=== PATIENT | female | born 1950 | race Caucasian/White ===

== ENCOUNTER → 2020-10-09 13:40 | Outpatient (BNVA) | payer MEDICARE, SELFPAY | PROVIDERS: PCP Internal Medicine; Visit Provider Urology | DX: N39.41 Urge incontinence (principal); R35.0 Frequency of micturition | CPT/HCPCS: 51798; 81002; 99212 ==

== ENCOUNTER 2020-11-11 11:53 | Outpatient (REF) | payer MEDICARE, SELFPAY ==
[2020-11-11 13:57] LABS: MANUAL DIFF FLAG NO
[2020-11-11 14:16] LABS: Basophils Percent Auto 0.6 % (0-2); Eosinophils Absolute Auto 0.4 X10*3/uL (0.0-0.4); Eosinophils Percent Auto 7.6 % (0-4); Hematocrit 43.7 % (37-47); Hemoglobin 14.8 g/dl (12.0-16.0); Imm Gran Abs Auto 0.01 X10*3/uL (0.00-0.03); Imm Gran Pct Auto 0.2 % (0.0-0.4); Lymphocytes Absolute Auto 1.5 X10*3/uL (1.2-4.9); Lymphocytes Percent Auto 31.2 % (20-40); Mean Corpuscular HGB Conc 33.9 g/dl (31.0-35.0); Mean Corpuscular Hemoglobin 33.6 pg (27.0-33.0); Mean Corpuscular Volume 99.1 fL (80-98); Mean Platelet Volume 10.7 fL (9.4-12.3); Monocytes Absolute Auto 0.3 X10*3/uL (0.1-1.2); Monocytes Percent Auto 5.7 % (2-11); Neutrophils Absolute Auto 2.6 X10*3/uL (2.0-8.3); Neutrophils Percent Auto 54.7 % (45-73); Platelet Count 228 X10*3/uL (160-400); Red Blood Count 4.41 X10*6/uL (4.20-5.50); Red Cell Distribution Width 12.2 % (11.0-16.0); White Blood Count 4.8 X10*3/uL (4.8-10.8)
[2020-11-11 14:51] LABS: Alanine Aminotransferase 26 U/L (0-31); Alkaline Phosphatase 89 U/L (39-117); Aspartate Amino Transferase 24 U/L (5-31); Bilirubin Total 0.6 mg/dL (0.0-1.0); Blood Urea Nitrogen 17 mg/dL (9-16); Calcium 8.9 mg/dL (8.4-10.2); Cholesterol 158 mg/dL; Estimated Glomerular Filt Rate > 60; Glucose Fasting 86 mg/dL (60-99); HDL Cholesterol 63 mg/dL; LDL Cholesterol Calculated 84 mg/dl; Total Protein 6.6 g/dL (6.5-8.0); Triglycerides 55 mg/dL
[2020-11-11 15:11] LABS: Anion Gap 10 (12-20); Carbon Dioxide 29 mmol/L (22-29); Chloride 106 mmol/L (96-108); Potassium 4.2 mmol/L (3.3-5.1); Sodium 141 mmol/L (135-145)
== END 2020-11-11 11:54 | disposition home or self-care (01) ==
LOC: HO.10HDL 11:53
PROVIDERS: Visit Provider Internal Medicine
DX: I10 Essential (primary) hypertension (principal); E78.00 Pure hypercholesterolemia, unspecified; K21.9 Gastro-esophageal reflux disease without esophagitis; Z86.73 Personal history of transient ischemic attack (TIA), and cerebral infarction without residual deficits
CPT/HCPCS: 36415; 80053; 80061; 85025

== ENCOUNTER 2021-02-01 17:52 | Outpatient (REF) | payer MEDICARE, SELFPAY ==
--- NOTE | ~2021-02-01 | XR_ITS ---
EXAMINATION: XR HAND, LEFT CLINICAL INFORMATION: Pain left hand. COMPARISON: None. TECHNIQUE: PA, lateral, and oblique views of the left hand. FINDINGS: There is loss of PIP and DIP joint spaces with maintained MCP joint space. There is dorsal subluxation of PIP joint 3rd digit with a small avulsion fracture fragment at the base of mid phalanx PIP joint. Mild prominent soft tissue swelling seen at PIP joints. There is mild flexion deformities of MCP joints 2nd through 5th digits. XR/XR hand LT min 3V IMPRESSION: Dorsal subluxation PIP joint 3rd digit with likely small avulsion fracture fragment base middle phalanx at the PIP joint 3rd digit. Mild degenerative changes seen throughout PIP and DIP joints. There is mild flexion deformities of MCP joints 2nd through 5th digits.
== END 2021-02-01 17:53 | disposition home or self-care (01) ==
LOC: HO.HOSX 17:52
PROVIDERS: Visit Provider Orthopaedic Surgery
DX: M79.642 Pain in left hand (principal); S62.623A Displaced fracture of middle phalanx of left middle finger, initial encounter for closed fracture; S63.283A Dislocation of proximal interphalangeal joint of left middle finger, initial encounter; X58.XXXA Exposure to other specified factors, initial encounter; Y93.9 Activity, unspecified; Y92.9 Unspecified place or not applicable; Y99.9 Unspecified external cause status
CPT/HCPCS: 73130

== ENCOUNTER 2021-02-02 08:33 | Outpatient (REF) | payer MEDICARE, BC, SELFPAY ==
--- NOTE | ~2021-02-02 | XR_ITS ---
EXAMINATION: XR SHOULDER, RIGHT CLINICAL INFORMATION: Right shoulder pain. COMPARISON: None. TECHNIQUE: AP external rotation, Grashey, scapular Y, and axillary views of the right shoulder. FINDINGS: There is normal alignment of glenohumeral joint with minimal loss of joint space. No visible fracture, loose bodies or bony erosive changes seen. Mild hypertrophic changes along the right AC joint is noted. There is no soft tissue calcification. XR/XR shoulder RT min 2V IMPRESSION: Mild degenerative changes right glenohumeral and AC joint. No visible acute fracture, dislocation or lytic process seen.
== END 2021-02-02 08:34 | disposition home or self-care (01) ==
LOC: HO.XRAY 08:33
PROVIDERS: Absent Provider Internal Medicine; PCP Internal Medicine; Visit Provider Orthopaedic Surgery
DX: S63.283A Dislocation of proximal interphalangeal joint of left middle finger, initial encounter (principal); S62.623A Displaced fracture of middle phalanx of left middle finger, initial encounter for closed fracture; M25.511 Pain in right shoulder; Z91.81 History of falling
CPT/HCPCS: 26770; 73030; 99202

== ENCOUNTER 2021-02-23 08:03 | Outpatient (REF) | payer MEDICARE, BC, SELFPAY ==
--- NOTE | ~2021-02-23 | XR_ITS ---
EXAMINATION: XR HAND, LEFT CLINICAL INFORMATION: Pain COMPARISON: Previous x-ray 02/02/2021 TECHNIQUE: PA, lateral, and oblique views of the left hand. FINDINGS: There is a fracture of the middle phalanx of the third finger intra-articular with the PIP joint. There is dorsal dislocation of the middle phalanx with respect to the proximal phalanx at the PIP joint. This is similar to previous exam. There are contractures of the third fourth and fifth fingers. There is a flexion at the IP joint of the thumb. There is soft tissue swelling adjacent to the PIP joint of the third finger. XR/XR hand LT min 3V IMPRESSION: Fracture dislocation of the PIP joint of the third finger. This is similar to previous x-ray 02/02/2021.
== END 2021-02-23 08:04 | disposition home or self-care (01) ==
LOC: HO.HOSX 08:03
PROVIDERS: Visit Provider Orthopaedic Surgery
DX: S62.623A Displaced fracture of middle phalanx of left middle finger, initial encounter for closed fracture (principal); S63.283A Dislocation of proximal interphalangeal joint of left middle finger, initial encounter; I69.998 Other sequelae following unspecified cerebrovascular disease; X58.XXXA Exposure to other specified factors, initial encounter; Y93.9 Activity, unspecified; Y92.9 Unspecified place or not applicable; Y99.9 Unspecified external cause status
CPT/HCPCS: 73130; 99212

== ENCOUNTER 2021-02-26 11:57 | Outpatient (REF) | payer MEDICARE, BC, SELFPAY ==
[2021-02-26 12:41] LABS: MANUAL DIFF FLAG NO
[2021-02-26 12:59] LABS: Basophils Percent Auto 0.5 % (0-2); Eosinophils Absolute Auto 0.3 X10*3/uL (0.0-0.4); Eosinophils Percent Auto 5.8 % (0-4); Hematocrit 43.4 % (37-47); Hemoglobin 14.9 g/dl (12.0-16.0); Imm Gran Abs Auto 0.01 X10*3/uL (0.00-0.03); Imm Gran Pct Auto 0.2 % (0.0-0.4); Lymphocytes Absolute Auto 1.6 X10*3/uL (1.2-4.9); Lymphocytes Percent Auto 28.7 % (20-40); Mean Corpuscular HGB Conc 34.3 g/dl (31.0-35.0); Mean Corpuscular Hemoglobin 34.5 pg (27.0-33.0); Mean Corpuscular Volume 100.5 fL (80-98); Mean Platelet Volume 9.9 fL (9.4-12.3); Monocytes Absolute Auto 0.4 X10*3/uL (0.1-1.2); Monocytes Percent Auto 7.1 % (2-11); Neutrophils Absolute Auto 3.3 X10*3/uL (2.0-8.3); Neutrophils Percent Auto 57.7 % (45-73); Platelet Count 214 X10*3/uL (160-400); Red Blood Count 4.32 X10*6/uL (4.20-5.50); Red Cell Distribution Width 12.2 % (11.0-16.0); White Blood Count 5.7 X10*3/uL (4.8-10.8)
[2021-02-26 13:22] LABS: Alanine Aminotransferase 25 U/L (0-31); Albumin Level 4.3 g/dL (3.5-5.0); Alkaline Phosphatase 91 U/L (39-117); Anion Gap 9 (12-20); Aspartate Amino Transferase 24 U/L (5-31); Bilirubin Total 0.6 mg/dL (0.0-1.0); Blood Urea Nitrogen 18 mg/dL (9-16); Calcium 9.2 mg/dL (8.4-10.2); Carbon Dioxide 31 mmol/L (22-29); Chloride 106 mmol/L (96-108); Estimated Glomerular Filt Rate > 60; Glucose Random 90 mg/dL (60-115); Potassium 3.9 mmol/L (3.3-5.1); Sodium 142 mmol/L (135-145); Total Protein 6.9 g/dL (6.5-8.0)
== END 2021-02-26 11:58 | disposition home or self-care (01) ==
LOC: HO.LAB 11:57
PROVIDERS: PCP Internal Medicine; Visit Provider Internal Medicine
DX: Z01.818 Encounter for other preprocedural examination (principal); I10 Essential (primary) hypertension; E78.00 Pure hypercholesterolemia, unspecified; Z86.73 Personal history of transient ischemic attack (TIA), and cerebral infarction without residual deficits
CPT/HCPCS: 36415; 80053; 85025

== ENCOUNTER 2021-03-02 10:50 | Day surgery (SDC) | payer MEDICARE, BC, SELFPAY ==
--- NOTE | 2021-03-01 10:43 | HO.ANESPROP2 ---
Documented by User: Melony Barrera 03/01/21 10:48 HPI - Anesthesia Eval Consult details Narrative: 70yo F for Left Middle Finger ORIF vs Closed PIP Joint PMHx updated based on rx list. PMFSH Active Problems Active Problems: All Active Problems (Updated 02/02/21 @ 09:38 by Mera Ross MD) Fracture of middle phalanx of left middle finger (Acute) Dislocation of proximal interphalangeal joint of left middle finger, initial encounter (Acute) Urge incontinence (Acute) Frequency of urination (Acute) Past Medical History Medical History Frequency of urination GERD (gastroesophageal reflux disease) HLD (hyperlipidemia) HTN (hypertension) Urge incontinence Social History Social History Alcohol intake: never Patient Tobacco Use Status: Never used Tobacco Use of substances other than those prescribed or required for medical reasons: No Have you been hit, kicked, punched, or otherwise hurt by someone within the past year? If so, by whom?: No Are you DNR?: No Advance Directives: No Advance Directives Information Provided: Yes Recently lost weight without trying: No Current occupation: right handed. Meds Allergies Allergy/AdvReac Type Severity Reaction Status Date / Time hydrochlorothiazide [HCTZ] Allergy Unknown ITCHING, Verified 02/23/21 08:55 itch Home Medications Medication Instructions Recorded Confirmed Last Taken Type cyclosporine 0.05 % eye drops in a drp OPHTHALMIC (EYE) 10/09/20 Unknown History dropperette amlodipine 5 mg tablet 5 mg PO DAILY 02/02/21 03/02/21 History baclofen 20 mg tablet 20 mg PO TID 02/02/21 03/02/21 History citalopram 10 mg tablet 10 mg PO DAILY 02/02/21 Unknown History estradiol VAGINAL 02/02/21 Unknown History omeprazole 20 mg capsule,delayed 20 mg PO DAILY 02/02/21 03/02/21 History release simvastatin 20 mg tablet 20 mg PO BEDTIME 02/02/21 Unknown History Exam Exam Date and Time: March 01, 2021 1043 Pertinent Lab Results Pertinent Lab Results: Laboratory Tests 02/26/21 02/26/21 12:16 12:16 WBC 5.7 Hgb 14.9 Hct 43.4 Plt Count 214 Sodium 142 Potassium 3.9 Chloride 106 Carbon Dioxide 31 H BUN 18 H Creatinine 0.73 Assessment and Plan Assessment Anesthesia Assessment: Chart Reviewed Documented by User: Elmer Keith 03/02/21 14:49 [facility] Past Medical History Medical History Frequency of urination GERD (gastroesophageal reflux disease) HLD (hyperlipidemia) HTN (hypertension) Urge incontinence Social History Social History Alcohol intake: never Patient Tobacco Use Status: Never used Tobacco Use of substances other than those prescribed or required for medical reasons: No Have you been hit, kicked, punched, or otherwise hurt by someone within the past year? If so, by whom?: No Are you DNR?: No Advance Directives: No Advance Directives Information Provided: Yes Recently lost weight without trying: No Current occupation: right handed. Meds Allergies Allergy/AdvReac Type Severity Reaction Status Date / Time hydrochlorothiazide [HCTZ] Allergy Unknown ITCHING, Verified 02/23/21 08:55 itch Home Medications Medication Instructions Recorded Confirmed Last Taken Type cyclosporine 0.05 % eye drops in a drp OPHTHALMIC (EYE) 10/09/20 Unknown History dropperette amlodipine 5 mg tablet 5 mg PO DAILY 02/02/21 03/02/21 History baclofen 20 mg tablet 20 mg PO TID 02/02/21 03/02/21 History citalopram 10 mg tablet 10 mg PO DAILY 02/02/21 Unknown History estradiol VAGINAL 02/02/21 Unknown History omeprazole 20 mg capsule,delayed 20 mg PO DAILY 02/02/21 03/02/21 History release simvastatin 20 mg tablet 20 mg PO BEDTIME 02/02/21 Unknown History Exam Airway Mallampati Class: III TM Dist: >3cm Neck ROM: Full Loose/Missing/Broken Teeth: No Heart: [id number] Lungs: cta b/l Assessment and Plan Assessment Anesthesia Assessment: Anesthesia Plan Discussed, PAT Visit and Chart Reviewed Final Anesthetic Review NPO: Yes ASA Class: II Final Preanesthetic Review: No Changes in Pt Med Stat, Meds/Allgs Chart Reviewed, Consent Obtained/Reviewed and Anes Risks/Benef Reviewed Patient Risk: Low Procedure Risk: Low Assessment/Block/Sedation in SS: Assess/Block/Sedation-SS Anesthetic Plan Anesthetic Plan: GA and Agree w/ Assess. and Plan Disposition: Standard PACU
--- NOTE | ~2021-03-02 | FL_ITS ---
EXAMINATION: XR FLUOROSCOPY WITH IMAGES CLINICAL INFORMATION: Fracture and dislocation left third finger middle phalanx. COMPARISON: Radiographs left hand 02/23/2021, 02/02/2021 TECHNIQUE: Fluoroscopy performed by Dr. Mera Ross. Fluoroscopy time: 53 seconds. DAP: 24.48 mGycm2 Images: 2 FINDINGS: The third finger middle phalanx fracture and dislocation are reduced with 2 metallic pins. There is normal alignment with no subluxation or dislocation. Fracture fragments are in near-anatomic alignment. There are some old corticated ossifications at the palmar base again noted. FL/FL guidance in OR IMPRESSION: Status post reduction third finger middle phalanx. Fragments are in near-anatomic alignment. No dislocation or subluxation.
[2021-03-02 11:57] VITALS: BP 106/55; PULSE 67; RESP 20; TEMP 36.8; O2SAT 95; BMI 33.9
[2021-03-02] MEDS: Lactated Ringers 1,000 ML 100 ML IVCONT (12:15)
--- NOTE | 2021-03-02 12:58 | MHC.SHP ---
Pre-Procedural Eval Section B Chief Complaint: finger fx Allergies: Allergies Allergy/AdvReac Type Severity Reaction Status Date / Time hydrochlorothiazide [HCTZ] Allergy Unknown ITCHING, Verified 02/23/21 08:55 itch Plan I have reviewed the history and physical and performed a pertinent physical examination on my patient. No changes have occurred unless specified.
--- NOTE | 2021-03-02 12:58 | W.PM.OPN ---
Operative Note Operative Note Date of Service: 03/02/21 Narrative: Operative Note Narrative: Preop diagnosis: 1. 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 Left middle finger PIP joint closed reduction percutaneous pinning Surgeon: Mera Ross MD Anesthesia: Mac plus regional block Implants: 0.045 K-wires x2 Tourniquet time: 0 minutes EBL: 5.0 ml Specimen: None Drains: None Complications: None Disposition: Brought to the recovery room in stable condition Plan: Follow-up in 10-14 days for wound check, postop radiographs and placement in a short-arm splint versus cast Anticipate K-wire removal in 6 weeks . Again patient has involuntary hyper extension of the PIP joints secondary to neurologic changes from her stroke Indications: The patient is a 70 year old woman with a left middle finger recurrent dorsal PIP dislocation in a patient with involuntary PIP joint hyperextension secondary to neurologic changes from her stroke. . The risks and benefits of operative treatment, including but not limited to risk of damage to blood vessels, nerves, tendons, infection, recurrence, persistent pain or numbness, incomplete resolution of preoperative symptoms, or need for further surgery were discussed with the patient and they wished to proceed with surgery. Procedure: Once consent was obtained patient was brought back to the operating suite and placed in the operating table in a supine position. Perioperative antibiotics and anesthesia was administered by the anesthesia team. A tourniquet was applied to the proximal aspect of the left upper extremity and the limb was prepped and draped in a standard surgical fashion. The tourniquet was not inflated. The FluoroScan was used throughout our case to assess our reduction and placement of all implants. I performed a gentle closed reduction of the patient's left middle finger PIP joint. While holding the reduction, I then placed a 0.045 K-wire through the head of the proximal phalanx, across the PIP joint and into the shaft of the middle phalanx. The PIP joint was held in about 45? of flexion. Second 0.045 K-wire was placed similarly through the head of the proximal phalanx, across the PIP joint and into the shaft of the middle phalanx. Once satisfied with our reduction and placement of these K-wires the pins were bent cut short and had pin caps applied. Final radiographs were obtained. A digital block was performed with some 0.25% plain Marcaine for postop pain control and a sterile dressing and volar splint extending from the forearm to the fingertips was applied. The patient appears to have tolerated the procedure well and with no complications. All digits were well vascularized conclusion of the case.
[2021-03-02 16:19] VITALS: BP 173/87; PULSE 65; RESP 12; TEMP 36.7; O2SAT 96
[2021-03-02 16:24] VITALS: BP 167/72; PULSE 60; RESP 16; O2SAT 100
[2021-03-02 16:29] VITALS: BP 162/73; PULSE 57; RESP 16; O2SAT 97
[2021-03-02 16:34] VITALS: BP 161/68; PULSE 59; RESP 16; O2SAT 97
[2021-03-02 16:49] VITALS: BP 168/70; PULSE 59; RESP 18; O2SAT 100
== END 2021-03-02 17:21 | disposition home or self-care (01) ==
PROVIDERS: PCP Internal Medicine; Visit Provider Orthopaedic Surgery
PROC: (CPT 26776; principal; 2021-03-02 14:00)
DX: M24.445 Recurrent dislocation, left finger (principal); I69.398 Other sequelae of cerebral infarction
CPT/HCPCS: 26776; J0690; J2250; J3010

== ENCOUNTER 2021-03-15 09:05 | Outpatient (REF) | payer MEDICARE, BC, SELFPAY ==
--- NOTE | ~2021-03-15 | XR_ITS ---
EXAMINATION: XR HAND, LEFT CLINICAL INFORMATION: Pain COMPARISON: Previous x-rays most recent 03/02/2021 TECHNIQUE: PA, lateral, and oblique views of the left hand. FINDINGS: There are 2 K wires or pins across the proximal PIP joint and middle phalanx of the third finger. The PIP joint of the third finger appears in flexion on all views. The fracture of the middle phalanx intra-articular with the PIP joint is not well appreciated. There is overlying soft tissue swelling. XR/XR hand LT min 3V IMPRESSION: ORIF of a middle phalanx fracture of the right third finger.
== END 2021-03-15 09:06 | disposition home or self-care (01) ==
LOC: HO.HOSX 09:05
PROVIDERS: Visit Provider Orthopaedic Surgery
DX: S62.623D Displaced fracture of middle phalanx of left middle finger, subsequent encounter for fracture with routine healing (principal); X58.XXXD Exposure to other specified factors, subsequent encounter
CPT/HCPCS: 73130; 99212

== ENCOUNTER → 2021-04-14 15:24 | Outpatient (BNVA) | payer MEDICARE, BC, SELFPAY | PROVIDERS: Visit Provider Physician Assistant | DX: Z47.1 Aftercare following joint replacement surgery (principal); I10 Essential (primary) hypertension; E78.5 Hyperlipidemia, unspecified; Z88.8 Allergy status to other drugs, medicaments and biological substances | CPT/HCPCS: 99212 ==

== ENCOUNTER 2021-04-19 11:54 | Outpatient (REF) | payer MEDICARE, BC, SELFPAY | END 2021-04-19 11:55 | disposition home or self-care (01) | LOC: HO.HOSX 11:54 | PROVIDERS: Visit Provider Orthopaedic Surgery | DX: Z13.89 Encounter for screening for other disorder (principal) ==

== ENCOUNTER 2021-04-19 13:01 | Emergency (ER) | payer MEDICARE, BC, SELFPAY ==
--- NOTE | ~2021-04-19 | XR_ITS ---
EXAMINATION: LEFT SHOULDER. HUMERUS X-RAY CLINICAL INFORMATION: Fall. Pain. COMPARISON: None TECHNIQUE: 3 views of the left shoulder and 2 views of the left humerus FINDINGS: There is a nondisplaced left surgical humeral neck fracture. Glenohumeral alignment is normal. There is mild arthritis at the acromioclavicular joint. The elbow joint is normal. Soft tissues are normal. XR/XR humerus LT IMPRESSION: Nondisplaced humeral neck fracture.
--- NOTE | ~2021-04-19 | XR_ITS ---
EXAMINATION: LEFT SHOULDER. HUMERUS X-RAY CLINICAL INFORMATION: Fall. Pain. COMPARISON: None TECHNIQUE: 3 views of the left shoulder and 2 views of the left humerus FINDINGS: There is a nondisplaced left surgical humeral neck fracture. Glenohumeral alignment is normal. There is mild arthritis at the acromioclavicular joint. The elbow joint is normal. Soft tissues are normal. XR/XR shoulder LT min 2V IMPRESSION: Nondisplaced humeral neck fracture.
[2021-04-19 13:09] VITALS: BP 152/75; PULSE 67; RESP 16; TEMP 36.8; O2SAT 96; BMI 34.9
--- NOTE | 2021-04-19 13:18 | ED_ITS ---
HPI - General Adult General Chief complaint: Fall Stated complaint: L ARM/SHOULDER PAIN [facility] Time Seen by Provider: 04/19/21 13:07 Source: patient Mode of arrival: EMS Limitations: no limitations History of Present Illness HPI narrative: 70-year-old female who presents emergency department for evaluation of injuries to her left arm secondary to a fall. Patient states she was at [employer] buying pet food. She states that there were several tiles missing on the floor and she tripped over this area of falling on her left side. She currently is complaining of left shoulder pain and left upper arm pain. The pain is a constant pain which is moderate in intensity, worse with movement. The patient states that she had a stroke 45 years ago and has limited mobility of her left arm. She states that she also has left him of the left arm. The patient had a recent fracture of her left middle finger requiring surgical repair on 03/02/[address] Ross. She states she was scheduled today for follow-up appointment with Dr. Ross. Related Data Home Medications Medication Instructions Recorded Confirmed cyclosporine 0.05 % eye drops in a drp OPHTHALMIC (EYE) 10/09/20 dropperette amlodipine 5 mg tablet 5 mg PO DAILY 02/02/21 baclofen 20 mg tablet 20 mg PO TID 02/02/21 citalopram 10 mg tablet 10 mg PO DAILY 02/02/21 estradiol VAGINAL 02/02/21 omeprazole 20 mg capsule,delayed 20 mg PO DAILY 02/02/21 release simvastatin 20 mg tablet 20 mg PO BEDTIME 02/02/21 Previous Rx's Medication Instructions Recorded mirabegron 50 mg tablet,extended 50 mg PO DAILY #30 tab 10/09/20 release 24 hr oxybutynin chloride 10 % (100 1 packet TRANSDERMAL DAILY 90 Days 10/16/20 mg/gram) transdermal gel packet #90 g mirabegron 50 mg tablet,extended 50 mg PO BID 90 Days #180 tab 02/24/21 release 24 hr hydrocodone 5 mg-acetaminophen 325 1 - 2 tab PO Q6H PRN #20 tab 03/02/21 mg tablet oxycodone 5 mg PO Q4H PRN #14 tab 04/19/21 Allergies Allergy/AdvReac Type Severity Reaction Status Date / Time hydrochlorothiazide [HCTZ] Allergy Unknown ITCHING, Verified 03/15/21 11:54 itch Review of Systems Review of Systems: Yes all other systems are reviewed and are negative [facility] Past Medical History [facility] Narrative: Surgical history: She denies tobacco, alcohol and drug use Medical History Frequency of urination GERD (gastroesophageal reflux disease) HLD (hyperlipidemia) HTN (hypertension) Urge incontinence Social History Social History Alcohol intake: never Patient Tobacco Use Status: Never used Tobacco Advance Directives: No Advance Directives Information Provided: No Current occupation: right handed. Physical Exam Vital Signs: Vital Signs: Last Vital Signs Temp 98.2 F 04/19/21 13:09 Pulse 67 04/19/21 13:09 Resp 16 04/19/21 13:09 BP 152/75 H 04/19/21 13:09 Pulse Ox 96 04/19/21 13:09 Body Mass Index 34.9 Const: Other: Very pleasant and cooperative female, does not appear to be in distress. Answers all questions appropriately. HENMT: Head: Yes normal to inspection, Yes normocephalic and Yes atraumatic Ears: external ears normal General nose exam: Normal external nose present Face and sinus: Yes normal facial exam Mouth: Normal oral and palatal mucosa present Throat: Yes posterior oropharynx normal Eyes: Periorbital: periorbital findings normal Eyelids: Yes eyelids normal Conjunctivae: conjunctivae normal Sclerae: sclerae normal Corneas: corneas normal Pupils: Equal, round and reactive pupils present Direct Ophthalmoscopy: normal light reflex Neck: Neck: Yes full ROM, Yes no lymphadenopathy, Yes no meningeal signs, Yes trachea midline and Yes supple Chest: Chest palpation & inspection: normal inspection of the chest and normal palpation of entire chest wall Resp: Effort & Inspection: normal respiratory effort and able to speak in complete sentences Auscultation: clear to auscultation bilaterally Cardio: Rate: regular rate Rhythm: regular rhythm Heart sounds: S1 normal heart sound present, S2 normal heart sound present and no murmurs GI: Inspection: Yes normal to inspection Palpation (GI): Soft to palpation, nontender, no guarding, not rigid and No hepatosplenomegaly present : General: Yes no CVA tenderness Back/Spine/Pelvis: Back: no CVA tenderness Cervical Spine: normal cervical lordosis Thoracic/Lumbar Spine: thoracic and lumbar spine normal to inspection Skin: Lesions: no lesions Rashes: no rashes Wounds: no wounds Neuro: General: no meningeal signs Cranial nerves: Yes CN's II-XII intact bilaterally and Yes Equal, round and reactive pupils present Cognition (Neuro): normal cognition Motor exam (neuro): 5/5 motor strength present throughout Extrem: Other: The patient has lymphedema of her left extremity, she is in a splint secondary to her recent left middle finger surgery. She has tenderness with palpation of her shoulder and proximal humerus. Psych: Appearance: well kempt Mental Status: mental status grossly normal Speech and movement: Normal speech and movement present Affect: normal affect Attitude: cooperative Thought process: Normal thought process present Thought content: Normal thought content present Course Course Course Narrative: 70-year-old female who presents emergency department for evaluation of injury to her left arm secondary to fall. Patient has chronic lymphedema in weakness of her left arm secondary to stroke, she also has a splint on her left hand secondary to her recent middle finger fracture requiring surgical repair. Her exam did reveal tenderness with palpation of her left shoulder and left proximal humerus. I ordered x-rays of the patient's left shoulder and left humerus. She was given Tylenol 975 mg orally for pain. 1458: The x-ray of the patient's left shoulder revealed a nondisplaced humeral neck fracture. The patient was placed in a sling. The patient was advised to take Tylenol for pain. For pain not relieved by Tylenol she was prescribed oxycodone 5 mg every 4-6 hours as needed for pain. She was advised to contact Dr. Frank's office in the morning for follow-up. Discharge Plan Discharge Clinical Impression: Fall, Closed fracture of surgical neck of humerus Patient Disposition: Home, Self-Care Instructions: Proximal Humerus Fracture (ED) Additional Instructions: Your have a closed, 2 part, nondisplaced humeral neck fracture of your left arm. The treatment is to wear the sling for 2-4 weeks until the fracture heals. Apply ice for 10-15 minutes 4 to 6 times a day to your shoulder and to other areas on your body that were heard from the fall. Take Tylenol (acetaminophen) 500 mg pills, 2 pills every 4 to 6 hours as needed for pain. For pain not relieved by Tylenol, take oxycodone 5 mg pills, 1 pill every 4-6 hours as needed for pain. Call your orthopedic doctor tomorrow to discuss follow-up for your finger and for your humerus fracture. Please return to the emergency department if your symptoms get worse or if you develop any symptoms that are concerning to you. Prescriptions: New oxycodone 5 mg tablet 5 mg PO Q4H PRN (Reason: pain) Qty: 14 RF: 0 No Action Gelnique 10 % (100 mg/gram) gel in packet 1 packet transdermal DAILY 90 Days Qty: 90 RF: 0 Myrbetriq 50 mg tablet extended release 24 hr 50 mg PO BID 90 Days Qty: 180 RF: 1 hydrocodone-acetaminophen 5-325 mg tablet 1 - 2 tab PO Q6H PRN (Reason: pain) Qty: 20 RF: 0 amlodipine 5 mg tablet 5 mg PO DAILY RF: 0 omeprazole 20 mg capsule,delayed release(DR/EC) 20 mg PO DAILY RF: 0 baclofen 20 mg tablet 20 mg PO TID RF: 0 citalopram 10 mg tablet 10 mg PO DAILY RF: 0 Estring 2 mg (7.5 mcg /24 hour) ring vaginal RF: 0 simvastatin 20 mg tablet 20 mg PO BEDTIME RF: 0 Myrbetriq 50 mg tablet extended release 24 hr 50 mg PO DAILY Qty: 30 RF: 6 Referrals: Mera Ross MD [Physician] - 2 days (Fall, closed, 2 part, nondisplaced, left proximal humerus fracture at the surgical neck)
[2021-04-19] MEDS: Acetaminophen 325 MG TABLET 975 MG PO (13:50)
== END 2021-04-19 15:15 | disposition home or self-care (01) ==
PROVIDERS: Emergency Provider Emergency Medicine Emergency Medical Services; PCP Internal Medicine
DX: S42.225A 2-part nondisplaced fracture of surgical neck of left humerus, initial encounter for closed fracture (principal); W01.0XXA Fall on same level from slipping, tripping and stumbling without subsequent striking against object, initial encounter; Y93.89 Activity, other specified; Y92.512 Supermarket, store or market as the place of occurrence of the external cause; Y99.8 Other external cause status
CPT/HCPCS: 73030; 73060; 99283

== ENCOUNTER 2021-04-20 10:59 | Outpatient (REF) | payer MEDICARE, BC, SELFPAY ==
--- NOTE | ~2021-04-20 | XR_ITS ---
EXAMINATION: XR HAND, LEFT CLINICAL INFORMATION: ORIF middle phalanx third finger. Follow-up. COMPARISON: Radiographs left hand 03/15/2021, 02/02/2021 TECHNIQUE: Left hand is imaged in 3 views. FINDINGS: There are 2 intact metallic pins fixing the third finger PIP joint. Normal alignment. Fracture fragment at base middle phalanx is in near-anatomic alignment. Fracture line still visible. No destructive process or periostitis. XR/XR hand LT min 3V IMPRESSION: 1. Alignment stable from prior exam. Hardware intact. 2. Fracture line palmar base middle phalanx still visible.
== END 2021-04-20 11:00 | disposition home or self-care (01) ==
LOC: HO.HOSX 10:59
PROVIDERS: Visit Provider Orthopaedic Surgery
DX: S62.623A Displaced fracture of middle phalanx of left middle finger, initial encounter for closed fracture (principal); S63.283A Dislocation of proximal interphalangeal joint of left middle finger, initial encounter
CPT/HCPCS: 73130; 99212

== ENCOUNTER → 2021-04-26 11:02 | Outpatient (BNVA) | payer MEDICARE, BC, SELFPAY | PROVIDERS: Visit Provider Orthopaedic Surgery | DX: S42.202A Unspecified fracture of upper end of left humerus, initial encounter for closed fracture (principal) | CPT/HCPCS: 99212 ==

== ENCOUNTER 2021-05-27 09:08 | Outpatient (REF) | payer MEDICARE, BC, SELFPAY ==
--- NOTE | ~2021-05-27 | XR_ITS ---
EXAMINATION: XR HAND, LEFT CLINICAL INFORMATION: Left hand pain COMPARISON: April 20, 2021 and March 15, 2021 TECHNIQUE: PA, lateral, and oblique views of the left hand. FINDINGS: There is diffuse osteopenia of the visualized bones. Healed fracture base of the third middle phalanx noted. Pins have been removed since previous examination. There is some degenerative narrowing and spurring about the third proximal interphalangeal joint as well as a fifth proximal interphalangeal joint no acute fracture is identified. XR/XR hand LT min 3V IMPRESSION: Diffuse osteopenia of the left hand. No acute fracture or dislocation evident.
== END 2021-05-27 09:09 | disposition home or self-care (01) ==
LOC: HO.HOSX 09:08
PROVIDERS: Visit Provider Orthopaedic Surgery
DX: S62.623A Displaced fracture of middle phalanx of left middle finger, initial encounter for closed fracture (principal); S63.283A Dislocation of proximal interphalangeal joint of left middle finger, initial encounter
CPT/HCPCS: 73130; 99212

== ENCOUNTER 2021-05-28 10:38 | Outpatient (REF) | payer MEDICARE, BC, SELFPAY ==
[2021-05-28 13:37] LABS: MANUAL DIFF FLAG NO
[2021-05-28 13:41] LABS: Basophils Percent Auto 0.6 % (0-2); Eosinophils Absolute Auto 0.3 X10*3/uL (0.0-0.4); Eosinophils Percent Auto 6.8 % (0-4); Hematocrit 42.6 % (37-47); Hemoglobin 14.7 g/dl (12.0-16.0); Imm Gran Abs Auto 0.02 X10*3/uL (0.00-0.03); Imm Gran Pct Auto 0.4 % (0.0-0.4); Lymphocytes Absolute Auto 1.5 X10*3/uL (1.2-4.9); Lymphocytes Percent Auto 30.4 % (20-40); Mean Corpuscular HGB Conc 34.5 g/dl (31.0-35.0); Mean Corpuscular Hemoglobin 34.7 pg (27.0-33.0); Mean Corpuscular Volume 100.5 fL (80-98); Mean Platelet Volume 10.7 fL (9.4-12.3); Monocytes Absolute Auto 0.4 X10*3/uL (0.1-1.2); Monocytes Percent Auto 7.9 % (2-11); Neutrophils Absolute Auto 2.6 X10*3/uL (2.0-8.3); Neutrophils Percent Auto 53.9 % (45-73); Platelet Count 219 X10*3/uL (160-400); Red Blood Count 4.24 X10*6/uL (4.20-5.50); Red Cell Distribution Width 12.5 % (11.0-16.0); White Blood Count 4.8 X10*3/uL (4.8-10.8)
[2021-05-28 14:00] LABS: Alanine Aminotransferase 24 U/L (0-31); Albumin Level 4.3 g/dL (3.5-5.0); Alkaline Phosphatase 105 U/L (39-117); Anion Gap 9 (12-20); Aspartate Amino Transferase 23 U/L (5-31); Bilirubin Total 0.6 mg/dL (0.0-1.0); Blood Urea Nitrogen 19 mg/dL (9-16); Calcium 9.9 mg/dL (8.4-10.2); Carbon Dioxide 34 mmol/L (22-29); Chloride 102 mmol/L (96-108); Estimated Glomerular Filt Rate > 60; Glucose Random 95 mg/dL (60-115); Potassium 3.7 mmol/L (3.3-5.1); Sodium 141 mmol/L (135-145); Total Protein 6.9 g/dL (6.5-8.0)
== END 2021-05-28 10:39 | disposition home or self-care (01) ==
LOC: HO.10HDL 10:38
PROVIDERS: Visit Provider Internal Medicine
DX: I10 Essential (primary) hypertension (principal); R60.9 Edema, unspecified; Z86.73 Personal history of transient ischemic attack (TIA), and cerebral infarction without residual deficits
CPT/HCPCS: 36415; 80053; 85025

== ENCOUNTER → 2021-07-13 11:17 | Outpatient (BNVA) | payer MEDICARE, BC, SELFPAY | PROVIDERS: PCP Internal Medicine | DX: N39.41 Urge incontinence (principal) | CPT/HCPCS: 51798; 99212 ==

== ENCOUNTER 2021-07-15 11:04 | Outpatient (REF) | payer MEDICARE, BC, SELFPAY ==
--- NOTE | ~2021-07-15 | XR_ITS ---
EXAMINATION: XR SHOULDER, LEFT CLINICAL INFORMATION: Pain; follow-up fracture proximal humerus. COMPARISON: Radiographs left shoulder and humerus 04/19/2021. TECHNIQUE: Left shoulder is imaged in 3 views. of the left shoulder. FINDINGS: There is known transverse fracture left humeral neck. There is some subtle callus formation around the fracture site. Fracture line is still visible. Fracture fragments are in near-anatomic alignment. No interval displacement or distraction. There is mild inferior subluxation of the humeral head within the glenoid fossa, likely related to hemarthrosis in the shoulder joint capsule. The acromioclavicular alignment is normal. Left lung apex is clear. There are old healed fractures posterior medial left sixth, seventh, eighth ribs. XR/XR shoulder LT min 2V IMPRESSION: 1. Healing fracture left humeral neck. No change in alignment. 2. Mild inferior subluxation humeral head within glenoid fossa, likely related to hemarthrosis in the joint capsule.
== END 2021-07-15 11:05 | disposition home or self-care (01) ==
LOC: HO.HOSX 11:04
PROVIDERS: PCP Internal Medicine; Visit Provider Orthopaedic Surgery
DX: S42.202A Unspecified fracture of upper end of left humerus, initial encounter for closed fracture (principal)
CPT/HCPCS: 73030; 99212

== ENCOUNTER → 2021-08-03 11:21 | Outpatient (BNVA) | payer MEDICARE, BC, SELFPAY | PROVIDERS: Visit Provider Orthopaedic Surgery | DX: S62.623D Displaced fracture of middle phalanx of left middle finger, subsequent encounter for fracture with routine healing (principal); S63.283D Dislocation of proximal interphalangeal joint of left middle finger, subsequent encounter; M62.40 Contracture of muscle, unspecified site | CPT/HCPCS: 99212 ==

== ENCOUNTER → 2021-08-06 13:52 | Outpatient (BNVA) | payer MEDICARE, BC, SELFPAY | PROVIDERS: Visit Provider Urology ==

== ENCOUNTER → 2021-09-03 11:45 | Outpatient (BNVA) | payer MEDICARE, BC, SELFPAY | DX: N39.41 Urge incontinence (principal); R35.0 Frequency of micturition | CPT/HCPCS: Q3014 ==

== ENCOUNTER 2021-09-13 12:09 | Outpatient (REF) | payer MEDICARE, BC, SELFPAY ==
--- NOTE | ~2021-09-13 | XR_ITS ---
EXAMINATION: XR SHOULDER, LEFT CLINICAL INFORMATION: Left shoulder pain. COMPARISON: 07/15/2021 TECHNIQUE: Three views of the left shoulder. FINDINGS: Varus impacted fracture of the left humeral neck is unchanged in alignment with increased osseous bridging. No new fractures. Mild osteoarthritis at the acromioclavicular and glenohumeral joints. Humeral head is appropriately situated at the glenoid. Soft tissues are unremarkable. XR/XR shoulder LT min 2V IMPRESSION: Progressive healing of the left humeral neck fracture.
== END 2021-09-13 12:10 | disposition home or self-care (01) ==
LOC: HO.HOSX 12:09
PROVIDERS: Visit Provider Orthopaedic Surgery
DX: M25.512 Pain in left shoulder (principal); S42.225D 2-part nondisplaced fracture of surgical neck of left humerus, subsequent encounter for fracture with routine healing; X58.XXXD Exposure to other specified factors, subsequent encounter; I10 Essential (primary) hypertension; E78.5 Hyperlipidemia, unspecified; Z88.8 Allergy status to other drugs, medicaments and biological substances
CPT/HCPCS: 73030; 99212

== ENCOUNTER 2021-10-12 09:13 | Outpatient (REF) | payer MEDICARE, BC, SELFPAY ==
--- NOTE | ~2021-10-12 | XR_ITS ---
EXAMINATION: XR HAND, LEFT CLINICAL INFORMATION: M79.642 - Pain in left hand COMPARISON: Radiographs left hand 05/27/2021, 04/20/2021, 03/15/2021, 02/23/2021 TECHNIQUE: PA, lateral, and oblique views of the left hand. FINDINGS: There is osseous union fracture base middle phalanx since 02/23/2021. There is mild residual post traumatic deformity palmar base similar to prior studies. There is no acute or healing fracture or dislocation or destructive process. Diffuse mild osteopenia areas chronic. XR/XR hand LT min 3V IMPRESSION: Healed fracture base third finger middle phalanx since 02/23/2021. No acute or healing fracture or destructive process.
== END 2021-10-12 09:14 | disposition home or self-care (01) ==
LOC: HO.HOSX 09:13
PROVIDERS: Visit Provider Orthopaedic Surgery
DX: M62.40 Contracture of muscle, unspecified site (principal); S62.623A Displaced fracture of middle phalanx of left middle finger, initial encounter for closed fracture; S63.283A Dislocation of proximal interphalangeal joint of left middle finger, initial encounter
CPT/HCPCS: 73130; 99212

== ENCOUNTER 2021-11-08 08:57 | Day surgery (SDC) | payer MEDICARE, BC, SELFPAY ==
--- NOTE | 2021-11-05 10:02 | HO.ANESPROP2 ---
Documented by User: Melony Barrera NP 11/05/21 10:03 HPI - Anesthesia Eval Consult details Narrative: 70yo F for Interstim Lead full replacement PMFSH Active Problems Active Problems: All Active Problems (Updated 08/03/21 @ 11:58 by Mera Ross MD) Intrinsic muscle tightness (Acute) Closed fracture of left proximal humerus (Acute) Fracture of middle phalanx of left middle finger (Acute) Dislocation of proximal interphalangeal joint of left middle finger, initial encounter (Acute) Urge incontinence (Acute) Frequency of urination (Acute) Past Medical History Medical History (Updated 11/08/21 @ 09:08 by Radha Galicia, RN) Frequency of urination GERD (gastroesophageal reflux disease) 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 Meds Allergies Allergy/AdvReac Type Severity Reaction Status Date / Time hydrochlorothiazide [HCTZ] Allergy Unknown ITCHING, Verified 11/08/21 09:20 itch Home Medications Medication Instructions Recorded Confirmed Last Taken Type cyclosporine 0.05 % eye drops in a drp OPHTHALMIC (EYE) 10/09/20 Unknown History dropperette amlodipine 5 mg tablet 5 mg PO DAILY 02/02/21 11/08/21 08:00 History baclofen 20 mg tablet 20 mg PO TID 02/02/21 11/08/21 08:00 History citalopram 10 mg tablet 10 mg PO DAILY 02/02/21 11/08/21 08:00 History estradiol VAGINAL 02/02/21 Unknown History omeprazole 20 mg capsule,delayed 20 mg PO DAILY 02/02/21 03/02/21 History release simvastatin 20 mg tablet 20 mg PO BEDTIME 02/02/21 Unknown History acetaminophen 500 mg tablet 500 mg PO BID 11/08/21 11/08/21 11/08/21 08:00 History calcium 11/08/21 Unknown History furosemide 40 mg tablet 2 tab PO DAILY 11/08/21 11/08/21 Unknown History multivitamin 1 tab PO DAILY 11/08/21 11/08/21 Unknown History Exam Exam Date and Time: November 05, 2021 1002 Pertinent Lab Results Pertinent Lab Results: Laboratory Tests 05/28/21 05/28/21 10:45 10:45 WBC 4.8 Hgb 14.7 Hct 42.6 Plt Count 219 Sodium 141 Potassium 3.7 Chloride 102 Carbon Dioxide 34 H BUN 19 H Creatinine 0.67 Assessment and Plan Assessment Anesthesia Assessment: Chart Reviewed Documented by User: Juan Francisco Griggs 11/08/21 11:32 HPI - Anesthesia Eval Consult details Narrative: 70yo F for Interstim Lead full replacement CVA many years ago , on aspirin , on hold for this procedure . 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 HLD (hyperlipidemia) HTN (hypertension) Urge incontinence Family History Family history of problems with anesthesia: No Surgical History Surgical History (Updated 11/08/21 @ 09:08 by Radha Galicia RN) Hx of hand surgery History of Problems with Anesthesia: No Social History Social History Alcohol intake: never Patient Tobacco Use Status: Never used Tobacco Use of substances other than those prescribed or required for medical reasons: Yes Substance Use Type Other:: cbd oil Substance Use Frequency: Occasionally Are you DNR?: No Advance Directives: No Advance Directives Information Provided: Yes Current occupational status: retired Current occupation: right handed. Meds Allergies Allergy/AdvReac Type Severity Reaction Status Date / Time hydrochlorothiazide [HCTZ] Allergy Unknown ITCHING, Verified 11/08/21 09:20 itch Home Medications Medication Instructions Recorded Confirmed Last Taken Type cyclosporine 0.05 % eye drops in a drp OPHTHALMIC (EYE) 10/09/20 Unknown History dropperette amlodipine 5 mg tablet 5 mg PO DAILY 02/02/21 11/08/21 08:00 History baclofen 20 mg tablet 20 mg PO TID 02/02/21 11/08/21 08:00 History citalopram 10 mg tablet 10 mg PO DAILY 02/02/21 11/08/21 08:00 History estradiol VAGINAL 02/02/21 Unknown History omeprazole 20 mg capsule,delayed 20 mg PO DAILY 02/02/21 03/02/21 History release simvastatin 20 mg tablet 20 mg PO BEDTIME 02/02/21 Unknown History acetaminophen 500 mg tablet 500 mg PO BID 11/08/21 11/08/21 11/08/21 08:00 History calcium 11/08/21 Unknown History furosemide 40 mg tablet 2 tab PO DAILY 11/08/21 11/08/21 Unknown History multivitamin 1 tab PO DAILY 11/08/21 11/08/21 Unknown History Exam Airway Mallampati Class: IV TM Dist: >3cm Neck ROM: Full Loose/Missing/Broken Teeth: Yes (Crowns ) Heart: rrr Lungs: bl breath sounds Assessment and Plan Final Anesthetic Review Family History of Problems with Anesthesia: No History of Problems with Anesthesia: No NPO: Yes ASA Class: III Final Preanesthetic Review: Meds/Allgs Chart Reviewed and Anes Risks/Benef Reviewed Patient Risk: High Procedure Risk: Intermediate Anesthetic Plan Anesthetic Plan: MAC: and Agree w/ Assess. and Plan Disposition: Standard PACU
[2021-11-08] VITALS (8 sets, daily range): BP systolic 119–152; BP diastolic 73–86; PULSE 54–71; RESP 14–20; TEMP 36.1–36.9; O2SAT 95–98; BMI 36.8
--- NOTE | ~2021-11-08 | FL_ITS ---
EXAMINATION: XR FLUOROSCOPY WITH IMAGES CLINICAL INFORMATION: InterStim lead replacement. COMPARISON: None. TECHNIQUE: Fluoroscopy performed by Dr. Adilson Hurt. Fluoroscopy time: 1 minute Dose: 1 mGy Images: 4 FINDINGS: Findings demonstrate a lead projecting over the right sacrum. FL/FL guidance in OR IMPRESSION: Fluoroscopy guidance for interstimulator lead replacement.
[2021-11-08] MEDS: Lactated Ringers 1,000 ML 100 ML IVCONT (09:50)
--- NOTE | 2021-11-08 10:42 | MHC.SHP ---
Pre-Procedural Eval Section A Date of Service: 11/08/21 The patient is an INPATIENT: No Changes since office visit: No Cold of Flu in the past 2 weeks, No New Medical Problems, No Changes in Medication and No Patient answered all questions The History & Physical has been completed within 30 days and I have reviewed it.: No Section B Chief Complaint: urge incontinence,frequent of micturition Details of Present Illness: plan for removal and exchange of InterStim lead and battery Relevant Family History (Specify if Yes): No Relevant Social History: None Present Medications: None Medical History: No relevant PMH History of Previous Operations: Relevant previous surgery/procedure and date(s) Allergies: Allergies Allergy/AdvReac Type Severity Reaction Status Date / Time hydrochlorothiazide [HCTZ] Allergy Unknown ITCHING, Verified 11/08/21 09:20 itch Review of Systems Sugical H&P ROS: Negative: Constitution, Cardiovascular, Respiratory, Neurological, Psychiatric, Hem-Onc, Allergic/Immunologic, Gastrointestinal, Genitourinary, Musculoskeletal, Integumentary, Endocrine and Eyes/Ears/Nose/Throat Exam Surgical H&P Exam: Normal: HEENT, Normal: Heart, Normal: Lungs, Normal: Extremities, Normal: Abdomen, Normal: Skin and Normal: Neurological Plan Diagnosis/Plan: Unchanged ( InterStim change in battery change exchange) I have reviewed the history and physical and performed a pertinent physical examination on my patient. No changes have occurred unless specified.
--- NOTE | 2021-11-08 12:23 | W.PM.OPN ---
Operative Note Operative Note Date of Service: 11/08/21 Narrative: PreOperative Diagnosis: overactive bladder with urinary urgency and frequency Post Operative Diagnosis: overactive bladder with urinary urgency and frequency Procedure: removal of InterStim lead, removal of InterStim battery,placement of InterStim lead, placement of InterStim battery Surgeon: Dr Adilson Hurt Anesthesia: sedation Indications for procedure: 70-year-old female. InterStim that had been successful and no longer has battery function or lead response. Will have current lead removed And replacement lead put in with new battery. Procedure: After informed consent was verified the patient was brought to the operating room. Sedation anesthesia was administered per protocol. the patient was placed in a prone position and prepped and draped in a sterile fashion. Safety pause time-out was performed. Local anesthetic was infiltrated around the initial battery pocket incision on her lateral superior buttock. Incision was made and taken down till the battery was encountered. The battery pocket was opened and a battery brought out to the skin. Using the C-arm and a snap the lead entering S3 on the left side was targeted. This was below the original sacral incision. Local anesthetic was infiltrated around the prior incision and incision made through the skin. Using blunt dissection the original lead was isolated and brought up through our skin incision. This was get disconnected from the battery to give us the full lead in the sacral position. The lead was dissected down until we could palpate the transition to the thickened plastic. Using a right angle clamp we were able to fully withdrawal the old lead from its position in the S3 foramen. Using the C-arm in an AP and lateral view the finding needle was introduced into the S3 foramen running from a caudad to chordal direction. Using the lead network engineer we could confirm good toe movement and Elke response. The internal introducer from the needle was removed and the control lead placed. The find needle was removed and the dilator sheath introduced. Under fluoroscopic guidance the dilator sheath was advanced till the marker was seen mid point through the sacral bone on the lateral image. The internal cannula from the dilator was removed. The guidewire was removed. The active lead was then introduced through the dilator sheath and advanced so that the 3rd and 4th marked electrodes crossed the internal boundary line of the sacrum. The testing electrode was then hooked up to each of the wire electrodes 0 through 3 and good Elke and toe response is was seen at low amplitude 2.0 amps. This confirmed the clinically relevant position of the live wire. Under live fluoroscopy the introducer sheath was removed deploying the tines of the wire ensuring that the live wire remained in the previously described position. The tunneling device was then used to bridge the distance between the sacral vertical incision and the desired location of the battery pocket. The live wire was placed through the tunneling device and brought out into the battery pocket. The sacral incision was washed with water. A new battery was connected to the live wire and placed into the subcutaneous pocket. The battery was tested and had positive picker machine operator and displayed normal impedance on all 4 channels. The battery pocket had been washed with sterile water prior to placement of the battery. Interrupted 3-0 Vicryl sutures were used to close the defect spaces and bring skin edges together. Running 4-0 Monocryl sutures were used to appose skin edges. Incisions were dressed using skin glue followed by Tegaderm dressing. Patient tolerated procedure well was extubated in operating room transferred in stable condition to the recovery area. CPT full device replacement 64176, [id number], [id number]
[2021-11-08] MEDS: oxyCODONE HCl Immed Release 5 MG TABLET PO (12:39)
[2021-11-08] MEDS: fentaNYL citrate/PF 100 MCG/2 ML VIAL 25 MCG IVPUSH ×2 (12:42→12:47)
== END 2021-11-08 15:23 | disposition home or self-care (01) ==
PROVIDERS: PCP Internal Medicine; Visit Provider Urology
PROC: (CPT 64585; principal; 2021-11-08 10:40)
DX: Z45.42 Encounter for adjustment and management of neurostimulator (principal); N39.41 Urge incontinence; R35.0 Frequency of micturition; N32.81 Overactive bladder; K21.9 Gastro-esophageal reflux disease without esophagitis; I10 Essential (primary) hypertension; E78.5 Hyperlipidemia, unspecified; Z79.899 Other long term (current) drug therapy; Z88.8 Allergy status to other drugs, medicaments and biological substances; Z86.73 Personal history of transient ischemic attack (TIA), and cerebral infarction without residual deficits
CPT/HCPCS: 64581; 64590; C1767; C1778; C1787; J0690; J3010; J3370

== ENCOUNTER 2021-11-16 13:44 | Outpatient (REF) | payer MEDICARE, BC, SELFPAY ==
[2021-11-16 14:06] LABS: MANUAL DIFF FLAG NO
[2021-11-16 14:20] LABS: Basophils Percent Auto 0.4 % (0-2); Eosinophils Absolute Auto 0.3 X10*3/uL (0.0-0.4); Eosinophils Percent Auto 4.7 % (0-4); Hematocrit 43.3 % (37.0-47.0); Hemoglobin 14.9 g/dl (12.0-16.0); Imm Gran Abs Auto 0.03 X10*3/uL (0.00-0.03); Imm Gran Pct Auto 0.4 % (0.0-0.4); Lymphocytes Absolute Auto 1.3 X10*3/uL (1.2-4.9); Lymphocytes Percent Auto 18.4 % (20-40); Mean Corpuscular HGB Conc 34.4 g/dl (31.0-35.0); Mean Corpuscular Hemoglobin 34.2 pg (27.0-33.0); Mean Corpuscular Volume 99.3 fL (80.0-98.0); Mean Platelet Volume 9.6 fL (9.4-12.3); Monocytes Absolute Auto 0.4 X10*3/uL (0.1-1.2); Monocytes Percent Auto 5.4 % (2-11); Neutrophils Percent Auto 70.7 % (45-73); Platelet Count 237 X10*3/uL (160-400); Red Blood Count 4.36 X10*6/uL (4.20-5.50); Red Cell Distribution Width 12.1 % (11.0-16.0); White Blood Count 7.1 X10*3/uL (4.8-10.8)
[2021-11-16 14:46] LABS: Anion Gap 9 (12-20); Blood Urea Nitrogen 28 mg/dL (9-16); C Reactive Protein 0.65 mg/dL (< or = 0.50); Calcium 9.7 mg/dL (8.4-10.2); Carbon Dioxide 31 mmol/L (22-29); Chloride 105 mmol/L (96-108); Estimated Glomerular Filt Rate > 60; Glucose Random 86 mg/dL (60-115); Potassium 4.1 mmol/L (3.3-5.1); Sodium 141 mmol/L (135-145)
== END 2021-11-16 13:45 | disposition home or self-care (01) ==
LOC: HO.LAB 13:44
PROVIDERS: PCP Internal Medicine; Visit Provider Internal Medicine
DX: L89.90 Pressure ulcer of unspecified site, unspecified stage (principal); I10 Essential (primary) hypertension; D36.9 Benign neoplasm, unspecified site
CPT/HCPCS: 36415; 80048; 85025; 86140

== ENCOUNTER → 2021-11-24 08:59 | Outpatient (BNVA) | payer MEDICARE, BC, SELFPAY | PROVIDERS: PCP Internal Medicine; Visit Provider Urology | DX: N39.41 Urge incontinence (principal); N32.81 Overactive bladder | CPT/HCPCS: 99212 ==

== ENCOUNTER → 2021-11-25 14:23 | Outpatient (BNVA) | payer MEDICARE, BC, SELFPAY | PROVIDERS: PCP Internal Medicine; Visit Provider Urology | DX: Z13.89 Encounter for screening for other disorder (principal) ==

== ENCOUNTER 2021-12-08 13:09 | Emergency (ER) | payer MEDICARE, BC, SELFPAY ==
--- NOTE | ~2021-12-08 | CT_ITS ---
EXAMINATION: CT HEAD, CT FACIAL BONES AND CT CERVICAL SPINE. CLINICAL INFORMATION: Fall with facial trauma COMPARISON: None TECHNIQUE: 5 mm thin axial and reformatted 2 mm thin sagittal coronal images of brain were obtained without contrast. Axial 3 mm thin and reformatted 2 Limited thin images of cervical spine obtained. Lastly axial 1.5 mm thin and reformatted 1.5 minutes thin sagittal and coronal images of facial bones were obtained. DLP 1424. 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 This results in mild extra-axial prominence of the lateral ventricle. It appears similar to previous study 12/18/2014. No acute infarct in evolution or edema seen. There is no midline shift. Besides mild prominence of right lateral ventricle the third, fourth and the right lateral ventricle is unremarkable. Bone windows reveal no calvarial abnormality. There is midline frontal scalp hematoma without calvarial fracture. Bilateral paranasal sinuses and mastoid air cells are the aerated except for mild mucoperiosteal thickening left maxillary sinus and a small polyp or retention cyst right maxillary sinus. Cervical spine: There is mild straightening of cervical lordosis. The vertebral and disc heights are maintained normal. There is grade 1 anterolisthesis C4 over C5 and C5 over C6. Rest of the alignment is normal. There is no visible acute fracture, dislocation or lytic process seen. The craniovertebral junction and the C1-C2 alignment is normal. There is mild bilateral facet joint arthropathy C3-C4, right C5-C6 and C7-T1. The prevertebral and paravertebral soft tissues are normal. The lung apices are clear. Central trachea and the bronchi widely patent. Bilateral thyroid, submandibular and parotid glands are symmetrical and normal. Facial bones: There is a left frontal scalp hematoma without calvarial fracture. There is mild polyp or retention cyst right maxillary sinus and diffuse mural periosteal thickening left maxillary sinus. Left ostiomeatal complex is obstructed from nipple periosteal thickening. The bony sinus summers are intact. Frontal, ethmoid and sphenoid sinuses are well-aerated. Bony orbits are intact. Visualized optic globe, optic nose and the intraorbital soft tissues are normal. Visualized zygoma, nasal bones are intact. Mild erosive changes seen along the TM joints likely arthritis. Mild loss of right TM joint space with periapical spurring is noted as well. CT/CT cervical spine wo con IMPRESSION: Midline frontal scalp hematoma without calvarial fracture. There is no intracranial hematoma or edema. 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 No maxillofacial, nasal or mandibular fracture.. 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 Grade 1 anterolisthesis C4 over C5 and C5 over C6. No visible acute fracture or dislocation seen.
[2021-12-08 13:32] VITALS: BP 132/61; PULSE 77; RESP 16; TEMP 20.2; O2SAT 95; BMI 36.8
--- NOTE | 2021-12-08 14:41 | ED.FALL ---
HPI - Fall General Chief Complaint: Fall Stated Complaint: fall - head lac Time Seen by Provider: 12/08/21 14:21 Source: patient Mode of arrival: ambulatory Limitations: no limitations History of Present Illness HPI Narrative: 71 y/o female with history of CVA with residual left sided weakness presents to the ER for evaluation of a mechanical fall with head a facial injuries that occurred just prior to arrival. She reports tripping on a U shaped brace and falling forward. She hit her forehead on a coffee table and had immediate swelling. She did not lose consciousness or sustain any other injuries. She is on ASA 325 but no full anticoagulation. MD complaint: fall Onset (ago): minute(s) Fall from: standing Fall witnessed: no Place fall occurred: home Loss of consciousness: none Prolonged down time: no Symptoms prior to fall: none Context: tripped/slipped Location of injury: head and face Severity: mild Severity scale (1-10): 3 Quality: aching Associated symptoms (after fall): neck pain Related Data Home Medications Medication Instructions Recorded Confirmed cyclosporine 0.05 % eye drops in a drp OPHTHALMIC (EYE) 10/09/20 dropperette amlodipine 5 mg tablet 5 mg PO DAILY 02/02/21 baclofen 20 mg tablet 20 mg PO TID 02/02/21 citalopram 10 mg tablet 10 mg PO DAILY 02/02/21 estradiol VAGINAL 02/02/21 omeprazole 20 mg capsule,delayed 20 mg PO DAILY 02/02/21 release simvastatin 20 mg tablet 20 mg PO BEDTIME 02/02/21 acetaminophen 500 mg tablet 500 mg PO BID 11/08/21 11/08/21 calcium 11/08/21 furosemide 40 mg tablet 2 tab PO DAILY 11/08/21 11/08/21 multivitamin 1 tab PO DAILY 11/08/21 11/08/21 Previous Rx's Medication Instructions Recorded sulfamethoxazole 400 1 tab PO DAILY 5 Days #5 tab 11/08/21 mg-trimethoprim 80 mg tablet (Bactrim) tramadol 50 mg tablet 50 mg PO Q6H PRN #8 tab 11/08/21 mirabegron 25 mg tablet,extended 25 mg PO BID 90 Days #180 tab 11/24/21 release 24 hr Allergies Allergy/AdvReac Type Severity Reaction Status Date / Time hydrochlorothiazide [HCTZ] Allergy Unknown ITCHING, Verified 11/08/21 09:20 itch Review of Systems Review of Systems: Constitutional: No Fever, No Chills ENT/Mouth: No sore throat, No Rhinorrhea, No Swallowing Difficulty Eyes: No Eye Pain, No Swelling, No Redness, No vision changes Cardiovascular: No Chest Pain, No SOB Respiratory: No Cough, No Sputum Gastrointestinal: No Nausea, No Vomiting, No Diarrhea, No abdominal Pain Musculoskeletal: No joint pain, + Myalgias Skin: No Skin Lesions, No rash Neuro: No Weakness, No Numbness, No Dizziness, + Headache Psych: No Anxiety/Panic, No Depression Heme/Lymph: + Bruising, No Lymphadenopathy [facility] Past Medical History Medical History (Updated 12/08/21 @ 15:42 by MISSAEL Segura) Frequency of urination GERD (gastroesophageal reflux disease) 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 Physical Exam Vital Signs: Vital Signs: Last Vital Signs Temp 68.4 F L 12/08/21 13:32 Pulse 77 12/08/21 13:32 Resp 16 12/08/21 13:32 BP 132/61 12/08/21 13:32 Pulse Ox 95 12/08/21 13:32 BMI result Body Mass Index 36.8 Appearance: Alert. Oriented X3. No acute distress. Head: large hematoma of the middle forehead with slight ecchymosis. no palpable skull fracture. Eyes: Pupils equal, round and reactive to light. Medially there is ecchymosis on the nasal side of each eye ENT: Pharynx normal. Normal TM's bilaterally. Neck: Normal inspection. Neck supple. No midline tenderness. Left sided soft tissue tenderness. CVS: Normal heart rate and rhythm. Pulses normal. Respiratory: No respiratory distress. Breath sounds normal. Abdomen: Soft and nontender. +BS x4 Skin: Skin warm and dry. Normal skin color. Normal skin turgor. No rashes. Extremities: Atraumatic x4, left hand in a brace. No lower extremity edema. Neuro: Oriented X 3. Left sided weakness (chronic), ambulates with a cane and a limp Course Course Course Narrative: 71-year-old female with history of stroke with left-sided weakness presents to the ER with mechanical fall with head strike just prior to arrival. She is on full-dose aspirin but no anticoagulation. She has a large hematoma in the middle of her forehead with some neck pain. She also has bilateral medial eye swelling and ecchymosis. Will get CT scan of the head, neck, facial bones to evaluate for injury and bleeding. Reevaluation(s) Reevaluation #1: CT scans showing only scalp hematoma, no other traumatic injuries. Old CVA findings noted. Results d/w patient. Stable for d/c. Critical Care Time Critical Care Time Critical Care Time: No Discharge Plan Discharge Clinical Impression: Hematoma of frontal scalp Patient Disposition: Home, Self-Care Instructions: Scalp Contusion in Adults (ED) Additional Instructions: Your CT scans today did not show any acute injuries other than a hematoma on your forehead. Use ice several times per day to the area. Take motrin and/or tylenol as needed for pain. Follow up with your doctor as needed. If you develop new or worsening symptoms call 911 or come back to the ER for further evaluation. Prescriptions: No Action multivitamin Tablet 1 tab PO DAILY 0RF furosemide 40 mg tablet 2 tab PO DAILY 0RF acetaminophen [Tylenol Ex Str Rapid Release] 500 mg Tablet 500 mg PO BID 0RF calcium 0RF sulfamethoxazole-trimethoprim [Bactrim] 400-80 mg tablet 1 tab PO DAILY 5 Days Qty: 5 0RF tramadol 50 mg tablet 50 mg PO Q6H PRN (Reason: pain) Qty: 8 0RF amlodipine 5 mg tablet 5 mg PO DAILY 0RF omeprazole 20 mg capsule,delayed release(DR/EC) 20 mg PO DAILY 0RF baclofen 20 mg tablet 20 mg PO TID 0RF citalopram 10 mg tablet 10 mg PO DAILY 0RF Estring 2 mg (7.5 mcg /24 hour) ring vaginal 0RF simvastatin 20 mg tablet 20 mg PO BEDTIME 0RF Restasis 0.05 % dropperette ophthalmic (eye) 0RF mirabegron 25 mg tablet extended release 24 hr 25 mg PO BID 90 Days Qty: 180 1RF Interventions: ED Discharge Assessment Last Done: 12/08/21 16:00 Discharge Date/Time: 12/08/21 16:01
== END 2021-12-08 16:01 | disposition home or self-care (01) ==
PROVIDERS: Emergency Provider Emergency Medicine; PCP Internal Medicine
DX: S00.03XA Contusion of scalp, initial encounter (principal); M54.2 Cervicalgia; W01.0XXA Fall on same level from slipping, tripping and stumbling without subsequent striking against object, initial encounter; Y93.9 Activity, unspecified; Y92.9 Unspecified place or not applicable; Y99.9 Unspecified external cause status; Z79.899 Other long term (current) drug therapy
CPT/HCPCS: 70450; 70486; 72125; 99283; 99284

== ENCOUNTER 2021-12-21 11:18 | Outpatient (REF) | payer MEDICARE, BC, SELFPAY ==
--- NOTE | ~2021-12-21 | XR_ITS ---
EXAMINATION: BILATERAL SHOULDER X-RAY CLINICAL INFORMATION: Pain COMPARISON: Previous x-rays August 2021 and January 2021 TECHNIQUE: 4 views of each shoulder FINDINGS: Right: Bone alignment is normal. No fracture or dislocation is seen. The glenohumeral joint is normal. There is arthritis at the acromioclavicular joint. Soft tissues are normal. Left: Bone alignment is normal. No acute fracture or dislocation is seen. There may be an old healed fracture of the proximal humerus. The glenohumeral joint is normal. There is mild arthritis at the acromioclavicular joint. Soft tissues are normal. XR/XR shoulder LT min 2V IMPRESSION: Right: Arthritis at the acromioclavicular joint. Left: Old healed left proximal humerus fracture. Mild arthritis at the acromioclavicular joint.
--- NOTE | ~2021-12-21 | XR_ITS ---
EXAMINATION: BILATERAL SHOULDER X-RAY CLINICAL INFORMATION: Pain COMPARISON: Previous x-rays August 2021 and January 2021 TECHNIQUE: 4 views of each shoulder FINDINGS: Right: Bone alignment is normal. No fracture or dislocation is seen. The glenohumeral joint is normal. There is arthritis at the acromioclavicular joint. Soft tissues are normal. Left: Bone alignment is normal. No acute fracture or dislocation is seen. There may be an old healed fracture of the proximal humerus. The glenohumeral joint is normal. There is mild arthritis at the acromioclavicular joint. Soft tissues are normal. XR/XR shoulder RT min 2V IMPRESSION: Right: Arthritis at the acromioclavicular joint. Left: Old healed left proximal humerus fracture. Mild arthritis at the acromioclavicular joint.
== END 2021-12-21 11:19 | disposition home or self-care (01) ==
LOC: HO.XRAY 11:18
PROVIDERS: PCP Internal Medicine; Visit Provider Internal Medicine
DX: M25.511 Pain in right shoulder (principal); M25.512 Pain in left shoulder
CPT/HCPCS: 73030

== ENCOUNTER → 2022-01-03 14:04 | Outpatient (BNVA) | payer MEDICARE, BC, SELFPAY | PROVIDERS: PCP Internal Medicine; Visit Provider Orthopaedic Surgery | DX: M75.51 Bursitis of right shoulder (principal); M79.641 Pain in right hand | CPT/HCPCS: 99212 ==

== ENCOUNTER 2022-01-25 08:50 | Outpatient (REF) | payer MEDICARE, BC, SELFPAY ==
--- NOTE | ~2022-01-25 | XR_ITS ---
EXAMINATION: XR HAND, RIGHT CLINICAL INFORMATION: Pain. COMPARISON: None. TECHNIQUE: PA, lateral, and oblique views of the right hand. FINDINGS: There is loss of PIP and DIP joint space without periarticular spurring. No bony erosive changes seen. The MCP carpometacarpal and intercarpal joint spaces are maintained normal. The soft tissues are normal. No acute fractures seen. XR/XR hand RT min 3V IMPRESSION: Mild degenerative changes involving PIP and DIP joints all digits. No bony erosive changes seen. No focal abnormality seen at the 1st MCP joint.
== END 2022-01-25 08:51 | disposition home or self-care (01) ==
LOC: HO.HOSX 08:50
PROVIDERS: Visit Provider Orthopaedic Surgery
DX: M18.11 Unilateral primary osteoarthritis of first carpometacarpal joint, right hand (principal)
CPT/HCPCS: 73130; 99212

== ENCOUNTER 2022-02-28 15:30 | Outpatient (REF) | payer MEDICARE, BC, SELFPAY ==
[2022-02-28 15:42] LABS: MANUAL DIFF FLAG NO
[2022-02-28 16:27] LABS: Basophils Percent Auto 0.4 % (0-2); Eosinophils Absolute Auto 0.4 X10*3/uL (0.0-0.4); Eosinophils Percent Auto 5.3 % (0-4); Hematocrit 44.2 % (37.0-47.0); Imm Gran Abs Auto 0.02 X10*3/uL (0.00-0.03); Imm Gran Pct Auto 0.3 % (0.0-0.4); Lymphocytes Percent Auto 25.3 % (20-40); Mean Corpuscular HGB Conc 33.9 g/dl (31.0-35.0); Mean Corpuscular Hemoglobin 33.6 pg (27.0-33.0); Mean Corpuscular Volume 99.1 fL (80.0-98.0); Monocytes Absolute Auto 0.5 X10*3/uL (0.1-1.2); Monocytes Percent Auto 6.7 % (2-11); Neutrophils Absolute Auto 4.9 x10*3/uL (2.0-8.3); Platelet Count 225 X10*3/uL (160-400); Red Blood Count 4.46 X10*6/uL (4.20-5.50); Red Cell Distribution Width 12.1 % (11.0-16.0); White Blood Count 7.9 X10*3/uL (4.8-10.8)
[2022-02-28 16:51] LABS: Alanine Aminotransferase 29 U/L (0-31); Albumin Level 4.2 g/dL (3.5-5.0); Alkaline Phosphatase 84 U/L (39-117); Amylase 90 U/L (28-100); Aspartate Amino Transferase 23 U/L (5-31); Bilirubin Direct 0.2 mg/dL (0.0-0.5); Bilirubin Total 0.5 mg/dL (0.0-1.0); Lipase 28 U/L (8-78)
== END 2022-02-28 15:31 | disposition home or self-care (01) ==
LOC: HO.LAB 15:30
PROVIDERS: PCP Internal Medicine; Visit Provider Internal Medicine
DX: R10.13 Epigastric pain (principal)
CPT/HCPCS: 36415; 80076; 82150; 83690; 85025

== ENCOUNTER 2022-03-11 13:05 | Day surgery (SDC) | payer MEDICARE, BC, SELFPAY ==
[2022-03-04 14:50] VITALS: BMI 36.8
[2022-03-04 15:13] VITALS: BMI 36.8
--- NOTE | 2022-03-10 09:48 | HO.ANESPROP2 ---
Documented by User: Melony Barrera NP 03/10/22 09:50 HPI - Anesthesia Eval Consult details Narrative: 71yo F for Upper Endoscopy PMFSH Active Problems Active Problems: All Active Problems (Updated 03/04/22 @ 15:15 by Jacqueline Bullock RN) Dislocation of proximal interphalangeal joint of left middle finger, initial encounter (Acute) Fracture of middle phalanx of left middle finger (Acute) Closed fracture of left proximal humerus (Acute) Intrinsic muscle tightness (Acute) Overactive bladder (Acute) Osteoarthritis of shoulders, bilateral (Acute) Bilateral shoulder pain (Acute) Bursitis of right shoulder (Acute) Right hand pain (Acute) Arthritis of carpometacarpal (CMC) joint of right thumb (Acute) Urge incontinence (Acute) Frequency of urination (Acute) Past Medical History Medical History (Updated 03/04/22 @ 15:15 by Jacqueline Bullock RN) Anxiety GERD (gastroesophageal reflux disease) 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 HLD (hyperlipidemia) HTN (hypertension) Hx of skin cancer, basal cell Family History Family history of problems with anesthesia: No Surgical History Surgical History (Updated 03/04/22 @ 15:12 by Jacqueline Bullock RN) History of bladder surgery History of Hx of hand surgery History of Problems with Anesthesia: No Social History Social History Are you a primary small animal caretaker to a significant other at home: No Do you presently have visiting nurse or other home services: No Alcohol intake: never Patient Tobacco Use Status: Never used Tobacco Are you DNR?: No Advance Directives: No Advance Directives Information Provided: Yes Advance Directives on File: No Current occupational status: retired Current occupation: right handed. Meds Allergies Allergy/AdvReac Type Severity Reaction Status Date / Time hydrochlorothiazide [HCTZ] Allergy Intermediate Itching Verified 03/04/22 15:06 Home Medications Medication Instructions Recorded Confirmed Last Taken Type cyclosporine 0.05 % eye drops in a drp ophthalmic (eye) 10/09/20 Unknown History dropperette amlodipine 5 mg tablet 2.5 mg PO DAILY 02/02/21 03/04/22 11/08/21 08:00 History baclofen 20 mg tablet 20 mg PO TID PRN Abdominal Pain 02/02/21 03/04/22 11/08/21 08:00 History citalopram 10 mg tablet 10 mg PO DAILY 02/02/21 03/04/22 11/08/21 08:00 History estradiol vaginal 02/02/21 Unknown History omeprazole 20 mg capsule,delayed 20 mg PO BID 02/02/21 03/04/22 03/02/21 History release simvastatin 20 mg tablet 20 mg PO DAILY 02/02/21 03/04/22 Unknown History acetaminophen 500 mg tablet 500 mg PO BID 11/08/21 11/08/21 11/08/21 08:00 History calcium 11/08/21 Unknown History furosemide 40 mg tablet 1 tab PO BEDTIME 11/08/21 03/04/22 Unknown History multivitamin 1 tab PO DAILY 11/08/21 11/08/21 Unknown History Exam Exam Date and Time: March 10, 2022 0948 Height,Weight and Vital Signs: Height 5 ft 4.25 in Weight 97.976 kg Pertinent Lab Results Pertinent Lab Results: Laboratory Tests 11/16/21 02/28/22 14:05 15:41 WBC 7.9 Hgb 15.0 Hct 44.2 Plt Count 225 Sodium 141 Potassium 4.1 Chloride 105 Carbon Dioxide 31 H BUN 28 H Creatinine 0.75 Assessment and Plan Assessment Anesthesia Assessment: Chart Reviewed Final Anesthetic Review Family History of Problems with Anesthesia: No History of Problems with Anesthesia: No Documented by User: Kina Cristobal MD 03/11/22 13:56 [facility] Past Medical History Medical History (Updated 03/04/22 @ 15:15 by Jacqueline Bullock, KRISS) Anxiety GERD (gastroesophageal reflux disease) 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 HLD (hyperlipidemia) HTN (hypertension) Hx of skin cancer, basal cell Surgical History Surgical History (Updated 03/04/22 @ 15:12 by Jacqueline Bullock RN) History of bladder surgery History of Hx of hand surgery Social History Social History Are you a primary small animal caretaker to a significant other at home: No Do you presently have visiting nurse or other home services: No Alcohol intake: never Patient Tobacco Use Status: Never used Tobacco Are you DNR?: No Advance Directives: No Advance Directives Information Provided: Yes Advance Directives on File: No Current occupational status: retired Current occupation: right handed. Meds Allergies Allergy/AdvReac Type Severity Reaction Status Date / Time hydrochlorothiazide [HCTZ] Allergy Intermediate Itching Verified 03/04/22 15:06 Home Medications Medication Instructions Recorded Confirmed Last Taken Type cyclosporine 0.05 % eye drops in a drp ophthalmic (eye) 10/09/20 Unknown History dropperette amlodipine 5 mg tablet 2.5 mg PO DAILY 02/02/21 03/04/22 11/08/21 08:00 History baclofen 20 mg tablet 20 mg PO TID PRN Abdominal Pain 02/02/21 03/04/22 11/08/21 08:00 History citalopram 10 mg tablet 10 mg PO DAILY 02/02/21 03/04/22 11/08/21 08:00 History estradiol vaginal 02/02/21 Unknown History omeprazole 20 mg capsule,delayed 20 mg PO BID 02/02/21 03/04/22 03/02/21 History release simvastatin 20 mg tablet 20 mg PO DAILY 02/02/21 03/04/22 Unknown History acetaminophen 500 mg tablet 500 mg PO BID 11/08/21 11/08/21 11/08/21 08:00 History calcium 11/08/21 Unknown History furosemide 40 mg tablet 1 tab PO BEDTIME 11/08/21 03/04/22 Unknown History multivitamin 1 tab PO DAILY 11/08/21 11/08/21 Unknown History Exam Height,Weight and Vital Signs: Height 5 ft 4.25 in Weight 97.976 kg Vital Signs Temp Pulse Resp BP Pulse Ox O2 Del Method 03/11/22 13:13 97.9 F 77 17 137/70 96 Room Air Airway Mallampati Class: II TM Dist: >3cm Neck ROM: Full Loose/Missing/Broken Teeth: No (Per patient ) Heart: RRR Lungs: CTAB Assessment and Plan Assessment Anesthesia Assessment: Anesthesia Plan Discussed Final Anesthetic Review NPO: Yes ASA Class: III Final Preanesthetic Review: No Changes in Pt Med Stat, Meds/Allgs Chart Reviewed, Consent Obtained/Reviewed and Anes Risks/Benef Reviewed Patient Risk: Intermediate Procedure Risk: Low Assessment/Block/Sedation in SS: Assess/Block/Sedation-SS Anesthetic Plan Anesthetic Plan: MAC: Disposition: Standard PACU
[2022-03-11 13:13] VITALS: BP 137/70; PULSE 77; RESP 17; TEMP 36.6; O2SAT 96
[2022-03-11 14:56] VITALS: BP 118/71; PULSE 76; RESP 16; TEMP 37.3; O2SAT 94
--- NOTE | 2022-03-11 15:00 | PM.OP ---
Brief Operative Note Date of Service: 03/11/22 Pre-op diagnosis: Abdominal pain, GERD Post-op diagnosis: other (Hiatal hernia, Gastritis) Procedure: EGD with biopsies Surgeon: Jeromy Hunt Anesthesia: MAC Was an Stitch Bonding Machine Operator used for this Procedure?: No Estimated blood loss (mL): 2.0 Pathology: other (A. Gastric antrum) Condition: stable Disposition: PACU
[2022-03-11 15:11] VITALS: BP 138/74; PULSE 67; RESP 16; TEMP 36.9; O2SAT 96
--- NOTE | 2022-03-11 21:19 | OP_ITS ---
SURGEON: Jeromy Hunt MD INDICATIONS: The patient presents for evaluation of abdominal discomfort and reflux. Full consent was obtained from her for this, including risks of bleeding and perforation. PREOPERATIVE DIAGNOSIS: POSTOPERATIVE DIAGNOSIS: PROCEDURE PERFORMED: Esophagogastroduodenoscopy with biopsies. ESTIMATED BLOOD LOSS: COMPLICATIONS: ANESTHESIA: Monitored anesthesia care. ASSISTANTS: SPECIMENS: PREOPERATIVE DIAGNOSES: Abdominal discomfort and reflux. POSTOPERATIVE DIAGNOSES: Abdominal discomfort and reflux, minimal gastritis, scarring in the duodenal bulb, small hiatal hernia. DESCRIPTION OF PROCEDURE: The patient was placed in the left lateral decubitus position. The Olympus video gastroscope was passed in the posterior oropharynx and upper esophagus under direct vision. The scope was passed slowly to the distal esophagus. The gastroesophageal junction appeared normal at 36 cm. There was no sign of any esophagitis nor Dinero esophagus. The scope entered the stomach. There was a small hiatal hernia. The scope was advanced to the pylorus. The duodenum was cannulated the descending portion. The duodenum including the bulb appeared normal other than some scarring in the duodenal bulb, possibly consistent with a previous ulcer. However, there was no sign of any inflammation whatsoever. The scope was withdrawn back into the stomach. The gastric antrum had some areas of erythema and edema, but no erosions or ulceration. There was good peristalsis. Scope was retroflexed visualizing the proximal stomach carefully, which appeared normal, without any sign of mass or ulceration. The scope was straightened. Biopsies were obtained from the gastric antrum. Scope was withdrawn back into the esophagus. Of note, there were several hyperplastic appearing gastric polyps in the proximal stomach. These were not biopsied. The esophageal mucosa appeared normal. The scope was withdrawn from the patient. She tolerated the procedure well and was returned to the recovery area in stable condition. IMPRESSION: 1. Minimal gastritis. 2. Question of duodenal bulb scarring in relation to possible previous ulcer disease. 3. Benign gastric polyps. 4. Small hiatal hernia. PLAN: The results of the biopsies will be checked. At this point, she does report that she is feeling better on her omeprazole and minimizing use of NSAIDs. I would hold off on treatment of H pylori if that is present on the biopsies at this time. If things are stable, she will see me on a p.r.n. basis. She should have another screening colonoscopy in 2025. She will see me on a p.r.n. basis. MD BE Morrow/STACI / [id number] MTDD
== END 2022-03-11 15:45 | disposition home or self-care (01) ==
PROVIDERS: PCP Internal Medicine; Visit Provider Internal Medicine
PROC: 0DJ08ZZ Inspection of Upper Intestinal Tract, Via Natural or Artificial Opening Endoscopic (ICD-10-PCS; CPT 43235; principal; 2022-03-11 14:00)
DX: K29.50 Unspecified chronic gastritis without bleeding (principal); K21.9 Gastro-esophageal reflux disease without esophagitis; K44.9 Diaphragmatic hernia without obstruction or gangrene; K31.7 Polyp of stomach and duodenum; I69.954 Hemiplegia and hemiparesis following unspecified cerebrovascular disease affecting left non-dominant side; I10 Essential (primary) hypertension; E78.5 Hyperlipidemia, unspecified; Z85.828 Personal history of other malignant neoplasm of skin; Z79.899 Other long term (current) drug therapy; Z88.8 Allergy status to other drugs, medicaments and biological substances
CPT/HCPCS: 43239; 88305; 88342; J3010

== ENCOUNTER 2022-04-07 09:51 | Outpatient (REF) | payer MEDICARE, BC, SELFPAY ==
--- NOTE | ~2022-04-07 | US_ITS ---
EXAMINATION: US ABDOMEN COMPLETE CLINICAL INFORMATION: Upper abdominal pain. COMPARISON: Ultrasound abdomen complete 01/21/2020. TECHNIQUE: Real-time imaging of the abdominal viscera. Technically limited study secondary to body habitus. FINDINGS: PANCREAS: The head appears unremarkable without abnormal mass or peripancreatic inflammatory change. The body and tail are obscured by overlying bowel gas. ABDOMINAL AORTA: The proximal and mid aspects appear normal. The distal portion is not identified due to overlying bowel gas. INFERIOR VENA CAVA: Visualized portions are normal. LIVER: The liver is normal in size. The liver contour is normal. Parenchymal echogenicity is normal. No focal hepatic lesion. There is no intrahepatic biliary duct dilatation seen. GALLBLADDER: Normal. The gallbladder is physiologically distended without evidence of stones, sludge, polyps, wall thickening or pericholecystic fluid. COMMON BILE DUCT: Normal in caliber measuring 0.5 cm in diameter. RIGHT KIDNEY: Normal. No hydronephrosis. No renal calculi or focal parenchymal lesions. The kidney measures 10.5 cm in maximum dimension. LEFT KIDNEY: Normal. No hydronephrosis. No renal calculi or focal parenchymal lesions. The kidney measures 11.6 cm in maximum dimension. SPLEEN: Normal. The spleen measures 11.3 cm in maximum dimension. FREE FLUID: None. US/US abdomen complete IMPRESSION: Essentially normal abdominal ultrasound study.
== END 2022-04-07 09:52 | disposition home or self-care (01) ==
LOC: HO.US 09:51
PROVIDERS: Visit Provider Internal Medicine
DX: R10.10 Upper abdominal pain, unspecified (principal)
CPT/HCPCS: 76700

== ENCOUNTER → 2022-06-02 11:29 | Outpatient (BNVA) | payer MEDICARE, BC, SELFPAY | PROVIDERS: Visit Provider Urology | DX: N32.81 Overactive bladder (principal); Z79.899 Other long term (current) drug therapy | CPT/HCPCS: 99212 ==

== ENCOUNTER 2022-08-31 11:45 | Outpatient (REF) | payer MEDICARE, BC, SELFPAY ==
[2022-08-31 13:41] LABS: MANUAL DIFF FLAG NO
[2022-08-31 13:57] LABS: Basophils Percent Auto 0.8 % (0-2); Eosinophils Absolute Auto 0.4 X10*3/uL (0.0-0.4); Eosinophils Percent Auto 6.7 % (0-4); Hematocrit 45.1 % (37.0-47.0); Hemoglobin 15.3 g/dl (12.0-16.0); Imm Gran Abs Auto 0.02 X10*3/uL (0.00-0.03); Imm Gran Pct Auto 0.4 % (0.0-0.4); Lymphocytes Absolute Auto 1.4 X10*3/uL (1.2-4.9); Lymphocytes Percent Auto 27.4 % (20-40); Mean Corpuscular HGB Conc 33.9 g/dl (31.0-35.0); Mean Corpuscular Hemoglobin 33.7 pg (27.0-33.0); Mean Corpuscular Volume 99.3 fL (80.0-98.0); Mean Platelet Volume 10.8 fL (9.4-12.3); Monocytes Absolute Auto 0.3 X10*3/uL (0.1-1.2); Monocytes Percent Auto 6.4 % (2-11); Neutrophils Percent Auto 58.3 % (45-73); Platelet Count 238 X10*3/uL (160-400); Red Blood Count 4.54 X10*6/uL (4.20-5.50); Red Cell Distribution Width 12.1 % (11.0-16.0); White Blood Count 5.2 X10*3/uL (4.8-10.8)
[2022-08-31 14:38] LABS: Alanine Aminotransferase 22 U/L (0-31); Albumin Level 4.3 g/dL (3.5-5.0); Alkaline Phosphatase 99 U/L (39-117); Aspartate Amino Transferase 22 U/L (5-31); Bilirubin Total 0.5 mg/dL (0.0-1.0); Blood Urea Nitrogen 14 mg/dL (9-16); Calcium 9.6 mg/dL (8.4-10.2); Cholesterol 148 mg/dL; Estimated Glomerular Filt Rate > 60; Glucose Fasting 95 mg/dL (60-99); HDL Cholesterol 61 mg/dL; LDL Cholesterol Calculated 77 mg/dl; Triglycerides 54 mg/dL
[2022-08-31 14:46] LABS: Anion Gap 11 (12-20); Carbon Dioxide 29 mmol/L (22-29); Chloride 106 mmol/L (96-108); Potassium 4.2 mmol/L (3.3-5.1); Sodium 142 mmol/L (135-145)
== END 2022-08-31 11:46 | disposition home or self-care (01) ==
LOC: HO.10HDL 11:45
PROVIDERS: Visit Provider Internal Medicine
DX: I10 Essential (primary) hypertension (principal); E78.00 Pure hypercholesterolemia, unspecified; K21.9 Gastro-esophageal reflux disease without esophagitis
CPT/HCPCS: 36415; 80053; 80061; 85025

== ENCOUNTER → 2022-12-01 11:46 | Outpatient (BNVA) | payer MEDICARE, BC, SELFPAY | PROVIDERS: PCP Internal Medicine; Visit Provider Urology | DX: N32.81 Overactive bladder (principal) | CPT/HCPCS: 51798; 99212 ==

== ENCOUNTER 2023-06-02 11:31 | Outpatient (AMB) | payer MEDICARE, BC, SELFPAY ==
--- NOTE | 2023-06-02 11:37 | MHC.OFFVIS ---
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 Accompanied by: Self / Same As Patient Allergies hydrochlorothiazide [HCTZ] Allergy (Intermediate, Verified 06/02/23 11:56) Itching Medication List - Last Reconciled 06/02/23 by RHYS [place] acetaminophen 500 mg PO BID amlodipine 2.5 mg PO DAILY baclofen 20 mg PO TID PRN [calcium ] citalopram 10 mg PO DAILY citalopram 20 mg PO DAILY cyclosporine 0.05% drps ophthalmic (eye) estradiol vaginal furosemide 1 tab PO BEDTIME mirabegron ER 25 mg PO BID 90 days multivitamin 1 tab PO DAILY omeprazole 20 mg PO BID simvastatin 20 mg PO DAILY solifenacin 5 mg PO DAILY 90 days HPI HPI Comments History of Present Illness Details Cora is a pleasant [address] patient Dr. Valdes. 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 She presents to the office today for follow-up of her overactive bladder and urinary urgency and frequency. In discussion with the patient today she reports to be doing and feeling well. She reports significant improvement in urinary symptoms with dual combination of Myrbetriq and VESIcare. She also had a revision of her InterStim in October of [address] Hurt. She reports having positive results from combination of InterStim with dual therapy of Myrbetriq and VESIcare. She discusses having failed multiple overactive bladder medications in the past. She reports to be happy with her current voiding parameters. In office urinalysis results reviewed with the patient today. PVR 76mls. She otherwise denies hematuria, dysuria, foul smelling urine, changes to urinary stream, flank pain, fever, and or chills. She otherwise offers no issues or concerns at this time. [facility] Medical History Anxiety Hx of skin cancer, basal cell 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 GERD (gastroesophageal reflux disease) HLD (hyperlipidemia) HTN (hypertension) Frequency of urination Urge incontinence Surgical History History of bladder surgery History of Hx of hand surgery Social History Are you a primary child care leader to a significant other at home: No Do you presently have visiting nurse or other home services: No Alcohol intake: never Patient Tobacco Use Status: Never used Tobacco Current occupational status: retired Current occupation: right handed. Review of Systems Eyes Reports no additional complaints ENT Reports no additional complaints Card Reports as per HPI Resp Reports no additional complaints GI Reports no additional complaints Reports as per HPI Musc Reports as per HPI Neuro Reports as per HPI Psych Reports as per HPI Endo Reports no additional complaints Valente/Lymph Reports no additional complaints Aller/Immun Reports no additional complaints Physical Exam Const General: cooperative, healthy appearing, comfortable, no acute distress, well developed, alert and awake Orientation/consciousness: patient oriented x3 Limitations: ambulation with cane HEENT Head: Yes normal to inspection, Yes normocephalic and Yes atraumatic Ears: hearing grossly normal bilaterally Eyes General: appearance normal, both eyes and all related structures Neck Neck: Yes normal visual inspection and Yes trachea midline Chest Chest palpation & inspection: normal inspection of the chest Resp Effort & Inspection: normal respiratory effort and able to speak in complete sentences Cardio Rate: regular rate GI Inspection: Yes normal to inspection General: Yes no CVA tenderness Back/Spine/Pelvis Back: no CVA tenderness Skin General skin exam: no rashes or lesions noted Neuro General: patient oriented x3 Extrem Other: left sided weakness General: Yes normal to inspection Psych Appearance: grossly normal and well kempt Mental Status: mental status grossly normal Speech and movement: Normal speech and movement present and Clear speech present Affect: normal affect Attitude: cooperative Thought process: Normal thought process present Thought content: Normal thought content present Office Procedures Post Void Residual Post Residual Void Post Void Residual (PVR): 76 [id number] Void Residual by ultrasound Results AMB Urinalysis, Automated UA Leukoctes 0 Bennie/uL Last Edit by Yo Diaz on 06/02/23 11:56 UA Nitrite Last Edit by Yo Diaz on 06/02/23 11:56 UA Urobilinogen 0.2 mg/dL Last Edit by Yo Diaz on 06/02/23 11:56 UA Protein 15 mg/dL Last Edit by Yo Turnerwilliam on 06/02/23 11:56 UA pH 6.0 Last Edit by Yo Turnerwilliam on 06/02/23 11:56 UA Blood 0 Mateus/uL Last Edit by Yo Yuewilliam on 06/02/23 11:56 UA Specific [place] 1.020 Last Edit by Carlosrita Yuewilliam on 06/02/23 11:56 UA Ketone Last Edit by Carloskristaliseth Turnerwilliam on 06/02/23 11:56 UA Bilirubin 1 mg/dL Last Edit by Alane Yuewilliam on 06/02/23 11:56 UA Glucose 0 mg/dL Last Edit by Yo Yuewilliam on 06/02/23 11:56 Results Reviewed Results Reviewed: Laboratory Last Values Urine pH (Auto) 6.0 06/02/23 11:45 Specific [place] (Auto) 1.020 06/02/23 11:45 Urine Protein (Auto) 15 mg/dL 06/02/23 11:45 Glucose (UA)(Auto) 0 mg/dL 06/02/23 11:45 Urine Blood (Auto) 0 Mateus/uL 06/02/23 11:45 Urine Bilirubin (Auto) 1 mg/dL 06/02/23 11:45 Urine Urobilinogen (Auto) 0.2 mg/dL 06/02/23 11:45 Leukocyte Esterase (Auto) 0 Bennie/uL 06/02/23 11:45 Assessment & Plan Assessment & Plan (1) Overactive bladder: Comment: InterStim revision 2021 Code(s): N32.81 - Overactive bladder (2) Urge incontinence: Code(s): N39.41 - Urge incontinence (3) Frequency of urination: Comment: interstim in place Code(s): R35.0 - Frequency of micturition Plan In office urinalysis results reviewed with the patient today; as noted above PVR- 76m's Patient reports be happy with current voiding parameters with InterStim, Myrbetriq, and VESIcare Continue Myrbetriq and VESIcare as prescribed Patient denies any bothersome urinary issues or concerns at this time. Follow-up in 6 months with PVR; or sooner with any issues, concerns, and or questions. Orders: Orders AMB Urinalysis Automated 06/02/23 Z13.9 - Encounter for screening, unspecified AMB Post Void Residual by ultrasound 06/02/23 N32.81 - Overactive bladder Patient Instructions: The patient had an opportunity to ask questions regarding the treatment plan. All questions were answered. Physical exam, labs, and imaging were discussed and reviewed in detail. As well as risks, benefits, and discussion of treatment choices. No major barriers to understanding were identified. The patient expressed understanding and agreement with the above treatment plan. The patient was made aware they should contact our office by phone for worsening of their current condition, the appearance of new symptoms, or with any questions or concerns. Compliance is encouraged with any medications and follow up testing that is ordered. It is a privilege to be allowed the opportunity to participate in? your urological care.? Again, if you have any questions or concerns If you have any questions or concerns please do not hesitate to contact me. The office is [phone]. This note is constructed using voice recognition software. While every effort has been made to ensure accuracy mobility specialist errors may have been included. Yours sincerely, PHANI [place]-VALERIE Coding Level of Care Code Est Pt Level 3 (75591) Diagnoses Overactive bladder N32.81 Urge incontinence N39.41 Frequency of urination R35.0 CPT Codes Post Residual Void - PVR CPT Code: 51961-Almk Void Residual by ultrasound ([id number])
== END 2023-06-02 12:03 | disposition home or self-care (01) ==
PROVIDERS: PCP Internal Medicine; Visit Provider Nurse Practitioner Family
DX: N32.81 Overactive bladder (principal); N39.41 Urge incontinence; R35.0 Frequency of micturition
CPT/HCPCS: 99213

== ENCOUNTER → 2023-06-02 11:31 | Outpatient (BNVA) | payer MEDICARE, BC, SELFPAY | PROVIDERS: Visit Provider Nurse Practitioner Family | DX: N32.81 Overactive bladder (principal); N39.41 Urge incontinence; R35.0 Frequency of micturition; Z79.899 Other long term (current) drug therapy | CPT/HCPCS: 51798; 81003; 99212 ==

== ENCOUNTER 2023-06-06 15:56 | Outpatient (REF) | payer MEDICARE, BC, SELFPAY ==
--- NOTE | ~2023-06-06 | XR_ITS ---
EXAMINATION: XR CHEST CLINICAL INFORMATION: Wheeze. Cough. COMPARISON: 07/04/2012 TECHNIQUE: 2 views of the chest were obtained. FINDINGS: The lungs are well expanded. Mild diffuse bronchial wall thickening. There is no focal consolidation, edema, or effusion. No pneumothorax. The cardiomediastinal silhouette is within normal limits. No acute osseous abnormality. XR/XR chest 2V IMPRESSION: No consolidation. Bronchial wall thickening can be seen with a small airways process such as asthma or atypical/viral infection.
== END 2023-06-06 15:57 | disposition home or self-care (01) ==
LOC: HO.XRAY 15:56
PROVIDERS: PCP Internal Medicine; Visit Provider Internal Medicine
DX: R05.9 Cough, unspecified (principal); R06.2 Wheezing
CPT/HCPCS: 71046

== ENCOUNTER 2023-10-05 12:28 | Outpatient (REF) | payer MEDICARE, BC, SELFPAY ==
[2023-10-05 13:08] LABS: MANUAL DIFF FLAG NO
[2023-10-05 13:13] LABS: Basophils Absolute Auto 0.1 X10*3/uL (0.0-0.2); Eosinophils Absolute Auto 0.3 X10*3/uL (0.0-0.4); Eosinophils Percent Auto 6.9 % (0-4); Hematocrit 43.2 % (37.0-47.0); Hemoglobin 14.8 g/dl (12.0-16.0); Imm Gran Abs Auto 0.01 X10*3/uL (0.00-0.03); Imm Gran Pct Auto 0.2 % (0.0-0.4); Lymphocytes Absolute Auto 1.2 X10*3/uL (1.2-4.9); Lymphocytes Percent Auto 25.2 % (20-40); Mean Corpuscular HGB Conc 34.3 g/dl (31.0-35.0); Mean Corpuscular Hemoglobin 34.5 pg (27.0-33.0); Mean Corpuscular Volume 100.7 fL (80.0-98.0); Mean Platelet Volume 9.9 fL (9.4-12.3); Monocytes Absolute Auto 0.3 X10*3/uL (0.1-1.2); Monocytes Percent Auto 7.1 % (2-11); Neutrophils Absolute Auto 2.9 x10*3/uL (2.0-8.3); Neutrophils Percent Auto 59.6 % (45-73); Platelet Count 210 X10*3/uL (160-400); Red Blood Count 4.29 X10*6/uL (4.20-5.50); Red Cell Distribution Width 12.2 % (11.0-16.0); White Blood Count 4.8 X10*3/uL (4.8-10.8)
[2023-10-05 13:31] LABS: Alanine Aminotransferase 20 U/L (0-31); Albumin Level 4.1 g/dL (3.5-5.0); Alkaline Phosphatase 89 U/L (39-117); Anion Gap 11 (12-20); Aspartate Amino Transferase 22 U/L (5-31); Bilirubin Total 0.5 mg/dL (0.0-1.0); Blood Urea Nitrogen 19 mg/dL (9-16); Calcium 9.1 mg/dL (8.4-10.2); Carbon Dioxide 32 mmol/L (22-29); Chloride 106 mmol/L (96-108); Cholesterol 141 mg/dL (<200); Estimated Glomerular Filt Rate > 60; Glucose Fasting 88 mg/dL (60-99); HDL Cholesterol 58 mg/dL (>40); LDL Cholesterol Calculated 71 mg/dL (<100); Potassium 3.8 mmol/L (3.3-5.1); Sodium 145 mmol/L (135-145); Triglycerides 64 mg/dL (<150)
== END 2023-10-05 12:29 | disposition home or self-care (01) ==
LOC: HO.10HDL 12:28
PROVIDERS: Visit Provider Internal Medicine
DX: Z13.89 Encounter for screening for other disorder (principal)
CPT/HCPCS: 36415; 80053; 80061; 85025

== ENCOUNTER 2023-10-05 16:29 | Outpatient (REF) | payer MEDICARE, BC, SELFPAY ==
--- NOTE | ~2023-10-05 | XR_ITS ---
EXAMINATION: XR CHEST CLINICAL INFORMATION: Cough, shortness of breath. COMPARISON: Chest radiograph 06/06/2023. TECHNIQUE: 2 views of the chest were obtained. FINDINGS: Stable prominence of the cardiomediastinal silhouette. Diffuse but predominantly central peribronchial wall thickening is slightly increased. No focal consolidation, pleural effusion or pneumothorax. No acute osseous findings. Visualized upper abdomen is within normal limits. XR/XR chest 2V IMPRESSION: Increased peribronchial wall thickening which is nonspecific and could be associated with asthma, bronchitis, reactive airways disease or atypical viral infections.
== END 2023-10-05 16:30 | disposition home or self-care (01) ==
LOC: HO.XRAY 16:29
PROVIDERS: PCP Internal Medicine; Visit Provider Internal Medicine
DX: R05.9 Cough, unspecified (principal); R06.02 Shortness of breath; I10 Essential (primary) hypertension; E78.00 Pure hypercholesterolemia, unspecified; Z86.73 Personal history of transient ischemic attack (TIA), and cerebral infarction without residual deficits
CPT/HCPCS: 36415; 71046; 80053; 80061; 85025

== ENCOUNTER 2024-01-22 12:00 | Outpatient (AMB) | payer MEDICARE, BC, SELFPAY ==
--- NOTE | 2024-01-22 12:01 | A.OFFVIS_ITS ---
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: No Accompanied by: Self / Same As Patient Allergies hydrochlorothiazide [HCTZ] Allergy (Intermediate, Verified 01/22/24 21:07) Itching Medication List - Last Reconciled 01/22/24 by PHANI [place]-VALERIE acetaminophen 500 mg PO BID amlodipine 2.5 mg PO DAILY baclofen 20 mg PO TID PRN [calcium ] citalopram 10 mg PO DAILY citalopram 20 mg PO DAILY cyclosporine 0.05% drj luis ophthalmic (eye) furosemide 1 tab PO BEDTIME mirabegron ER 25 mg PO BID 90 days multivitamin 1 tab PO DAILY omeprazole 20 mg PO BID simvastatin 20 mg PO DAILY HPI Comments Details: Cora is a pleasant [address] female patient Dr. Valdes. 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 She presents to the office today for follow-up of her overactive bladder and urinary urgency and frequency. In discussion with the patient today she reports to be doing and feeling well. S he reports significant improvement in urinary symptoms with dual combination of Myrbetriq and VESIcare. She reports taking VESIcare 5mg daily in the morning and 25mg of Myrbetriq at bedtime. She reports she had been taking Myrbetriq 25 mg b.i.d. with VESIcare 5 mg in the morning however felt this was worsening her dry mouth and has since decreased her dose of Myrbetriq but continues to be happy wi th current voiding parameters. She also had a revision of her InterStim in October of [address] Hurt. She reports having positive results from combination of InterStim with dual therapy of Myrbetriq and VESIcare. She discusses having failed multiple overactive bladder medications in the past. She reports to be happy with her current voiding parameters. In office urinalysis results reviewed with the patient today. PVR 0 mls. She otherwise denies hematuria, dysuria, foul smelling urine, changes to urinary stream, flank pain, fever, and or chills. She does report having episodes of urinary incontinence while sleeping. She does suffer from lymphedema. She otherwise offers no issues or concerns at this time. [facility] Medical History Anxiety Hx of skin cancer, basal cell 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 GERD (gastroesophageal reflux disease) HLD (hyperlipidemia) HTN (hypertension) Frequency of urination Urge incontinence Surgical History History of bladder surgery History of Hx of hand surgery Social History Are you a primary home care liaison to a significant other at home: No Do you presently have visiting nurse or other home services: No Alcohol intake: never Patient Tobacco Use Status: Never used Tobacco Current occupational status: retired Current occupation: right handed. Review of Systems Eyes Reports no additional complaints ENT Reports no additional complaints Card Reports as per HPI Resp Reports no additional complaints GI Reports no additional complaints Reports as per HPI Musc Reports as per HPI Neuro Reports as per HPI Psych Reports as per HPI Endo Reports no additional complaints Valente/Lymph Reports as per HPI Aller/Immun Reports no additional complaints Physical Exam Const General: cooperative, healthy appearing, comfortable, no acute distress, well developed, alert and awake Nutritional Appearance: overweight Orientation/consciousness: patient oriented x3 Limitations: ambulation with cane HEENT Head: Yes normal to inspection, Yes normocephalic and Yes atraumatic Ears: hearing grossly normal bilaterally Eyes General: appearance normal, both eyes and all related structures Neck Neck: Yes normal visual inspection and Yes trachea midline Chest Chest palpation & inspection: normal inspection of the chest Resp Effort & Inspection: normal respiratory effort and able to speak in complete sentences Cardio Rate: regular rate GI Inspection: Yes normal to inspection General: Yes no CVA tenderness Back/Spine/Pelvis Back: no CVA tenderness Skin General skin exam: no rashes or lesions noted Neuro General: patient oriented x3 Extrem Other: left sided weakness General: Yes normal to inspection Psych Appearance: grossly normal and well kempt Mental Status: mental status grossly normal Speech and movement: Normal speech and movement present and Clear speech present Affect: normal affect Attitude: cooperative Thought process: Normal thought process present Thought content: Normal thought content present Insight: Fair insight present (Psych) Judgement: Fair judgement present (Psych) Office Procedures Post Void Residual Post Residual Void Post Void Residual (PVR): 0 [id number]-[id number] Void Residual by ultrasound Assessment & Plan Assessment & Plan (1) Overactive bladder: Comment: InterStim revision 2021 Code(s): N32.81 - Overactive bladder Category: Medical (2) Frequency of urination: Comment: interstim in place Code(s): R35.0 - Frequency of micturition Category: Medical Plan In office urinalysis results reviewed with the patient today; as noted above. PVR 0 mL. Continue VESIcare 5mg daily in the a.m. and Myrbetriq 25 mg at bedtime; as patient reports to be happy with current voiding parameters on this current regimen. Discussed near future in office urodynamics if symptoms arise. Discussed importance of limiting fluids 2-3 hours prior to bed to decrease episodes of nocturia. Discussed importance of elevating bilateral lower extremities in the evening in relation to lower urinary tract symptoms. Follow-up in 6 months with PVR; or sooner with any issues, concerns, and or questions. Orders: Orders AMB Urinalysis Automated Today Z13.9 - Encounter for screening, unspecified AMB Post Void Residual by ultrasound Today N32.81 - Overactive bladder Medications: New solifenacin (Vesicare) 5 mg PO DAILY 90 days 90 tabs 3RF Patient Instructions: The patient had an opportunity to ask questions regarding the treatment plan. All questions were answered. Physical exam, labs, and imaging were discussed and reviewed in detail. As well as risks, benefits, and discussion of treatment choices. No major barriers to understanding were identified. The patient expressed understanding and agreement with the above treatment plan. The patient was made aware they should contact our office by phone for worsening of their current condition, the appearance of new symptoms, or with any questions or concerns. Compliance is encouraged with any medications and follow up testing that is ordered. It is a privilege to be allowed the opportunity to participate in? your urological care.? Again, if you have any questions or concerns If you have any questions or concerns please do not hesitate to contact me. The office is [phone]. This note is constructed using voice recognition software. While every effort has been made to ensure accuracy reliability specialist errors may have been included. Yours sincerely, RHYS [place] Coding Level of Care Code Est Pt Level 3 (46586) Diagnoses Overactive bladder N32.81 Frequency of urination R35.0 CPT Codes Post Residual Void - PVR CPT Code: 03572-Rnvn Void Residual by ultrasound ([id number])
== END 2024-01-22 12:34 | disposition home or self-care (01) ==
PROVIDERS: PCP Internal Medicine; Visit Provider Nurse Practitioner Family
DX: N32.81 Overactive bladder (principal); R35.0 Frequency of micturition
CPT/HCPCS: 99213

== ENCOUNTER → 2024-01-22 12:00 | Outpatient (BNVA) | payer MEDICARE, BC, SELFPAY | PROVIDERS: PCP Internal Medicine; Visit Provider Nurse Practitioner Family | DX: N32.81 Overactive bladder (principal); R35.0 Frequency of micturition; N39.41 Urge incontinence; Z86.73 Personal history of transient ischemic attack (TIA), and cerebral infarction without residual deficits | CPT/HCPCS: 51798; 99212 ==

== ENCOUNTER 2024-01-30 14:35 | Outpatient (REF) | payer MEDICARE, BC, SELFPAY ==
--- NOTE | ~2024-01-30 | XR_ITS ---
EXAMINATION: XR ABDOMEN COMPLETE CLINICAL INDICATION: Bloating Evaluate for obstruction COMPARISON: None available. TECHNIQUE: AP supine and upright views of the abdomen. FINDINGS: No free air under the diaphragm. The bowel gas pattern is normal with no evidence of ileus or obstruction. A moderate amount stool seen within the ascending, transverse and descending colon. No abnormal air-fluid levels. Stimulator device projects over the right sacrum. There is mild curve of the lumbar spine with multilevel degenerative disc disease. XR/XR abdomen min 2V IMPRESSION: 1. No evidence of obstruction. 2. Moderate stool burden.
== END 2024-01-30 14:36 | disposition home or self-care (01) ==
LOC: HO.XRAY 14:35
PROVIDERS: PCP Internal Medicine; Visit Provider Internal Medicine
DX: R14.0 Abdominal distension (gaseous) (principal)
CPT/HCPCS: 74019

== ENCOUNTER → 2024-07-17 14:55 | Outpatient (REF) | payer MEDICARE, BC, SELFPAY | LOC: HO.SL 14:55 | PROVIDERS: PCP Internal Medicine; Visit Provider Internal Medicine | DX: G47.33 Obstructive sleep apnea (adult) (pediatric) (principal); R06.83 Snoring | CPT/HCPCS: 95806 ==

== ENCOUNTER → 2024-07-18 19:00 | Outpatient (BNV) | payer MEDICARE, BC, SELFPAY | PROVIDERS: PCP Internal Medicine; Visit Provider Psychiatry & Neurology Neurology | DX: G47.33 Obstructive sleep apnea (adult) (pediatric) (principal) | CPT/HCPCS: 95806 ==

== ENCOUNTER 2024-10-14 11:25 | Outpatient (AMB) | payer MEDICARE, BC, SELFPAY ==
--- NOTE | 2024-10-14 11:27 | MHC.OFFVIS ---
Intake Visit Reasons: 6 month/ PVR Intake Note: Patient is present for 6M/ PVR Urology Medication:SOLIFENACIN,MIRABEGRON Antibiotic Allergy:NONE Blood Thinner:NONE Last PVR:0ML'S Todays PVR:0ML'S Probation And Patrol Agent Required: No Allergies hydrochlorothiazide [HCTZ] Allergy (Intermediate, Verified 10/14/24 12:09) Itching Medication List - Last Reconciled 10/14/24 by PHANI England- acetaminophen 500 mg PO BID amlodipine 2.5 mg PO DAILY baclofen 20 mg PO TID PRN [calcium ] citalopram 20 mg PO DAILY cyclosporine 0.05% maria ophthalmic (eye) furosemide 1 tab PO BEDTIME mirabegron ER 25 mg PO BID 90 days multivitamin 1 tab PO DAILY omeprazole 20 mg PO BID simvastatin 20 mg PO DAILY solifenacin (Vesicare) 5 mg PO DAILY 90 days HPI Comments Details: Cora is a pleasant [address] Valdes. 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 She presents to the office today for follow-up of her overactive bladder and urinary urgency and frequency. In discussion with the patient today she reports to be doing and feeling well. She discusses despite compliance with Myrbetriq and VESIcare as prescribed she continues to experience stress/urge incontinence. Patient with a longstanding history of InterStim since 2006 however had a revision of her InterStim October of [address] Hurt. She reports she had been having positive results from combination of InterStim with dual therapy of Myrbetriq and VESIcare however feels more recently this has not been helpful. She discusses having failed multiple overactive bladder medications in the past. In office urinalysis results reviewed with the patient today. PVR 0 mls. She otherwise denies hematuria, dysuria, foul smelling urine, changes to urinary stream, flank pain, fever, and or chills. She does report having episodes of urinary incontinence while sleeping. She does suffer from lymphedema. We discuss trial of Gemtesa or Fesoterodine. She discusses continuing to utilize 4-6 Lottie pads per day and finds this bothersome as she attempts to go to the gym. She discusses having been in contact with [facility] and continues with stress/urge incontinence. She otherwise offers no issues or concerns at this time. [facility] Medical History Anxiety Hx of skin cancer, basal cell 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 GERD (gastroesophageal reflux disease) HLD (hyperlipidemia) HTN (hypertension) Frequency of urination Urge incontinence Surgical History History of bladder surgery History of Hx of hand surgery Social History Are you a primary technical healthcare consultant to a significant other at home: No Do you presently have visiting nurse or other home services: No Alcohol intake: never Patient Tobacco Use Status: Never used Tobacco Current occupational status: retired Current occupation: right handed. Review of Systems Eyes Reports no additional complaints ENT Reports no additional complaints Card Reports as per HPI Resp Reports no additional complaints GI Reports no additional complaints Reports as per HPI Musc Reports as per HPI Neuro Reports as per HPI Psych Reports as per HPI Endo Reports no additional complaints Valente/Lymph Reports as per HPI Aller/Immun Reports no additional complaints Physical Exam Const General: cooperative, healthy appearing, comfortable, no acute distress, well developed, alert and awake Nutritional Appearance: overweight Orientation/consciousness: patient oriented x3 Limitations: ambulation with cane HEENT Head: Yes normal to inspection, Yes normocephalic and Yes atraumatic Ears: hearing grossly normal bilaterally Eyes General: appearance normal, both eyes and all related structures Neck Neck: Yes normal visual inspection and Yes trachea midline Chest Chest palpation & inspection: normal inspection of the chest Resp Effort & Inspection: normal respiratory effort and able to speak in complete sentences Cardio Rate: regular rate GI Inspection: Yes normal to inspection General: Yes no CVA tenderness Back/Spine/Pelvis Back: no CVA tenderness Skin General skin exam: no rashes or lesions noted Neuro General: patient oriented x3 Extrem Other: left sided weakness General: Yes normal to inspection Psych Appearance: grossly normal and well kempt Mental Status: mental status grossly normal Speech and movement: Normal speech and movement present and Clear speech present Affect: normal affect Attitude: cooperative Thought process: Normal thought process present Thought content: Normal thought content present Insight: Fair insight present (Psych) Judgement: Fair judgement present (Psych) Office Procedures Post Void Residual Post Residual Void Post Void Residual (PVR): 0 17914-Ntdy Void Residual by ultrasound Results AMB Urinalysis, Automated UA Leukoctes 0 Bennie/uL Last Edit by TANESHA Magana on 10/14/24 11:44 UA Nitrite Negative Last Edit by Skye Mantilla CCM on 10/14/24 11:44 UA Urobilinogen 0.2 mg/dL Last Edit [facility] on 10/14/24 11:44 UA Protein 0 mg/dL Last Edit by Skye Mantilla [facility] on 10/14/24 11:44 UA pH 6.5 Last Edit by Skye Mantilla [facility] on 10/14/24 11:44 UA Blood 0 Mateus/uL Last Edit by Skye Mantilla [facility] on 10/14/24 11:44 UA Specific [place] 1.015 Last Edit by Skye Mantilla [facility] on 10/14/24 11:44 UA Ketone Negative Last Edit by Skye Manitlla [facility] on 10/14/24 11:44 UA Bilirubin 0 mg/dL Last Edit by Skye Mantilla [facility] on 10/14/24 11:44 UA Glucose 0 mg/dL Last Edit by Skye Mantilla [facility] on 10/14/24 11:44 Results Reviewed Results Reviewed: Laboratory Last Values Urine pH (Auto) 6.5 10/14/24 11:43 Specific [place] (Auto) 1.015 10/14/24 11:43 Urine Protein (Auto) 0 mg/dL 10/14/24 11:43 Glucose (UA)(Auto) 0 mg/dL 10/14/24 11:43 Urine Ketones (Auto) Negative 10/14/24 11:43 Urine Blood (Auto) 0 Mateus/uL 10/14/24 11:43 Urine Nitrite (Auto) Negative 10/14/24 11:43 Urine Bilirubin (Auto) 0 mg/dL 10/14/24 11:43 Urine Urobilinogen (Auto) 0.2 mg/dL 10/14/24 11:43 Leukocyte Esterase (Auto) 0 Bennie/uL 10/14/24 11:43 Assessment & Plan Assessment & Plan (1) Overactive bladder: Comment: InterStim revision 2021 Code(s): N32.81 - Overactive bladder Category: Medical (2) Urge incontinence: Code(s): N39.41 - Urge incontinence Category: Medical (3) Frequency of urination: Comment: interstim in place Code(s): R35.0 - Frequency of micturition Category: Medical Plan In office urinalysis results reviewed with the patient today; as noted above. PVR 0 mL. We discussed further treatment options of stress/urge incontinence and risks and benefits of these interventions. We discussed importance of timed/scheduled voiding. We discussed importance of limiting fluids 2-3 hours prior to bed as well as lifting bilateral lower extremities in the evening as patient does have lymphedema. Continue Myrbertriq and Vesicate as prescribed; however discussed will need to hold medication prior to urodynamics. We also discussed bringing Medtronic device for urodynamics visit. Will schedule for in office urodynamics for further assessment evaluation; information provided Follow-up per doctor's orders; or sooner with any issues, concerns, and or questions. Orders: Orders AMB Urinalysis Automated Today Z13.9 - Encounter for screening, unspecified Patient Instructions: The patient had an opportunity to ask questions regarding the treatment plan. All questions were answered. Physical exam, labs, and imaging were discussed and reviewed in detail. As well as risks, benefits, and discussion of treatment choices. No major barriers to understanding were identified. The patient expressed understanding and agreement with the above treatment plan. The patient was made aware they should contact our office by phone for worsening of their current condition, the appearance of new symptoms, or with any questions or concerns. Compliance is encouraged with any medications and follow up testing that is ordered. It is a privilege to be allowed the opportunity to participate in? your urological care.? Again, if you have any questions or concerns If you have any questions or concerns please do not hesitate to contact me. The office is [phone]. This note is constructed using voice recognition software. While every effort has been made to ensure accuracy asset protection greeter errors may have been included. Yours sincerely, RHYS [place] Coding Level of Care Code Est Pt Level 4 (59274) Complex EM visit Add On G2211 Diagnoses Overactive bladder N32.81 Urge incontinence N39.41 Frequency of urination R35.0 CPT Codes Post Residual Void - PVR CPT Code: 86078-Moxy Void Residual by ultrasound ([id number]) Time Spent (min) 35
== END 2024-10-14 12:19 | disposition home or self-care (01) ==
PROVIDERS: PCP Internal Medicine; Visit Provider Nurse Practitioner Family
DX: N32.81 Overactive bladder (principal); N39.41 Urge incontinence; R35.0 Frequency of micturition; Z13.9 Encounter for screening, unspecified
CPT/HCPCS: 99214; G2211

== ENCOUNTER → 2024-10-14 11:25 | Outpatient (BNVA) | payer MEDICARE, BC, SELFPAY | PROVIDERS: PCP Internal Medicine; Visit Provider Nurse Practitioner Family | DX: N32.81 Overactive bladder (principal); N39.41 Urge incontinence | CPT/HCPCS: 51798; 81003; 99212 ==

== ENCOUNTER 2024-12-04 10:27 | Outpatient (AMB) | payer MEDICARE, BC, SELFPAY ==
[2024-12-04 10:39] VITALS: BP 126/80; PULSE 62; RESP 16; TEMP 36.6; O2SAT 94; BMI 38.6
--- NOTE | 2024-12-04 10:39 | MHC.PC.OV ---
Vital Signs 12/04/24 10:39 Height 5 ft 4 in Weight 225 lb BMI 38.6 BP 126/80 Respiration 16 Pulse 62 Pulse Source Pulse Oximeter Temp 97.8 F Temp Source Temporal Artery Scan Pulse Oximetry (%) 94 Oxygen Delivery Method Room Air Intake Visit Reasons: Walk In Sick Bronch Exhibition Carver Required: No Accompanied by: Self / Same As Patient Allergies hydrochlorothiazide [HCTZ] Allergy (Intermediate, Verified 12/04/24 10:45) Itching Tobacco use date assessed: 12/04/24 Fall risk assessment: 1 Fall in past year Last assessed Fall Risk: 12/04/24 Dental Screening Dental Screen Date: 12/04/24 Did you have a dental visit in the last 12 months?: Yes Did you have a dental problem in the last 6 months where you did not have access to dental care?: No HPI Walk In Sick Bronch HPI Details Patient presents for a sick visit. Reporting symptoms of sinus congestion, sore throat and difficulty swallowing. Low-grade fever. No family member is sick. No recent travel. Patient reports symptoms of malaise and fatigue. [facility] Medical History Anxiety Hx of skin cancer, basal cell 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 GERD (gastroesophageal reflux disease) HLD (hyperlipidemia) HTN (hypertension) Frequency of urination Urge incontinence Surgical History History of bladder surgery History of Hx of hand surgery Family History (Updated 12/04/24 @ 10:48 by ITZEL Yo) Father Parkinson disease Mother Diabetes Social History Housing: Condominium Are you a primary healthcare network pricing consultant to a significant other at home: No Do you presently have visiting nurse or other home services: No Alcohol intake: never Patient Tobacco Use Status: Never used Tobacco service: No Current occupational status: retired Current occupation: right handed. Cognitive needs: Yes (cane) Hearing needs: No Vision needs: Yes Questionnaire PHQ-9 Over the last 2 weeks, how often have you been bothered by any of the following problems? 1. Little interest or pleasure in doing things: not at all 2. Feeling down, depressed, or hopeless: not at all 3. Trouble falling or staying asleep, or sleeping too much: not at all 4. Feeling tired or having little energy: not at all 5. Poor appetite or overeating: not at all 6. Feeling bad about yourself - or that you are a failure or have let yourself or your family down: not at all 7. Trouble concentrating on things, such as reading the newspaper or watching television: not at all 8. Moving or speaking so slowly that other people could have noticed. Or the opposite - being so fidgety or restless that you have been moving around a lot more than usual: not at all 9. Thoughts that you would be better off or of hurting yourself in some way: not at all Total score: 0 Source: Developed by Drs. Jeromy Ballesteros, Lyubov Small, Soham Yousif and colleagues, with an educational kayla from [employer] Thrive Questionnaire Date Thrive assessed: 12/04/24 I am a: Patient What is your living situation today?: I have a steady place to live Within the past 12 months, did the food you bought not last and you didn't have the money to get more?: Never true Within the past 12 months, did you worry whether your food would run out before you got money to buy more?: Never true Do you have trouble paying for medicines?: No Do you have trouble getting transportation to medical appointments?: No Do you have trouble paying your heating and electricity bill?: No Do you have trouble taking care of your child, family member or friend?: No Do you have trouble with day-to-day activities such as bathing, preparing meals, shopping, managing finances, etc.?: No Are you currently unemployed and looking for a job?: No Are you interested in more education?: No THRIVE Score: 0 AUDIT C Alcohol Use Questionnaire (AUDIT-C) 1. How often do you have a drink containing alcohol?: Never 3. How often do you have six or more drinks on one occasion?: Never Total Score: 0 UMANG-7 AMB Questionnaire UMANG-7 Date UMANG - 7 assessed: 12/04/24 Feeling nervous, anxious, or on edge: 1 = Several days Not being able to stop or control worryin = Several days Worrying too much about different things: 1 = Several days Trouble relaxin = Several days Being so restless that it is hard to sit still: 0 = Not at all Becoming easily annoyed or irritable: 0 = Not at all Feeling afraid as if something awful might happen: 0 = Not at all Total UMANG-7 score (0-4 normal; 5-9 mild; 10-14 moderate; 15-21 severe): 4 Source: Developed by Drs. Jeromy Ballesteros, Lyubov Small, Soham Yousif and colleagues, with an educational kayla from [employer]. Physical exam (Primary Care) Vital Signs: Last Vital Signs Temp 97.8 F 12/04/24 10:39 Pulse 62 12/04/24 10:39 Resp 16 12/04/24 10:39 BP 126/80 12/04/24 10:39 Pulse Ox 94 12/04/24 10:39 Oxygen Delivery Method Room Air 12/04/24 10:39 BMI result Body Mass Index 38.6 Tobacco/Smoking Status: Tobacco use Status Tobacco use date assessed 12/04/24 12/04/24 10:49 Patient Tobacco Use Status Never used Tobacco 12/04/24 10:39 PHQ-9: PHQ-9 Score PHQ-9: Total score 0 12/04/24 10:49 Thrive Assessment: Date of Thrive Assessment Date Thrive assessed 12/04/24 12/04/24 10:49 Const General: cooperative and healthy appearing Nutritional Appearance: well nourished Orientation/consciousness: patient oriented x3 Limitations: no limitations HENMT Head: Yes normal to inspection Eyes General: appearance normal, both eyes and all related structures Neck Neck: Yes normal visual inspection Chest Chest palpation & inspection: normal palpation of entire chest wall Resp Effort & Inspection: normal respiratory effort Neuro General: patient oriented x3 Coding Level of Care Code New Pt Level 3 (04486) Complex EM visit Add On G2211 Diagnoses Acute bronchitis J20.9 Assessment & Plan Assessment & Plan (1) Acute bronchitis: Code(s): J20.9 - Acute bronchitis, unspecified Plan: Antibiotics ordered. Increase fluid intake. Tylenol for aches and pains. If symptoms worsen, follow-up here for a recheck. Medications: New prednisone 60 mg (3 x 20 mg) PO DAILY 9 tabs 0RF azithromycin take 500 mg today (day 1), then 250 mg for 4 days (days 2-5) PO 6 tabs 0RF
--- OUTSIDE RECORDS SUMMARY | 2024-12-04 12:01 | XMS_ITS ---
Author Organization [facility] Address [address] [place] [address] Care Team Providers Care Compound Specialist Name Role Phone Jose Valdes MD Primary Care Provider Jeromy Lui Unavailable [phone] Allergies Allergen (clinical drug ingredient) Drug/Non Drug Allergy documented on EMR Reaction Allergy Type Onset Date Status hydrochlorothiazide Hydrochlorothiazide Unknown Drug Aller gy Active seasonal allergies (uncoded) Unknown Allergy Active REASON FOR VISIT Patient presents today for Abd pressure, more bowel movements, gas Medications Medication SIG (Take, Route, Frequency, Duration) Notes Start Date End Date Status Solifenacin Succinate 5 MG Oral for 90 Active Omeprazole 20 MG TAKE 1 CAPSULE BY MOUTH EVERY DAY 90 Active Ketoconazole 2 % PLEASE SEE ATTACHED FOR DETAILED DIRECTIONS External for 30 Active Estring 7.5 MCG/24HR Vaginal for 90 Active NexIUM 40 MG 1 capsule Orally Onc e a day for 90 06/27/2012 Not-Taking Omeprazole 20 MG 1 Orally Twice a day for 90 days Active tylenol 1 tab Oral twice a day Active amLODIPine Besylate 2.5 MG TAKE 1 TABLET BY MOUTH EVERY DAY Orally Once a day Active Calcium 500 MG 1 tablet with meals Orally Twice a day for 30 day(s) Active Myrbetriq 25 MG 1 tablet Orally twic e a day Active Baclofen 20 MG 1 tablet with food o r milk Orally twice a day Active Furosemide 40 MG 1 tablet Orally once a day/as directed Active Citalopram Hydrobromide 10 MG Orally Once a day Active Florinda 180 mg 1 tablet orally as directed Active Multivitamins multi 1 capsule Orally onc e a day Active Simvastatin 20 MG 1 tablet in the evening Orally Once a day Active Gas Relief 80 MG 1 tablet after meals and at bedtime as needed Orally Four times a day Active Vital Signs Temperature 96.4 degrees Fahrenheit 02/22/20 24 Blood pressure systolic 000 mm Hg 02/22/20 24 Blood pressure diastolic 00 mm Hg 024 Height 64.25 in 02/22/2024 Weight 215 lbs 02/22/2024 BMI 36.61 kg/m2 02/22/2024 Encounters Encounter Location Date Provider Diagnosis [facility] [address] [place] [address] 02/22/2024 Jeromy Hunt Gastro-esophageal reflux disease without esophagitis K21.9 ; Encounter for screening for malignant neoplasm of colon Z12.11 and Upper abdominal pain R10.10 Assessments Encounter Date Diagnosis (ICD Code) Assessment Notes Treatment Notes Treatment Clinical Notes Section Notes 02/22/2024 Gastro-esophage al reflux disease without esophagitis (ICD-10 - K21.9) Overall, Cora appears to be doing well from a GI standpoint. We did review her workup from 2021 in detail. At this point I advised her to continue her daily omeprazole since that seems to be working well for her reflux symptoms. We did review that her abdominal pressure and discomfort seem most consistent with that of a mild irritable bowel syndrome. I did advise her certainly continue to use Gas-X for symptomatic relief. Given the otherwise negative workup with the endoscopy and ultrasound, and her good clinical appearance, I don't think any further evaluation is required at this time. I would not recommend the use of any antispasmodics at this time in regard to her symptoms. I did advise her to try to eat a healthy diet and avoid things such as carbonated beverages that might worsen her abdominal discomfort. If things remains stable I will plan to see her in 2025 for her next screening colonoscopy. I did advise her certainly call prior to that if she has any problems or questions I can be of assistance with. Cora was very comfortable with this plan. Thank you again for allowing me to participate in Cora's care. I shall continue to keep you advised of her progress. 02/22/2024 Encounter for screening for malignant neoplasm of colon (ICD-10 - Z12.11) Repeat colonoscopy in 2025 Overall, Cora appears to be doing well from a GI standpoint. We did review her workup from 2021 in detail. At this point I advised her to continue her daily omeprazole since that seems to be working well for her reflux symptoms. We did review that her abdominal pressure and discomfort seem most consistent with that of a mild irritable bowel syndrome. I did advise her certainly continue to use Gas-X for symptomatic relief. Given the otherwise negative workup with the endoscopy and ultrasound, and her good clinical appearance, I don't think any further evaluation is required at this time. I would not recommend the use of any antispasmodics at this time in regard to her symptoms. I did advise her to try to eat a healthy diet and avoid things such as carbonated beverages that might worsen her abdominal discomfort. If things remains stable I will plan to see her in 2025 for her next screening colonoscopy. I did advise her certainly call prior to that if she has any problems or questions I can be of assistance with. Cora was very comfortable with this plan. Thank you again for allowing me to participate in Cora's care. I shall continue to keep you advised of her progress. 02/22/2024 Upper abdominal pain (ICD-10 - R10.10) Overall, Cora appears to be doing well from a GI standpoint. We did review her workup from 2021 in detail. At this point I advised her to continue her daily omeprazole since that seems to be working well for her reflux symptoms. We did review that her abdominal pressure and discomfort seem most consistent with that of a mild irritable bowel syndrome. I did advise her certainly continue to use Gas-X for symptomatic relief. Given the otherwise negative workup with the endoscopy and ultrasound, and her good clinical appearance, I don't think any further evaluation is required at this time. I would not recommend the use of any antispasmodics at this time in regard to her symptoms. I did advise her to try to eat a healthy diet and avoid things such as carbonated beverages that might worsen her abdominal discomfort. If things remains stable I will plan to see her in 2025 for her next screening colonoscopy. I did advise her certainly call prior to that if she has any problems or questions I can be of assistance with. Cora was very comfortable with this plan. Thank you again for allowing me to participate in Cora's care. I shall continue to keep you advised of her progress. 02/22/2024 Other Continue Gas-X Overall, Cora appears to be doing well from a GI standpoint. We did review her workup from 2021 in detail. At this point I advised her to continue her daily omeprazole since that seems to be working well for her reflux symptoms. We did review that her abdominal pressure and discomfort seem most consistent with that of a mild irritable bowel syndrome. I did advise her certainly continue to use Gas-X for symptomatic relief. Given the otherwise negative workup with the endoscopy and ultrasound, and her good clinical appearance, I don't think any further evaluation is required at this time. I would not recommend the use of any antispasmodics at this time in regard to her symptoms. I did advise her to try to eat a healthy diet and avoid things such as carbonated beverages that might worsen her abdominal discomfort. If things remains stable I will plan to see her in 2025 for her next screening colonoscopy. I did advise her certainly call prior to that if she has any problems or questions I can be of assistance with. Cora was very comfortable with this plan. Thank you again for allowing me to participate in Cora's care. I shall continue to keep you advised of her progress. Plan Of Treatment Medication Medication Name Sig Start Date Stop Date Notes Omeprazole 20 MG TAKE 1 CAPSULE BY MOUTH EVERY DAY 90 Treatment Notes Assessment Notes Encounter for screening for malignant ne oplasm of colon Repeat colonoscopy in 2025 Other Continue Gas-X Next Appt Details Follow Up: prn, Reason: Progress Notes * CORA SHELL WDOB:1950 (73 yo F)Acc No.[id number]:02/22/2024 Progress Notes Patient:?CORA SHELL W Provider:?Jeromy Hunt MD :1950???Age:73 Y???Sex:Female D ate:02/22/2024 Address:[address] [place] [address] , [id number] Pcp:Jose Valdes MD Subjective: * Chief Complaints: * ???Patient presents today fo r Abd pressure, more bowel movements, gas * HPI: ???incontinence:? I saw Cora in followup today in regard to her history of reflux and abdominal discomfort. ?I last saw Cora in Mimi of 2022, at which time she underwent an upper endoscopy for evaluation of some abdominal discomfort and pressure , as well as her reflux. The endoscopy did not show any remarkable findings. There was a very mild gastritis, a small hiatal hernia, and some scarring in the duodenal bulb possibly suggestive of previous ulcer disease. Gastric biopsies were negative for H. pylori. There was no evidence of any esophagitis or Dinero's esophagus. Prior to the procedure she had been using some NSAIDs which I advised her to stop and her omeprazole had been increased to twice a day from her usual one every day. She did have an abdominal ultrasound that was negative for gallstones or any other pathology. ?Since the procedure she does remain on omeprazole daily with good relief of heartburn and reflux-type symptoms. She has been using Gas-X at least twice a day which she reports has been helping with abdominal discomfort and bloating. She still experiences some abdominal pressure , but otherwise denies any abdominal pain, jaundice, fevers, nor unintentional weight loss. She enjoys a good appetite and denies any significant heartburn or dysphagia. She reports that her bowel movements have been fairly regular and without any significant constipation, diarrhea, nor bleeding. ?She does drink about 2 cans of soda every day but does not think that bothers her stomach. She does not use much in the way of any dairy products. ?Laboratories in September revealed a normal CBC, normal chemistries and kidney function, and normal LFTs. She did have an abdominal x-ray earlier this month which was negative for obstruction. * ROS:?General/Constitutional:?Change in appetite?denies.?Chills?denies.?Fatigue?denies.?Ophthalmologic:?Patient denies? Negative..?Respiratory:?Patient denies?No coughing/hemoptysis..?Cardiovascular:?Patient denies? No chest pain/orthopnea..?Gastrointestinal:?Comments?See HPI for details.?Genitourinary:?Patient denies? No dysuria/hematuria..?Musculoskeletal:?Patient denies? No specific arthralgias/myalgias..?Skin:?Patient denies?No rash/pruritus..?Neurologic:?Patient denies? No headaches/seizures..?Psychiatric:?Patient denies?Negative..? * Medical History:? * Surgical History:? 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 * Family History:?Father: dece ased, Parkinsons, diagnosed with Colon polyps.?Mother: , diagnosed with Diabetes.? No colorectal cancer. No family history of liver cancer. * Social History:?Tobacco Use:?Tobacco Use/Smoking?Are you a: nonsmoker.?Drugs/Alcohol:?Alcohol Screen?Points: 0, Interpretation: Negative.?Miscellaneous:?Marital status: . 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 ???Nonsmoker; no significant alcohol use. * Medications:?TakingGas Relie f 80 MG Tablet Chewable 1 tablet after meals and at bedtime as needed Orally Four times a daySimvastatin 20 MG Tablet 1 tablet in the evening Orally Once a dayFurosemide 40 MG Tablet 1 tablet Orally once a day/as directedCitalopram Hydrobromide 10 MG Tablet Orally Once a dayAllegra 180 mg tablet 1 tablet orally as directedMultivitamins multi Capsule 1 capsule Orally once a dayBaclofen 20 MG Tablet 1 tablet with food or milk Orally twice a dayamLODIPine Besylate 2.5 MG Tablet TAKE 1 TABLET BY MOUTH EVERY DAY Orally Once a dayCalcium 500 MG Tablet 1 tablet with meals Orally Twice a dayMyrbetriq 25 MG Tablet Extended Release 24 Hour 1 tablet Orally twice a daytylenol 1 tab Oral twice a dayOmeprazole 20 MG Capsule Delayed Release 1 Orally Twice a daySolifenacin Succinate 5 MG Tablet Oral Ketoconazole 2 % Shampoo PLEASE SEE ATTACHED FOR DETAILED DIRECTIONS External Estring 7.5 MCG/24HR Ring Vaginal Taking Gas Relief 80 MG Tablet Chewable 1 tablet after meals and at bedtime as needed Orally Four times a dayTaking Simvastatin 20 MG Tablet 1 tablet in the evening Orally Once a dayTaking Furosemide 40 MG Tablet 1 tablet Orally once a day/as directedTaking Citalopram Hydrobromide 10 MG Tablet Orally Once a dayTaking Florinda 180 mg tablet 1 tablet orally as directedTaking Multivitamins multi Capsule 1 capsule Orally once a dayTaking Baclofen 20 MG Tablet 1 tablet with food or milk Orally twice a dayTaking amLODIPine Besylate 2.5 MG Tablet TAKE 1 TABLET BY MOUTH EVERY DAY Orally Once a dayTaking Calcium 500 MG Tablet 1 tablet with meals Orally Twice a dayTaking Myrbetriq 25 MG Tablet Extended Release 24 Hour 1 tablet Orally twice a dayTaking tylenol 1 tab Oral twice a dayTaking Omeprazole 20 MG Capsule Delayed Release 1 Orally Twice a dayTaking Solifenacin Succinate 5 MG Tablet Oral Taking Ketoconazole 2 % Shampoo PLEASE SEE ATTACHED FOR DETAILED DIRECTIONS External Taking Estring 7.5 MCG/24HR Ring Vaginal Not-Taking/PRNNexIUM 40 MG Capsule Delayed Release 1 capsule Orally Once a dayMedication List reviewed and reconciled with the patientNot-Taking/PRN NexIUM 40 MG Capsule Delayed Release 1 capsule Orally Once a dayMedication List reviewed and reconciled with the patient * Allergies:?Hydrochlorothiazi deseasonal allergiesyes[Allergies Verified] Objective: * Vitals:?Wt: 215 lbs, Ht: 64. 25 in, BMI:36.61 Index, BP: 000/00 mm Hg, Temp: 96.4. * Examination: ???General Examination: ?GENERAL APPEARANCE:?pleasant, well nourished, well developed, in no acute distress.?EYES:?sclera non-icteric.?ORAL CAVITY:?mucosa moist.?NECK/THYROID:?no cervical lymphadenopathy, neck supple.?SKIN:?nonjaundiced, no spider angiomata..?HEART:?S1, S2 normal.?LUNGS:?clear to auscultation bilaterally.?ABDOMEN:?normal bowel sounds, no guarding or rigidity, no hepatosplenomegaly, no masses palpable, soft, nontender, nondistended..?NEUROLOGIC:?alert and oriented.? Assessment: * Assessment: 1.?Gastro-esophageal reflux disease without esophagitis - K21.9 (Primary)?2.?Encounter for screening for malignant neoplasm of colon - Z12.11?3.?Upper abdominal pain - R10.10? Overall, Cora appears to be doing well from a GI standpoint. We did review her workup from 2021 in detail. At this point I advised her to continue her daily omeprazole since that seems to be working well for her reflux symptoms. We did review that her abdominal pressure and discomfort seem most consistent with that of a mild irritable bowel syndrome. I did advise her certainly continue to use Gas-X for symptomatic relief. Given the otherwise negative workup with the endoscopy and ultrasound, and her good clinical appearance, I don't think any further evaluation is required at this time. I would not recommend the use of any antispasmodics at this time in regard to her symptoms. I did advise her to try to eat a healthy diet and avoid things such as carbonated beverages that might worsen her abdominal discomfort. If things remains stable I will plan to see her in 2025 for her next screening colonoscopy. I did advise her certainly call prior to that if she has any problems or questions I can be of assistance with. Cora was very comfortable with this plan. Thank you again for allowing me to participate in Cora's care. I shall continue to keep you advised of her progress. Plan: * Treatment: 2.?Others? Continue Omeprazole Capsule Delayed Release, 20 MG, TAKE 1 CAPSULE BY MOUTH EVERY DAY 90.?? Notes: Continue Gas-X?? * Procedure Codes:?3017F COLOR ECTAL CA SCREEN DOC [id number] TOBACCO [id number] BP SCR NOT PRFRM REC REASON NOS * Preventive Medicine:? ??Counseling:?Care goal follow-up plan:?Above Normal BMI Follow-up?Giving encouragement to exercise,?BMI management provided?Yes.? ??Urinary Incontinence:?Urinary Incontinence?Assessment:?Present,?Plan of care documented:?Yes,?Type of plan of care:?Addressing co-morbid factors.? * Follow Up:?prn * * Sign off status: Completed true * Provider:?Jeromy Hunt MD Date:? 024 Generated for Eloisa smith/Licha/eTlc on:?12/04/2024 12:01 PM EDT History and Physical Notes * HPI (History of Present Illness) Category Sub-Category Detail Notes Category Not es incontinence I saw Cora in followup today in regard to her history of reflux and abdominal discomfort. I last saw Cora in February of 2022, at which time she underwent an upper endoscopy for evaluation of some abdominal discomfort and pressure , as well as her reflux. The endoscopy did not show any remarkable findings. There was a very mild gastritis, a small hiatal hernia, and some scarring in the duodenal bulb possibly suggestive of previous ulcer disease. Gastric biopsies were negative for H. pylori. There was no evidence of any esophagitis or Dinero's esophagus. Prior to the procedure she had been using some NSAIDs which I advised her to stop and her omeprazole had been increased to twice a day from her usual one every day. She did have an abdominal ultrasound that was negative for gallstones or any other pathology. Since the procedure she does remain on omeprazole daily with good relief of heartburn and reflux-type symptoms. She has been using Gas-X at least twice a day which she reports has been helping with abdominal discomfort and bloating. She still experiences some abdominal pressure , but otherwise denies any abdominal pain, jaundice, fevers, nor unintentional weight loss. She enjoys a good appetite and denies any significant heartburn or dysphagia. She reports that her bowel movements have been fairly regular and without any significant constipation, diarrhea, nor bleeding. She does drink about 2 cans of soda every day but does not think that bothers her stomach. She does not use much in the way of any dairy products. Laboratories in September revealed a normal CBC, normal chemistries and kidney function, and normal LFTs. She did have an abdominal x-ray earlier this month which was negative for obstruction. Examination Category Sub-Category Detail Notes Category Not es General Examination GENERAL APPEARANCE: pleasant , well nourished, well developed, in no acute distress EYES: sclera non-icteric NECK/THYROID: no cervical lymphade nopathy, neck supple HEART: S1, S2 normal LUNGS: clear to auscultatio n bilaterally ABDOMEN: normal bowel sounds, no guarding or rigidity, no hepatosplenomegaly, no masses palpable, soft, nontender, nondistended. NEUROLOGIC: alert and oriented SKIN: nonjaundiced, no spi cathy angiomata. ORAL CAVITY: mucosa moist
--- OUTSIDE RECORDS SUMMARY | 2024-12-04 12:01 | XMS_ITS | Patient Health Record ---
Author Organization [facility] Address [address] [place] [address] Care Team Providers Care Principal Administrative Clerk Name Role Phone Jose Valdes MD Primary Care Provider Jeromy Lui Unavailable [phone] Allergies Allergen (clinical drug ingredient) Drug/Non Drug Allergy documented on EMR Reaction Allergy Type Onset Date Status hydrochlorothiazide Hydrochlorothiazide Unknown Drug Aller gy Active seasonal allergies (uncoded) Unknown Allergy Active Reason For Referral No Information Medications Medication SIG (Take, Route, Frequency, Duration) Notes Start Date End Date Status tylenol 1 tab Oral twice a day Active Gas Relief 80 MG 1 tablet after meals and at bedtime as needed Orally Four times a day Active Baclofen 20 MG 1 tablet with food o r milk Orally twice a day Active amLODIPine Besylate 2.5 MG TAKE 1 TABLET BY MOUTH EVERY DAY Orally Once a day Active Calcium 500 MG 1 tablet with meals Orally Twice a day for 30 day(s) Active Myrbetriq 25 MG 1 tablet Orally twic e a day Active Furosemide 40 MG 1 tablet Orally once a day/as directed Active Ketoconazole 2 % PLEASE SEE ATTACHED FOR DETAILED DIRECTIONS External for 30 Active Citalopram Hydrobromide 10 MG Orally Once a day Active Estring 7.5 MCG/24HR Vaginal for 90 Active Florinda 180 mg 1 tablet orally as directed Active NexIUM 40 MG 1 capsule Orally Onc e a day for 90 06/27/2012 Not-Taking Multivitamins multi 1 capsule Orally onc e a day Active Simvastatin 20 MG 1 tablet in the evening Orally Once a day Active Solifenacin Succinate 5 MG Oral for 90 Active Omeprazole 20 MG TAKE 1 CAPSULE BY MOUTH TWICE A DAY for 90 Active Immunizations Vaccine Route Administration Date Status Comme nts Influenza Unknown 07/26/2019 Administered Influenza Unknown 05/26/2021 Administered Influenza Unknown 06/13/2023 Administered Problems Problem Type SNOMED Code ICD Code Onset Dates Problem Status W/U Status Risk Notes Problem 726080436 Gastro-esophagea l reflux disease without esophagitis (K21.9) Active confirmed Problem 207520518 Encounter for screening for malignant neoplasm of colon (Z12.11) Active confirmed Problem Screening for malignant neoplasm of rectum (462770591) Encounter for screening for malignant neoplasm of rectum (Z12.12) Active confirmed Problem 558751759 Gastroesophageal reflux disease, esophagitis presence not specified (K21.9) Active confirmed Problem Benign neoplasm of stomach (21164338) Gastric polyps (K31.7) Active confirmed Problem Gastritis (6960870) Gastritis (K29.70) Active confirmed Problem Esophageal reflux finding (184694346) Gastroesophageal reflux (K21.9) Active confirmed Problem 32164021 Upper abdominal pain (R10.10) Active confirmed Problem Epigastric pain (35124189) Abdominal discomfort, epigastric (R10.13) Active confirmed Vital Signs Temperature 96.4 degrees Fahrenheit 02/22/2024 Blood pressure diastolic 00 mm Hg 02/22/2024 Height 64.25 in 02/22/2024 Blood pressure systolic 000 mm Hg 02/22/2024 Weight 215 lbs 02/22/2024 BMI 36.61 kg/m2 02/22/2024 Encounters Encounter Location Date Provider Diagnosis [facility] [address] [place] [address] 02/22/2024 Jeromy Hunt Gastro-esophageal reflux disease without [...] advised of her progress. Plan Of Treatment Pending Test Test Name Order Date LIVER PROFILE 02/16/2022 AMYLASE 02/16/2022 CBC w DIFF 02/16/2022 US ABD 03/01/2022 Lipase 02/16/2022 Future Test Test Name Order Date COLONOSCOPY 10/16/2015 UPPER GI ENDOSCOPY 03/01/2022 Insurance Providers Payer Name Payer Address Payer Phone Subscriber Number Group Number Insured Name Patient Relationship to Insured Coverage Start Date Coverage End Date MEDICARE OF [place] [address] [place] [address] [phone] [id number] CORA LÓPEZ Self - patient is the insured [facility] [address] [place], [place] [id number] [phone] [id number] CORA LÓPEZ Self - patient is the insured Medical (General) History Medical History History ICD Code GERD---EGD in 2002--found to have a small hiatal hernia, but no evidence of any significant esophagitis nor Dinero's esophagus Screening colonoscopy in 6 with removal of a hyperplastic polyp--also noted to have internal hemorrhoids Hypertension Hyperlipidemia CVA over 47 years ago Edema of LLE and LUE from previous CVA Denies [place],DM,Lung disease,renal disease Urinary incontinence Broken ribs 2017 Neg. screening colonoscopy in November 016 Broke left humerus 04/19/2021 Bursitis in right shoulder 02/2022 EGD revealed a small hiatal hernia and minimal gastritis, as well as some scarring in the duodenal bulb. There was no evidence of any esophagitis, Dinero's esophagus, nor H. pylori. 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
== END 2024-12-04 11:09 | disposition home or self-care (01) ==
LOC: HO.HMCHD 10:27
PROVIDERS: PCP Internal Medicine; Visit Provider Internal Medicine
DX: J20.9 Acute bronchitis, unspecified (principal)

== ENCOUNTER → 2024-12-04 10:27 | Outpatient (BNVA) | payer MEDICARE, BC, SELFPAY | PROVIDERS: PCP Internal Medicine; Visit Provider Internal Medicine | DX: J20.9 Acute bronchitis, unspecified (principal) | CPT/HCPCS: 99202 ==

== ENCOUNTER 2024-12-09 11:40 | Outpatient (REF) | payer MEDICARE, BC, SELFPAY | END 2024-12-09 11:41 | disposition home or self-care (01) | LOC: HO.LNP 11:40 | PROVIDERS: PCP Internal Medicine; Visit Provider Urology | DX: N32.81 Overactive bladder (principal) | CPT/HCPCS: 87086 ==

== ENCOUNTER 2024-12-12 13:54 | Outpatient (AMB) | payer MEDICARE, BC, SELFPAY ==
[2024-12-12 14:16] VITALS: BP 130/76; PULSE 81; RESP 16; TEMP 36.9; BMI 38.1
--- NOTE | 2024-12-12 14:16 | MHC.PC.OV ---
Vital Signs 12/12/24 14:16 Height 5 ft 4 in Weight 222 lb BMI 38.1 BP 130/76 Blood Pressure Location Rt brachial Respiration 16 Pulse 81 Temp 98.4 F Oxygen Flow Rate 95 Intake Visit Reasons: Routine Intake Note: Pt is here to follow with the Doctor, pt was here last week and she needs a follow up today,she was on pednisone and zpack precribe by Doctor V. Pt doesn't know the mg of the meds that was prescribe. 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 Prescribed azithromycin and prednisone. [place] some improvement while on antibiotic but symptoms did not completely resolve. Still coughing frequently. Received Saw urgent care on Monday. CXR was negative . Denies fevers. Endorses fatigue. No increased LE edema. No weight gain ROS CONSTITUTIONAL: Denies weight loss, fever and chills. HEENT: Denies changes in vision and hearing. RESPIRATORY: Denies SOB and cough. CV: Denies palpitations and CP GI: Denies abdominal pain, nausea, vomiting and diarrhea. : Denies dysuria and urinary frequency. MSK: Denies new myalgia and joint pain. SKIN: Denies rash and pruritus. NEUROLOGICAL: Denies headache PSYCHIATRIC: Denies recent changes in mood. PHYSICAL EXAM: GENERAL: Alert and oriented x 3. NAD EYES: EOMI. Anicteric. HENT: Moist mucous membranes. No scleral icterus. No cervical lymphadenopathy. LUNGS: RLL rhonci, coarse CARDIOVASCULAR: Regular rate and rhythm. No murmur. No JVD. ABDOMEN: Soft, non-tender +bs EXTREMITIES: Mild non pitting LE edema b/l SKIN: No rashes or lesions. Warm. NEUROLOGIC: No focal neurological deficits. CN II-XII grossly intact PSYCHIATRIC: Cooperative. Appropriate mood and affect [facility] Medical History Anxiety Hx of skin cancer, basal cell 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 GERD (gastroesophageal reflux disease) HLD (hyperlipidemia) HTN (hypertension) Frequency of urination Urge incontinence Surgical History History of bladder surgery History of Hx of hand surgery Family History Father Parkinson disease Mother Diabetes Social History [facility] Are you a primary care specialist to a significant other at home: No Do you presently have visiting nurse or other home services: No Alcohol intake: never Patient Tobacco Use Status: Never used Tobacco e-Cigarette/Vaping Use: Never Used Second Hand Smoke Exposure: No service: No Current occupational status: retired Current occupation: right handed. Cognitive needs: Yes (cane) Hearing needs: No Vision needs: Yes Questionnaire Thrive Questionnaire Date Thrive assessed: 12/04/24 UMANG-7 AMB Questionnaire UMANG-7 Date UMNAG - 7 assessed: 12/04/24 Source: Developed by Drs. Jeromy Ballesteros, Lyubov Small, Soham Yousif and colleagues, with an educational kayla from [employer]. Physical exam (Primary Care) Vital Signs: Last Vital Signs Temp 98.4 F 12/12/24 14:16 Pulse 81 12/12/24 14:16 Resp 16 12/12/24 14:16 BP 130/76 12/12/24 14:16 Oxygen Flow Rate 95 12/12/24 14:16 BMI result Body Mass Index 38.1 Tobacco/Smoking Status: Tobacco use Status Tobacco use date assessed 12/04/24 12/12/24 14:39 Patient Tobacco Use Status Never used Tobacco 12/12/24 14:39 e-Cigarette/Vaping Use Never Used 12/12/24 14:39 Thrive Assessment: Date of Thrive Assessment Date Thrive assessed 12/04/24 12/12/24 14:39 Coding Level of Care Code Est Pt Level 4 (10856) Diagnoses Subacute cough R05.2 Cough type: subacute Assessment & Plan Assessment & Plan (1) Cough: Code(s): R05.9 - Cough, unspecified Category: Medical Qualifiers: Cough type: subacute Qualified Code(s): R05.2 - Subacute cough Plan: Concern for RLL pneumonia despite negative CXR. Doxycycline sent. She will follow up if symptoms persist or worsen Medications: New doxycycline hyclate 100 mg PO BID 20 tabs 0RF albuterol sulfate 90 mcg/actuation 2 inhalations inhalation .every 4 hour PRN 1 ea 0RF shortness of breath or wheezing prednisone Take 2 tab oral once daily for 3 days then take 1 tab oral once daily for 3 days 20 mg PO DAILY 9 tabs 0RF
--- OUTSIDE RECORDS SUMMARY | 2024-12-12 16:35 | XMS_ITS ---
Author Organization [facility] Address [address] [place] [address] Care Team Providers Care Legal Biller Name Role Phone oJse Valdes MD Primary Care Provider Jeromy Lui Unavailable [phone] Allergies Allergen (clinical drug ingredient) Drug/Non Drug [...] 02/22/2024 Encounters Encounter Location Date Provider Diagnosis [facility] [address] [place] [address] 02/22/2024 Jeromy Hunt Gastro-esophageal reflux disease without [...] * CORA SHELL WDOB:1950 (73 yo F)Acc No.[id number]:02/22/2024 Progress Notes Patient:?CORA SHELL W Provider:?Jeromy Hunt MD :1950???Age:73 Y???Sex:Female D ate:02/22/2024 Address:[address] [place] [address] , [facility] Pcp:Jose Valdes MD Subjective: * Chief Complaints: [...] 0, Interpretation: Negative.?Miscellaneous:?Marital status: . 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 ???Nonsmoker; no significant alcohol use. * [...] Procedure Codes:?3017F COLOR ECTAL CA SCREEN DOC [id number] TOBACCO [id number] BP SCR NOT PRFRM REC REASON NOS * Preventive Medicine:? ??Counseling:?Care goal follow-up plan:?Above Normal BMI Follow-up?Giving encouragement to exercise,?BMI management provided?Yes.? ??Urinary Incontinence:?Urinary Incontinence?Assessment:?Present,?Plan of care documented:?Yes,?Type of plan of care:?Addressing co-morbid factors.? * Follow Up:?prn * * Sign off status: Completed true * Provider:?Jeromy Hunt MD Date:? 024 Generated for Eloisa smith/Licha/Nurys on:?12/12/2024 04:34 PM EDT History and Physical Notes * [...]
--- OUTSIDE RECORDS SUMMARY | 2024-12-12 16:35 | XMS_ITS | Patient Health Record ---
Author Organization [facility] [place] [facility] Address [address] [place] [address] Care Team Providers Care Family Caseworker Name Role Phone Jose Valdes MD Primary Care Provider Jeromy Lui Unavailable [phone] Allergies Allergen (clinical drug ingredient) Drug/Non Drug [...] Problem Status W/U Status Risk Notes Problem 834613533 Gastro-esophagea l reflux disease without esophagitis (K21.9) Active confirmed Problem 894883830 Encounter for screening for malignant neoplasm of colon (Z12.11) Active confirmed Problem Screening for malignant neoplasm of rectum (469533270) Encounter for screening for malignant neoplasm of rectum (Z12.12) Active confirmed Problem 292957018 Gastroesophageal reflux disease, esophagitis presence not specified (K21.9) Active confirmed Problem Benign neoplasm of stomach (98680920) Gastric polyps (K31.7) Active confirmed Problem Gastritis (3275494) Gastritis (K29.70) Active confirmed Problem Esophageal reflux finding (052791498) Gastroesophageal reflux (K21.9) Active confirmed Problem 00326075 Upper abdominal pain (R10.10) Active confirmed Problem Epigastric pain (94534346) Abdominal discomfort, epigastric (R10.13) Active confirmed Vital Signs Temperature 96.4 degrees Fahrenheit 02/22/2024 Blood pressure diastolic 00 mm Hg 02/22/2024 Height 64.25 in 02/22/2024 Blood pressure systolic 000 mm Hg 02/22/2024 Weight 215 lbs 02/22/2024 BMI 36.61 kg/m2 02/22/2024 Encounters Encounter Location Date Provider Diagnosis [facility] [address] [place] [address] 02/22/2024 Jeromy Hunt Gastro-esophageal reflux disease without [...] Date MEDICARE OF [place] [address] [place] [address] [id number] CORA LÓPEZ Self - patient is the insured [facility] [address] [place], [place] [id number] [phone] [id number] CORA LÓPEZ Self - patient is the [...] LLE and LUE from previous CVA Denies NC,DM,Lung disease,renal disease Urinary incontinence Broken ribs 2017 [...]
== END 2024-12-12 14:54 | disposition home or self-care (01) ==
LOC: HO.HMCHD 13:55
PROVIDERS: PCP Internal Medicine; Visit Provider Internal Medicine
DX: R05.2 Subacute cough (principal)

== ENCOUNTER → 2024-12-12 13:54 | Outpatient (BNVA) | payer MEDICARE, BC, SELFPAY | PROVIDERS: PCP Internal Medicine; Visit Provider Internal Medicine | DX: R05.2 Subacute cough (principal); I10 Essential (primary) hypertension; K21.9 Gastro-esophageal reflux disease without esophagitis; E78.5 Hyperlipidemia, unspecified; Z86.73 Personal history of transient ischemic attack (TIA), and cerebral infarction without residual deficits | CPT/HCPCS: 99212 ==

== ENCOUNTER 2024-12-25 15:20 | Outpatient (REF) | payer MEDICARE, BC, SELFPAY ==
--- NOTE | ~2024-12-25 | XR_ITS ---
EXAMINATION: XR CHEST 2 VIEWS HISTORY: R05.2 - Subacute cough COMPARISON: Comparison is made with the prior examination dated 10/05/2023. FINDINGS: PA and lateral views of the chest are submitted. Again seen are diffusely increased interstitial markings in the central portions of the lungs. There are no focal airspace opacities. There is no pleural effusion, pneumothorax, or pulmonary vascular congestion. The heart is normal in size. There is degenerative disc disease of the spine. XR/XR chest 2V IMPRESSION: No acute cardiopulmonary abnormality. Electronically signed by: Jeromy Low MD 12/26/2024 09:14 AM EDT
--- OUTSIDE RECORDS SUMMARY | 2024-12-25 17:42 | XMS_ITS | Patient Health Record ---
Author Organization [facility] Address [address] [place] [address] Care Team Providers Care Stacker Tender Name Role Phone Jose Valdes MD Primary Care Provider Jeromy Lui Unavailable [phone] Allergies Allergen (clinical drug ingredient) Drug/Non Drug [...] Problem Status W/U Status Risk Notes Problem 840055433 Gastro-esophagea l reflux disease without esophagitis (K21.9) Active confirmed Problem 327396273 Encounter for screening for malignant neoplasm of colon (Z12.11) Active confirmed Problem Screening for malignant neoplasm of rectum (350518638) Encounter for screening for malignant neoplasm of rectum (Z12.12) Active confirmed Problem 862213387 Gastroesophageal reflux disease, esophagitis presence not specified (K21.9) Active confirmed Problem Benign neoplasm of stomach (66942280) Gastric polyps (K31.7) Active confirmed Problem Gastritis (3568361) Gastritis (K29.70) Active confirmed Problem Esophageal reflux finding (652355014) Gastroesophageal reflux (K21.9) Active confirmed Problem 14432974 Upper abdominal pain (R10.10) Active confirmed Problem Epigastric pain (37284400) Abdominal discomfort, epigastric (R10.13) Active confirmed Vital Signs Temperature 96.4 degrees Fahrenheit 02/22/2024 Blood pressure diastolic 00 mm Hg 02/22/2024 Height 64.25 in 02/22/2024 Blood pressure systolic 000 mm Hg 02/22/2024 Weight 215 lbs 02/22/2024 BMI 36.61 kg/m2 02/22/2024 Encounters Encounter Location Date Provider Diagnosis [facility] [address] [place] [address] 02/22/2024 Jeromy Hunt Gastro-esophageal reflux disease without [...] OF [place] [address] [place] [address] [phone] [id number] CORA LÓPEZ Self - patient is the insured [facility] [address] [place], [place] [id number] CORA LÓPEZ Self - patient is the [...] LLE and LUE from previous CVA Denies [place],DM,Lung disease,renal disease Urinary incontinence Broken ribs 2017 [...]
--- OUTSIDE RECORDS SUMMARY | 2024-12-25 17:42 | XMS_ITS ---
Author Organization [facility] Address [address] [place] [address] Care Team Providers Care Ice Cream Maker Name Role Phone Jose Valdes MD Primary Care Provider Jeromy Lui Unavailable [phone] Allergies Allergen (clinical drug ingredient) Drug/Non Drug [...] 02/22/2024 Encounters Encounter Location Date Provider Diagnosis [facility] [address] [place] [address] 02/22/2024 Jeromy Hunt Gastro-esophageal reflux disease without [...] questions I can be of assistance with. oCra was very comfortable with this plan. Thank [...] * CORA SHELL WDOB:1950 (73 yo F)Acc No.[id number]:02/22/2024 Progress Notes Patient:?CORA SHELL W Provider:?Jeromy Hunt MD :1950???Age:73 Y???Sex:Female D ate:02/22/2024 Address:[address] [place] [address] , [facility] Pcp:Jose Valdes MD Subjective: * Chief Complaints: [...] 0, Interpretation: Negative.?Miscellaneous:?Marital status: . 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 ???Nonsmoker; no significant alcohol use. * [...] Procedure Codes:?3017F COLOR ECTAL CA SCREEN DOC [id number] TOBACCO NON-AMFWT4627 BP SCR NOT PRFRM REC REASON NOS * Preventive Medicine:? ??Counseling:?Care goal follow-up plan:?Above Normal BMI Follow-up?Giving encouragement to exercise,?BMI management provided?Yes.? ??Urinary Incontinence:?Urinary Incontinence?Assessment:?Present,?Plan of care documented:?Yes,?Type of plan of care:?Addressing co-morbid factors.? * Follow Up:?prn * * Sign off status: Completed true * Provider:?Jeromy Hunt MD Date:? 024 Generated for Eloisa smith/Licha/Nurys on:?12/25/2024 05:42 PM EDT History and Physical Notes * [...]
== END 2024-12-25 15:21 | disposition home or self-care (01) ==
LOC: HO.XRAY 15:20
PROVIDERS: PCP Internal Medicine; Visit Provider Internal Medicine
DX: R05.2 Subacute cough (principal)
CPT/HCPCS: 71046

== ENCOUNTER → 2024-12-25 15:25 | Outpatient (BNV) | payer MEDICARE, BC, SELFPAY | PROVIDERS: PCP Internal Medicine; Visit Provider Radiology Diagnostic Radiology | DX: R05.2 Subacute cough (principal) | CPT/HCPCS: 71046 ==

== ENCOUNTER 2024-12-27 16:41 | Emergency (ER) | payer MEDICARE, BC, SELFPAY ==
--- NOTE | ~2024-12-27 | XR_ITS ---
CLINICAL HISTORY: cough, chest pain 2 view chest x-ray Comparison: CR/SR - XR CHEST 2V - 12/25/24 15:56 EDT Findings: The lungs are clear. Heart size is normal. No acute fracture. IMPRESSION: 1. No acute findings. This document has been electronically signed by: Dinora Acosta MD on 12/27/2024 17:46:43
--- NOTE | ~2024-12-27 | CT_ITS ---
CLINICAL HISTORY: non specific bilateral abd pain, normal labs CT abdomen and pelvis without contrast Comparison: None Findings: Mild atelectasis, pneumonitis, and air trapping of the imaged lung bases. No obstructing stone in either kidney or either ureter with under rotation of the right kidney. The adrenal glands are normal. Spleen approaches the upper limits of normal. Mild-moderate volume loss of the pancreas. Gallbladder and liver are unremarkable for noncontrast CT. Nonenlarged lymphadenopathy by noncontrast CT. No small bowel obstruction. Appendicoliths are present without acute appendicitis (image number 54 of series 3. Severe stool burden present, including the cecum. Wall thickening of the distal descending colon and sigmoid colon likely related to underdistention. Multiple diverticula noted including distal sigmoid. Pessary device and/or opacity present. The uterus is anteverted. No adnexal soft tissue mass by noncontrast CT. Mild wall thickening of the urinary bladder with small ventral diverticulum. Mild-moderate osteoarthritis of the both hips. Mild thoracic vertebral height losses appear old/chronic. Endplate sclerosis is multifocal including imaged lumbar spine where vacuum disc phenomenon are noted. Facet arthropathy is also multifocal with bony productive changes. Right-sided device with transsacral leads noted. No free intraperitoneal air. No drainable abscess by noncontrast CT. IMPRESSION: 1. Mild pulmonary opacities concerning for mild pneumonitis. 2. Severe stool burden. No small bowel obstruction. This document has been electronically signed by: Efrain Santiago MD on 12/28/2024 02:52:33
[2024-12-27 17:11] VITALS: BP 146/86; PULSE 85; RESP 18; TEMP 37.2; O2SAT 93; BMI 38.5
--- NOTE | 2024-12-27 17:15 | ED.GENADULT ---
HPI - General Adult General Chief complaint: Dyspnea Stated complaint: Rib cage area and back pain Time Seen by Provider: 12/27/24 22:04 Source: patient Mode of arrival: ambulatory Limitations: no limitations History of Present Illness ED Provider: Dr. Ailyn Chávez HPI narrative: Patient comes to the emergency room complaining of 1 month of shortness of breath, tightness in upper abdomen/lower chest. Patient states that her PCP recently retired. Patient states that throughout this month she has had 2 courses of antibiotics and prednisone. Patient states she might be getting a deep better but still having persistent pain that gets worse with deep inhalation. Patient states she has chronic lymphedema, takes 40 mg of Lasix once a day, for the last couple of days she has been taking up to 80 mg a day. Patient denies any significant chest pain, near syncopal episode or syncope. Patient believes that she has gained about 4-6 lb of fluid within a week. Related Data Home Medications ?Medication ?Instructions ?Recorded ?Confirmed amlodipine 5 mg tablet 2.5 mg PO DAILY 02/02/21 10/14/24 baclofen 20 mg tablet 20 mg PO TID PRN Abdominal Pain 02/02/21 10/14/24 omeprazole 20 mg capsule,delayed 20 mg PO BID 02/02/21 10/14/24 release simvastatin 20 mg tablet 20 mg PO DAILY 02/02/21 10/14/24 acetaminophen 500 mg tablet 500 mg PO BID 11/08/21 10/14/24 calcium 11/08/21 10/14/24 furosemide 40 mg tablet 1 tab PO BEDTIME 11/08/21 10/14/24 multivitamin 1 tab PO DAILY 11/08/21 10/14/24 calcium carbonate (Calcium Antacid) 200 mg PO BID 12/12/24 Previous Rx's ?Medication ?Instructions ?Recorded solifenacin 5 mg tablet (Vesicare) 5 mg PO DAILY 90 days #90 tabs 11/25/24 mirabegron 25 mg tablet,extended 25 mg PO BID 90 days #180 tabs 12/11/24 release 24 hr albuterol sulfate 90 mcg/actuation 2 inh inhalation .every 4 hour PRN 12/12/24 breath activated powder inhaler shortness of breath or wheezing #1 ea doxycycline hyclate 100 mg tablet 100 mg PO BID #20 tabs 12/12/24 nitrofurantoin 100 mg PO BID 3 days #6 caps 12/12/24 monohydrate/macrocrystals 100 mg capsule (Macrobid) prednisone 20 mg tablet 20 mg PO DAILY #9 tabs 12/12/24 citalopram 10 mg tablet 10 mg PO DAILY #90 tabs 12/23/24 furosemide 80 mg tablet 80 mg PO DAILY #7 tabs 12/28/24 Allergies Allergy/AdvReac Type Severity Reaction Status Date / Time hydrochlorothiazide [HCTZ] Allergy Intermediate Itching Verified 12/27/24 17:16 Review of Systems Review of Systems: Constitutional : No Weight loss, No Fever, No Chills, No Night Sweats, No Fatigue, No Malaise ENT/Mouth : No Hearing loss, No Ear Pain, No Nasal Congestion, No Sinus Pain, No Hoarseness, No sore throat, No Rhinorrhea, No Swallowing Difficulty Eyes: No Eye Pain, No Swelling, No Redness, No Foreign Body, No Discharge, No Vision Changes Cardiovascular : No Chest Pain, lying of lower bilateral chest tightness/upper abdominal tightness, no significant pain. Nonspecific shortness of breath Respiratory : No Cough, No Sputum, No Wheezing, No Smoke Exposure, No Dyspnea Gastrointestinal : No Nausea, No Vomiting, No Diarrhea, No Constipation, No abdominal Pain, No Hematochezia, No Melena Genitourinary : no irregular bleeding, No Dysuria, No Urinary Frequency, No Hematuria, No Urinary Incontinence, No Urgency, No Flank Pain, No Urinary Flow Changes, No Hesitancy Musculoskeletal : Chronic weakness on the left upper and lower extremity due to a CVA 50 years ago No joint pain, No Myalgias, No Joint Swelling Skin : No Skin Lesions, No rash Neuro : No Weakness, No Numbness, No Paresthesias, No Loss of Consciousness, No Dizziness, No Headache Psych : No Anxiety/Panic, No Depression, No SI/HI/AH/VH, No Social Issues, Heme/Lymph: No Bruising, No Bleeding, patient has chronic lymphedema in bilateral lower extremities Endocrine : No Polyuria, No Polydipsia, No Temperature Intolerance PMFSH Past Medical History Medical History Anxiety Hx of skin cancer, basal cell 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 GERD (gastroesophageal reflux disease) HLD (hyperlipidemia) HTN (hypertension) Frequency of urination Urge incontinence Surgical History History of bladder surgery History of Hx of hand surgery Family History Family History Father Parkinson disease Mother Diabetes Social History Social History [facility] Are you a primary managed care manager to a significant other at home: No Do you presently have visiting nurse or other home services: No Alcohol intake: never Patient Tobacco Use Status: Never used Tobacco Smoked in Last 30 Days: No e-Cigarette/Vaping Use: Never Used Second Hand Smoke Exposure: No Use of substances other than those prescribed or required for medical reasons: No Advance Directives: No Advance Directives Information Provided: No service: No Current occupational status: retired Current occupation: right handed. Cognitive needs: Yes (cane) Hearing needs: No Vision needs: Yes Physical Exam ED Vital Signs: Vital Signs - 24 hr 12/27/24 17:11 12/27/24 22:21 12/27/24 23:33 Temperature 98.9 F 98.5 F Pulse Rate 85 73 Respiratory Rate 18 16 Blood Pressure 146/86 H 148/76 H Pulse Oximetry 93 94 95 Oxygen Delivery Method Room Air Room Air 12/28/24 01:45 Temperature 97.7 F Pulse Rate 75 Respiratory Rate 18 Blood Pressure 126/76 Pulse Oximetry 96 Oxygen Delivery Method Room Air BMI result Body Mass Index 38.5 Const Other: Appearance: Alert. Oriented X3. No acute distress. Eyes: Pupils equal, round and reactive to light. ENT: Pharynx normal. Neck: Normal inspection. Neck supple. No lymph nodes noted. No crepitus CVS: Normal heart rate and rhythm. Pulses normal. Normal S1 and S2 Respiratory: No respiratory distress. Breath sounds normal. No Wheezing. No rales Abdomen: Soft and nontender. No rigidity. No distention. Skin: Skin warm and dry. Normal skin color. Normal skin turgor. Extremities: Bilateral lymphedema in both extremities Neuro: Oriented X 3. No motor deficit. No sensory deficit. Moving all extremities. No slurred speech. CN 2 through 12 grossly intact Psych: calm, cooperative, normal affect Course Course Course Narrative: RME performed by Omayra Tam PA-C. Patient is a 74 year old assigned female at presenting to the emergency department with rib pain with breathing. Patient states that she has been on multiple rounds of antibiotics and steroids but she continues to get this pain. Detailed physical exam and review of systems are deferred to the assistant banquet manager. EKG, labs, imaging, and swabs ordered. Patient placed back in the waiting room pending room availability and results. Medical Decision Making Medical Decision Making [facility] Narrative: My interpretation of EKG: Sinus rhythm, heart rate 83, no ST segment depression or elevation, no T-wave inversion, QTC 453 Patient's labs do not show any significant abnormality, normal hematology and chemistry, normal BNP, negative troponin, serology negative for influenza RSV and COVID. D-dimer was negative Chest x-ray within normal limits. Was ambulated, oxygen saturation remained steady at 96%. CT abdomen shows a significant burden of stool Patient will start taking MiraLax every day. If needed twice a day. Differential Diagnosis Differential Diagnoses: The differential diagnosis associated with the presentation includes (Deconditioning, CHF, pneumonia, PE) Admission/Observation Consideration of admission/observation: Escalation of care including admission/observation considered (Given patient's age and symptoms, observation has been considered) Lab Data [facility] Lab Attestation statement: I reviewed the patient's lab results. 12/27/24 17:39 12/27/24 17:39 Labs: Lab Results 12/27/24 12/27/24 Range/Units 17:39 22:43 WBC 7.9 (4.8-10.8) X10*3/uL RBC 4.60 (4.20-5.50) X10*6/uL Hgb 15.8 (12.0-16.0) g/dl Hct 44.1 (37.0-47.0) % MCV 95.9 (80.0-98.0) fL MCH 34.3 H (27.0-33.0) pg MCHC 35.8 H (31.0-35.0) g/dl RDW 12.1 (11.0-16.0) % Plt Count 206 (160-400) X10*3/uL MPV 9.6 (9.4-12.3) fL Immature Gran % (Auto) 0.4 (0.0-0.4) % Neut % (Auto) 73.1 H (45-73) % Lymph % (Auto) 17.8 L (20-40) % [place] % (Auto) 5.3 (2-11) % Eos % (Auto) 2.9 (0-4) % Baso % (Auto) 0.5 (0-2) % Lymph # (Auto) 1.4 (1.2-4.9) X10*3/uL [place] # (Auto) 0.4 (0.1-1.2) X10*3/uL Eos # (Auto) 0.2 (0.0-0.4) X10*3/uL Baso # (Auto) 0.0 (0.0-0.2) X10*3/uL Abs Immat Gran (auto) 0.03 (0.00-0.03) X10*3/uL Absolute Neuts (auto) 5.8 (2.0-8.3) x10*3/uL Absolute Nucleated RBC 0.000 (0.0-0.012) X10*3/uL Nucleated RBC % (auto) 0.0 (0.0-0.2) /100WBC D-Dimer High Sensitivty < 150 NG/ML Sodium 142 (135-145) mmol/L Potassium 3.7 (3.3-5.1) mmol/L Chloride 108 (96-108) mmol/L Carbon Dioxide 29 (22-29) mmol/L Anion Gap 9 L (12-20) BUN 28 H (9-16) mg/dL Creatinine 0.74 (0.5-1.4) mg/dL Estim Creat Clear Calc 76.2 Estimated GFR > 60 Random Glucose 107 (60-115) mg/dL Calcium 9.7 D (8.4-10.2) mg/dL Magnesium 2.3 (1.6-2.6) mg/dL Total Bilirubin 0.4 (0.0-1.0) mg/dL AST 32 H (5-31) U/L ALT 35 H (0-31) U/L Alkaline Phosphatase 88 (39-117) U/L Troponin I High Sens < 2.7 (<3.5-17.0) ng/L B-Natriuretic Peptide < 10 (<100) pg/mL Total Protein 7.0 (6.5-8.0) g/dL Albumin 4.2 (3.5-5.0) g/dL Influenza Type A (PCR) NEGATIVE (Negative) Influenza Type B (PCR) NEGATIVE (Negative) RSV RNA Qual (PCR) NEGATIVE (Negative) SARS-CoV-2 RNA (RT-PCR) NEGATIVE (Negative) Independent Interpretation I performed an independent interpretation of an: CT Scan Radiology Impression Discussion of test interpretation with radiology: I have reviewed the radiologist's reading. Radiologist Impression: Mild atelectasis, pneumonitis, and air trapping of the imaged lung bases. No obstructing stone in either kidney or either ureter with under rotation of the right kidney. The adrenal glands are normal. Spleen approaches the upper limits of normal. Mild-moderate volume loss of the pancreas. Gallbladder and liver are unremarkable for noncontrast CT. Nonenlarged lymphadenopathy by noncontrast CT. No small bowel obstruction. Appendicoliths are present without acute appendicitis (image number 54 of series 3. Severe stool burden present, including the cecum. Wall thickening of the distal descending colon and sigmoid colon likely related to underdistention. Multiple diverticula noted including distal sigmoid. Pessary device and/or opacity present. The uterus is anteverted. No adnexal soft tissue mass by noncontrast CT. Mild wall thickening of the urinary bladder with small ventral diverticulum. Mild-moderate osteoarthritis of the both hips. Mild thoracic vertebral height losses appear old/chronic. Endplate sclerosis is multifocal including imaged lumbar spine where vacuum disc phenomenon are noted. Facet arthropathy is also multifocal with bony productive changes. Right-sided device with transsacral leads noted. No free intraperitoneal air. No drainable abscess by noncontrast CT. IMPRESSION: 1. Mild pulmonary opacities concerning for mild pneumonitis. 2. Severe stool burden. No small bowel obstruction. Critical Care Time Critical Care Time Critical Care Time: Yes Total Critical Care Time: 35 Attestation: I have personally provided critical care time. Time includes review of lab data, radiology results, discussion with consultants, and monitoring for potential decompensation. Intervention performed as documented. Discharge Plan Discharge Clinical Impression: Chronic dyspnea, Abdominal pain Patient Disposition: Home, Self-Care Instructions: Abdominal Pain (ED), Dyspnea (ED) Additional Instructions: For your chronic lymphedema, please increase your Lasix to 80 mg a day. Also, you need a referral for lymphedema clinic. Please follow-up with your primary care physician tomorrow. If you have any worsening or new symptoms, please return to the emergency room or call 911 Prescriptions: New furosemide 80 mg tablet 80 mg PO DAILY Qty: 7 0RF No Action solifenacin [Vesicare] 5 mg tablet 5 mg PO DAILY 90 Days Qty: 90 1RF mirabegron 25 mg tablet extended release 24 hr 25 mg PO BID 90 Days Qty: 180 1RF nitrofurantoin monohyd/m-cryst [Macrobid] 100 mg capsule 100 mg PO BID 3 Days Qty: 6 0RF Rx Instructions: must administer with a meal/food citalopram 10 mg tablet 10 mg PO DAILY Qty: 90 1RF multivitamin Tablet 1 tab PO DAILY furosemide 40 mg tablet 1 tab PO BEDTIME acetaminophen [Tylenol Ex Str Rapid Release] 500 mg Tablet 500 mg PO BID calcium amlodipine 5 mg tablet 2.5 mg PO DAILY omeprazole 20 mg capsule,delayed release(DR/EC) 20 mg PO BID baclofen 20 mg tablet 20 mg PO TID PRN (Reason: Abdominal Pain) simvastatin 20 mg tablet 20 mg PO DAILY calcium carbonate [Calcium Antacid] 200 mg calcium (500 mg) tablet,chewable 200 mg PO BID albuterol sulfate 90 mcg/actuation aerosol powdr breath activated 2 inh inhalation .every 4 hour PRN (Reason: shortness of breath or wheezing) Qty: 1 0RF prednisone 20 mg tablet 20 mg PO DAILY Qty: 9 0RF Rx Instructions: Take 2 tab oral once daily for 3 days then take 1 tab oral once daily for 3 days doxycycline hyclate 100 mg tablet 100 mg PO BID Qty: 20 0RF Print Language: [place]
--- NOTE | 2024-12-27 17:16 | ECG_ITS ---
Test Reason : SOB/CHEST PAIN Blood Pressure : */* mmHG Vent. Rate : 83 BPM Atrial Rate : 83 BPM P-R Int : 158 ms QRS Dur : 90 ms QT Int : 386 ms P-R-T Axes : 26 -17 37 degrees QTcB Int : 453 ms Sinus rhythm with frequent ventricular-paced complexes Cannot rule out Anterior infarct , age undetermined Abnormal ECG When compared with ECG of 08-Feb-2008 16:11, Vent. rate has increased by 27 bpm Referred By: Omayra Tam Electronically Signed By: PARKER FITCH
[2024-12-27 17:45] LABS: MANUAL DIFF FLAG NO
[2024-12-27 17:54] LABS: Basophils Percent Auto 0.5 % (0-2); Eosinophils Absolute Auto 0.2 X10*3/uL (0.0-0.4); Eosinophils Percent Auto 2.9 % (0-4); Hematocrit 44.1 % (37.0-47.0); Hemoglobin 15.8 g/dl (12.0-16.0); Imm Gran Abs Auto 0.03 X10*3/uL (0.00-0.03); Imm Gran Pct Auto 0.4 % (0.0-0.4); Lymphocytes Absolute Auto 1.4 X10*3/uL (1.2-4.9); Lymphocytes Percent Auto 17.8 % (20-40); Mean Corpuscular HGB Conc 35.8 g/dl (31.0-35.0); Mean Corpuscular Hemoglobin 34.3 pg (27.0-33.0); Mean Corpuscular Volume 95.9 fL (80.0-98.0); Mean Platelet Volume 9.6 fL (9.4-12.3); Monocytes Absolute Auto 0.4 X10*3/uL (0.1-1.2); Monocytes Percent Auto 5.3 % (2-11); Neutrophils Absolute Auto 5.8 x10*3/uL (2.0-8.3); Neutrophils Percent Auto 73.1 % (45-73); Platelet Count 206 X10*3/uL (160-400); Red Cell Distribution Width 12.1 % (11.0-16.0); White Blood Count 7.9 X10*3/uL (4.8-10.8)
[2024-12-27 18:02] LABS: Alanine Aminotransferase 35 U/L (0-31); Albumin Level 4.2 g/dL (3.5-5.0); Alkaline Phosphatase 88 U/L (39-117); Anion Gap 9 (12-20); Aspartate Amino Transferase 32 U/L (5-31); Bilirubin Total 0.4 mg/dL (0.0-1.0); Blood Urea Nitrogen 28 mg/dL (9-16); Calcium 9.7 mg/dL (8.4-10.2); Carbon Dioxide 29 mmol/L (22-29); Chloride 108 mmol/L (96-108); Creatinine Clr Calc Pharmacy 76.2; Estimated Glomerular Filt Rate > 60; Glucose Random 107 mg/dL (60-115); Magnesium 2.3 mg/dL (1.6-2.6); Potassium 3.7 mmol/L (3.3-5.1); Sodium 142 mmol/L (135-145)
[2024-12-27 18:06] LABS: B Type Natriuretic Peptide < 10 pg/mL (<100)
[2024-12-27 18:07] LABS: Troponin-I High Sensitivity < 2.7 ng/L (<3.5-17.0)
[2024-12-27 18:23] LABS: Influenza A PCR NEGATIVE (Negative); Influenza B PCR NEGATIVE (Negative); Resp Syncy Virus RNA Qual PCR NEGATIVE (Negative); SARS COV2 PCR INHOUSE NEGATIVE (Negative)
--- OUTSIDE RECORDS SUMMARY | 2024-12-27 21:57 | XMS_ITS | Patient Health Record ---
Author Organization [facility] Address [address] [place] [id number] Care Team Providers Care Trouble Clerk Name Role Phone Jose Valdes MD Primary Care Provider Jeromy Lui Unavailable [phone] Allergies Allergen (clinical drug ingredient) Drug/Non Drug [...] Problem Status W/U Status Risk Notes Problem [id number] Gastro-esophagea l reflux disease without esophagitis (K21.9) Active confirmed Problem 715130709 Encounter for screening for malignant neoplasm of colon (Z12.11) Active confirmed Problem Screening for malignant neoplasm of rectum (221025028) Encounter for screening for malignant neoplasm of rectum (Z12.12) Active confirmed Problem 601658608 Gastroesophageal reflux disease, esophagitis presence not specified (K21.9) Active confirmed Problem Benign neoplasm of stomach (90682182) Gastric polyps (K31.7) Active confirmed Problem Gastritis (7943552) Gastritis (K29.70) Active confirmed Problem Esophageal reflux finding (954320604) Gastroesophageal reflux (K21.9) Active confirmed Problem 21204572 Upper abdominal pain (R10.10) Active confirmed Problem Epigastric pain (38321901) Abdominal discomfort, epigastric (R10.13) Active confirmed Vital Signs Temperature 96.4 degrees Fahrenheit 02/22/2024 Blood pressure diastolic 00 mm Hg 02/22/2024 Height 64.25 in 02/22/2024 Blood pressure systolic 000 mm Hg 02/22/2024 Weight 215 lbs 02/22/2024 BMI 36.61 kg/m2 02/22/2024 Encounters Encounter Location Date Provider Diagnosis [facility] [address] [place] [address] 02/22/2024 Jeromy Hunt Gastro-esophageal reflux disease without [...] OF [place] [address] [place] [address] [id number] CORA LÓPEZ Self - patient is the insured [facility] [address] [place], [place] [id number] CORA LÓPEZ Self - patient is the [...] LLE and LUE from previous CVA Denies UT,DM,Lung disease,renal disease Urinary incontinence Broken ribs 2017 [...]
--- OUTSIDE RECORDS SUMMARY | 2024-12-27 21:57 | XMS_ITS ---
Author Organization [facility] Address [address] [place] [address] Care Team Providers Care First Coat Sander Name Role Phone Jose Valdes MD Primary Care Provider Jeromy Lui Unavailable [phone] Allergies Allergen (clinical drug ingredient) Drug/Non Drug [...] 02/22/2024 Encounters Encounter Location Date Provider Diagnosis [facility] [address] [place] [address] 02/22/2024 Jeromy Hunt Gastro-esophageal reflux disease without [...] * CORA SHELL WDOB:1950 (73 yo F)Acc No.[id number]:02/22/2024 Progress Notes Patient:?CORA SHELL W Provider:?Jeromy Hunt MD :1950???Age:73 Y???Sex:Female D ate:02/22/2024 Address:[address] [place] [address] , [id number] Pcp:Jose Valdes MD Subjective: * Chief Complaints: [...] 0, Interpretation: Negative.?Miscellaneous:?Marital status: . 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 ???Nonsmoker; no significant alcohol use. * [...] Procedure Codes:?3017F COLOR ECTAL CA SCREEN DOC [id number] TOBACCO [id number]-NUTUN1795 BP SCR NOT PRFRM REC REASON NOS * Preventive Medicine:? ??Counseling:?Care goal follow-up plan:?Above Normal BMI Follow-up?Giving encouragement to exercise,?BMI management provided?Yes.? ??Urinary Incontinence:?Urinary Incontinence?Assessment:?Present,?Plan of care documented:?Yes,?Type of plan of care:?Addressing co-morbid factors.? * Follow Up:?prn * * Sign off status: Completed true * Provider:?Jeromy Hunt MD Date:? 024 Generated for Eloisa smith/Licha/Nurys on:?12/27/2024 09:56 PM EDT History and Physical Notes * [...]
[2024-12-27 22:21] VITALS: BP 148/76; PULSE 73; RESP 16; TEMP 36.9; O2SAT 94
[2024-12-27 23:10] LABS: D Dimer High Sensitivity < 150 NG/ML
[2024-12-27 23:33] VITALS: O2SAT 95
[2024-12-28 01:45] VITALS: BP 126/76; PULSE 75; RESP 18; TEMP 36.5; O2SAT 96
[2024-12-28 03:09] VITALS: BP 126/76; PULSE 75; RESP 18; TEMP 36.5; O2SAT 96
== END 2024-12-28 03:14 | disposition home or self-care (01) ==
PROVIDERS: Physician Assistant Medical; Emergency Provider Emergency Medicine
DX: R07.9 Chest pain, unspecified (principal); M54.50 Low back pain, unspecified; R06.02 Shortness of breath; R10.9 Unspecified abdominal pain; I10 Essential (primary) hypertension; Z79.899 Other long term (current) drug therapy; Z03.818 Encounter for observation for suspected exposure to other biological agents ruled out
CPT/HCPCS: 0241U; 36415; 71046; 74176; 80053; 83735; 83880; 84484; 85025; 85379; 93005; 99284

== ENCOUNTER → 2024-12-27 17:16 | Outpatient (BNV) | payer MEDICARE, BC, SELFPAY | PROVIDERS: Emergency Provider Emergency Medicine; Visit Provider Internal Medicine | DX: R94.31 Abnormal electrocardiogram [ECG] [EKG] (principal); Z95.0 Presence of cardiac pacemaker | CPT/HCPCS: 93010 ==

== ENCOUNTER → 2024-12-27 17:19 | Outpatient (BNV) | payer MEDICARE, BC, SELFPAY | PROVIDERS: Visit Provider Radiology Diagnostic Radiology | DX: R05.9 Cough, unspecified (principal); R07.9 Chest pain, unspecified | CPT/HCPCS: 71046 ==

== ENCOUNTER 2025-01-01 13:19 | Outpatient (AMB) | payer MEDICARE, BC, SELFPAY ==
--- NOTE | 2025-01-01 13:27 | MHC.PC.OV ---
Vital Signs 01/01/25 13:28 Height 5 ft 4 in Weight 227 lb BMI 39.0 BP 124/80 Blood Pressure Location Rt brachial Position Sitting Pulse 88 Temp 97.9 F Temp Source Axillary Pulse Oximetry (%) 98 Oxygen Delivery Method Room Air Intake Visit Reasons: ED F/U Branch Sales And Service Representative Required: No Accompanied by: Self / Same As Patient Allergies hydrochlorothiazide [HCTZ] Allergy (Intermediate, Verified 01/01/25 13:29) Itching Tobacco use date assessed: 01/01/25 Fall risk assessment: No Falls in past year Last assessed Fall Risk: 01/01/25 Dental Screening Dental Screen Date: 01/01/25 Did you have a dental visit in the last 12 months?: Yes Did you have a dental problem in the last 6 months where you did not have access to dental care?: No [facility] Medical History (Updated 01/01/25 @ 14:19 by Uli Keyes MD) CVA (cerebral vascular accident) Chronic acquired lymphedema Anxiety Hx of skin cancer, basal cell 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 GERD (gastroesophageal reflux disease) HLD (hyperlipidemia) HTN (hypertension) Frequency of urination Urge incontinence Surgical History History of bladder surgery History of Hx of hand surgery Family History Father Parkinson disease Mother Diabetes Social History Housing: Condominium Are you a primary home care specialist to a significant other at home: No Do you presently have visiting nurse or other home services: No Alcohol intake: never Patient Tobacco Use Status: Never used Tobacco e-Cigarette/Vaping Use: Never Used Second Hand Smoke Exposure: No service: No Current occupational status: retired Current occupation: right handed. Cognitive needs: Yes (cane) Hearing needs: No Vision needs: Yes (reading glasses ) Questionnaire PHQ-9 Over the last 2 weeks, how often have you been bothered by any of the following problems? 1. Little interest or pleasure in doing things: nearly every day 2. Feeling down, depressed, or hopeless: several days 3. Trouble falling or staying asleep, or sleeping too much: not at all 4. Feeling tired or having little energy: not at all 5. Poor appetite or overeating: not at all 6. Feeling bad about yourself - or that you are a failure or have let yourself or your family down: not at all 7. Trouble concentrating on things, such as reading the newspaper or watching television: not at all 8. Moving or speaking so slowly that other people could have noticed. Or the opposite - being so fidgety or restless that you have been moving around a lot more than usual: not at all 9. Thoughts that you would be better off or of hurting yourself in some way: not at all Total score: 4 Source: Developed by Drs. Jeromy Ballesteros, Lyubov Small, Soham Yousif and colleagues, with an educational kayla from [employer]. Thrive Questionnaire Date Thrive assessed: 01/01/25 I am a: Patient Within the past 12 months, did the food you bought not last and you didn't have the money to get more?: Never true Within the past 12 months, did you worry whether your food would run out before you got money to buy more?: Never true Do you have trouble paying for medicines?: No Do you have trouble getting transportation to medical appointments?: No Do you have trouble paying your heating and electricity bill?: No Do you have trouble taking care of your child, family member or friend?: No Do you have trouble with day-to-day activities such as bathing, preparing meals, shopping, managing finances, etc.?: No Are you currently unemployed and looking for a job?: No Are you interested in more education?: No THRIVE Score: 0 AUDIT C Alcohol Use Questionnaire (AUDIT-C) 1. How often do you have a drink containing alcohol?: Never 3. How often do you have six or more drinks on one occasion?: Never Total Score: 0 UMANG-7 AMB Questionnaire UMANG-7 Date UMANG - 7 assessed: 01/01/25 Feeling nervous, anxious, or on edge: 0 = Not at all Not being able to stop or control worryin = Not at all Worrying too much about different things: 0 = Not at all Trouble relaxin = Not at all Being so restless that it is hard to sit still: 0 = Not at all Becoming easily annoyed or irritable: 0 = Not at all Feeling afraid as if something awful might happen: 0 = Not at all Total UMANG-7 score (0-4 normal; 5-9 mild; 10-14 moderate; 15-21 severe): 0 Source: Developed by Drs. Jeromy Ballesteros, Lyubov Small, Soham Yousif and colleagues, with an educational kayla from [employer]. Physical exam (Primary Care) Vital Signs: Last Vital Signs Temp 97.9 F 01/01/25 13:28 Pulse 88 01/01/25 13:28 BP 124/80 01/01/25 13:28 Pulse Ox 98 01/01/25 13:28 Oxygen Delivery Method Room Air 01/01/25 13:28 BMI result Body Mass Index 39.0 Tobacco/Smoking Status: Tobacco use Status Tobacco use date assessed 01/01/25 01/01/25 13:31 Patient Tobacco Use Status Never used Tobacco 01/01/25 13:31 e-Cigarette/Vaping Use Never Used 01/01/25 13:31 PHQ-9: PHQ-9 Score PHQ-9: Total score 4 01/01/25 13:42 Thrive Assessment: Date of Thrive Assessment Date Thrive assessed 01/01/25 01/01/25 13:31 Coding Level of Care Code Est Pt Level 4 (63318) Complex EM visit Add On G2211 Diagnoses CVA (cerebral vascular accident) I63.9 Chronic acquired lymphedema I89.0 Abdominal pain R10.9 Assessment & Plan Assessment & Plan (1) CVA (cerebral vascular accident): Code(s): I63.9 - Cerebral infarction, unspecified Category: Medical Plan: The CVA is in the remote past. Continues to have pain and swelling in the right hand/arm. Will benefit from therapy (2) Chronic acquired lymphedema: Code(s): I89.0 - Lymphedema, not elsewhere classified Category: Medical Plan: Patient sees the lymphedema clinic at [facility]. I have given her a referral to be seen there. Since the 80 mg of Furosemide is not helping, I suggested reducing the dosage to 40 mg till she sees the provider at the Lymhedema clinic (3) Abdominal pain: Code(s): R10.9 - Unspecified abdominal pain Plan: CT scan done recently revd with patient. Miralax has relieved her the symptoms of pressure. Continue taking the Miralax for two weeks and high fiber diet suggested. Plan History of Present Illness The patient is a 74-year-old female presenting with constipation and chronic lymphedema. Recently treated for stool retention and advised to take MiraLAX, she reports partial symptom relief with reduced bowel frequency. Efforts have been made to manage the situation with increased dietary fiber intake. Despite this, concerns about adjusting MiraLAX dosages persist, given altered bowel movement patterns. For chronic lymphedema, longstanding measures include compression stockings and periodic massage therapy, which historically has controlled symptoms fairly well. Recently, significant swelling led to cracked skin during a hospital stay. Attempts to manage this with increased furosemide intake have proven less effective, prompting discussions about dosage adjustments. The use of lymphedema pumps offers daily management support, albeit with varying success. Social History - Utilizes lymphedema pumps daily for self-management. - Engages in structured lymphedema therapy at [facility] as needed. - Adjustments to diet include high-fiber consumption (banana, lettuce) to aid in constipation control. Review of Systems - Gastrointestinal: Reports reduced bowel movement frequency, relief from previous pressure symptoms. - Musculoskeletal: Reports foot swelling and skin cracking; has chronic lymphedema. - Genitourinary: Reports reduced urination frequency despite current furosemide use. Physical Exam General: Cooperative and healthy appearing Nutritional Appearance: Well nourished Orientation/consciousness: Patient oriented x3 Limitations: No limitations Head: Normal to inspection General: Appearance normal, both eyes and all related structures Neck: Normal visual inspection Chest: Normal palpation of entire chest wall Respiratory: Normal respiratory effort Neurology: Patient oriented x3 Results - Imaging: CT scan showing significant stool presence. Plan For constipation, the patient will maintain MiraLAX and a high-fiber diet to stabilize symptoms over the next 10 to 14 days. Chronic lymphedema will continue to be managed with compression stockings and massage therapy at [facility]. Despite the current inefficacy of increased furosemide dosages, returning to 40mg is warranted to limit renal impact. A referral will facilitate further lymphedema support, ensuring continued symptom management. Patient was informed and verbally consented to the use of an ambient scribe for clinic note documentation during this visit. Discussion Notes I discussed the current management of constipation with the patient, emphasizing MiraLAX continuity and dietary adjustments to enhance bowel movement regulation. For chronic lymphedema, we reviewed the adequacy of current therapy methods and the ineffectiveness of higher furosemide dosages. We considered a reduction in furosemide to mitigate potential renal drawbacks and discussed the need for additional lymphedema support. I will facilitate a referral to ensure comprehensive care is provided through lymphedema therapy sessions at [facility]. Patient education stressed the importance of adhering to current regimen strategies and adjustment flexibility per symptom dynamics. Observational strategies will be emphasized to guide ongoing care. Patient Instructions - Continue MiraLAX daily for managing constipation. - Maintain a high-fiber diet including bananas and lettuce. - Wear compression stockings regularly for lymphedema. - Attend scheduled massage therapy sessions at [facility]. - Reduce furosemide to 40mg daily to avoid compromising kidney function. - Report any worsening symptoms or unusual concerns promptly. Orders: Orders PT Evaluation and Treatment Today I63.9 - Cerebral infarction, unspecified Referrals Lymphedema Clinic Referral I89.0 - Lymphedema, not elsewhere classified
[2025-01-01 13:28] VITALS: BP 124/80; PULSE 88; TEMP 36.6; O2SAT 98; BMI 39.0
== END 2025-01-01 14:23 | disposition home or self-care (01) ==
PROVIDERS: PCP Internal Medicine; Visit Provider Internal Medicine
DX: I63.9 Cerebral infarction, unspecified (principal); I89.0 Lymphedema, not elsewhere classified; R10.9 Unspecified abdominal pain

== ENCOUNTER → 2025-01-01 13:19 | Outpatient (BNVA) | payer MEDICARE, BC, SELFPAY | PROVIDERS: PCP Internal Medicine; Visit Provider Internal Medicine | DX: I89.0 Lymphedema, not elsewhere classified (principal); R10.9 Unspecified abdominal pain; Z86.73 Personal history of transient ischemic attack (TIA), and cerebral infarction without residual deficits | CPT/HCPCS: 99212 ==

== ENCOUNTER 2025-01-20 15:25 | Outpatient (AMB) | payer MEDICARE, BC, SELFPAY ==
--- NOTE | 2025-01-19 19:58 | A.OFFVIS_ITS ---
Vital Signs 01/20/25 15:31 Height 5 ft 4 in Weight 227 lb 1.218 oz BMI 39.0 BP 130/68 Blood Pressure Location Rt brachial Position Sitting Pulse 72 Pulse Oximetry (%) 97 Oxygen Delivery Method Room Air Intake Visit Reasons: nelli Electric Serviceman Required: No Embedded Systems Developer: Embedded Systems Developer offered & declined Accompanied by: Self / Same As Patient Allergies hydrochlorothiazide [HCTZ] Allergy (Intermediate, Verified 01/20/25 15:38) Itching Medication List - Last Reconciled 01/20/25 by Wendy Carvalho LPN acetaminophen 500 mg PO BID albuterol sulfate 90 mcg/actuation 2 inhalations inhalation .every 4 hour PRN amlodipine 2.5 mg PO DAILY baclofen 20 mg PO TID PRN calcium carbonate (Calcium Antacid) 200 mg PO BID citalopram 10 mg PO DAILY furosemide 80 mg PO DAILY mirabegron ER 25 mg PO BID 90 days multivitamin 1 tab PO DAILY omeprazole 20 mg PO BID [Resting hand splint (L) As directed] simvastatin 20 mg PO DAILY solifenacin (Vesicare) 5 mg PO DAILY 90 days HPI HPI nelli: Details: Cora is a pleasant 74-year-old female, never smoker with underlying obstructive sleep apnea, HTN, HLD, GERD, h/o CVA and chronic BLE lymphedema. She was referred by PCP for management of obstructive sleep apnea. She underwent home sleep study in the fall for witnessed apneas, loud snoring and daytime fatigue which revealed mild to moderate sleep apnea with nocturnal hypoxemia, average 92%, lowest 77%, <88% 18 minutes, average AHI 14. Recommendations were made for CPAP therapy in APAP mode with pressure settings of 6-20 cm H2O, which she had been started on benefitting and compliant with, using nasal pillows, however due issues meeting insurance criteria was unable to continue to receive supplies. DME is [facility]. She also reports ongoing concerns with bronchial symptoms that started last winter where she had prolonged respiratory symptoms requiring two rounds of prednisone and antibiotics. Symptoms resolved however recurred the past winter, treated with antibiotics in September and again 12/04 with zpak and prednisone. She continues to report occasional dry cough, intermittent wheezing and dyspnea on moderate exertion as well as an inability to fully inspire. She denies prior h/o asthma/COPD. She denies second hand exposure but does endorse heating with a woodstove x 15 years. She reports h/o chronic lymphedema, taking 40 mg of Lasix once a day,and will note fluctuations in weight 4-6lbs in one week. No prior cardiac workup, recent BNP <10. She will be evaluated by lymphedema clinic through [facility] in the near future. She denies any occupational exposures. She endorses mild seasonal allergies, controlled with Florinda. Denies any pertinent family history. 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 GERD (gastroesophageal reflux disease) HLD (hyperlipidemia) HTN (hypertension) Frequency of urination Urge incontinence Surgical History (Updated 01/22/25 @ 12:41 by Rosemarie Lamar) History of colonoscopy (~12/23/15) History of bladder surgery History of Hx of hand surgery Family History Father Parkinson disease Mother Diabetes Social History [facility]: [facility] Are you a primary acute care registered nurse to a significant other at home: No Do you presently have visiting nurse or other home services: No Alcohol intake: never Patient Tobacco Use Status: Never used Tobacco e-Cigarette/Vaping Use: Never Used Second Hand Smoke Exposure: No service: No Current occupational status: retired Current occupation: right handed. Cognitive needs: Yes (cane) Hearing needs: No Vision needs: Yes (reading glasses ) Review of Systems Const Denies chills, Denies excessive sweating, Denies fever(s), Denies headache(s) and Denies night sweats Eyes Denies dry eyes, Denies irritation and Denies itchy eyes ENT Reports Normal hearing present, Denies headache(s), Denies nasal congestion, Denies nasal discharge, Denies post nasal drip and Denies sore throat Card Denies chest pain, Denies chest pain at rest, Denies chest pain with activity, Denies claudication, Denies orthopnea and Denies paroxysmal nocturnal dyspnea Resp Denies chest congestion, Denies excessive phlegm production, Denies pain on inspiration, Denies pain with cough and Denies stridor Musc Denies myalgias Neuro Reports Normal hearing present and Denies headache(s) Endo Denies excessive sweating Valente/Lymph Denies lymphadenopathy Aller/Immun Denies itchy eyes Physical Exam Vital Signs: Last Vital Signs Pulse 72 01/20/25 15:31 BP 130/68 01/20/25 15:31 Pulse Ox 97 01/20/25 15:31 Oxygen Delivery Method Room Air 01/20/25 15:31 BMI result Body Mass Index 39.0 Const Other: left sided weakness r/t CVA using cane General: cooperative, healthy appearing, comfortable, no acute distress, well developed and alert Nutritional Appearance: obese Orientation/consciousness: patient oriented x3 HEENT Head: Yes normal to inspection, Yes normocephalic and Yes atraumatic Ears: hearing grossly normal bilaterally and external ears normal Eyes General: appearance normal, both eyes and all related structures Eyelids: Yes eyelids normal Sclerae: sclerae normal EOM: EOMs intact bilaterally Neck Neck: Yes normal visual inspection and Yes no lymphadenopathy Lymphatic: no lymphadenopathy noted Chest Chest palpation & inspection: normal inspection of the chest Resp Effort & Inspection: normal respiratory effort, able to speak in complete sentences, no audible wheezes, no cough, no stridor, not tachypneic, no tripod positioning and no use of accessory muscles Auscultation: clear to auscultation bilaterally Cardio Jugular venous distension: no JVD Rate: regular rate Rhythm: regular rhythm Skin Other: warm, dry General skin exam: no rashes or lesions noted Neuro General: patient oriented x3 Cranial nerves: Yes Normal hearing present Cognition (Neuro): normal cognition Extrem Other: chronic lymphedema Psych Appearance: grossly normal and well kempt Speech and movement: Normal speech and movement present and Clear speech present Affect: normal affect Attitude: cooperative Thought process: Normal thought process present Thought content: Normal thought content present Insight: Good insight present (Psych) Judgement: Good judgement present (Psych) Results Reviewed Results Reviewed: [address] [address] [address] Scan Report Signed Patient: Cora Reddy MR#: [id number] : 1950 Acct:[id number] Age/Sex: 74 / F ADM Date: 12/27/24 Loc: HO.ED Attending Dr: Ordering Physician: Ailyn Chávez MD Date of Service: 12/27/24 Procedure(s): CT abdomen pelvis wo IV con Accession Number(s): [id number] cc: Ailyn Chávez MD; Physician,Unknown ~ Report Number: [id number]: Total DLP = 739.00 mGy-cm CLINICAL HISTORY: non specific bilateral abd pain, normal labs CT abdomen and pelvis without contrast Comparison: None Findings: Mild atelectasis, pneumonitis, and air trapping of the imaged lung bases. No obstructing stone in either kidney or either ureter with under rotation of the right kidney. The adrenal glands are normal. Spleen approaches the upper limits of normal. Mild-moderate volume loss of the pancreas. Gallbladder and liver are unremarkable for noncontrast CT. Nonenlarged lymphadenopathy by noncontrast CT. No small bowel obstruction. Appendicoliths are present without acute appendicitis (image number 54 of series 3. Severe stool burden present, including the cecum. Wall thickening of the distal descending colon and sigmoid colon likely related to underdistention. Multiple diverticula noted including distal sigmoid. Pessary device and/or opacity present. The uterus is anteverted. No adnexal soft tissue mass by noncontrast CT. Mild wall thickening of the urinary bladder with small ventral diverticulum. Mild-moderate osteoarthritis of the both hips. Mild thoracic vertebral height losses appear old/chronic. Endplate sclerosis is multifocal including imaged lumbar spine where vacuum disc phenomenon are noted. Facet arthropathy is also multifocal with bony productive changes. Right-sided device with transsacral leads noted. No free intraperitoneal air. No drainable abscess by noncontrast CT. IMPRESSION: 1. Mild pulmonary opacities concerning for mild pneumonitis. 2. Severe stool burden. No small bowel obstruction. 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: Assessment & Plan Assessment & Plan (1) Cough: Code(s): R05.9 - Cough, unspecified Category: Medical Qualifiers: Cough type: subacute Qualified Code(s): R05.2 - Subacute cough (2) Dyspnea: Code(s): R06.00 - Dyspnea, unspecified Category: Medical (3) Obstructive sleep apnea: Code(s): G47.33 - Obstructive sleep apnea (adult) (pediatric) Category: Medical (4) Nocturnal hypoxemia: Code(s): G47.34 - Idiopathic sleep related nonobstructive alveolar hypoventilation Category: Medical Plan Cora underwent sleep study which revealed mild to moderate sleep apnea with nocturnal hypoxemia, average 92%, lowest 77%, <88% 18 minutes, average AHI 14. Recommendations were made for CPAP therapy in APAP mode with pressure settings of 6-20 cm H2O. Will resend order to [facility] to manage CPAP therapy. Once access is obtained, will send for overnight oximetry to assess for resolution of nocturnal hypoxemia. In regards to respiratory symptoms, will send for PFT to assess for an obstructive defect. Recent abdominal CT suggestive of mild pneumonitis, will send for dedicated chest CT to further evaluate for any underlying parenchymal conditions contributing to ongoing cough and dyspnea. All questions were answered and patient is in agreement of plan. Will follow up in 10-12 weeks or sooner if needed. Orders: Orders CT chest wo IV con Today R91.8 - Other nonspecific abnormal finding of lung field, R93.5 - Abnormal findings on diagnostic imaging of other abdominal regions, including retroperitoneum PFT pulmonary function test Today R06.00 - Dyspnea, unspecified Coding Level of Care Code New Pt Level 4 (35459) Diagnoses Subacute cough R05.2 Cough type: subacute Dyspnea R06.00 Obstructive sleep apnea G47.33 Nocturnal hypoxemia G47.34
[2025-01-20 15:31] VITALS: BP 130/68; PULSE 72; O2SAT 97; BMI 39.0
== END 2025-01-20 16:21 | disposition home or self-care (01) ==
LOC: HO.HPS 15:26
PROVIDERS: PCP Internal Medicine; Visit Provider Nurse Practitioner Family
DX: R05.2 Subacute cough (principal); R06.00 Dyspnea, unspecified; G47.33 Obstructive sleep apnea (adult) (pediatric); G47.34 Idiopathic sleep related nonobstructive alveolar hypoventilation
CPT/HCPCS: 99204

== ENCOUNTER → 2025-01-20 15:25 | Outpatient (BNVA) | payer MEDICARE, BC, SELFPAY | PROVIDERS: PCP Internal Medicine; Visit Provider Nurse Practitioner Family | DX: G47.33 Obstructive sleep apnea (adult) (pediatric) (principal); G47.34 Idiopathic sleep related nonobstructive alveolar hypoventilation; R05.2 Subacute cough; R06.00 Dyspnea, unspecified | CPT/HCPCS: 99202 ==

== ENCOUNTER 2025-01-23 14:14 | Outpatient (AMB) | payer MEDICARE, BC, SELFPAY ==
--- NOTE | 2025-01-23 14:13 | MHC.PC.OV ---
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: No Accompanied by: Self / Same As Patient Allergies hydrochlorothiazide [HCTZ] Allergy (Intermediate, Verified 01/23/25 14:13) Itching Tobacco use date assessed: 01/23/25 Fall risk assessment: 1 Fall in past year Last assessed Fall Risk: 01/23/25 Dental Screening Dental Screen Date: 01/01/25 Did you have a dental visit in the last 12 months?: Yes Did you have a dental problem in the last 6 months where you did not have access to dental care?: No Was dental information given to patient?: Patient has dentist HPI HPI Comments History of Present Illness Details Cora is a 74 y/o patient with a past medical history of anxiety, 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 Following with [facility] pulmonary. Going for CT and PFTs. Going to lymphedema clinic at [facility]. Using furosemide 80mg more frequently. Last K 3.7 CV: On amlodipine, furosemide GI: On omeprazole 20mg twice daily. Seen recently for abdominal upset. This has mostly resolved MSK: Bilateral hand pain. Requesting PT/OT at [facility] ROS see HPI PHYSICAL EXAM: GENERAL: Alert and oriented x 3. NAD EYES: EOMI. Anicteric. HENT: Moist mucous membranes. No scleral icterus. No cervical lymphadenopathy. LUNGS: RLL rhonci, coarse CARDIOVASCULAR: Regular rate and rhythm. No murmur. No JVD. ABDOMEN: Soft, non-tender +bs EXTREMITIES: Mild non pitting LE edema b/l SKIN: No rashes or lesions. Warm. NEUROLOGIC: No focal neurological deficits. CN II-XII grossly intact PSYCHIATRIC: Cooperative. Appropriate mood and affect [facility] Medical History (Updated 01/23/25 @ 15:04 by Makayla Penaloza MD) CVA (cerebral vascular accident) Chronic acquired lymphedema Anxiety Hx of skin cancer, basal cell 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 GERD (gastroesophageal reflux disease) HLD (hyperlipidemia) HTN (hypertension) Frequency of urination Urge incontinence Surgical History History of colonoscopy (~12/23/15) History of bladder surgery History of Hx of hand surgery Family History Father Parkinson disease Mother Diabetes Social History Housing: [facility] Are you a primary career placement services counselor to a significant other at home: No Do you presently have visiting nurse or other home services: No Alcohol intake: never Patient Tobacco Use Status: Never used Tobacco e-Cigarette/Vaping Use: Never Used Second Hand Smoke Exposure: No service: No Current occupational status: retired Cognitive needs: Yes (cane) Hearing needs: No Vision needs: Yes (reading glasses ) Questionnaire PHQ-9 Over the last 2 weeks, how often have you been bothered by any of the following problems? 1. Little interest or pleasure in doing things: nearly every day 2. Feeling down, depressed, or hopeless: several days 3. Trouble falling or staying asleep, or sleeping too much: not at all 4. Feeling tired or having little energy: not at all 5. Poor appetite or overeating: not at all 6. Feeling bad about yourself - or that you are a failure or have let yourself or your family down: not at all 7. Trouble concentrating on things, such as reading the newspaper or watching television: not at all 8. Moving or speaking so slowly that other people could have noticed. Or the opposite - being so fidgety or restless that you have been moving around a lot more than usual: not at all 9. Thoughts that you would be better off or of hurting yourself in some way: not at all Total score: 4 Depression Screening Interpretation: Negative Depression Screening Done: Yes 72569 - PHQ-9 Billing: Yes Source: Developed by Drs. Jeromy Ballesteros, Lyubov Small, Soham Yousif and colleagues, with an educational kayla from [employer] Thrive Questionnaire Date Thrive assessed: 01/01/25 I am a: Patient Within the past 12 months, did the food you bought not last and you didn't have the money to get more?: Never true Within the past 12 months, did you worry whether your food would run out before you got money to buy more?: Never true Do you have trouble paying for medicines?: No Do you have trouble getting transportation to medical appointments?: No Do you have trouble paying your heating and electricity bill?: No Do you have trouble taking care of your child, family member or friend?: No Do you have trouble with day-to-day activities such as bathing, preparing meals, shopping, managing finances, etc.?: No Are you currently unemployed and looking for a job?: No Are you interested in more education?: No THRIVE Score: 0 AUDIT C Alcohol Use Questionnaire (AUDIT-C) 1. How often do you have a drink containing alcohol?: Never 3. How often do you have six or more drinks on one occasion?: Never Total Score: 0 UMANG-7 AMB Questionnaire UMANG-7 Date UMANG - 7 assessed: 01/01/25 Feeling nervous, anxious, or on edge: 0 = Not at all Not being able to stop or control worryin = Not at all Worrying too much about different things: 0 = Not at all Trouble relaxin = Not at all Being so restless that it is hard to sit still: 0 = Not at all Becoming easily annoyed or irritable: 0 = Not at all Feeling afraid as if something awful might happen: 0 = Not at all Total UMANG-7 score (0-4 normal; 5-9 mild; 10-14 moderate; 15-21 severe): 0 Source: Developed by Drs. Jeromy Ballesteros, Lyubov Small, Soham Yousif and colleagues, with an educational kayla from [employer] Physical exam (Primary Care) Vital Signs: Last Vital Signs Temp 97.6 F 01/23/25 14:15 Pulse 70 01/23/25 14:15 Resp 16 01/23/25 14:15 BP 130/80 01/23/25 14:15 Pulse Ox 96 01/23/25 14:15 Oxygen Delivery Method Room Air 01/23/25 14:15 BMI result Body Mass Index 38.3 Tobacco/Smoking Status: Tobacco use Status Tobacco use date assessed 01/23/25 01/23/25 14:14 Patient Tobacco Use Status Never used Tobacco 01/23/25 14:14 e-Cigarette/Vaping Use Never Used 01/23/25 14:14 PHQ-9: PHQ-9 Score PHQ-9: Total score 4 01/23/25 14:21 Depression Screening Interpretation: Negative Thrive Assessment: Date of Thrive Assessment Date Thrive assessed 01/01/25 01/23/25 14:14 Coding Level of Care Code Est Pt Level 4 (26315) Diagnoses Left hand pain M79.[address] scan R93.5 Obstructive sleep apnea G47.33 Gastroesophageal reflux disease, unspecified whether esophagitis present K21.9 Esophagitis presence: esophagitis presence not specified Additional Codes PHQ-9 - 97145 - PHQ-9 Billing: Yes ([id number]) Assessment & Plan Assessment & Plan (1) Left hand pain: Code(s): M79.642 - Pain in left hand Category: Medical (2) Abnormal abdominal CT scan: Code(s): R93.5 - Abnormal findings on diagnostic imaging of other abdominal regions, including retroperitoneum Category: Medical (3) Obstructive sleep apnea: Code(s): G47.33 - Obstructive sleep apnea (adult) (pediatric) Category: Medical (4) GERD (gastroesophageal reflux disease): Code(s): K21.9 - Gastro-esophageal reflux disease without esophagitis Category: Medical Qualifiers: Esophagitis presence: esophagitis presence not specified Qualified Code(s): K21.9 - Gastro-esophageal reflux disease without esophagitis Plan 74 y/o for follow up GI symptoms with interval improvement. continue PPI justin/bronchitis. continue follow up with pulmonology Left hand pain-referral to PT placed Orders: Orders PT Evaluation and Treatment Today M79.642 - Pain in left hand OT Evaluation and Treatment Today M79.642 - Pain in left hand Medications: New potassium chloride ER 20 mEq PO DAILY 90 tabs 3RF
[2025-01-23 14:15] VITALS: BP 130/80; PULSE 70; RESP 16; TEMP 36.4; O2SAT 96; BMI 38.3
== END 2025-01-23 14:37 | disposition home or self-care (01) ==
LOC: HO.HMCHD 14:14
PROVIDERS: PCP Internal Medicine; Visit Provider Internal Medicine
DX: M79.642 Pain in left hand (principal); R93.5 Abnormal findings on diagnostic imaging of other abdominal regions, including retroperitoneum; G47.33 Obstructive sleep apnea (adult) (pediatric); K21.9 Gastro-esophageal reflux disease without esophagitis

== ENCOUNTER → 2025-01-23 14:14 | Outpatient (BNVA) | payer MEDICARE, BC, SELFPAY | PROVIDERS: PCP Internal Medicine; Visit Provider Internal Medicine | DX: M79.642 Pain in left hand (principal); M79.641 Pain in right hand; R93.5 Abnormal findings on diagnostic imaging of other abdominal regions, including retroperitoneum; G47.33 Obstructive sleep apnea (adult) (pediatric); K21.9 Gastro-esophageal reflux disease without esophagitis; I10 Essential (primary) hypertension; Z79.899 Other long term (current) drug therapy | CPT/HCPCS: 96127; 99212 ==

== ENCOUNTER 2025-02-10 09:44 | Outpatient (AMB) | payer MEDICARE, BC, SELFPAY ==
--- OUTSIDE RECORDS SUMMARY | 2025-02-10 10:06 | XMS_ITS ---
Author Organization [facility] Address [address] [place] [address] Care Team Providers Care Plastic Tile Layer Name Role Phone Jose Valdes MD Primary Care Provider Jeromy Lui Unavailable [phone] Allergies Allergen (clinical drug ingredient) Drug/Non Drug [...] 02/22/2024 Encounters Encounter Location Date Provider Diagnosis [facility] [address] [place] [address] 02/22/2024 Jeromy Hunt Gastro-esophageal reflux disease without [...] * CORA SHELL WDOB:1950 (73 yo F)Acc No.[id number]:02/22/2024 Progress Notes Patient:?CORA SHELL W Provider:?Jeromy Hunt MD :1950???Age:73 Y???Sex:Female D ate:02/22/2024 Address:[address] [place] [address] , [id number] Pcp:Jose Valdes MD Subjective: * Chief Complaints: [...] Interpretation: Negative.?Miscellaneous:?Marital status: . 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 ???Nonsmoker; no significant alcohol use. * [...] Procedure Codes:?3017F COLOR ECTAL CA SCREEN DOC [id number] TOBACCO NON-AGAXK9107 BP SCR NOT PRFRM REC REASON NOS * Preventive Medicine:? ??Counseling:?Care goal follow-up plan:?Above Normal BMI Follow-up?Giving encouragement to exercise,?BMI management provided?Yes.? ??Urinary Incontinence:?Urinary Incontinence?Assessment:?Present,?Plan of care documented:?Yes,?Type of plan of care:?Addressing co-morbid factors.? * Follow Up:?prn * * Sign off status: Completed true * Provider:?Jeromy Hunt MD Date:? 024 Generated for Eloisa smith/Licha/eTessencesmtrang on:?02/10/2025 10:05 AM EDT History and Physical Notes * HPI [...]
--- OUTSIDE RECORDS SUMMARY | 2025-02-10 10:06 | XMS_ITS | Patient Health Record ---
Author Organization [facility] Address [address] [place] [address] Care Team Providers Care Food Counter Attendant Name Role Phone Jose Valdes MD Primary Care Provider Jeromy Lui Unavailable [phone] Allergies Allergen (clinical drug ingredient) Drug/Non Drug [...] Problem Status W/U Status Risk Notes Problem [id number] Gastro-esophagea l reflux disease without esophagitis (K21.9) Active confirmed Problem [id number] Encounter for screening for malignant neoplasm of colon (Z12.11) Active confirmed Problem Screening for malignant neoplasm of rectum (504757943) Encounter for screening for malignant neoplasm of rectum (Z12.12) Active confirmed Problem 188213924 Gastroesophageal reflux disease, esophagitis presence not specified (K21.9) Active confirmed Problem Benign neoplasm of stomach (97542032) Gastric polyps (K31.7) Active confirmed Problem Gastritis (9782020) Gastritis (K29.70) Active confirmed Problem Esophageal reflux finding (049805563) Gastroesophageal reflux (K21.9) Active confirmed Problem 68193638 Upper abdominal pain (R10.10) Active confirmed Problem Epigastric pain (78706985) Abdominal discomfort, epigastric (R10.13) Active confirmed Vital Signs Temperature 96.4 degrees Fahrenheit 02/22/2024 Blood pressure diastolic 00 mm Hg 02/22/2024 Height 64.25 in 02/22/2024 Blood pressure systolic 000 mm Hg 02/22/2024 Weight 215 lbs 02/22/2024 BMI 36.61 kg/m2 02/22/2024 Encounters Encounter Location Date Provider Diagnosis [facility] [address] [place] [address] 02/22/2024 Jeromy Hunt Gastro-esophageal reflux disease without [...] OF [place] [address] [place] [address] [id number] CORA LÓPEZ Self - patient is the insured [facility] [address] [place], [place] [id number] CORA LÓPEZ Self - patient is the [...] LLE and LUE from previous CVA Denies [place],DM,Lung disease,renal disease Urinary incontinence Broken ribs 2017 [...]
--- NOTE | 2025-02-10 10:48 | A.OFFVIS_ITS ---
Intake Visit Reasons: UDS Allergies hydrochlorothiazide [HCTZ] Allergy (Intermediate, Verified 01/23/25 14:13) Itching HPI Comments Details: 10/14/24--Cora is a pleasant [address] Dr[address] Valdes. 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 She presents to the office today for follow-up of her overactive bladder and urinary urgency and fr equency. In discussion with the patient today she reports to be doing and feeling well. She discusses despite compliance with Myrbetriq and VESIcare as prescribed she continues to experience stress/urge incontinence. Patient with a longstanding history of InterStim since 2006 however had a revision of her InterStim October of [address] Hurt. She reports she had been having positive results from combination of InterStim with dual therapy of Myrbetriq and VESIcare however feels more recently this has not been helpful. She discusses having failed multiple overactive bladder medications in the past. In office urinalysis results reviewed with the patient today. PVR 0 mls. She otherwise denies hematuria, dysuria, foul smelling urine, changes to urinary stream, flank pain, fever, and or chills. She does report having episodes of urinary incontinence while sleeping. She does suffer from lymphedema. We discuss trial of Gemtesa or Fesoterodine. She discusses continuing to utilize 4-6 Lottie pads per day and finds this bothersome as she attempts to go to the gym. She discusses having been in contact with [facility] and continues with stress/urge incontinence. She otherwise offers no issues or concerns at this time. [facility] Medical History (Updated 01/23/25 @ 15:04 by Makayla Penaloza MD) CVA (cerebral vascular accident) Chronic acquired lymphedema Anxiety Hx of skin cancer, basal cell 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 GERD (gastroesophageal reflux disease) HLD (hyperlipidemia) HTN (hypertension) Frequency of urination Urge incontinence Surgical History History of colonoscopy (~12/23/15) History of bladder surgery History of Hx of hand surgery Family History Father Parkinson disease Mother Diabetes Social History Housing: Condominium Are you a primary manager intensive care unit to a significant other at home: No Do you presently have visiting nurse or other home services: No Alcohol intake: never Patient Tobacco Use Status: Never used Tobacco e-Cigarette/Vaping Use: Never Used Second Hand Smoke Exposure: No service: No Current occupational status: retired Cognitive needs: Yes (cane) Hearing needs: No Vision needs: Yes (reading glasses ) Office Procedures Urodynamic Studies Consent Discussed risk and benefit or proposed procedure with the patient. Information consent for procedure given to the patient. Discussed technical aspects, risks, benefits and alternatives in full. Addressed all of the patient's questions and concerns regarding the procedure. The patient demonstrated knowledge and understanding. They wish to proceed with this procedure. Preparation The patient was prepped in the usual manner. A information systems operator was present and in the room. Genitalia was prepped with betadine solution in a sterile manner. Procedure Complex Uroflow Uroflowmetry unable to gather adequate information, due to machine malfunction. Cystometrogram ? Vaginal/rectal catheter type: Vaginal First sensation at (mL): 33 mL First desire at (mL): 49 mL Strong desire to void occurred at (mL): 85 mL Strong desire detrusor pressure (cm H2O): 7.1 Maximum Capacity (mL): 161 mL Voiding Summary Voided with max detrusor pressure of (cm H2O): 105 Maximum flow rate (mL/second): 18 mL/s Voided volume (mL): ?147ml Calculated PVR: 11 mL Stress Testing Unable to perform stress testing due to severe DO activity. DO Dry: 57ml DO Wet: 69ml, 87ml, 209ml Patient reports she turned off her interstim device last night at 12am. Prep: The patient was prepped in the usual manner. A information systems operator was present and in the room. Genitalia was prepped with betadine solution in a sterile manner. 49783-Lutcqbyxpnpocg w/ AUTOMOBILE TIRE BUILDER 55878-Rdvoiqd-Wrroyojjkqsp 12992-Olno/Urinary Muscle Study 07584-Tsuwd-Hlyzewkgv Pressure Test Procedure code (CPT) selection complete Office Meds nitrofurantoin monohydrate/macrocrystals 100 mg capsule Performing Provider: Mirtha Uribe MD [facility] Administered by: Kyra Rajput RN on 02/10/25 10:49 Dose Route Admin Location Dispensed Lot Number Expiration Date [facility] Motor Scooter Repairer 100 mg PO 1 cap Results AMB Urinalysis, Automated UA Leukoctes 0 Bennie/uL Last Edit by Kyra Rajput RN on 02/10/25 10:56 UA Nitrite Negative Last Edit by Kyra Rajput RN on 02/10/25 10:56 UA Urobilinogen 3.5 mg/dL Last Edit by Kyra Rajput RN on 02/10/25 10: 56 UA Protein 0.1 mg/dL Last Edit by Kyra Rajput RN on 02/10/25 10:56 UA pH 6.0 Last Edit by Kyra Rajput RN on 02/10/25 10:56 UA Blood 0 Mateus/uL Last Edit by Kyra Rajput RN on 02/10/25 10:56 UA Specific Liberty 1.0 Last Edit by Kyra Rajput RN on 02/10/25 10:5 6 UA Ketone Negative Last Edit by Kyra Rajput RN on 02/10/25 10:56 UA Bilirubin 0 mg/dL Last Edit by Kyra Rajput RN on 02/10/25 10:56 UA Glucose 0 mg/dL Last Edit by Kyra Rajput RN on 02/10/25 10:56 Results Reviewed Results Reviewed: Laboratory Last Values Urine pH (Auto) 6.0 02/10/25 10:47 Specific Liberty (Auto) 1.0 02/10/25 10:47 Urine Protein (Auto) 0.1 mg/dL 02/10/25 10:47 Glucose (UA)(Auto) 0 mg/dL 02/10/25 10:47 Urine Ketones (Auto) Negative 02/10/25 10:47 Urine Blood (Auto) 0 Mateus/uL 02/10/25 10:47 Urine Nitrite (Auto) Negative 02/10/25 10:47 Urine Bilirubin (Auto) 0 mg/dL 02/10/25 10:47 Urine Urobilinogen (Auto) 3.5 mg/dL 02/10/25 10:47 Leukocyte Esterase (Auto) 0 Bennie/uL 02/10/25 10:47 Assessment & Plan Assessment & Plan Orders: Orders AMB Urodynamics Studies Today N32.81 - Overactive bladder, N39.41 - Urge incontinence, R35.0 - Frequency of micturition AMB Urinalysis Automated Today Z13.9 - Encounter for screening, unspecified Coding CPT Codes Urodynamic Studies - CPT: 17738-Rjcrwnxgrzgbxm w/ AUTOMOBILE TIRE BUILDER ([id number]) Urodynamic Studies - CPT: 06804-Ezrswvn-Nmwyohrnmlgj ([id number]) Urodynamic Studies - CPT: 96933-Caqv/Urinary Muscle Study ([id number]) Urodynamic Studies - CPT: 03947-Nangs-Hmygzyaxz Pressure Test ([id number])
== END 2025-02-10 11:47 | disposition home or self-care (01) ==
LOC: HO.HUSH 09:45
PROVIDERS: PCP Internal Medicine; Visit Provider Urology
DX: N32.81 Overactive bladder (principal); N39.41 Urge incontinence; R35.0 Frequency of micturition; Z13.9 Encounter for screening, unspecified
CPT/HCPCS: 51728; 51741; 51784; 51797

== ENCOUNTER → 2025-02-10 09:44 | Outpatient (BNVA) | payer MEDICARE, BC, SELFPAY | PROVIDERS: PCP Internal Medicine; Visit Provider Urology | DX: N32.81 Overactive bladder (principal); N39.41 Urge incontinence; R35.0 Frequency of micturition | CPT/HCPCS: 51728; 51741; 51784; 51797; 81003 ==

== ENCOUNTER 2025-03-20 14:31 | Outpatient (REF) | payer MEDICARE, BC, SELFPAY ==
--- NOTE | ~2025-03-20 | XR_ITS ---
EXAMINATION: XR CHEST CLINICAL INFORMATION: R05.3 - Chronic cough COMPARISON: None available. TECHNIQUE: 2 views of the chest were obtained. FINDINGS: Heart size is within normal limits. Lungs are clear and well aerated. There is no pleural effusion. No bony abnormality was noted. XR/XR chest 2V IMPRESSION: No acute disease Electronically signed by: Abel Mccann MD 03/20/2025 03:53 PM EDT
== END 2025-03-20 14:32 | disposition home or self-care (01) ==
LOC: HO.XRAY 14:31
PROVIDERS: PCP Internal Medicine; Visit Provider Internal Medicine
DX: R06.02 Shortness of breath (principal); R05.3 Chronic cough
CPT/HCPCS: 71046; 99212

== ENCOUNTER 2025-03-20 14:31 | Outpatient (AMB) | payer MEDICARE, BC, SELFPAY ==
[2025-03-20 14:40] VITALS: BP 130/80; PULSE 73; TEMP 36.9; O2SAT 96
--- NOTE | 2025-03-20 14:40 | MHC.PC.OV ---
Vital Signs 03/20/25 14:40 Height 5 ft 4 in BP 130/80 Blood Pressure Location Rt brachial Position Sitting Pulse 73 Pulse Source Pulse Oximeter Temp 98.4 F Temp Source Axillary Pulse Oximetry (%) 96 Oxygen Delivery Method Room Air Intake Visit Reasons: Walk IN Director Water And Waste Services Required: No Accompanied by: Self / Same As Patient Allergies hydrochlorothiazide (HCTZ) Allergy (Intermediate, Verified 03/20/25 14:41) Itching Tobacco use date assessed: 03/20/25 Fall risk assessment: No Falls in past year Last assessed Fall Risk: 03/20/25 Dental Screening Dental Screen Date: 03/20/25 Did you have a dental visit in the last 12 months?: Yes Did you have a dental problem in the last 6 months where you did not have access to dental care?: No HPI HPI Comments History of Present Illness Details Cora is a 74 y/o patient with a past medical history of anxiety, 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 Following with [facility] pulmonary. Going for CT and PFTs. Recently see in x 2-Feb 23 and Feb 27 for cough and wheezing. She received a course of steroids, tessalon perles. Symptoms persist. Going to lymphedema clinic at [facility]. Using furosemide 80mg more frequently. Last K 3.7 CV: On amlodipine, furosemide GI: On omeprazole 20mg twice daily. Seen recently for abdominal upset. This has mostly resolved MSK: Bilateral hand pain. Requesting PT/OT at [facility] ROS see HPI PHYSICAL EXAM: GENERAL: Alert and oriented x 3. NAD EYES: EOMI. Anicteric. HENT: Moist mucous membranes. No scleral icterus. No cervical lymphadenopathy. LUNGS: RLL rhonci, coarse CARDIOVASCULAR: Regular rate and rhythm. No murmur. No JVD. ABDOMEN: Soft, non-tender +bs EXTREMITIES: Mild non pitting LE edema b/l SKIN: No rashes or lesions. Warm. NEUROLOGIC: No focal neurological deficits. CN II-XII grossly intact PSYCHIATRIC: Cooperative. Appropriate mood and affect FOR[facility] Medical History CVA (cerebral vascular accident) Chronic acquired lymphedema Anxiety Hx of skin cancer, basal cell 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 GERD (gastroesophageal reflux disease) HLD (hyperlipidemia) HTN (hypertension) Frequency of urination Urge incontinence Surgical History History of colonoscopy (~12/23/15) History of bladder surgery History of Hx of hand surgery Family History Father Parkinson disease Mother Diabetes Social History [facility]: [facility] Are you a primary dog daycare provider to a significant other at home: No Do you presently have visiting nurse or other home services: No Alcohol intake: never Patient Tobacco Use Status: Never used Tobacco e-Cigarette/Vaping Use: Never Used Second Hand Smoke Exposure: No service: No Current occupational status: retired Cognitive needs: Yes (cane) Hearing needs: No Vision needs: Yes (reading glasses ) Questionnaire PHQ-9 Over the last 2 weeks, how often have you been bothered by any of the following problems? 1. Little interest or pleasure in doing things: not at all 2. Feeling down, depressed, or hopeless: not at all 3. Trouble falling or staying asleep, or sleeping too much: not at all 4. Feeling tired or having little energy: not at all 5. Poor appetite or overeating: not at all 6. Feeling bad about yourself - or that you are a failure or have let yourself or your family down: not at all 7. Trouble concentrating on things, such as reading the newspaper or watching television: not at all 8. Moving or speaking so slowly that other people could have noticed. Or the opposite - being so fidgety or restless that you have been moving around a lot more than usual: not at all 9. Thoughts that you would be better off or of hurting yourself in some way: not at all Total score: 0 Source: Developed by Drs. Jeromy Ballesteros, Lyubov Small, Soham Yousif and colleagues, with an educational kayla from [employer]. Thrive Questionnaire Date Thrive assessed: 03/20/25 I am a: Patient Within the past 12 months, did the food you bought not last and you didn't have the money to get more?: Never true Within the past 12 months, did you worry whether your food would run out before you got money to buy more?: Never true Do you have trouble paying for medicines?: No Do you have trouble getting transportation to medical appointments?: No Do you have trouble paying your heating and electricity bill?: No Do you have trouble taking care of your child, family member or friend?: No Do you have trouble with day-to-day activities such as bathing, preparing meals, shopping, managing finances, etc.?: No Are you currently unemployed and looking for a job?: No Are you interested in more education?: No THRIVE Score: 0 AUDIT C Alcohol Use Questionnaire (AUDIT-C) 1. How often do you have a drink containing alcohol?: Never 3. How often do you have six or more drinks on one occasion?: Never Total Score: 0 UMANG-7 AMB Questionnaire UMANG-7 Date UMANG - 7 assessed: 03/20/25 Feeling nervous, anxious, or on edge: 0 = Not at all Not being able to stop or control worryin = Not at all Worrying too much about different things: 0 = Not at all Trouble relaxin = Not at all Being so restless that it is hard to sit still: 0 = Not at all Becoming easily annoyed or irritable: 0 = Not at all Feeling afraid as if something awful might happen: 0 = Not at all Total UMANG-7 score (0-4 normal; 5-9 mild; 10-14 moderate; 15-21 severe): 0 Source: Developed by Drs. Jermoy Ballesteros, Lyubov Small, Soham Yousif and colleagues, with an educational kayla from [employer]. Physical exam (Primary Care) Vital Signs: Last Vital Signs Temp 98.4 F 03/20/25 14:40 Pulse 73 03/20/25 14:40 BP 130/80 03/20/25 14:40 Pulse Ox 96 03/20/25 14:40 Oxygen Delivery Method Room Air 03/20/25 14:40 Tobacco/Smoking Status: Tobacco use Status Tobacco use date assessed 03/20/25 03/20/25 14:42 Patient Tobacco Use Status Never used Tobacco 03/20/25 14:42 e-Cigarette/Vaping Use Never Used 03/20/25 14:42 PHQ-9: PHQ-9 Score PHQ-9: Total score 0 03/21/25 16:16 Thrive Assessment: Date of Thrive Assessment Date Thrive assessed 03/20/25 03/20/25 14:42 Coding Level of Care Code Est Pt Level 4 (09751) Diagnoses Shortness of breath R06.02 Dyspnea type: shortness of breath Subacute cough R05.2 Cough type: subacute Assessment & Plan Assessment & Plan (1) Dyspnea: Code(s): R06.00 - Dyspnea, unspecified Category: Medical Qualifiers: Dyspnea type: shortness of breath Qualified Code(s): R06.02 - Shortness of breath (2) Cough: Code(s): R05.9 - Cough, unspecified Category: Medical Qualifiers: Cough type: subacute Qualified Code(s): R05.2 - Subacute cough Plan Persistent cough shortness of breath Pending pulmonary testing CXR-if positive will rx levofloxacin. Was negative so zpack plus lonter prednisone course ordered Orders: Orders XR chest 2V 03/20/25 R05.3 - Chronic cough CA echo transthoracic complete Today I89.0 - Lymphedema, not elsewhere classified, R05.2 - Subacute cough, R06.02 - Shortness of breath Medications: New prednisone Take 3 tab oral once daily for 3 days, then take 2 tab oral once daily for 3 days, then take 1 tab oral once daily for 3 days 18 tabs 0RF compr.stocking,knee,long,large Bilateral knee high large compression socks 15-30mmHG 1 ea 0RF I89.0 - Lymphedema, not elsewhere classified [compression stocking] Left forearm to elbow 1 ea 0RF I89.0 - Lymphedema, not elsewhere classified azithromycin For 250 mg dose pack: take 500 mg today (day 1), then 250 mg for 4 days (days 2-5) PO 6 tabs 1RF
--- OUTSIDE RECORDS SUMMARY | 2025-03-20 17:40 | XMS_ITS | Patient Health Record ---
Author Organization [facility] Address [address] [place] [address] Care Team Providers Care Quick Service Technician Name Role Phone Jose Valdes MD Primary Care Provider Jeromy Lui Unavailable [phone] Allergies Allergen (clinical drug ingredient) Drug/Non Drug [...] Problem Status W/U Status Risk Notes Problem 763963901 Gastro-esophagea l reflux disease without esophagitis (K21.9) Active confirmed Problem 134375902 Encounter for screening for malignant neoplasm of colon (Z12.11) Active confirmed Problem Screening for malignant neoplasm of rectum (345262682) Encounter for screening for malignant neoplasm of rectum (Z12.12) Active confirmed Problem 154108164 Gastroesophageal reflux disease, esophagitis presence not specified (K21.9) Active confirmed Problem Benign neoplasm of stomach (58864101) Gastric polyps (K31.7) Active confirmed Problem Gastritis (7502563) Gastritis (K29.70) Active confirmed Problem Esophageal reflux finding (121864644) Gastroesophageal reflux (K21.9) Active confirmed Problem 03621894 Upper abdominal pain (R10.10) Active confirmed Problem Epigastric pain (92613491) Abdominal discomfort, epigastric (R10.13) Active confirmed Plan Of Treatment Pending Test Test Name [...] Date MEDICARE OF [place] [address] [place] [address] [phone] [id number] DANTE LÓPEZ Self - patient is the insured [facility] [address] [place], [place] [id number] DANTE LÓPEZ Self - patient is the insured Medical (General) History Medical History History ICD Code GERD---EGD in 2002--found to have a small hiatal hernia, but no evidence of any significant esophagitis nor Dinero's esophagus Screening colonoscopy in 200 6 with removal of a hyperplastic polyp--also noted to have internal hemorrhoids Hypertension Hyperlipidemia CVA over 47 years ago Edema of LLE and LUE from previous CVA Denies [place],DM,Lung disease,renal disease Urinary incontinence Broken ribs 2017 [...]
== END 2025-03-20 15:27 | disposition home or self-care (01) ==
LOC: HO.HMCHD 14:31
PROVIDERS: PCP Internal Medicine; Visit Provider Internal Medicine
DX: R06.02 Shortness of breath (principal); R05.2 Subacute cough

== ENCOUNTER → 2025-03-20 15:27 | Outpatient (BNV) | payer MEDICARE, BC, SELFPAY | PROVIDERS: PCP Internal Medicine; Visit Provider Radiology Diagnostic Radiology | DX: R05.3 Chronic cough (principal) | CPT/HCPCS: 71046 ==

== ENCOUNTER 2025-04-02 11:28 | Outpatient (AMB) | payer MEDICARE, BC, SELFPAY ==
--- NOTE | 2025-04-02 11:33 | MHC.OFFVIS ---
Intake Visit Reasons: Spasticity/stroke/anxiety Allergies hydrochlorothiazide (HCTZ) Allergy (Intermediate, Verified 03/20/25 14:41) Itching Medication List - Last Reconciled 04/02/25 by Katheryn Keyes MD [compression stocking Left forearm to elbow] acetaminophen 500 mg PO BID amlodipine 5 mg PO DAILY aspirin 81 mg PO DAILY azithromycin For 250 mg dose pack: take 500 mg today (day 1), then 250 mg for 4 days (days 2-5) PO baclofen 20 mg PO TID PRN calcium carbonate (Calcium Antacid) 200 mg PO BID citalopram 10 mg PO DAILY compr.stocking,knee,long,large Bilateral knee high large compression socks 15-30mmHG furosemide 80 mg PO DAILY mirabegron ER 25 mg PO BID 90 days multivitamin 1 tab PO DAILY omeprazole 20 mg PO BID oxybutynin chloride 10%(100mg/gram) ea topical DAILY potassium chloride ER 20 mEq PO DAILY prednisone Take 3 tab oral once daily for 3 days, then take 2 tab oral once daily for 3 days, then take 1 tab oral once daily for 3 days ProAir RespiClick 90 mcg/actuation (albuterol sulfate) 2 inhalations PO Q4H PRN NS [Resting hand splint (L) As directed] simvastatin 20 mg PO DAILY solifenacin (Vesicare) 5 mg PO DAILY 90 days HPI Comments Details: 74 y/o woman with a right MCA acrea stroke at age 24 of unknown etiology causing left hemiparesis, s/p bladder stiumlator for spastic bladder, 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 She was doing OK. Mood was ok. She was taking citaloprim for mood and baclofen for spasticity. Sleep was ok with CPAP. [facility] Medical History (Updated 04/02/25 @ 11:38 by Katheryn Keyes MD) High cholesterol MCI (mild cognitive impairment) Obesity Anxiety disorder Cerebral infarction involving middle cerebral artery Spasticity Left hemiparesis CVA (cerebral vascular accident) Chronic acquired lymphedema Anxiety Hx of skin cancer, basal cell 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 GERD (gastroesophageal reflux disease) HLD (hyperlipidemia) HTN (hypertension) Frequency of urination Urge incontinence Surgical History History of colonoscopy (~12/23/15) History of bladder surgery History of Hx of hand surgery Family History (Updated 04/01/25 @ 13:38 by Paula Christianson MA) Father Parkinson disease Mother Diabetes CAD (coronary artery disease) Social History [facility] Are you a primary lead care manager to a significant other at home: No Do you presently have visiting nurse or other home services: No Alcohol intake: never Patient Tobacco Use Status: Never used Tobacco e-Cigarette/Vaping Use: Never Used Second Hand Smoke Exposure: No service: No Current occupational status: retired Cognitive needs: Yes (cane) Hearing needs: No Vision needs: Yes (reading glasses ) Review of Systems Const Details: Constitutional:?No fever, chills, fatigue, weight loss, or night sweats. HEENT:?No headache, vision changes, hearing loss, nasal congestion, sore throat. Neurological:? Difficulty walking. Psychiatric:?No anxiety, depression, mood swings, sleep disturbance, or hallucinations. Endocrine:?No heat/cold intolerance, polydipsia, polyuria, or hair/skin changes. Hematologic/Lymphatic:?No easy bruising, bleeding, or lymphadenopathy. Integumentary (Skin):?No rash, lesions, itching, or color changes. ? Physical Exam Neuro Other: Mental Status: Alert and oriented to person, place, and time. Normal attention. Normal spontaneous speech, fluency, and comprehension. No obvious issues with mood and memory. Affect is appropriate. Cranial Nerves: CN II: Visual huber full to confrontation, visual acuity intact. CN III, IV, : Pupils equal, round, reactive to light and accommodation. Extraocular movements are normal. CN V: Facial sensation is normal. CN VII: Facial movements symmetrical. CN VIII: Hearing intact to bedside conversation is normal. CN IX, X: Palate elevates symmetrically. CN XI: Shoulder shrug and head turn symmetrical. CN XII: Tongue midline without atrophy or fasciculations. Moderate left hemiparesis with moderate spasticity. Extrapyramidal: Full facial expressions and blinking. No rigidity. Movements are appropriate with no tremor or abnormality. Speech: Normal; no dysarthria or tremor. Assessment & Plan Assessment & Plan (1) Left spastic hemiparesis: Comment: CT WO at [facility] in 2006: R sylvian area atrophy (reported) CT brain at [facility] in 2015: mod chronic right MCA perisylvian infarct, mild cerebellar and frontal atrophy. Code(s): G81.14 - Spastic hemiplegia affecting left nondominant side Category: Medical Plan Impression: 1. Remote right middle cerebral artery area probably ischemic cerebral infarction resulting in chronic spastic left hemiparesis 2. Mood disorder related to above 3. Spasticity Recommendations: 1. Baclofen 20 mg 2-3 a day 2. Citalopram 10 mg a day was helping with mood 3. Aspirin 81 mg daily Medications: New baclofen 20 mg PO TID PRN 240 tabs 1RF Abdominal Pain Refilled citalopram 10 mg PO DAILY 90 tabs 1RF Coding Level of Care Code Est Pt Level 4 (58710) Diagnoses Left spastic hemiparesis G81.14
--- OUTSIDE RECORDS SUMMARY | 2025-04-02 12:41 | XMS_ITS | Patient Health Record ---
Author Organization [facility] Address [address] [place] [address] Care Team Providers Care Induction Coordination Power Engineer Name Role Phone Jose Valdes MD Primary Care Provider Jeromy Lui Unavailable [phone] Allergies Allergen (clinical drug ingredient) Drug/Non Drug [...] Twice a day for 30 day(s) Active Omeprazole 20 MG TAKE 1 CAPSULE BY MOUTH TWICE A DAY for 90 Active Myrbetriq 25 MG 1 tablet Orally [...] Succinate 5 MG Oral for 90 Active Immunizations Vaccine Route Administration Date Status Comme nts Influenza Unknown 07/26/2019 Administered Influenza Unknown 05/26/2021 Administered Influenza Unknown 06/13/2023 Administered Problems Problem Type SNOMED Code ICD Code Onset Dates Problem Status W/U Status Risk Notes Problem [id number] Gastro-esophagea l reflux disease without esophagitis (K21.9) Active confirmed Problem 528062309 Encounter for screening for malignant neoplasm of colon (Z12.11) Active confirmed Problem Screening for malignant neoplasm of rectum (118765767) Encounter for screening for malignant neoplasm of rectum (Z12.12) Active confirmed Problem 956177381 Gastroesophageal reflux disease, esophagitis presence not specified (K21.9) Active confirmed Problem Benign neoplasm of stomach (47770586) Gastric polyps (K31.7) Active confirmed Problem Gastritis (5166355) Gastritis (K29.70) Active confirmed Problem Esophageal reflux finding (818104544) Gastroesophageal reflux (K21.9) Active confirmed Problem 05885828 Upper abdominal pain (R10.10) Active confirmed Problem Epigastric pain (16211399) Abdominal discomfort, epigastric (R10.13) Active confirmed Plan [...] [place] [address] [place] [address] [phone] [id number] DANTE LÓPEZ Self - patient is the insured [facility] [address] [place], [place] [id number] [phone] [id number] DANTE LÓPEZ Self - patient is the [...] LLE and LUE from previous CVA Denies [place],DM,Lung disease,renal disease Urinary incontinence Broken ribs 2017 [...]
== END 2025-04-02 11:47 | disposition home or self-care (01) ==
LOC: HO.HSM 11:28
PROVIDERS: PCP Internal Medicine; Visit Provider Psychiatry & Neurology Neurology
DX: G81.14 Spastic hemiplegia affecting left nondominant side (principal)
CPT/HCPCS: 99214

== ENCOUNTER → 2025-04-02 11:28 | Outpatient (BNVA) | payer MEDICARE, BC, SELFPAY | PROVIDERS: PCP Internal Medicine; Visit Provider Psychiatry & Neurology Neurology | DX: G81.14 Spastic hemiplegia affecting left nondominant side (principal); N32.89 Other specified disorders of bladder; Z96.82 Presence of neurostimulator; Z96.0 Presence of urogenital implants | CPT/HCPCS: 99212 ==

== ENCOUNTER 2025-04-15 13:44 | Emergency (ER) | payer MEDICARE, BC, SELFPAY ==
--- OUTSIDE RECORDS SUMMARY | 2024-12-09 13:51 | XMS_ITS | Encounter Summary ---
Author Organization [facility] Address [address] [place] [address] Phone Care Team Providers Care Sales Closer Name Role Phone Jose Valdes MD Primary Care Provider Encounter Details Date Type Department Care Team (Late st Contact Info) Description 12/09/2024 1:51 PM EDT Hospital Encounter [facility] [address] [place] [address] Adriana Clark FNP [address] [place] [address] [email or web address] Social History Tobacco Use Types Packs/Day Years [...] as of this encounter Plan of Treatment Upcoming Encounters Date Type Department Care Team (Late st Contact Info) Description 04/16/2025 1:00 PM EDT Office Visit [facility] [address] [place] [address] Uli Keyes MD [address] [place] [address] Haylee Matute, OT [address] [place] [address] [email or web address] documented as of this encounter Procedures Procedure [...] clinician's provided indication for this examination in [facility]: Dyspnea (Shortness of Breath); [...] clinician's provided indication for this examination in [facility]:Dyspnea (Shortness of Breath); wheezing for weeks. already took zpack,steroids and inhaler COMPARISON: XR CHEST PA AND LATERAL 2 VIEWS FINDINGS: Devices/Tubes/Lines: None. Lungs: No focal consolidation or pulmonary edema. Mild biapicalscarring. Pleura: No pleural effusion or pneumothorax. Heart/Mediastinum: Unchanged in appearance. Bones/Soft Tissues: Multilevel degenerative changes of the thoracicspine. IMPRESSION: No acute abnormality. Adriana Clark APPLICATIONS ENGINEER MANUFACTURING IMG XR CHEST Final Resul t documented in this encounter Visit Diagnoses Not on filedocumented in this encounter Care Teams Sales Closer Relationship Specialty Start Date End Date Jose Valdes MD [address] [place] [address] [place] [address] PCP - General Internal Medicine 08/04/17 documented as of this encounter Additional Source Comments The information contained in this document represents components of the legal health record. It is not the complete legal health record.[facility]
--- NOTE | ~2025-04-15 | XR_ITS ---
EXAMINATION: XR CHEST CLINICAL INFORMATION: Coughing COMPARISON: None available. TECHNIQUE: Frontal view of the chest was obtained. FINDINGS: Cardiac and mediastinal silhouette is within normal. The lungs are clear and well expanded. There is minimal apical pleural thickening. XR/XR chest 1V IMPRESSION: No interval change, no acute disease. Electronically signed by: Abel Mccann MD 04/15/2025 02:31 PM EDT
[2025-04-15 14:10] VITALS: BP 136/69; PULSE 73; RESP 20; TEMP 36.7; O2SAT 97; BMI 39.8
--- NOTE | 2025-04-15 14:15 | ECG_ITS ---
Test Reason : COUGHING Blood Pressure : */* mmHG Vent. Rate : 73 BPM Atrial Rate : 73 BPM P-R Int : 152 ms QRS Dur : 94 ms QT Int : 402 ms P-R-T Axes : 41 12 41 degrees QTcB Int : 442 ms Normal sinus rhythm Cannot rule out Anterior infarct , age undetermined Abnormal ECG When compared with ECG of 27-Dec-2024 17:30, Sinus rhythm has replaced Electronic ventricular pacemaker Referred By: Brennon Rainey Electronically Signed By: Blaine Sweeney
--- NOTE | 2025-04-15 14:18 | ED.GENADULT ---
HPI - General Adult General Chief complaint: Dyspnea Stated complaint: sob Time Seen by Provider: 04/15/25 17:16 Source: patient Mode of arrival: ambulatory Limitations: no limitations History of Present Illness ED Provider: LYNNE HEAD PA-C HPI narrative: 74 year old female with pmhx CVA with residual left sided weakness, chronic lymphedema, HTN, HLD, GERD, anxiety presents to the ED today for evaluation of chest congestion, cough, and dyspnea on exertion x 6 months. At onset of symptoms, she was evaluated at urgent care and treated for bronchitis without significant resolution. Her PCP then placed her on another course of prednisone and azithromycin approximately 2 weeks ago which she has since completed. She has a follow up with pulmonology in 3 weeks for a complete workup including CTA, pulmonary function testing, and echocardiogram next week however states that she could not wait for this appointment. She reports Googling her symptoms in his concerned she may be in heart failure. She is compliant with her Lasix. She reports this was increased from 40 mg daily to 80 mg daily approximately 6 months ago. No other recent med changes. She currently reports a chronic cough, occasionally productive of white sputum however has more recently been dry. Denies hemoptysis. She reports occasionally feeling short of breath when exerting herself however denies any associated chest pain, palpitations. Denies orthopnea. Denies any increasing swelling to her LEs. She admits to smoking tobacco in college. Denies any recent travel or long car rides. She is not on anticoagulation. She currently takes a baby aspirin daily. She denies any fever, chills, sore throat. Related Data Home Medications ?Medication ?Instructions ?Recorded ?Confirmed omeprazole 20 mg capsule,delayed 20 mg PO BID 02/02/21 01/20/25 release simvastatin 20 mg tablet 20 mg PO DAILY 02/02/21 01/20/25 acetaminophen 500 mg tablet 500 mg PO BID 11/08/21 01/20/25 multivitamin 1 tab PO DAILY 11/08/21 01/20/25 calcium carbonate (Calcium Antacid) 200 mg PO BID 12/12/24 01/20/25 amlodipine 5 mg tablet 5 mg PO DAILY 04/01/25 04/02/25 aspirin 81 mg chewable tablet 81 mg PO DAILY 04/01/25 04/02/25 oxybutynin chloride 10 % (100 ea topical DAILY 04/01/25 04/02/25 mg/gram) transdermal gel packet Previous Rx's ?Medication ?Instructions ?Recorded solifenacin 5 mg tablet (Vesicare) 5 mg PO DAILY 90 days #90 tabs 11/25/24 mirabegron 25 mg tablet,extended 25 mg PO BID 90 days #180 tabs 12/11/24 release 24 hr furosemide 80 mg tablet 80 mg PO DAILY #7 tabs 12/28/24 Resting hand splint (L) #1 ea 01/17/25 potassium chloride 20 mEq 20 meq PO DAILY #90 tabs 01/23/25 tablet,extended release ProAir RespiClick 90 mcg/actuation 2 inh PO Q4H PRN for wheezing #1 ea 03/19/25 breath activated (albuterol sulfate) compression stocking #1 ea 03/20/25 compr.stocking,knee,long,large #1 ea 03/20/25 prednisone 20 mg tablet See Rx Instructions PO DAILY #18 03/20/25 tabs azithromycin 250 mg tablet See Rx Instructions PO .COMPLEX #6 03/21/25 tabs baclofen 20 mg tablet 20 mg PO TID PRN Abdominal Pain 04/02/25 #240 tabs citalopram 10 mg tablet 10 mg PO DAILY #90 tabs 04/02/25 guaifenesin 200 mg tablet 200 mg PO TID PRN cough #10 tabs 04/15/25 Allergies Allergy/AdvReac Type Severity Reaction Status Date / Time hydrochlorothiazide (HCTZ) Allergy Intermediate Itching Verified 04/15/25 14:13 Review of Systems Review of Systems: Yes all other systems are reviewed and are negative PMFSH Past Medical History Attestation statement: The following information was validated with the patient. Source: old records reviewed and nursing notes reviewed Medical History High cholesterol MCI (mild cognitive impairment) Obesity Anxiety disorder Cerebral infarction involving middle cerebral artery Spasticity Left hemiparesis CVA (cerebral vascular accident) Chronic acquired lymphedema Anxiety Hx of skin cancer, basal cell 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 GERD (gastroesophageal reflux disease) HLD (hyperlipidemia) HTN (hypertension) Frequency of urination Urge incontinence Surgical History History of colonoscopy (~03/30/16) History of bladder surgery History of Hx of hand surgery Family History Family History Father Parkinson disease Mother Diabetes CAD (coronary artery disease) Social History Social History [facility] Are you a primary infant caregiver to a significant other at home: No Do you presently have visiting nurse or other home services: No Alcohol intake: never Patient Tobacco Use Status: Never used Tobacco e-Cigarette/Vaping Use: Never Used Second Hand Smoke Exposure: No service: No Current occupational status: retired Cognitive needs: Yes (cane) Hearing needs: No Vision needs: Yes (reading glasses ) Physical Exam ED Vital Signs: Vital Signs - 24 hr 04/15/25 14:10 04/15/25 16:35 04/15/25 19:36 Temperature 98.1 F 97.6 F 97.6 F Pulse Rate 73 72 72 Respiratory Rate 20 17 17 Blood Pressure 136/69 150/56 H 150/56 H Pulse Oximetry 97 98 98 Oxygen Delivery Method Room Air Room Air Room Air BMI result Body Mass Index 39.8 vital signs stable General: Well appearing, in no acute distress. Skin: Warm, dry, intact. No rashes or lesions. Head: Normocephalic, atraumatic. EENT: Hearing is intact b/l. Conjunctiva clear. Sclera is anicteric. PERRLA. EOM intact. Moist mucous membranes.? Neck: Supple without LAD Cardiac: Chest wall symmetric. RRR Lungs: Normal respiratory effort without accessory muscle use. Lung sounds diminished. No adventitious breath sounds. Abdomen: Soft, non-tender, non-distended. No rebound tenderness or guarding. Positive BS x4. Back: No midline spinous or paraspinal tenderness. No step off deformity. Ext: nonpitting edema to the bilateral lower extremities consistent with chronic lymphdema. No overlying skin changes or areas of cellulitis. No calf tenderness bilaterally. Neuro: AOx3. Normal speech. Ambulating with steady gait. Psych: Appropriate mood and affect. Responds appropriately to questions. Course Course Course Narrative: RME: 74-year-old female presents to ED for chronic cough and shortness of breath for multiple months. Patient has a scheduled CT scan and pulmonary breathing chest but comes to the ED to be evaluated. Patient states chronic lower extremity swelling due to lymphedema. Lungs are clear. Bilateral leg swelling but no pitting edema. Chest x-ray labs EKG ordered Reevaluation(s) Reevaluation #1: That leukocytosis or left shift. H&H stable. No anemia. Chemistry showing slight hyponatremia to 146, no other acute electrolyte abnormalities requiring intervention. No RODRIGO. Liver function WNL. Troponin undetectable. BNP WNL at 17. CHF unlikely. Negative COVID, flu, RSV. Chest x-ray unremarkable. No focal infiltrate or consolidation. No pulmonary edema or pleural effusion. EKG showing normal sinus rhythm with a rate of 73 beats per minute, QT 402. No acute ischemic changes or ST elevations. D-dimer below threshold. CTA chest not warranted at this time as I have low suspicion for PE, vitals are stable. > I personally ambulated patient around the ED. She sustained 97% on room air throughout ambulation. She did not feel short of breath. > patient's workup is quite unremarkable. Her exam is only significant for her chronic lymphedema. No evidence of fluid overload. She already has outpatient follow up established with upcoming pulmonary function tests scheduled. I advised her to keep this follow up as this is the next appropriate step to further evaluate symptoms. she verbalizes understanding and is agreeable with discharge home. we will trial guaifenesin for cough. Patient has remained stable throughout ED visit today. Discussed worrisome signs and symptoms and when to return to the ED. All questions answered at this time. Patient is agreeable with disposition and stable for discharge. Medical Decision Making Medical Decision Making [facility] Narrative: 74 year old female with pmhx CVA with residual left sided weakness presents to the ED today for evaluation of chest congestion, cough, and dyspnea on exertion x 6 months. Vital signs stable. Not tachycardic or hypoxic. Afebrile. She is well-appearing and in no acute distress. refer to exam portions for findings. Plan for labs, ekg, cxr, viral swabs, ambulatory O2 and re-evaluation. Differential Diagnosis Differential Diagnoses: The differential diagnosis associated with the presentation includes CHF, anemia, electrolyte abnormality, pneumonia, bronchitis, lymphedema, pleural effusion, PE, ACS, COPD Admission/Observation not indicated. Lab Data [facility] Lab Attestation statement: I reviewed the patient's lab results. as above. 04/15/25 14:37 04/15/25 14:37 Labs: Lab Results 04/15/25 Range/Units 14:37 WBC 6.0 (4.8-10.8) X10*3/uL RBC 4.41 (4.20-5.50) X10*6/uL Hgb 15.3 (12.0-16.0) g/dl Hct 43.5 (37.0-47.0) % MCV 98.6 H (80.0-98.0) fL MCH 34.7 H (27.0-33.0) pg MCHC 35.2 H (31.0-35.0) g/dl RDW 12.6 (11.0-16.0) % Plt Count 198 (160-400) X10*3/uL MPV 9.8 (9.4-12.3) fL Immature Gran % (Auto) 0.3 (0.0-0.4) % Neut % (Auto) 61.7 (45-73) % Lymph % (Auto) 23.8 (20-40) % Sanborn % (Auto) 5.4 (2-11) % Eos % (Auto) 8.1 H (0-4) % Baso % (Auto) 0.7 (0-2) % Lymph # (Auto) 1.4 (1.2-4.9) X10*3/uL Sanborn # (Auto) 0.3 (0.1-1.2) X10*3/uL Eos # (Auto) 0.5 H (0.0-0.4) X10*3/uL Baso # (Auto) 0.0 (0.0-0.2) X10*3/uL Abs Immat Gran (auto) 0.02 (0.00-0.03) X10*3/uL Absolute Neuts (auto) 3.7 (2.0-8.3) x10*3/uL Absolute Nucleated RBC 0.000 (0.0-0.012) X10*3/uL Nucleated RBC % (auto) 0.0 (0.0-0.2) /100WBC PT 10.8 L (10.9-12.4) SEC INR 0.9 (0.9-1.1) APTT 32.1 (26.0-36.8) SEC D-Dimer High Sensitivty < 150 NG/ML Sodium 146 H (135-145) mmol/L Potassium 3.6 (3.3-5.1) mmol/L Chloride 111 H (96-108) mmol/L Carbon Dioxide 27 (22-29) mmol/L Anion Gap 12 (12-20) BUN 17 H (9-16) mg/dL Creatinine 0.69 (0.5-1.4) mg/dL Estim Creat Clear Calc 83.2 Estimated GFR > 60 Random Glucose 93 (60-115) mg/dL Calcium 9.1 D (8.4-10.2) mg/dL Total Bilirubin 0.5 (0.0-1.0) mg/dL AST 29 (5-31) U/L ALT 29 (0-31) U/L Alkaline Phosphatase 88 (39-117) U/L Troponin I High Sens < 2.7 (<3.5-17.0) ng/L B-Natriuretic Peptide 17 (<100) pg/mL Total Protein 6.8 (6.5-8.0) g/dL Albumin 4.2 (3.5-5.0) g/dL Influenza Type A (PCR) NEGATIVE (Negative) Influenza Type B (PCR) NEGATIVE (Negative) RSV RNA Qual (PCR) NEGATIVE (Negative) SARS-CoV-2 RNA (RT-PCR) NEGATIVE (Negative) Independent Interpretation I performed an independent interpretation of an: EKG and CT Scan Interpretation: EKG showing normal sinus rhythm, rate of 73 beats per minute, QT 402, QTC 442, no acute ischemic changes or ST elevations Chest x-ray without infiltrate or consolidation Radiology Impression Discussion of test interpretation with radiology: I have reviewed the radiologist's reading. Radiologist Impression: Date of Service: 04/15/25 Procedure(s): XR chest 1V Accession Number(s): [id number] cc: Brennon Rainey; Physician,Unknown ~ EXAMINATION: XR CHEST CLINICAL INFORMATION: Coughing COMPARISON: None available. TECHNIQUE: Frontal view of the chest was obtained. FINDINGS: Cardiac and mediastinal silhouette is within normal. The lungs are clear and well expanded. There is minimal apical pleural thickening. XR/XR chest 1V IMPRESSION: No interval change, no acute disease. Electronically signed by: Abel Mccann MD 04/15/2025 02:31 PM EDT External Record Review External record reviewed: Inpatient record, Office record, Outpatient record, Prior outpatient labs, Prior outpatient radiology, Primary care record and Outside ED record Prescription Management I considered prescription management with: Other (Guaifenesin) Chronic Conditions Patient?s care impacted by: Hypertension and Other (Lymphedema) Social Determinants Patient?s care significantly limited by Social Determinants of Health including: Other Social Determinant of Health Critical Care Time Critical Care Time Critical Care Time: No Discharge Plan Discharge Clinical Impression: Cough Qualifiers: Cough type: subacute Qualified Code(s): R05.2 - Subacute cough Patient Disposition: Home, Self-Care Additional Instructions: Your workup today is reassuring. Your heart enzyme is normal. Your chest x-ray does not demonstrate any pneumonia. There is no clear etiology for your symptoms at this time. As discussed, the next step is following up with pulmonology. Please keep your appointment with them in 3 weeks. You would benefit from further pulmonology testing. I am sending a cough medicine to your pharmacy for you to take as needed for coughing. Please return with any new or worsening symptoms. In the case of an emergency call 911. Prescriptions: New guaifenesin 200 mg tablet 200 mg PO TID PRN (Reason: cough) Qty: 10 0RF No Action solifenacin [Vesicare] 5 mg tablet 5 mg PO DAILY 90 Days Qty: 90 1RF mirabegron 25 mg tablet extended release 24 hr 25 mg PO BID 90 Days Qty: 180 1RF (DME) Resting hand splint (L) See Rx Instructions .Route .MEDSUPPLY Qty: 1 0RF Rx Instructions: As directed ProAir RespiClick 90 mcg/actuation aerosol powdr breath activated 2 inh PO Q4H PRN (Reason: for wheezing) Qty: 1 3RF multivitamin Tablet 1 tab PO DAILY acetaminophen [Tylenol Ex Str Rapid Release] 500 mg Tablet 500 mg PO BID furosemide 80 mg tablet 80 mg PO DAILY Qty: 7 0RF omeprazole 20 mg capsule,delayed release(DR/EC) 20 mg PO BID simvastatin 20 mg tablet 20 mg PO DAILY amlodipine 5 mg tablet 5 mg PO DAILY potassium chloride 20 mEq tablet extended release 20 meq PO DAILY Qty: 90 3RF prednisone 20 mg tablet See Rx Instructions PO DAILY Qty: 18 0RF Rx Instructions: Take 3 tab oral once daily for 3 days, then take 2 tab oral once daily for 3 days, then take 1 tab oral once daily for 3 days (DME) compr.stocking,knee,long,large Misc See Rx Instructions .Route Qty: 1 0RF Rx Instructions: Bilateral knee high large compression socks 15-30mmHG (DME) compression stocking See Rx Instructions .Route .MEDSUPPLY Qty: 1 0RF Rx Instructions: Left forearm to elbow azithromycin 250 mg tablet See Rx Instructions PO .COMPLEX Qty: 6 1RF Rx Instructions: For 250 mg dose pack: take 500 mg today (day 1), then 250 mg for 4 days (days 2-5) PO calcium carbonate [Calcium Antacid] 200 mg calcium (500 mg) tablet,chewable 200 mg PO BID aspirin 81 mg tablet,chewable 81 mg PO DAILY oxybutynin chloride 10 % (100 mg/gram) gel in packet topical DAILY citalopram 10 mg tablet 10 mg PO DAILY Qty: 90 1RF baclofen 20 mg tablet 20 mg PO TID PRN (Reason: Abdominal Pain) Qty: 240 1RF Referrals: Makayla Penaloza MD [Primary Care Provider, Endocrinology] Interventions: ED Discharge Assessment Last Done: 04/15/25 19:36 Discharge Date/Time: 04/15/25 19:37 Print Language: Indonesian
[2025-04-15 14:42] LABS: MANUAL DIFF FLAG NO
[2025-04-15 14:59] LABS: Hematocrit 43.5 % (37.0-47.0); Hemoglobin 15.3 g/dl (12.0-16.0); INTERNATIONAL NORM RATIO 0.9 (0.9-1.1); Imm Gran Abs Auto 0.02 X10*3/uL (0.00-0.03); Imm Gran Pct Auto 0.3 % (0.0-0.4); Lymphocytes Absolute Auto 1.4 X10*3/uL (1.2-4.9); Mean Corpuscular HGB Conc 35.2 g/dl (31.0-35.0); Mean Corpuscular Hemoglobin 34.7 pg (27.0-33.0); Mean Corpuscular Volume 98.6 fL (80.0-98.0); NRBC Abs Auto 0.000 X10*3/uL (0.0-0.012); NRBC Pct Auto 0.0 /100WBC (0.0-0.2); Platelet Count 198 X10*3/uL (160-400); Prothrombin Time 10.8 SEC (10.9-12.4); Red Blood Count 4.41 X10*6/uL (4.20-5.50); White Blood Count 6.0 X10*3/uL (4.8-10.8)
[2025-04-15 15:00] LABS: Alanine Aminotransferase 29 U/L (0-31); Albumin Level 4.2 g/dL (3.5-5.0); Alkaline Phosphatase 88 U/L (39-117); Anion Gap 12 (12-20); Aspartate Amino Transferase 29 U/L (5-31); Blood Urea Nitrogen 17 mg/dL (9-16); Calcium 9.1 mg/dL (8.4-10.2); Carbon Dioxide 27 mmol/L (22-29); Chloride 111 mmol/L (96-108); Creatinine Clr Calc Pharmacy 83.2; Estimated Glomerular Filt Rate > 60; Potassium 3.6 mmol/L (3.3-5.1); Sodium 146 mmol/L (135-145); Total Protein 6.8 g/dL (6.5-8.0)
[2025-04-15 15:02] LABS: Partial Thromboplastin Time 32.1 SEC (26.0-36.8)
[2025-04-15 15:05] LABS: B Type Natriuretic Peptide 17 pg/mL (<100)
[2025-04-15 15:07] LABS: Troponin-I High Sensitivity < 2.7 ng/L (<3.5-17.0)
[2025-04-15 15:23] LABS: Resp Syncy Virus RNA Qual PCR NEGATIVE (Negative); SARS COV2 PCR INHOUSE NEGATIVE (Negative)
[2025-04-15 16:35] VITALS: BP 150/56; PULSE 72; RESP 17; TEMP 36.4; O2SAT 98
--- OUTSIDE RECORDS SUMMARY | 2025-04-15 16:46 | XMS_ITS | Patient Health Record ---
Author Organization [facility] Address [address] [place] [id number] Care Team Providers Care Medical Assistant Cardiology Name Role Phone Lucio (RETIRED) Jose [place] Primary Care Provide r Unavailable Jeromy Hunt Unavailable [phone] Allergies Allergen (clinical drug ingredient) Drug/Non Drug [...] Problem Status W/U Status Risk Notes Problem 961613343 Gastro-esophagea l reflux disease without esophagitis (K21.9) Active confirmed Problem 014724526 Encounter for screening for malignant neoplasm of colon (Z12.11) Active confirmed Problem Screening for malignant neoplasm of rectum (146047542) Encounter for screening for malignant neoplasm of rectum (Z12.12) Active confirmed Problem 882343023 Gastroesophageal reflux disease, esophagitis presence not specified (K21.9) Active confirmed Problem Benign neoplasm of stomach (99132866) Gastric polyps (K31.7) Active confirmed Problem Gastritis (2973101) Gastritis (K29.70) Active confirmed Problem Esophageal reflux finding (573325620) Gastroesophageal reflux (K21.9) Active confirmed Problem 93365847 Upper abdominal pain (R10.10) Active confirmed Problem Epigastric pain (64753620) Abdominal discomfort, epigastric (R10.13) Active confirmed Plan [...] [place] [address] [place] [address] [id number] DANTE LÓPEZ Self - patient is the insured [facility] [address] [place], [place] [id number] DANTE LÓPEZ Self - patient is the [...] LLE and LUE from previous CVA Denies PR,DM,Lung disease,renal disease Urinary incontinence Broken ribs 2017 [...]
[2025-04-15 18:27] LABS: D Dimer High Sensitivity < 150 NG/ML
[2025-04-15 19:36] VITALS: BP 150/56; PULSE 72; RESP 17; TEMP 36.4; O2SAT 98
== END 2025-04-15 19:37 | disposition home or self-care (01) ==
PROVIDERS: Physician Assistant; Physician Assistant Medical; Emergency Provider Emergency Medicine Emergency Medical Services; PCP Internal Medicine
DX: R05.2 Subacute cough (principal); Z03.818 Encounter for observation for suspected exposure to other biological agents ruled out; R79.1 Abnormal coagulation profile; I10 Essential (primary) hypertension; E78.5 Hyperlipidemia, unspecified; Z86.73 Personal history of transient ischemic attack (TIA), and cerebral infarction without residual deficits; Z79.899 Other long term (current) drug therapy
CPT/HCPCS: 36415; 71045; 80053; 83880; 84484; 85025; 85379; 85610; 85730; 87637; 93005; 99283

== ENCOUNTER → 2025-04-15 14:15 | Outpatient (BNV) | payer MEDICARE, BC, SELFPAY | PROVIDERS: Visit Provider Radiology Diagnostic Radiology | DX: R05.9 Cough, unspecified (principal) | CPT/HCPCS: 71045 ==

== ENCOUNTER → 2025-04-15 14:15 | Outpatient (BNV) | payer MEDICARE, BC, SELFPAY | PROVIDERS: Emergency Provider Emergency Medicine Emergency Medical Services; PCP Internal Medicine; Visit Provider Internal Medicine Cardiovascular Disease | DX: R94.31 Abnormal electrocardiogram [ECG] [EKG] (principal); R05.9 Cough, unspecified | CPT/HCPCS: 93010 ==

== ENCOUNTER 2025-04-21 15:21 | Outpatient (AMB) | payer MEDICARE, BC, SELFPAY ==
--- OUTSIDE RECORDS SUMMARY | 2024-12-09 13:51 | XMS_ITS | Encounter Summary ---
Author Organization [facility] Address [address] [place] [address] [address] [place] [address] Phone Care Team Providers Care Paver Operator Name Role Phone Jose Valdes MD Primary Care Provider Encounter Details Date Type Department Care Team (Late st Contact Info) Description 12/09/2024 1:51 PM EDT Hospital Encounter [facility] [address] [place] [address] Adriana Clark FNP [address] [place] [phone] [email or web address] Social History Tobacco Use [...] thoracicspine. IMPRESSION: No acute abnormality. Adriana Clark GHOST WRITER IMG XR CHEST Final Resul t documented in this encounter Visit Diagnoses Not on filedocumented in this encounter Care Teams Paver Operator Relationship Specialty Start Date End Date Jose Valdes MD [address] [place] [address] [place] [address] PCP - General Internal Medicine 08/04/17 documented as of this encounter Additional Source Comments The information contained in this document represents components of the legal health record. It is not the complete legal health record.[facility]
--- NOTE | 2025-04-21 15:25 | A.OFFPC_ITS ---
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 Required: No Accompanied by: Self / Same As Patient Allergies hydrochlorothiazide (HCTZ) Allergy (Intermediate, Verified 04/21/25 15:26) Itching Tobacco use date assessed: 03/20/25 Dental Screening Dental Screen Date: 03/20/25 [facility] Medical History High cholesterol MCI (mild cognitive impairment) Obesity Anxiety disorder Cerebral infarction involving middle cerebral artery Spasticity Left hemiparesis CVA (cerebral vascular accident) Chronic acquired lymphedema Anxiety Hx of skin cancer, basal cell 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 GERD (gastroesophageal reflux disease) HLD (hyperlipidemia) HTN (hypertension) Frequency of urination Urge incontinence Surgical History History of colonoscopy (~12/23/15) History of bladder surgery History of Hx of hand surgery Family History Father Parkinson disease Mother Diabetes CAD (coronary artery disease) Social History Housing: Condominium Are you a primary resident care provider to a significant other at home: No Do you presently have visiting nurse or other home services: No Alcohol intake: never Patient Tobacco Use Status: Never used Tobacco e-Cigarette/Vaping Use: Never Used Second Hand Smoke Exposure: No service: No Current occupational status: retired Cognitive needs: Yes (cane) Hearing needs: No Vision needs: Yes (reading glasses ) Questionnaire Thrive Questionnaire Date Thrive assessed: 03/20/25 UMANG-7 AMB Questionnaire UMANG-7 Date MUANG - 7 assessed: 03/20/25 Source: Developed by Drs. Jeromy Ballesteros, Lyubov Small, Soham Yousif and colleagues, with an educational kayla from [employer] Physical exam (Primary Care) Vital Signs: Last Vital Signs Temp 97.2 F 04/21/25 15:50 Pulse 69 04/21/25 15:50 Resp 18 04/21/25 15:50 BP 140/86 H 04/21/25 15:50 Pulse Ox 95 04/21/25 15:50 Oxygen Delivery Method Room Air 04/21/25 15:50 BMI result Body Mass Index 39.6 Tobacco/Smoking Status: Tobacco use Status Tobacco use date assessed 03/20/25 04/21/25 15:27 Patient Tobacco Use Status Never used Tobacco 04/21/25 15:27 e-Cigarette/Vaping Use Never Used 04/21/25 15:27 Thrive Assessment: Date of Thrive Assessment Date Thrive assessed 03/20/25 04/21/25 15:27 Coding Level of Care Code Est Pt Level 4 (64872) Complex EM visit Add On G2211 Diagnoses Shortness of breath R06.02 Dyspnea type: shortness of breath Assessment & Plan Assessment & Plan (1) Dyspnea: Code(s): R06.00 - Dyspnea, unspecified Category: Medical Qualifiers: Dyspnea type: shortness of breath Qualified Code(s): R06.02 - Shortness of breath Plan: History of Present Illness - The patient is a 74-year-old female presenting with lymphedema and respiratory symptoms. - Lymphedema: The patient has been attending a lymphedema clinic and undergoing therapy, including light massage and use of pumps at night, which has provided some relief. - The patient is on furosemide, initially at 40 mg, now increased to 80 mg, but reports it is less effective in reducing fluid retention and weight as before. - Respiratory congestion: The patient has experienced persistent congestion, treated with prednisone and azithromycin, but without complete resolution. - Multiple chest x-rays have been performed, all showing clear results, and a CT scan and pulmonary function test are scheduled. - Wheezing: The patient reports increased wheezing, especially in the morning, and has been using a CPAP and inhaler for management. - Weight fluctuations: The patient notes significant weight fluctuations, with less reliable weight loss overnight despite increased diuretic dosage. Social History Review of Systems - Respiratory: Reports congestion and wheezing, especially in the morning. - General: Reports weight fluctuations. Physical Exam General: Cooperative and healthy appearing Nutritional Appearance: Well nourished Orientation/consciousness: Patient oriented x3 Limitations: No limitations Head: Normal to inspection General: Appearance normal, both eyes and all related structures Neck: Normal visual inspection Chest: Normal palpation of entire chest wall Respiratory: Wheezing present ormal respiratory effort Neurology: Patient oriented x3 Results - Imaging: Multiple chest x-rays performed, all showing clear results. Plan 1. Lymphedema - Continue attending the lymphedema clinic and using pumps at night. - Monitor effectiveness of furosemide and adjust dosage as needed. 2. Respiratory Congestion - Scheduled for a CT scan and pulmonary function test to further evaluate resp iratory symptoms. - Continue using CPAP and inhaler as prescribed. 3. Wheezing - Continue using inhaler and CPAP for management. - Monitor symptoms and consider further evaluation if wheezing persists. 4. Weight Fluctuations - Monitor weight changes and assess dietary intake and fluid retention. Discussion Notes I discussed with the patient the importance of continuing her current management for lymphedema, including attending the clinic and using pumps. We reviewed her respiratory symptoms and the need for further evaluation with a CT scan and pulmonary function test. I advised her to continue using her CPAP and inhaler and to monitor her symptoms closely. We also discussed the need to monitor her weight fluctuations and assess dietary intake. Follow-up was scheduled to review test results and adjust the treatment plan as necessary. Patient Instructions - Continue attending the lymphedema clinic and using pumps at night. - Use your CPAP and inhaler as prescribed. - Monitor your weight daily and note any significant changes. - Follow up with scheduled CT scan and pulmonary function test. Medications: Refilled ProAir RespiClick 90 mcg/actuation (albuterol sulfate) 2 inhalations PO Q4H PRN 1 ea 3RF for wheezing NS
--- OUTSIDE RECORDS SUMMARY | 2025-04-21 15:43 | XMS_ITS | Patient Health Record ---
Author Organization [facility] Address [address] [place] [address] Care Team Providers Care Doffer Name Role Phone Lucio (RETIRED) Jose AUSTIN Primary Care Provide r Unavailable Jeromy Hunt Unavailable [phone] Allergies Allergen (clinical drug ingredient) Drug/Non Drug [...] Problem Status W/U Status Risk Notes Problem [id number] Gastro-esophagea l reflux disease without esophagitis (K21.9) Active confirmed Problem 246707196 Encounter for screening for malignant neoplasm of colon (Z12.11) Active confirmed Problem Screening for malignant neoplasm of rectum (834617821) Encounter for screening for malignant neoplasm of rectum (Z12.12) Active confirmed Problem 060769649 Gastroesophageal reflux disease, esophagitis presence not specified (K21.9) Active confirmed Problem Benign neoplasm of stomach (52109715) Gastric polyps (K31.7) Active confirmed Problem Gastritis (2095513) Gastritis (K29.70) Active confirmed Problem Esophageal reflux finding (850022509) Gastroesophageal reflux (K21.9) Active confirmed Problem 55640293 Upper abdominal pain (R10.10) Active confirmed Problem Epigastric pain (74970759) Abdominal discomfort, epigastric (R10.13) Active confirmed Plan [...] [place] [address] [place] [address] [id number] DANTE LÓPEZ Self - patient is the insured [facility] [address] [place], [place] [id number] [phone] [id number] DANTE LÓPEZ Self - patient is the [...] LLE and LUE from previous CVA Denies MT,DM,Lung disease,renal disease Urinary incontinence Broken ribs 2017 [...]
[2025-04-21 15:50] VITALS: BP 140/86; PULSE 69; RESP 18; TEMP 36.2; O2SAT 95; BMI 39.6
== END 2025-04-21 16:08 | disposition home or self-care (01) ==
LOC: HO.HMCHD 15:22
PROVIDERS: PCP Internal Medicine; Visit Provider Internal Medicine
DX: R06.02 Shortness of breath (principal)

== ENCOUNTER → 2025-04-21 15:21 | Outpatient (BNVA) | payer MEDICARE, BC, SELFPAY | PROVIDERS: PCP Internal Medicine; Visit Provider Internal Medicine | DX: R06.02 Shortness of breath (principal) | CPT/HCPCS: 99212 ==

== ENCOUNTER → 2025-05-08 13:28 | Outpatient (REF) | payer MEDICARE, BC, SELFPAY ==
--- OUTSIDE RECORDS SUMMARY | 2024-12-09 13:51 | XMS_ITS | Encounter Summary ---
Author Organization [facility] Address [address] [place] [address] [address] [place] [address] Phone Care Team Providers Care Digital Associate Name Role Phone Jose Valdes MD Primary Care Provider Encounter Details Date Type Department Care Team (Late st Contact Info) Description 12/09/2024 1:51 PM EDT Hospital Encounter [facility] [address] [place] [address] Adriana Clark FNP [address] [place] [address] [email or web address] [email or web address] Social History Tobacco Use Types Packs/Day Years [...] clinician's provided indication for this examination in [facility]: Dyspnea (Shortness of Breath); wheezing for weeks. [...] clinician's provided indication for this examination in [facility]:Dyspnea (Shortness of Breath); wheezing for weeks. already took zpack,steroids and inhaler COMPARISON: XR CHEST PA AND LATERAL 2 VIEWS FINDINGS: Devices/Tubes/Lines: None. Lungs: No focal consolidation or pulmonary edema. Mild biapicalscarring. Pleura: No pleural effusion or pneumothorax. Heart/Mediastinum: Unchanged in appearance. Bones/Soft Tissues: Multilevel degenerative changes of the thoracicspine. IMPRESSION: No acute abnormality. Adriana Clark WOMENS VOLLEYBALL COACH IMG XR CHEST Final Resul t documented in this encounter Visit Diagnoses Not on filedocumented in this encounter Care Teams Digital Associate Relationship Specialty Start Date End Date Jose Valdes MD [address] [place] [address] [place] [address] PCP - General Internal Medicine 08/04/17 documented as of this encounter Additional Source Comments The information contained in this document represents components of the legal health record. It is not the complete legal health record.[facility]
--- NOTE | 2025-05-08 13:34 | CA_ITS ---
Transthoracic Echocardiogram Patient (Last, First, Middle): Cora Shell W Gender: Female Date of : 1950 Age: 74 Procedure Date: 05/08/2025 Procedure Type: Transthoracic Echocardiogram Location: OP Height: 162. cm Weight: 104.33 kg BSA: 2.07 m2 Heart Rate: 67 bpm BP: 128 / 70 mmHg Air Intelligence Officer: LIVIA Referring MD: Makayla Penaloza MD Trip Motor Operator: Jung Salazar MD Symptoms: R06.02 - Shortness of breath Study Quality: Adequate ECG Rhythm: Sinus Conclusions: - 1. Normal LV ejection fraction of 60 65% with impaired relaxation filling pattern 2. Mild calcific aortic and mitral valve changes noted with normal cardiac valvular Dopplers 3. Mildly dilated ascending aorta at 3.7 cm 4. Normal RV systolic pressure 5. No gross pericardial effusion Findings Left Ventricle Normal left ventricular size, thickness, and systolic function. The visually estimated ejection fraction is between 60-65%. Spectral Doppler is indicative of an impaired relaxation filling pattern. E/E prime ratio is between 8 and 15 consistent with indeterminate filling pressures. Right Ventricle Normal right ventricular cavity size and systolic function. Atria Both atria are normal in size. Interatrial shunt cannot be excluded. Aortic Valve There is mild calcification of the aortic valve. There is no aortic valve stenosis. There is no aortic valve regurgitation. Mitral Valve There is mild posterior mitral leaflet thickening. There is mild mitral annular calcification. There is trace mitral valve regurgitation. There is no mitral valve stenosis. Pulmonic Valve The pulmonic valve was not well visualized. Tricuspid Valve Likely normal tricuspid valve structure and function. There is trace tricuspid valve regurgitation. The right ventricular systolic pressure is normal. The right ventricular systolic pressure is 24 mmHg. Normal right atrial pressure. There is no evidence of pulmonary hypertension. Great Vessels All visible segments of the aorta are normal in size. The pulmonary artery was not well visualized. There is mild dilatation of the ascending aorta measuring 3.70 cm. Venous The inferior vena cava is normal in size and collapses greater than 50% with inspiration. Pericardium/Pleural There is no evidence of pericardial effusion. Prior Study Comparison no previous study in the last 5 years for comparison Measurements 2D Linear Measurements IVSd: 0.92 0.6-0.9/0.6-1.0 cm LVIDd: 3.42 3.9-5.3/4.2-5.9 cm LVIDd Index: 1.65 2.4-3.2/2.2-3.1 cm/m2 LVIDs: 1.90 2.0-3.6 cm LVPWd: 1.09 0.7-1.1 cm LA Diam: 3.30 2.7-3.8/3.0-4.0 cm LAIDs Index: 1.59 1.5-2.3 cm/m2 LV Mass: 124.91 67-162/88-224 g LV Mass Index: 60.34 43-95/49-115 g/m2 LVOT Diam: 2.00 3.0+(-)1.3 cm 2D Systolic Function EF 4C: 62.40 >55% EF 2C: 66.80 >55% EF BiP: 64.90 >55% Mitral Valve MV Pk E: 0.84 MV PK A: 0.95 MV Decel Time: 242.00 E/A: 0.90 E'Lateral: 9.68 E'Medial: 6.96 E/E' Med: 12.10 E/E' Lat: 8.70 PHT: 71.00 MVA PHT: 3.10 Decel Winston: 3.48 Aortic Valve AoV Pk Good: 1.45 AoV Mn Good: 0.93 AoV VTI: 0.33 AoV Pk Grad: 8.00 Aov Mn Grad: 4.00 JAMEEL Cont.VTI: 2.63 LVOT LVOT Pk Good: 1.18 LVOT Mn Good: 0.78 LVOT VTI: 0.28 LVOT Pk Grad: 6.00 LVOT Mn Grad: 3.00 LVOT Diam: 2.00 LVOT Area: 3.14 Diastolic Function MV Pk E: 0.84 MV Pk A: 0.95 E/A: 0.90 E'Medial: 6.96 E/E' Med: 12.10 E' Laterial: 9.68 E/E' Lat: 8.70 Right Ventricle TAPSE (mm): 25.30 TVS' Good: 13.40 Tricuspid Valve TR Pk Good: 1.99 TR Pk Grad: 16.00 RA Press: 8.00 RVSP: 24.00 Great Vessels Aorta Sinus of Valsalva: 3.00 2.0-3.5 cm Ao Asc: 3.70 2.1-3.4 cm Ao Arch: 2.50 Pulmonary Valve PV Pk Good: 0.98 Peak PV Grad: 4.00 Updated in Other Vendor System with Status of Final Jung Salazar MD electronically signed on 05/08/2025 4:41:32 PM with status of Final
--- OUTSIDE RECORDS SUMMARY | 2025-05-08 14:21 | XMS_ITS | Patient Health Record ---
Author Organization [facility] Address [address] [place] [address] Care Team Providers Care Machine Package Sealer Name Role Phone Lucio (RETIRED) Jose AUSTIN Primary Care Provide r Unavailable Jeromy Hunt Unavailable [phone] Allergies Allergen (clinical drug ingredient) Drug/Non Drug [...] Problem Status W/U Status Risk Notes Problem 089046171 Gastro-esophagea l reflux disease without esophagitis (K21.9) Active confirmed Problem 861750885 Encounter for screening for malignant neoplasm of colon (Z12.11) Active confirmed Problem Screening for malignant neoplasm of rectum (813358143) Encounter for screening for malignant neoplasm of rectum (Z12.12) Active confirmed Problem 329756918 Gastroesophageal reflux disease, esophagitis presence not specified (K21.9) Active confirmed Problem Benign neoplasm of stomach (03158174) Gastric polyps (K31.7) Active confirmed Problem Gastritis (0664179) Gastritis (K29.70) Active confirmed Problem Esophageal reflux finding (778741821) Gastroesophageal reflux (K21.9) Active confirmed Problem 00855735 Upper abdominal pain (R10.10) Active confirmed Problem Epigastric pain (23229689) Abdominal discomfort, epigastric (R10.13) Active confirmed Plan [...] [place] [address] [place] [address] [id number] DANTE LÓPEZ Self - patient is the insured [facility] [address] [place], [place] [id number] DANTE LÓPEZ Self - patient is the [...]
--- NOTE | 2025-05-08 14:48 | PFT_ITS ---
Flows: FEV1: 96 % of predicted at 1.96 L FVC: 88 % of predicted at 2.35 L FEV1/FVC: 83 % Bronchodilator response: Present in small to medium airways only Volumes: Total lung capacity: 69 % of predicted at 3.40 L Residual volume: 54 % of predicted at 1.13 L Slow vital capacity: 82 % of predicted at 2.28 L Expiratory reserve volume: 55 % of predicted at 0.37 L Diffusion capacity: Normal Impression: Mild restrictive ventilatory defect with bronchodilator response present in small to medium airways only. Decreased expiratory reserve volume suggests extrathoracic restriction likely secondary to abdominal obesity. MTDD
[2025-05-08 15:35] VITALS: PULSE 67; O2SAT 97
== END ==
LOC: HO.CARD 13:28
PROVIDERS: PCP Internal Medicine; Visit Provider Internal Medicine
DX: R06.02 Shortness of breath (principal); R05.2 Subacute cough; I89.0 Lymphedema, not elsewhere classified; R06.00 Dyspnea, unspecified
CPT/HCPCS: 93306; 94010; 94640; 94727; 94729

== ENCOUNTER → 2025-05-08 13:34 | Outpatient (BNV) | payer MEDICARE, BC, SELFPAY | PROVIDERS: PCP Internal Medicine; Visit Provider Internal Medicine Cardiovascular Disease | DX: I35.8 Other nonrheumatic aortic valve disorders (principal); I34.81 Nonrheumatic mitral (valve) annulus calcification | CPT/HCPCS: 93306 ==

== ENCOUNTER → 2025-05-08 14:48 | Outpatient (BNV) | payer MEDICARE, BC, SELFPAY | PROVIDERS: PCP Internal Medicine; Visit Provider Internal Medicine Pulmonary Disease | DX: R06.00 Dyspnea, unspecified (principal); R06.02 Shortness of breath | CPT/HCPCS: 94060; 94727; 94729 ==

== ENCOUNTER 2025-05-14 07:11 | Outpatient (REF) | payer MEDICARE, BC, SELFPAY ==
--- NOTE | ~2025-05-14 | CT_ITS ---
CLINICAL HISTORY: R93.5 - Abnormal findings on diagnostic imaging of other abdominal regio... CT Chest, without IV contrast: Comparison: Plain film 04/15/2025, CT 12/27/2024. Findings: Heart size is normal, with no pericardial effusion Aorta diameter is normal in caliber. The Pulmonary artery diameter segments are enlarged reflecting increased pulmonary artery pressures. Lymph nodes: No adenopathy Trachea and Esophagus: Unremarkable Lungs: There is mild interstitial opacity involving anterior lingula with no consolidation or discrete soft tissue pulmonary nodules. Pleura: No pleural effusion Skeletal: No fractures Below the diaphragm: Regional visceral organs are unremarkable Impression: Mild inferior lingula interstitial opacity due to atelectasis or scarring, possibly postinflammatory with mild likely chronic bronchiectasis.. No acute consolidations or abnormal pulmonary nodules. This document has been electronically signed by: Ruddy Wood MD on 05/15/2025 13:47:47
== END 2025-05-14 07:12 | disposition home or self-care (01) ==
LOC: HO.CT 07:11
PROVIDERS: Visit Provider Nurse Practitioner Family
DX: R91.8 Other nonspecific abnormal finding of lung field (principal); R93.5 Abnormal findings on diagnostic imaging of other abdominal regions, including retroperitoneum
CPT/HCPCS: 71250

== ENCOUNTER → 2025-05-14 07:12 | Outpatient (BNV) | payer MEDICARE, BC, SELFPAY | PROVIDERS: Visit Provider Radiology Diagnostic Radiology | DX: R91.8 Other nonspecific abnormal finding of lung field (principal) | CPT/HCPCS: 71250 ==

== ENCOUNTER 2025-05-19 13:39 | Outpatient (AMB) | payer MEDICARE, BC, SELFPAY ==
--- OUTSIDE RECORDS SUMMARY | 2021-01-30 17:17 | XMS_ITS | Encounter Summary ---
Author Organization [facility] Address [address] [place] [address] [address] [place] [address] Phone Care Team Providers Care Regional Director Of Admissions Name Role Phone Jose Valdes MD Primary Care Provider Encounter Details Date Type Department Care Team (Late st Contact Info) Description 01/30/2021 5:17 PM EDT Hospital Encounter [facility] [address] [place] [phone] Simon Gregory PA [address] [place] [phone] [email or web address] g Social History Tobacco Use Types Packs/Day Years Used Date Smoking Tobacco: Never Smokeless Tobacco: Never Education Answer Date Recorded Are you interested in more education? Not on laruel e 01/27/2023 Are you concerned about learning? [...] on filedocumented in this encounter Care Teams Regional Director Of Admissions Relationship Specialty Start Date End Date Jose Valdes MD [address] [place] [address] [place] [address] PCP - General Internal Medicine 08/04/17 documented as of this encounter Additional Source Comments The information contained in this document represents components of the legal health record. It is not the complete legal health record.[facility]
--- OUTSIDE RECORDS SUMMARY | 2021-01-30 17:59 | XMS_ITS | Encounter Summary ---
Author Organization [facility] Address [address] [place] [address] [address] [place] [address] Phone Care Team Providers Care Photographic Engineer Name Role Phone Jose Valdes MD Primary Care Provider Encounter Details Date Type Department Care Team (Late st Contact Info) Description 01/30/2021 5:59 PM EDT Hospital Encounter [facility] [address] [place] [address] Simon Gregory PA [address] [place] [phone] [email or web address] g Social History Tobacco Use Types Packs/Day [...] on filedocumented in this encounter Care Teams Photographic Engineer Relationship Specialty Start Date End Date Jose Valdes MD [address] [place] [address] [place] [address] PCP - General Internal Medicine 08/04/17 documented as of this encounter Additional Source Comments The information contained in this document represents components of the legal health record. It is not the complete legal health record.[facility]
--- OUTSIDE RECORDS SUMMARY | 2023-05-07 09:52 | XMS_ITS | Encounter Summary ---
Author Organization [facility] Address [address] [place] [address] [address] [place] [address] Phone Care Team Providers Care Drywall Stripper Name Role Phone Jose Valdes MD Primary Care Provider Encounter Details Date Type Department Care Team (Late st Contact Info) Description 05/07/2023 9:52 AM EDT Hospital Encounter [facility] [address] [place] [phone] Karley Long CNP [address] [place] [address] Social History Tobacco Use Types Packs/Day Years [...] in the appropriate clinical setting. Karley Long KEY ACCOUNT COORDINATOR IMG XR CHEST Final Resul t documented in this encounter Visit Diagnoses Not on filedocumented in this encounter Care Teams Drywall Stripper Relationship Specialty Start Date End Date Jose Valdes MD [address] [place] [address] Dr Pineda, KATHY [phone] PCP - General Internal Medicine 08/04/17 documented as of this encounter Additional Source Comments The information contained in this document represents components of the legal health record. It is not the complete legal health record.[facility]
--- OUTSIDE RECORDS SUMMARY | 2024-12-09 13:51 | XMS_ITS | Encounter Summary ---
Author Organization [facility] Address [address] [place] [address] [address] [place] [address] Phone Care Team Providers Care Outsole Cutter Machine Name Role Phone Jose Valdes MD Primary Care Provider Encounter Details Date Type Department Care Team (Late st Contact Info) Description 12/09/2024 1:51 PM EDT Hospital Encounter [facility] [address] [place] [address] Adriana Clark FNP [address] [place] [address] [email or web address] [place] Social History Tobacco Use Types Packs/Day [...] clinician's provided indication for this examination in [facility]: Dyspnea (Shortness of Breath); wheezing for [...] clinician's provided indication for this examination in [facility]:Dyspnea (Shortness of Breath); wheezing for weeks. already took zpack,steroids and inhaler COMPARISON: XR CHEST PA AND LATERAL 2 VIEWS FINDINGS: Devices/Tubes/Lines: None. Lungs: No focal consolidation or pulmonary edema. Mild biapicalscarring. Pleura: No pleural effusion or pneumothorax. Heart/Mediastinum: Unchanged in appearance. Bones/Soft Tissues: Multilevel degenerative changes of the thoracicspine. IMPRESSION: No acute abnormality. Adriana Clark HEAD MACHINE FEEDER IMG XR CHEST Final Resul t documented in this encounter Visit Diagnoses Not on filedocumented in this encounter Care Teams Outsole Cutter Machine Relationship Specialty Start Date End Date Jose Valdes MD [address] [place] [address] [place] [address] PCP - General Internal Medicine 08/04/17 documented as of this encounter Additional Source Comments The information contained in this document represents components of the legal health record. It is not the complete legal health record.[facility]
--- NOTE | 2025-05-19 13:42 | MHC.OFFVIS ---
Vital Signs 05/19/25 13:43 Height 5 ft 4 in Weight 230 lb 6.129 oz BMI 39.5 BP 136/80 Blood Pressure Location Rt radial Position Sitting Pulse 81 Pulse Source Pulse Oximeter Pulse Oximetry (%) 93 Oxygen Delivery Method Room Air Intake Visit Reasons: Obstructive sleep apnea Allergies hydrochlorothiazide (HCTZ) Allergy (Intermediate, Verified 05/19/25 13:47) Itching HPI HPI Obstructive sleep apnea: Details: Cora is a pleasant 74-year-old female, never smoker with underlying mild JUSTIN on CPAP, HTN, HLD, GERD, h/o CVA and chronic BLE lymphedema. She was initially referred by PCP for management of obstructive sleep apnea. Prior home sleep study revealed mild to moderate sleep apnea with nocturnal hypoxemia, average 92%, lowest 77%, <88% 18 minutes, average AHI 14. Recommendations were made for CPAP therapy in APAP mode with pressure settings of 6-20 cm H2O, which she had been started on benefitting and compliant with, using nasal pillows. DME is Gus. Unfortunately unable to access compliance report at this time however patient states she has been using consistently. She also reported ongoing concerns with bronchial symptoms that started last winter where she had prolonged respiratory symptoms requiring two rounds of prednisone and antibiotics. Symptoms resolved however recurred the past winter, treated with antibiotics in September and again 12/04 with zpak and prednisone as well as prednisone in February with persistent symptoms. She continues to report occasional wet cough, with difficulty expectorating, chest congestion, intermittent wheezing and dyspnea on moderate exertion as well as an inability to fully inspire. When she does produce sputum she notes a yellowish green color. She can not state for certain if she had any benefit from prednisone and had suboptimal effect with azithromycin and doxycycline. In regards to CT reveals possible pneumonitis and denies any overt exposures or h/o underlying autoimmune conditions. She reports h/o chronic lymphedema, taking 80 mg of Lasix QD however has had suboptimal effect over the last few weeks and will be following up with PCP for further evaluation. She did have echo which did not reveal any significant findings. [facility] Medical History High cholesterol MCI (mild cognitive impairment) Obesity Anxiety disorder Cerebral infarction involving middle cerebral artery Spasticity Left hemiparesis CVA (cerebral vascular accident) Chronic acquired lymphedema Anxiety Hx of skin cancer, basal cell 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 GERD (gastroesophageal reflux disease) HLD (hyperlipidemia) HTN (hypertension) Frequency of urination Urge incontinence Surgical History History of colonoscopy (~12/23/15) History of bladder surgery History of Hx of hand surgery Family History Father Parkinson disease Mother Diabetes CAD (coronary artery disease) Social History [facility] Are you a primary patient care associate to a significant other at home: No Do you presently have visiting nurse or other home services: No Alcohol intake: never Patient Tobacco Use Status: Never used Tobacco e-Cigarette/Vaping Use: Never Used Second Hand Smoke Exposure: No service: No Current occupational status: retired Cognitive needs: Yes (cane) Hearing needs: No Vision needs: Yes (reading glasses ) Review of Systems Const Denies chills, Denies excessive sweating, Denies fever(s), Denies headache(s) and Denies night sweats Eyes Denies dry eyes, Denies irritation and Denies itchy eyes ENT Reports Normal hearing present, Denies headache(s), Denies nasal congestion, Denies nasal discharge, Denies post nasal drip and Denies sore throat Card Denies chest pain, Denies chest pain at rest, Denies chest pain with activity, Denies claudication, Denies leg edema, Reports dyspnea on exertion, Denies orthopnea and Denies paroxysmal nocturnal dyspnea Resp Reports chest congestion, Reports cough, Denies excessive phlegm production, Denies pain on inspiration, Denies pain with cough, Reports dyspnea on exertion, Denies stridor and Reports wheezing Musc Denies myalgias Neuro Reports Normal hearing present and Denies headache(s) Endo Denies excessive sweating Aller/Immun Denies itchy eyes, Denies seasonal rhinorrhea and Reports wheezing Physical Exam Vital Signs: Last Vital Signs Pulse 81 05/19/25 13:43 BP 136/80 05/19/25 13:43 Pulse Ox 93 05/19/25 13:43 Oxygen Delivery Method Room Air 05/19/25 13:43 BMI result Body Mass Index 39.5 Const Other: left sided weakness r/t CVA using cane General: cooperative, healthy appearing, comfortable, no acute distress, well developed and alert Nutritional Appearance: obese Orientation/consciousness: patient oriented x3 HEENT Head: Yes normal to inspection, Yes normocephalic and Yes atraumatic Ears: hearing grossly normal bilaterally and external ears normal Eyes General: appearance normal, both eyes and all related structures Eyelids: Yes eyelids normal Sclerae: sclerae normal EOM: EOMs intact bilaterally Neck Neck: Yes normal visual inspection and Yes no lymphadenopathy Lymphatic: no lymphadenopathy noted Chest Chest palpation & inspection: normal inspection of the chest Resp Effort & Inspection: normal respiratory effort, able to speak in complete sentences, no audible wheezes, no cough, no stridor, not tachypneic, no tripod positioning and no use of accessory muscles Auscultation: diminished lung sounds Cardio Jugular venous distension: no JVD Rate: regular rate Rhythm: regular rhythm Skin Other: warm, dry General skin exam: no rashes or lesions noted Neuro General: patient oriented x3 Cranial nerves: Yes Normal hearing present Cognition (Neuro): normal cognition Extrem Other: chronic lymphedema Psych Appearance: grossly normal and well kempt Speech and movement: Normal speech and movement present and Clear speech present Affect: normal affect Attitude: cooperative Thought process: Normal thought process present Thought content: Normal thought content present Insight: Good insight present (Psych) Judgement: Good judgement present (Psych) Results Reviewed Results Reviewed: [address] [address] [address] Scan Report Signed Patient: Cora Shell MR#: [id number] : 1950 Acct:[id number] Age/Sex: 74 / F ADM Date: 05/14/25 Loc: HO.CT Attending Dr: Ailyn Mckeon NP Ordering Physician: Ailyn Mckeon NP Date of Service: 05/14/25 Procedure(s): CT chest wo IV con Accession Number(s): [id number] cc: Ailyn Mckeon NP~ Report Number: [id number]: Total DLP = 403.00 mGy-cm CLINICAL HISTORY: R93.5 - Abnormal findings on diagnostic imaging of other abdominal regio... CT Chest, without IV contrast: Comparison: Plain film 04/15/2025, CT 12/27/2024. Findings: Heart size is normal, with no pericardial effusion Aorta diameter is normal in caliber. The Pulmonary artery diameter segments are enlarged reflecting increased pulmonary artery pressures. Lymph nodes: No adenopathy Trachea and Esophagus: Unremarkable Lungs: There is mild interstitial opacity involving anterior lingula with no consolidation or discrete soft tissue pulmonary nodules. Pleura: No pleural effusion Skeletal: No fractures Below the diaphragm: Regional visceral organs are unremarkable Impression: Mild inferior lingula interstitial opacity due to atelectasis or scarring, possibly postinflammatory with mild likely chronic bronchiectasis.. No acute consolidations or abnormal pulmonary nodules. This document has been electronically signed by: Ruddy Wood MD on 05/15/2025 13:47:47 Dictated By: Ruddy Wood MD Signed By: <Electronically signed by Ruddy Wood MD in OV> 05/15/25 1349 DD/ 1347 TD/TT: 05/15/25 134 Credit Assistant: Assessment & Plan Assessment & Plan (1) Cough: Code(s): R05.9 - Cough, unspecified Category: Medical Qualifiers: Cough type: subacute Qualified Code(s): R05.2 - Subacute cough (2) Dyspnea: Code(s): R06.00 - Dyspnea, unspecified Category: Medical Qualifiers: Dyspnea type: shortness of breath Qualified Code(s): R06.02 - Shortness of breath (3) Obstructive sleep apnea: Code(s): G47.33 - Obstructive sleep apnea (adult) (pediatric) Category: Medical (4) Nocturnal hypoxemia: Code(s): G47.34 - Idiopathic sleep related nonobstructive alveolar hypoventilation Category: Medical Plan Reviewed PFT which revealed mild restrictive ventilatory defect with bronchodilator response present in small to medium airways only. Decreased expiratory reserve volume suggests extrathoracic restriction likely secondary to abdominal obesity. DLCO slightly increased. PFT suggestive of asthma will start Breo. Discussed importance of good oral hygiene to prevent thrush. Prior abdominal CT suggestive of mild pneumonitis and chest CT continues to reveal mild inferior lingula interstitial opacity suggestive of underlying infectious or inflammatory process. Will send for labs to assess for any exposures or underlying autoimmune condition. Patient continues with bronchitic symptoms, will treat with cefpodoxime and she will attempt to obtain sputum prior to initiation as well as prednisone. She is aware to call if symptoms do not improve. Unable to access compliance report but patient states consistent use and has been benefitting. Will reach out to Gus to obtain access. All questions were answered and patient is in agreement of plan. Will follow up in 8-12 weeks or sooner if needed. Orders: Orders Sputum Cult + Gram stain Today R05.3 - Chronic cough KAZ Reflex Titer and Pattern Today J84.9 - Interstitial pulmonary disease, unspecified Immunoglobulin E Today J84.9 - Interstitial pulmonary disease, unspecified Hypersensitive Pneumonitis Prf Today J84.9 - Interstitial pulmonary disease, unspecified Rheumatoid Factor Today J84.9 - Interstitial pulmonary disease, unspecified Anti DNA DS Antibody Today J84.9 - Interstitial pulmonary disease, unspecified Cyclic Citrullinated Peptide Today J84.9 - Interstitial pulmonary disease, unspecified Resp Allergy Profile Region I Today J84.9 - Interstitial pulmonary disease, unspecified Scleroderma 70 Antibody Today J84.9 - Interstitial pulmonary disease, unspecified Sjogren's Antibodies Today J84.9 - Interstitial pulmonary disease, unspecified Medications: New cefpodoxime must administer with a meal/food 200 mg PO BID 20 tabs 0RF fluticasone furoate-vilanterol 100-25 mcg/dose (Breo Ellipta) 1 inh inhalation DAILY 60 ea 3RF prednisone see taper instructions; 40 mg Daily x3 days, 30 mg daily x3 days, 20 mg daily x3 days, 10 mg daily x3 days 10 mg PO DIRECTED 30 tabs 0RF Coding Level of Care Code Est Pt Level 4 (83198) Complex EM visit Add On G2211 Diagnoses Subacute cough R05.2 Cough type: subacute Shortness of breath R06.02 Dyspnea type: shortness of breath Obstructive sleep apnea G47.33 Nocturnal hypoxemia G47.34
[2025-05-19 13:43] VITALS: BP 136/80; PULSE 81; O2SAT 93; BMI 39.5
--- OUTSIDE RECORDS SUMMARY | 2025-05-19 14:57 | XMS_ITS | Patient Health Record ---
Author Organization [facility] Address [address] [place] [address] Care Team Providers Care Assistant Professor Of English Name Role Phone Lucio (RETIRED) Jose AUSTIN Primary Care Provide r Unavailable Jeromy Hunt Unavailable [phone] Allergies Allergen (clinical drug ingredient) Drug/Non Drug [...] Problem Status W/U Status Risk Notes Problem 508323358 Gastro-esophagea l reflux disease without esophagitis (K21.9) Active confirmed Problem 381393272 Encounter for screening for malignant neoplasm of colon (Z12.11) Active confirmed Problem Screening for malignant neoplasm of rectum (240233969) Encounter for screening for malignant neoplasm of rectum (Z12.12) Active confirmed Problem 530731791 Gastroesophageal reflux disease, esophagitis presence not specified (K21.9) Active confirmed Problem Benign neoplasm of stomach (99473911) Gastric polyps (K31.7) Active confirmed Problem Gastritis (1781603) Gastritis (K29.70) Active confirmed Problem Esophageal reflux finding (054991113) Gastroesophageal reflux (K21.9) Active confirmed Problem 62883131 Upper abdominal pain (R10.10) Active confirmed Problem Epigastric pain (91775551) Abdominal discomfort, epigastric (R10.13) Active confirmed Plan [...] [place] [address] [place] [address] [id number] DANTE LÓPEZ Self - patient is the insured [facility] [address] [place], [place] [id number] [phone] [id number] DANTE LÓPEZ Self - patient is the [...] LLE and LUE from previous CVA Denies RI,DM,Lung disease,renal disease Urinary incontinence Broken ribs 2017 [...]
--- OUTSIDE RECORDS SUMMARY | 2025-05-19 14:57 | XMS_ITS | Encounter Summary ---
Author Organization [facility] Address [address] [place] [address] [place] [phone] Phone Care Team Providers Care Draw Operator Name Role Phone Jose Valdes MD Primary Care Provider Reason for Referral * Physical Therapy (Routine) - Closed Specialty Diagnoses / Procedures Referred By Contac t Referred To Contact Physical Therapy Diagnoses Encounter for rehabilitation System, Provider Not In, PhD [id number] [place] [address] Phone: tel: Referral ID Status Reason Start Date Expiration Date Visits Re quested Visits Authorized [id number] Closed 08/10/2017 09/24/2018 25 25 Encounter Details Date Type Department Care Team (Latest Contact Info) Description 08/09/2017 Transcribe Orders [facility] [address] [place] [id number] Jose Valdes MD [address] [place] [address] [place] [address] Encounter for rehabilitation (Primary Dx) Social History Tobacco Use Types Packs/Day Years Used Date Smoking Tobacco: Never Assessed Comments Unknown Sex and Gender Information Value Date Recorded Sex Assigned at Not on file Legal Sex Female 9:23 AM EST Gender Identity Not on file Sexual Orientation Not on file documented as of this encounter Plan of Treatment Scheduled Referrals Name Type Priority Associated Diagnoses Orde r Schedule Ambulatory referral to [facility] Physical Therapy Outpatient Referral Routine Encounter for rehabilitation Ordered: 08/10/2017 documented as of this encounter Visit Diagnoses Diagnosis Encounter for rehabilitation- Primary documented in this encounter Care Teams Draw Operator Relationship Specialty Start Date End Date Jose Valdes MD [address] [place] [address] [place] [address] PCP - General Internal Medicine 08/04/17 documented as of this encounter Additional Source Comments The information contained in this document represents components of the legal health record. It is not the complete legal health record.[facility]
--- OUTSIDE RECORDS SUMMARY | 2025-05-19 14:58 | XMS_ITS | Encounter Summary ---
Author Organization [facility] Address [address] [place] [address] [place] [address] Phone Care Team Providers Care Policy Checker Name Role Phone Jose Valdes MD Primary Care Provider Reason for Referral * Physical Therapy (Routine) - Closed Specialty Diagnoses / Procedures Referred By Contac t Referred To Contact Physical Therapy Diagnoses Encounter for rehabilitation System, Provider Not In, PhD [id number] [place] [address] Phone: tel: Referral ID Status Reason Start Date Expiration Date Visits Re quested Visits Authorized [id number] Closed 10/16/2017 10/16/2018 99 99 Encounter Details Date Type Department Care Team (Latest Contact Info) Description 10/16/2017 Transcribe Orders [facility] [address] [place] [address] Jose Valdes MD [address] [place] [address] [place] [address] Encounter for rehabilitation (Primary Dx) Social History [...] Diagnoses Orde r Schedule Ambulatory referral to [facility] Physical Therapy Outpatient Referral Routine Encounter for rehabilitation Ordered: 10/16/2017 documented as of this encounter Visit Diagnoses Diagnosis Encounter for rehabilitation- Primary documented in this encounter Care Teams Policy Checker Relationship Specialty Start Date End Date Jose Valdes MD [address] [place] [address] [place] [address] PCP - General Internal Medicine 08/04/17 documented as of this encounter Additional Source Comments The information contained in this document represents components of the legal health record. It is not the complete legal health record.[facility]
--- OUTSIDE RECORDS SUMMARY | 2025-05-19 14:58 | XMS_ITS | Clinical Summary ---
Author Organization [facility] Address [address] [facility] [address] [place] [address] Phone Care Team Providers Care Dispensing Optician Apprentice Name Role Phone Jose Valdes MD Primary Care Provider Allergies Active Allergy Reactions Criticality Noted Date Comments Hydrochlorothiazide 03/01/2022 Other reaction(s): Unknown Other 05/07/2023 Other reaction(s): mold Pollen Extracts Unknown 03/01/2022 Triamterene-Hydrochlorothiazid 05/07 Other reaction(s): itching Medications amLODIPine (NORVASC) 2.5 MG tablet Take 2.5 mg by mouth daily. Active simvastatin (ZOCOR) 20 MG tablet Take 20 mg by mouth nightly at bedtime. Active citalopram (CELEXA) 10 MG tablet Take 10 mg by mouth daily. Active furosemide (LASIX) 40 MG tablet Take 40 mg by mouth. Active baclofen (LIORESAL) 20 MG tablet Take 20 mg by mouth 3 (three) times a day. Active fexofenadine (ROSALIO ALLERGY) 180 MG tablet 1 tablet. Active TYLENOL, 101, TAB _FUNCTIONAL_TES TING 1 tablet. Active calcium carbonate (OS-ROSEANNA) 1,250 mg (500 mg elemental) tablet 1 tablet with meals Active ESTRING 2 mg (7.5 mcg /24 hour) vaginal ring 3 Active mirabegron (MYRBETRIQ) 25 mg Tb24 1 tablet. Active omeprazole (PRILOSEC) 20 MG capsule 1 Active solifenacin (VESICARE) 5 MG tablet Take 1 tablet by mouth every morning. 3 Active amLODIPine (NORVASC) 5 MG tablet Take 1 tablet by mouth every morning. 3 Active RESTASIS 0.05 % suspension 3 Active nystatin cream 3 Active ketoconazole (NIZORAL) 2 % shampoo PLEASE SEE ATTACHED FOR DETAILED DIRECTIONS External for 30 Active simethicone (MYLICON) 80 mg chewable tablet 1 tablet after meals and at bedtime as needed Orally Four times a day Active tretinoin (RETIN-A) 0.05 % cream 5 Active aspirin 81 MG EC tablet Take 1 mg by mouth. Active multivitamin-mi i-ecqz-JM-vit K (ADULTS MULTIVITAMIN) 18 mg iron-400 mcg-25 mcg Tab Take by mouth. Active fluticasone propionate (FLONASE) 50 mcg/actuation nasal spray Install 1 mcg/actuation Active acetaminophen (TYLENOL 8 HOUR) 650 MG CR tablet 1 tab Oral twice a day Active potassium chloride (K-TAB) 20 mEq TbER ER tablet Take 1 tablet by mouth every morning. 5 Active albuterol 90 mcg/actuation inhaler Inhale 1-2 puffs into the lungs every 4 (four) hours as needed for wheezing or shortness of breath/dyspnea. 8 g 5 Active inhaler spacing device (AEROCHAMBER,BR EATHERITE) Spcr Inhale 1 each into the lungs every 4 (four) hours as needed (PRN). 1 each 5 Active Active Problems Problem Noted Date Diagnosed Date Benign neoplasm of stomach 05/07/202305/07 Class 2 obesity 05/07/2023 05/07/2023 Gastro-esophageal reflux disease without esophag itis 05/07/2023 05/07/2023 Epigastric pain 05/07/2023 05/07/2023 Encounters Date Type Department Care Team Description 04/24/2025 1:00 PM EDT Office Visit [facility] [address] [place] [address] Uli Keyes MD McCutcheon, Lisa Noel, JOJO Lymphedema (Primary Dx) 04/16/2025 1:00 PM EDT Office Visit [facility] [address] [place] [address] Uli Keyes MD McCutcheon, Lisa Noel, OT Lymphedema (Primary Dx) 04/08/2025 1:00 PM EDT Office Visit [facility] [address] [place] [address] Uli Keyes MD McCutcheon, Lisa Noel, OT Lymphedema (Primary Dx) 03/24/[address] [address] Haylee Matute, OT 03/18/2025 1:00 PM EDT Office Visit [address] [address] Uli Keyes MD McCutcheon, Lisa Noel, OT Lymphedema (Primary Dx) 03/10/2025 11:00 AM EDT Office Visit [address] [address] Uli Keyes MD McCutcheon, Lisa Noel, OT Lymphedema (Primary Dx) 02/27/2025 4:23 PM EDT - 02/27/2025 11:59 PM EDT Hospital Encounter [facility], [address] [address] Jose Luis Vaz PA-C Discharge Disposition: Home or Self Care 02/27/2025 3:30 PM EDT Office Visit [facility] at [address] [address] Shilpi Galo, SEARCH ENGINE OPTIMIZER Jose Luis Vaz PA-C Pneumonia of left upper lobe due to infectious organism (Primary Dx) 02/27/2025 1:00 PM EDT Office Visit [address] [address] Uli Keyes MD McCutcheon, Lisa Noel, OT Lymphedema (Primary Dx) 02/23/2025 11:30 AM EDT Office Visit [facility] at [address] [address] Mara Koenig CNP Acute bronchitis, unspecified organism (Primary Dx) 02/20/2025 1:00 PM EDT Office Visit [facility] [address] [place] [address] Uli Keyes MD McCutcheon, Haylee Healy, OT Lymphedema (Primary Dx) from Last 3 Months Immunizations Immunization Administration Dates Next Due Hepatitis A, Adult 03/25/2014,08/05/2013 Influenza High-Dose Quadrivalent Preservative Fr ee IM 07/18/2022 Influenza High-Dose Trivalent Preservative Free IM 07/17/2019 Influenza Quadrivalent Adjuvanted Preservative F ree IM 08/01/2023,06/28/2020 RSV Vaccine (bivalent) 07/14/2023 Tdap 10/28/2023,08/05/2013 Zoster recombinant 03/16/2020,09/16/2019 Social History Tobacco Use Types Packs/Day Years Used Date Smoking Tobacco: Never Smokeless Tobacco: Never Tobacco Cessation:Counseling Given: Not Answered Education Answer Date Recorded Are you interested [...] on file Sexual Orientation Not on file Last Filed Vital Signs Vital Sign Reading Time Taken Comments Blood Pressure 126/67 02/27/2025 3:32 PM EDT Pulse 81 02/27/2025 3:32 PM EDT Temperature 37.1 C (98.7 F) 02/27/2025 3:32 PM EDT Respiratory Rate 20 02/27/2025 3:32 PM EDT Oxygen Saturation 97% 02/27/2025 3:32 PM EDT Inhaled Oxygen Concentration - - Weight 99.8 kg (220 lb) 02/27/2025 3:32 PM EDT Height 162.6 cm (5' 4 ) 02/27/2025 3:32 PM EDT Body Mass Index 37.76 02/27/2025 3:32 PM EDT Plan of Treatment Health Maintenance Due Date Last Done Comments LIPID PANEL 1949 POTASSIUM LEVEL 1949 DEPRESSION SCREENING 1961 HEPATITIS C SCREENING 1967 COLOGUARD 1994 COLONOSCOPY 1994 COLORECTAL CANCER SCREENING 1994 FIT TEST 1994 FOBT 1994 SIGMOIDOSCOPY 1994 VIRTUAL COLONOSCOPY 1994 PNEUMOCOCCAL VACCINES (50+ years) (1 of 1 - PCV) 1999 OSTEOPOROSIS SCREENING INITIAL (ONE-TIME) 2014 COVID-19 VACCINE (2023- season) 2024 06/15/2024, 12/13/2023, 06/28/2023, Additional history exists Adult Td,Tdap Booster 10/28/2033 10/28/2023, 013 HEPATITIS A VACCINES Aged Out 03/25/2014, 08/05/20 13 No longer eligible based on patient's age to complete this topic ZOSTER VACCINES Completed 03/16/2020, 09/16/2019 RSV VACCINE Completed 07/14/2023 SMOKING STATUS SCREENING (Once After 26 Yrs) Completed 02/23/2025 HIB VACCINES Aged Out No longer eligi ble based on patient's age to complete this topic MENINGOCOCCAL VACCINES (ACWY) Aged Out No longer eligible based on patient's age to complete this topic MENINGOCOCCAL VACCINES (B) Aged Out N o longer eligible based on patient's age to complete this topic Medical Devices Not on file Procedures Procedure Name Priority Date/Time Associated Diagnosis Comments XR CHEST PA AND LATERAL 2 VIEWS Urgent/patient waiting 02/27/2025 4:33 PM EDT Pneumonia of left upper lobe due to infectious organism POCT COVID-19 RT-PCR/INFLUENZA A & B/RSV CEPHEID Routine 02/23/2025 11:09 AM EDT Acute bronchitis, unspecified organism from Last 3 Months Results * XR CHEST PA AND LATERAL 2 VIEWS (02/27/2025 4:33 PM EDT) Anatomical Region Laterality Modality Chest Computed Radiogr aphy 02/27/2025 5:14 PM EDT Impressions 02/27/2025 5:17 PM EDT Left upper and mid lung zone patchy airspace opacities, may represent any combination of atelectasis, pneumonia or aspiration. Narrative 02/27/2025 5:17 PM EDT XR CHEST PA AND LATERAL 2 VIEWS Referring clinician's provided indication for this examination in [facility]: Cough; Dyspnea (Shortness of Breath); cough, sob, wheezing x 12 days worsening, viral testing negative COMPARISON: XR CHEST PA AND LATERAL 2 VIEWS FINDINGS: Devices/Tubes/Lines: None. Lungs: Left upper and mid lung zone patchy airspace opacities. Pleura: No pleural effusion or pneumothorax. Heart/Mediastinum: Unchanged in appearance. Bones/Soft Tissues: Degenerative changes of the spine. Procedure Note Jamie Dailey MD - 02/27/2025 XR CHEST PA AND LATERAL 2 VIEWS Referring clinician's provided indication for this examination in [facility]:Cough; Dyspnea (Shortness of Breath); cough, sob, wheezing x 12 daysworsening, viral testing negative COMPARISON: XR CHEST PA AND LATERAL 2 VIEWS FINDINGS: Devices/Tubes/Lines: None. Lungs: Left upper and mid lung zone patchy airspace opacities. Pleura: No pleural effusion or pneumothorax. Heart/Mediastinum: Unchanged in appearance. Bones/Soft Tissues: Degenerative changes of the spine. IMPRESSION: Left upper and mid lung zone patchy airspace opacities, may represent anycombination of atelectasis, pneumonia or aspiration. Jose Luis Vaz PA-C IMG XR CHEST Christel l Result * POCT COVID-19 RT-PCR/Influenza A & B/RSV (Cepheid) (02/23/2025 11:09 AM EDT) RSV PCR Negative Negative [facility] SARS-CoV-2 (COVID-19) Negative Negative [facility] Influenza A PCR Negative Negative [facility] Influenza B PCR Negative Negative [facility] 02/23/2025 11:0 9 AM EDT 02/23/2025 11:49 AM EDT us Mara Koenig SEARCH ENGINE OPTIMIZER POINT OF CARE TEST TERE MEDRANO Final Result [facility] [address] [place] [address], [facility] [phone] from Last 3 Months Insurance [facility] MEDICARE PART A & B [facility] MEDICARE PART A & B [facility] MEDICARE PART A & B [facility] MEDICARE PART A & B [facility] MEDICARE PART A & B MEDICARE PART A & B [facility] MEDICARE PART A & B [facility] Address: [facility] [id number] [place] [address] MEDICARE PART A & B MEDICARE PART A & B Care Teams Dispensing Optician Apprentice Relationship Specialty Start Date End Date Jose Valdes MD [address] [place] [address] [place] [address] PCP - General Internal Medicine 08/04/17 Additional Source Comments The information contained in this document represents components of the legal health record. It is not the complete legal health record.[facility]
== END 2025-05-19 14:41 | disposition home or self-care (01) ==
LOC: HO.HPS 13:40
PROVIDERS: PCP Internal Medicine; Visit Provider Nurse Practitioner Family
DX: R05.2 Subacute cough (principal); R06.02 Shortness of breath; G47.33 Obstructive sleep apnea (adult) (pediatric); G47.34 Idiopathic sleep related nonobstructive alveolar hypoventilation
CPT/HCPCS: 99214; G2211

== ENCOUNTER 2025-05-19 13:39 | Outpatient (REF) | payer MEDICARE, BC, SELFPAY ==
[2025-05-20 22:33] LABS: Antibody to SS-A Antigen <1.0 NEG AI (<1.0 NEG); Antibody to SS-B Antigen <1.0 NEG AI (<1.0 NEG)
[2025-05-21 18:53] LABS: Anti Nuclear Antibody Screen NEGATIVE (NEGATIVE)
[2025-05-21 22:53] LABS: Class Alternaria alternata 0; Class Aspergillus fumigatus 0; Class Bermuda Grass 0; Class Birch 0; Class Cat Dander 0; Class Cladosporium herbarum 0; Class Cockroach 0/1; Class Common Ragweed 0; Class Cottonwood 0; Class Derm. pterony 0/1; Class Dermatophagoides farinae 0/1; Class Dog Dander 0; Class Elm 0; Class Maple Box Elder 0; Class Mountain Cedar 0; Class Mouse Urine Protein 0; Class Mugwort 0; Class Oak 0; Class Penicillium crysogenum 0; Class Rough Pigweed 0; Class Sheep Sorrel 0; Class Sycamore 0; Class Timothy Grass 0; Class Walnut Tree 0; Class White Ash 0; Class White Mulberry 0; D002 - IgE D farinae 0.12 kU/L; E001 - IgE Cat Dander <0.10 kU/L; E005 - IgE Dog Dander <0.10 kU/L; G006 - IgE Timothy Grass <0.10 kU/L; I006-IgE Cockroach, German 0.11 kU/L; M002 - IgE Cladosporium herbar <0.10 kU/L; M003 - IgE Aspergillus fumigat <0.10 kU/L; M006 - IgE Alternaria alternat <0.10 kU/L; T001 IgE Maple/Box Elder <0.10 kU/L; T006 - IgE Cedar, Mountain <0.10 kU/L; T007 - IgE Oak, White <0.10 kU/L; T008 IgE Elm, American <0.10 kU/L; T010 - IgE Walnut <0.10 kU/L; T011 - IgE Maple Leaf Sycamore <0.10 kU/L; T014 - IgE Cottonwood <0.10 kU/L; T015 - IgE Ash, White <0.10 kU/L; T070 - IgE White Mulberry <0.10 kU/L; W001 - IgE Ragweed, Short <0.10 kU/L; W006 - IgE Mugwort <0.10 kU/L; W014 IgE Pigweed, Common <0.10 kU/L; W018 IgE Sheep Sorrel <0.10 kU/L
[2025-05-24 10:39] LABS: Asperg fumigatus Precip Abs NEGATIVE (NEGATIVE); Micropoly faeni Abs NEGATIVE (NEGATIVE); Saccharo pora viridis Abs NEGATIVE (NEGATIVE); Thermo candidus Abs NEGATIVE (NEGATIVE)
== END 2025-05-19 13:40 | disposition home or self-care (01) ==
LOC: HO.LAB 13:39
PROVIDERS: PCP Internal Medicine; Visit Provider Nurse Practitioner Family
DX: R05.2 Subacute cough (principal); R06.02 Shortness of breath; G47.33 Obstructive sleep apnea (adult) (pediatric); G47.34 Idiopathic sleep related nonobstructive alveolar hypoventilation; J84.9 Interstitial pulmonary disease, unspecified; Z01.84 Encounter for antibody response examination
CPT/HCPCS: 36415; 82785; 86003; 86038; 86200; 86225; 86235; 86331; 86431; 86606; 86609; 99212

== ENCOUNTER 2025-05-20 15:02 | Outpatient (REF) | payer MEDICARE, BC, SELFPAY ==
--- OUTSIDE RECORDS SUMMARY | 2021-01-30 17:17 | XMS_ITS | Encounter Summary ---
Author Organization [facility] Address [address] [place] [address] [address] [place] [address] Phone Care Team Providers Care Business Asst Name Role Phone Jose Valdes MD Primary Care Provider Encounter Details Date Type Department Care Team (Late st Contact Info) Description 01/30/2021 5:17 PM EDT Hospital Encounter [facility] [address] [place] [phone] Simon Gregory PA [address] [place] [phone] [email or web address] g Social History Tobacco Use Types Packs/Day [...] on filedocumented in this encounter Care Teams Business Asst Relationship Specialty Start Date End Date Jose Valdes MD [address] [place] [address] [place] [address] PCP - General Internal Medicine 08/04/17 documented as of this encounter Additional Source Comments The information contained in this document represents components of the legal health record. It is not the complete legal health record.[facility]
--- OUTSIDE RECORDS SUMMARY | 2021-01-30 17:59 | XMS_ITS | Encounter Summary ---
Author Organization [facility] Address [address] [place] [address] [address] [place] [address] Phone Care Team Providers Care Patient Care Technician Instructor Name Role Phone Jose Valdes MD Primary Care Provider Encounter Details Date Type Department Care Team (Late st Contact Info) Description 01/30/2021 5:59 PM EDT Hospital Encounter [facility] [address] [place] [phone] Simon Gregory PA [address] [place] [phone] [email or web address] g Social History Tobacco Use Types Packs/Day [...] on filedocumented in this encounter Care Teams Patient Care Technician Instructor Relationship Specialty Start Date End Date Jose Valdes MD [address] [place] [address] [place] [address] PCP - General Internal Medicine 08/04/17 documented as of this encounter Additional Source Comments The information contained in this document represents components of the legal health record. It is not the complete legal health record.[facility]
--- OUTSIDE RECORDS SUMMARY | 2023-05-07 09:52 | XMS_ITS | Encounter Summary ---
Author Organization [facility] Address [address] [place] [address] [address] [place] [address] Phone Care Team Providers Care Inpatient Services Rn Name Role Phone Jose Valdes MD Primary Care Provider Encounter Details Date Type Department Care Team (Late st Contact Info) Description 05/07/2023 9:52 AM EDT Hospital Encounter [facility] [address] [place] [phone] Karley Long CNP [address] [place] [address] [email or web address] Social History Tobacco Use Types Packs/Day Years [...] in the appropriate clinical setting. Karley Long RETURN AGENT IMG XR CHEST Final Resul t documented in this encounter Visit Diagnoses Not on filedocumented in this encounter Care Teams Inpatient Services Rn Relationship Specialty Start Date End Date Jose Valdes MD [address] [place] [address] Dr Pineda, KATHY [id number] PCP - General Internal Medicine 08/04/17 documented as of this encounter Additional Source Comments The information contained in this document represents components of the legal health record. It is not the complete legal health record.[facility]
--- OUTSIDE RECORDS SUMMARY | 2024-12-09 13:51 | XMS_ITS | Encounter Summary ---
Author Organization [facility] Address [address] [place] [address] [address] [place] [address] Phone Care Team Providers Care Public Health Name Role Phone Jose Valdes MD Primary Care Provider Encounter Details Date Type Department Care Team (Late st Contact Info) Description 12/09/2024 1:51 PM EDT Hospital Encounter [facility] [address] [place] [address] Adriana Clark FNP [address] [place] [address] [email or web address] Social History Tobacco Use Types Packs/Day Years [...] clinician's provided indication for this examination in [facility]: Dyspnea (Shortness of Breath); wheezing for [...] clinician's provided indication for this examination in [facility]:Dyspnea (Shortness of Breath); wheezing for weeks. already took zpack,steroids and inhaler COMPARISON: XR CHEST PA AND LATERAL 2 VIEWS FINDINGS: Devices/Tubes/Lines: None. Lungs: No focal consolidation or pulmonary edema. Mild biapicalscarring. Pleura: No pleural effusion or pneumothorax. Heart/Mediastinum: Unchanged in appearance. Bones/Soft Tissues: Multilevel degenerative changes of the thoracicspine. IMPRESSION: No acute abnormality. Adriana Clark SOLID WASTE TRUCK DRIVER IMG XR CHEST Final Resul t documented in this encounter Visit Diagnoses Not on filedocumented in this encounter Care Teams Public Health Relationship Specialty Start Date End Date Jose Valdes MD [address] [place] [address] [place] [address] PCP - General Internal Medicine 08/04/17 documented as of this encounter Additional Source Comments The information contained in this document represents components of the legal health record. It is not the complete legal health record.[facility]
--- OUTSIDE RECORDS SUMMARY | 2025-05-21 16:21 | XMS_ITS | Clinical Summary ---
Author Organization [facility] Address [address] [facility] [address] [place] [address] Phone Care Team Providers Care Grade School Teacher Name Role Phone Jose Valdes MD Primary [...] Take 1 mg by mouth. Active multivitamin-mi z-uwqh-MO-vit K (ADULTS MULTIVITAMIN) 18 mg iron-400 mcg-25 [...] Description 04/24/2025 1:00 PM EDT Office Visit [facility] [address] [place] [address] Uli Keyes MD McCutcheon, Lisa Noel, JOJO Lymphedema (Primary Dx) 04/16/2025 1:00 PM EDT Office Visit [facility] [address] [place] [address] Uli Keyes MD McCutcheon, Lisa Noel, OT Lymphedema (Primary Dx) 04/08/2025 1:00 PM EDT Office Visit [facility] [address] [place] [address] Uli Keyes MD McCutcheon, Lisa Noel, OT Lymphedema (Primary Dx) 03/24/[address] [address] Haylee Matute, OT 03/18/2025 1:00 PM EDT Office Visit [address] [address] Uli Keyes MD McCutcheon, Lisa Noel, OT Lymphedema (Primary Dx) 03/10/2025 11:00 AM EDT Office Visit [address] [address] Uli Keyes MD McCutcheon, Lisa Noel, OT Lymphedema (Primary Dx) 02/27/2025 4:23 PM EDT - 02/27/2025 11:59 PM EDT Hospital Encounter [facility], [address] [address] Jose Luis Vaz PA-C Discharge Disposition: Home or Self Care 02/27/2025 3:30 PM EDT Office Visit [facility] at [address] [address] Shilpi Galo, CONCRETE PIPE MAKING MACHINE OPERATOR Jose Luis Vaz PA-C Pneumonia of left upper lobe due to infectious organism (Primary Dx) 02/27/2025 1:00 PM EDT Office Visit [address] [address] Uli Keyes MD McCutcheon, Lisa Noel, OT Lymphedema (Primary Dx) 02/23/2025 11:30 AM EDT Office Visit [facility] at [address] [address] Mara Koenig CNP Acute bronchitis, unspecified organism (Primary Dx) 02/20/2025 1:00 PM EDT Office Visit [facility] [address] [place] [address] Uli Keyes MD McCutcheon, Haylee Healy, OT [...] 2024 06/15/2024, 12/13/2023, 06/28/2023, Additional history exists INFLUENZA VACCINE (#1) 2025 , 07/18/2022, 06/28/2020, Additional history exists Adult Td,Tdap Booster 10/28/2033 [...] clinician's provided indication for this examination in [facility]: Cough; Dyspnea (Shortness of Breath); cough, sob, [...] clinician's provided indication for this examination in [facility]:Cough; Dyspnea (Shortness of Breath); cough, sob, wheezing [...] & B/RSV (Cepheid) (02/23/2025 11:09 AM EDT) [facility] RSV PCR Negative Negative [facility] SARS-CoV-2 (COVID-19) Negative Negative [facility] Influenza A PCR Negative Negative [facility] Influenza B PCR Negative Negative [facility] 02/23/2025 11:0 9 AM EDT 02/23/2025 11:49 AM EDT Mara Koenig [facility] POINT OF CARE TEST TERE MEDRANO Final Result [facility] AT [address] [address], [facility] [phone] from Last [address] [facility] MEDICARE PART A & B [facility] MEDICARE PART A & B [facility] MEDICARE PART A & B MEDICARE PART A & B [facility] MEDICARE PART A & B MEDICARE PART A & B [facility] MEDICARE PART A & B MEDICARE PART A & B MEDICARE PART A & B Care Teams Grade School Teacher Relationship Specialty Start Date End Date Jose Valdes MD [address] [place] [address] [place] [address] PCP - General Internal Medicine 08/04/17 Additional Source Comments The information contained in this document represents components of the legal health record. It is not the complete legal health record.[facility]
--- OUTSIDE RECORDS SUMMARY | 2025-05-21 16:21 | XMS_ITS | Patient Health Record ---
Author Organization [facility] Address [address] [place] [address] Care Team Providers Care Route Carrier Name Role Phone Lucio (RETIRED) Jose [place] Primary Care Provide r Unavailable Jeromy Hunt Unavailable [phone] Allergies Allergen (clinical drug ingredient) Drug/Non Drug [...] Problem Status W/U Status Risk Notes Problem [id number] Gastro-esophagea l reflux disease without esophagitis (K21.9) Active confirmed Problem 190201153 Encounter for screening for malignant neoplasm of colon (Z12.11) Active confirmed Problem Screening for malignant neoplasm of rectum (409837619) Encounter for screening for malignant neoplasm of rectum (Z12.12) Active confirmed Problem 189885895 Gastroesophageal reflux disease, esophagitis presence not specified (K21.9) Active confirmed Problem Benign neoplasm of stomach (90326580) Gastric polyps (K31.7) Active confirmed Problem Gastritis (5565844) Gastritis (K29.70) Active confirmed Problem Esophageal reflux finding (672181366) Gastroesophageal reflux (K21.9) Active confirmed Problem 46260221 Upper abdominal pain (R10.10) Active confirmed Problem Epigastric pain (41521557) Abdominal discomfort, epigastric (R10.13) Active confirmed Plan [...] [place] [address] [place] [address] [id number] DANTE LÓPEZ Self - patient is the insured [facility] [address] [place], [place] [id number] [phone] [id number] DANTE LÓPEZ Self - patient is the [...] LLE and LUE from previous CVA Denies OR,DM,Lung disease,renal disease Urinary incontinence Broken ribs 2017 [...]
--- OUTSIDE RECORDS SUMMARY | 2025-05-21 16:21 | XMS_ITS | Encounter Summary ---
Author Organization [facility] Address [address] [place] [address] [place] [address] Phone Care Team Providers Care Book Sewing Machine Operator Name Role Phone Jose Valdes MD Primary Care Provider Reason for Referral * Physical Therapy (Routine) - Closed Specialty Diagnoses / Procedures Referred By Contac t Referred To Contact Physical Therapy Diagnoses Encounter for rehabilitation System, Provider Not In, PhD [phone] [place] [address] Phone: tel: Referral ID Status Reason Start Date Expiration Date Visits Re quested Visits Authorized [id number] Closed 10/16/2017 10/16/2018 99 99 Encounter Details Date Type Department Care Team (Latest Contact Info) Description 10/16/2017 Transcribe Orders [facility] [address] [place] [address] Jose Valdes MD [address] [place] [address] [place] [address] Encounter for rehabilitation (Primary Dx) Social History [...] Diagnoses Orde r Schedule Ambulatory referral to [facility] Physical Therapy Outpatient Referral Routine Encounter for rehabilitation Ordered: 10/16/2017 documented as of this encounter Visit Diagnoses Diagnosis Encounter for rehabilitation- Primary documented in this encounter Care Teams Book Sewing Machine Operator Relationship Specialty Start Date End Date Jose Valdes MD [address] [place] [address] [place] [address] PCP - General Internal Medicine 08/04/17 documented as of this encounter Additional Source Comments The information contained in this document represents components of the legal health record. It is not the complete legal health record.[facility]
--- OUTSIDE RECORDS SUMMARY | 2025-05-21 16:21 | XMS_ITS | Encounter Summary ---
Author Organization [facility] Address [address] [place] [address] [place] [address] Phone Care Team Providers Care Health Assessment And Treatment Teacher Name Role Phone Jose Valdes MD Primary Care Provider Reason for Referral * Physical Therapy (Routine) - Closed Specialty Diagnoses / Procedures Referred By Contac t Referred To Contact Physical Therapy Diagnoses Encounter for rehabilitation System, Provider Not In, PhD [address] [place] [address] Phone: tel: Referral ID Status Reason Start Date Expiration Date Visits Re quested Visits Authorized [id number] Closed 08/10/2017 09/24/2018 25 25 Encounter Details Date Type Department Care Team (Latest Contact Info) Description 08/09/2017 Transcribe Orders [facility] [address] [place] [address] Jose Valdes MD [address] [place] [address] [place] [address] Encounter for rehabilitation (Primary Dx) Social History [...] Diagnoses Orde r Schedule Ambulatory referral to [facility] Physical Therapy Outpatient Referral Routine Encounter for rehabilitation Ordered: 08/10/2017 documented as of this encounter Visit Diagnoses Diagnosis Encounter for rehabilitation- Primary documented in this encounter Care Teams Health Assessment And Treatment Teacher Relationship Specialty Start Date End Date Jose Valdes MD [address] [place] [address] [place] [address] PCP - General Internal Medicine 08/04/17 documented as of this encounter Additional Source Comments The information contained in this document represents components of the legal health record. It is not the complete legal health record.[facility]
== END 2025-05-20 15:03 | disposition home or self-care (01) ==
LOC: HO.LNP 15:02
PROVIDERS: Visit Provider Nurse Practitioner Family
DX: R05.3 Chronic cough (principal)
CPT/HCPCS: 87070; 87205

== ENCOUNTER 2025-06-10 13:28 | Outpatient (AMB) | payer MEDICARE, BC, SELFPAY ==
--- OUTSIDE RECORDS SUMMARY | 2021-01-30 17:17 | XMS_ITS | Encounter Summary ---
Author Organization [facility] Address [address] [place] [address] [address] [place] [address] Phone Care Team Providers Care Spa Therapist Name Role Phone Jose Valdes MD Primary Care Provider Encounter Details Date Type Department Care Team (Late st Contact Info) Description 01/30/2021 5:17 PM EDT Hospital Encounter [facility] [address] [place] [phone] Simon Gregory PA [address] [place] [phone] [email or web address] g Social History Tobacco Use Types Packs/Day [...] on filedocumented in this encounter Care Teams Spa Therapist Relationship Specialty Start Date End Date Jose Valdes MD [address] [place] [address] [place] [address] PCP - General Internal Medicine 08/04/17 documented as of this encounter Additional Source Comments The information contained in this document represents components of the legal health record. It is not the complete legal health record.[facility]
--- OUTSIDE RECORDS SUMMARY | 2021-01-30 17:59 | XMS_ITS | Encounter Summary ---
Author Organization [facility] Address [address] [place] [address] [address] [place] [address] Phone Care Team Providers Care Devulcanizer Tender Name Role Phone Jose Valdes MD Primary Care Provider Encounter Details Date Type Department Care Team (Late st Contact Info) Description 01/30/2021 5:59 PM EDT Hospital Encounter [facility] [address] [place] [address] Simon Gregory PA [address] [place] [phone] [email or web address] g Social History Tobacco Use Types Packs/Day [...] on filedocumented in this encounter Care Teams Devulcanizer Tender Relationship Specialty Start Date End Date Jose Valdes MD [address] [place] [address] [place] [address] PCP - General Internal Medicine 08/04/17 documented as of this encounter Additional Source Comments The information contained in this document represents components of the legal health record. It is not the complete legal health record.[facility]
--- OUTSIDE RECORDS SUMMARY | 2024-12-09 13:51 | XMS_ITS | Encounter Summary ---
Author Organization [facility] Address [address] [place] [address] [address] [place] [address] Phone Care Team Providers Care Traveling Electrician Name Role Phone Jose Valdes MD Primary Care Provider Encounter Details Date Type Department Care Team (Late st Contact Info) Description 12/09/2024 1:51 PM EDT Hospital Encounter [facility] [address] [place] [address] Adriana Clark FNP [address] [place] [address] [email or web address] [place] Social [...] clinician's provided indication for this examination in [facility]: Dyspnea (Shortness of Breath); wheezing for [...] clinician's provided indication for this examination in [facility]:Dyspnea (Shortness of Breath); wheezing for weeks. already took zpack,steroids and inhaler COMPARISON: XR CHEST PA AND LATERAL 2 VIEWS FINDINGS: Devices/Tubes/Lines: None. Lungs: No focal consolidation or pulmonary edema. Mild biapicalscarring. Pleura: No pleural effusion or pneumothorax. Heart/Mediastinum: Unchanged in appearance. Bones/Soft Tissues: Multilevel degenerative changes of the thoracicspine. IMPRESSION: No acute abnormality. Adriana Clark AESTHETICIAN IMG XR CHEST Final Resul t documented in this encounter Visit Diagnoses Not on filedocumented in this encounter Care Teams Traveling Electrician Relationship Specialty Start Date End Date Jose Valdes MD [address] [place] [address] [place] [address] PCP - General Internal Medicine 08/04/17 documented as of this encounter Additional Source Comments The information contained in this document represents components of the legal health record. It is not the complete legal health record.[facility]
--- NOTE | 2025-06-10 13:39 | AM.OFFWIN_ITS ---
Intake Vital Signs 06/10/25 13:42 Height 5 ft 4 in Weight 238 lb BMI 40.8 BP 130/90 H Blood Pressure Location Lt brachial Position Sitting Respiration 16 Pulse 74 Pulse Source Pulse Oximeter Temp 97.7 F Temp Source Oral Pulse Oximetry (%) 97 Oxygen Delivery Method Room Air Intake Visit Reasons: EP right knee pain Patient Tobacco Use Status: Never used Tobacco Allergies hydrochlorothiazide (HCTZ) Allergy (Intermediate, Verified 05/19/25 13:47) Itching HPI HPI Comments History of Present Illness Details History of Present Illness - The patient is a 74-year-old female pr esenting with right knee pain. - The pain began approximately two weeks ago following an incident where the patient pushed off the ground at an angle while getting into a car. - Initially, the pain was located behind the knee but has since migrated to the medial side, becoming more severe and affecting mobility. - The patient reports that the pain wors ened significantly two days ago and has not improved with rest. - Interventions include the use of Tylen ol, cannabis tincture, and heat application, with minimal relief. - The patient has a history of knee pain during her working years but no formal diagnosis of arthritis. - Pain worse when putting weight on it o r going up or down stairs Physical Exam General: Cooperative, healthy appearing, comfortable, no acute distress and well developed Orientation: Patient oriented x3 Limitations: ambulates with cane, left sided weakness 2/2 previous CVA Head: Normal to inspection Ears: Hearing grossly normal bilaterally Face and sinus: Normal facial exam Eyes: Appearance normal, both eyes and all related structures Neck: Normal visual inspection, full ROM Respiratory: Normal respiratory effort and able to speak in complete sentences. Skin: No rashes or lesions noted Neuro: Patient oriented x3, gait with cane normal Back/spine: no TTP cervical, thoracic or lumbar spine, Extremities: left knee, negative patellar ballottment, no TTP knee, neg anterior and posterior drawer test, neg Lachmans, neg medial or lateral joint laxity, full ROM, no skin changes PFSH Medical History High cholesterol MCI (mild cognitive impairment) Obesity Anxiety disorder Cerebral infarction involving middle cerebral artery Spasticity Left hemiparesis CVA (cerebral vascular accident) Chronic acquired lymphedema Anxiety Hx of skin cancer, basal cell 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 GERD (gastroesophageal reflux disease) HLD (hyperlipidemia) HTN (hypertension) Frequency of urination Urge incontinence Surgical History History of colonoscopy (~12/23/15) History of bladder surgery History of Hx of hand surgery Family History Father Parkinson disease Mother Diabetes CAD (coronary artery disease) Social History Housing: Condominium Are you a primary insurance healthcare representative to a significant other at home: No Do you presently have visiting nurse or other home services: No Alcohol intake: never Patient Tobacco Use Status: Never used Tobacco e-Cigarette/Vaping Use: Never Used Second Hand Smoke Exposure: No service: No Current occupational status: retired Cognitive needs: Yes (cane) Hearing needs: No Vision needs: Yes (reading glasses ) Review of Systems Const All systems reviewed & are unremarkable except as noted in HPI and below Physical Exam Vital Signs: Last Vital Signs Temp 97.7 F 06/10/25 13:42 Pulse 74 06/10/25 13:42 Resp 16 06/10/25 13:42 BP 130/90 H 06/10/25 13:42 Pulse Ox 97 06/10/25 13:42 Oxygen Delivery Method Room Air 06/10/25 13:42 BMI result Body Mass Index 40.8 Assessment & Plan Assessment & Plan (1) Right knee pain: Code(s): M25.561 - Pain in right knee Qualifiers: Chronicity: acute Qualified Code(s): M25.561 - Pain in right knee Plan: Plan Patient was informed and verbally consented to the use of an ambient scribe for clinic note documentation during this visit. Right Knee Pain - An x-ray of the right knee has been ordered to assess for any structural abnormalities. - The patient is advised to continue using rest, ice, and compression as needed. - A referral to orthopedics will be made if the x-ray does not reveal any significant findings or if symptoms persist. Orders: Orders XR knee RT 4V Today M25.561 - Pain in right knee Referrals Orthopedics Referral M25.561 - Pain in right knee Coding Level of Care Code Est Pt Level 4 (21449) Diagnoses Acute pain of right knee M25.561 Chronicity: acute
[2025-06-10 13:42] VITALS: BP 130/90; PULSE 74; RESP 16; TEMP 36.5; O2SAT 97; BMI 40.8
--- OUTSIDE RECORDS SUMMARY | 2025-06-10 17:25 | XMS_ITS | Patient Health Record ---
Author Organization [facility] Address [address] [place] [phone] Care Team Providers Care Stain Remover Name Role Phone Lucio (RETIRED) Jose AUSTIN Primary Care Provide r Unavailable Jeromy Hunt Unavailable [phone] Allergies Allergen (clinical drug ingredient) Drug/Non Drug [...] Problem Status W/U Status Risk Notes Problem [id number] Gastro-esophagea l reflux disease without esophagitis (K21.9) Active confirmed Problem 579398305 Encounter for screening for malignant neoplasm of colon (Z12.11) Active confirmed Problem Screening for malignant neoplasm of rectum (137071261) Encounter for screening for malignant neoplasm of rectum (Z12.12) Active confirmed Problem 576604767 Gastroesophageal reflux disease, esophagitis presence not specified (K21.9) Active confirmed Problem Benign neoplasm of stomach (84270907) Gastric polyps (K31.7) Active confirmed Problem Gastritis (8823091) Gastritis (K29.70) Active confirmed Problem Esophageal reflux finding (990414004) Gastroesophageal reflux (K21.9) Active confirmed Problem 86030495 Upper abdominal pain (R10.10) Active confirmed Problem Epigastric pain (96371555) Abdominal discomfort, epigastric (R10.13) Active confirmed Plan [...] [place] [address] [place] [address] [phone] [id number] DANTE LÓPEZ Self - patient is the insured [facility] [address] [place], [place] [id number] [phone] [id number] DANTE LÓPEZ Self - patient is the [...] LLE and LUE from previous CVA Denies KS,DM,Lung disease,renal disease Urinary incontinence Broken ribs 2017 [...]
--- OUTSIDE RECORDS SUMMARY | 2025-06-10 17:25 | XMS_ITS | Encounter Summary ---
Author Organization [facility] Address [address] [place] [address] [place] [address] Phone Care Team Providers Care Semiconductor Packages Tester Name Role Phone Jose Valdes MD Primary Care Provider Reason for Referral * Physical Therapy (Routine) - Closed Specialty Diagnoses / Procedures Referred By Contac t Referred To Contact Physical Therapy Diagnoses Encounter for rehabilitation System, Provider Not In, PhD [id number] [place] [address] Phone: tel: Referral ID Status Reason Start Date Expiration Date Visits Re quested Visits Authorized [id number] Closed 10/16/2017 10/16/2018 99 99 Encounter Details Date Type Department Care Team (Latest Contact Info) Description 10/16/2017 Transcribe Orders [facility] [address] [place] [address] Jose Valdes MD [address] [place] [address] [place] [address] Encounter for rehabilitation (Primary Dx) Social History [...] Diagnoses Orde r Schedule Ambulatory referral to [facility] Physical Therapy Outpatient Referral Routine Encounter for rehabilitation Ordered: 10/16/2017 documented as of this encounter Visit Diagnoses Diagnosis Encounter for rehabilitation- Primary documented in this encounter Care Teams Semiconductor Packages Tester Relationship Specialty Start Date End Date Jose Valdes MD [address] [place] [address] [place] [id number] PCP - General Internal Medicine 08/04/17 documented as of this encounter Additional Source Comments The information contained in this document represents components of the legal health record. It is not the complete legal health record.[facility]
--- OUTSIDE RECORDS SUMMARY | 2025-06-10 17:25 | XMS_ITS | Encounter Summary ---
Author Organization [facility] Address [address] [place] [address] [place] [address] Phone Care Team Providers Care Saw Handle Assembler Name Role Phone Jose Valdes MD Primary Care Provider Reason for Referral * Physical Therapy (Routine) - Closed Specialty Diagnoses / Procedures Referred By Contac t Referred To Contact Physical Therapy Diagnoses Encounter for rehabilitation System, Provider Not In, PhD [id number] [place] [address] Phone: tel: Referral ID Status Reason Start Date Expiration Date Visits Re quested Visits Authorized [id number] Closed 08/10/2017 09/24/2018 25 25 Encounter Details Date Type Department Care Team (Latest Contact Info) Description 08/09/2017 Transcribe Orders [facility] [address] [place] [address] Jose Valdes MD [address] [place] [address] [place] [address] Encounter for rehabilitation (Primary Dx) Social History [...] Diagnoses Orde r Schedule Ambulatory referral to [facility] Physical Therapy Outpatient Referral Routine Encounter for rehabilitation Ordered: 08/10/2017 documented as of this encounter Visit Diagnoses Diagnosis Encounter for rehabilitation- Primary documented in this encounter Care Teams Saw Handle Assembler Relationship Specialty Start Date End Date Jose Valdes MD [address] [place] [address] [place] [address] PCP - General Internal Medicine 08/04/17 documented as of this encounter Additional Source Comments The information contained in this document represents components of the legal health record. It is not the complete legal health record.[facility]
--- OUTSIDE RECORDS SUMMARY | 2025-06-10 17:25 | XMS_ITS | Clinical Summary ---
Author Organization [facility] Address [address] [place] [address] Phone Care Team Providers Care Brush Sander Name Role Phone Jose Valdes MD [...] Take 1 mg by mouth. Active multivitamin-mi h-xwbr-DI-vit K (ADULTS MULTIVITAMIN) 18 mg iron-400 mcg-25 [...] Description 04/24/2025 1:00 PM EDT Office Visit [facility] [address] [place] [address] Uli Keyes MD McCutcheon, Lisa Noel, JOJO Lymphedema (Primary Dx) 04/16/2025 1:00 PM EDT Office Visit [facility] [address] [place] [address] Uli Keyes MD McCutcheon, Lisa Noel, OT Lymphedema (Primary Dx) 04/08/2025 1:00 PM EDT Office Visit [facility] [address] [place] [address] Uli Keyes MD McCutcheon, Lisa Noel, OT Lymphedema (Primary Dx) 03/24/2025 Telephone [facility] [address] [place] [address] Haylee Matute, OT 03/18/2025 1:00 PM EDT Office Visit [facility] [address] [place] [address] Uli Keyes MD McCutcheon, Lisa Noel, OT Lymphedema (Primary Dx) 03/10/2025 11:00 AM EDT Office Visit [facility] [address] [place] [address] Uli Keyes MD McCutcheon, Lisa Noel, OT Lymphedema (Primary Dx) from Last 3 [...] PCV) 1999 OSTEOPOROSIS SCREENING INITIAL (ONE-TIME) 2014 INFLUENZA VACCINE (#1) 2025 , 07/18/2022, 06/28/2020, Additional history exists COVID-19 VACCINE (2023- season) 2025 06/15/2024, 12/13/2023, 06/28/2023, Additional history exists Adult [...] this topic Medical Devices Not on file Insurance [facility] MED[facility] PART A & B [facility] MED[facility] PART [facility] & B [facility] MED[facility] PART [facility] & B [facility] PART A & B [facility] PART A & B [facility] MED[facility] PART A & B [facility] MED[facility] PART A & B [facility] MEDICARE PART A & B [facility] MEDIC[facility] PART A & B Care Teams Brush Sander Relationship Specialty Start Date End Date Jose Valdes MD [address] [place] [address] [place] [address] PCP - General Internal Medicine 08/04/17 Additional Source Comments The information contained in this document represents components of the legal health record. It is not the complete legal health record.[facility]
== END 2025-06-10 14:10 | disposition home or self-care (01) ==
PROVIDERS: PCP Internal Medicine; Visit Provider Physician Assistant
DX: M25.561 Pain in right knee (principal)

== ENCOUNTER 2025-06-10 13:28 | Outpatient (REF) | payer MEDICARE, BC, SELFPAY ==
--- NOTE | ~2025-06-10 | XR_ITS ---
EXAMINATION: XR KNEE, RIGHT CLINICAL INFORMATION: M25.561 - Pain in right knee COMPARISON: None available. TECHNIQUE: Four views of the right knee. FINDINGS: There is subtle narrowing of the medial joint space. There are small tricompartmental marginal osteophytes. Intercondylar tubercles are peaked. There is a borderline joint effusion. There is a corticated density projecting in the medial intercondylar notch. XR/XR knee RT 4V IMPRESSION: Mild osteoarthritis. On the AP, there is corticated density projecting into the medial intercondylar notch that is probably related to an osteophyte or less likely an intra-articular body. Electronically signed by: Abel Mccann MD 06/10/2025 02:31 PM EDT
== END 2025-06-10 13:29 | disposition home or self-care (01) ==
LOC: HO.HMGCX 13:28
PROVIDERS: PCP Internal Medicine; Visit Provider Physician Assistant
DX: M25.561 Pain in right knee (principal)
CPT/HCPCS: 73564; 99212

== ENCOUNTER → 2025-06-10 14:07 | Outpatient (BNV) | payer MEDICARE, BC, SELFPAY | PROVIDERS: PCP Internal Medicine; Visit Provider Radiology Diagnostic Radiology | DX: M25.561 Pain in right knee (principal) | CPT/HCPCS: 73564 ==

== ENCOUNTER 2025-07-01 15:33 | Outpatient (AMB) | payer MEDICARE, BC, SELFPAY ==
--- OUTSIDE RECORDS SUMMARY | 2021-01-30 17:17 | XMS_ITS | Encounter Summary ---
Author Organization [facility] Address [address] [place] [address] [address] [place] [address] Phone Care Team Providers Care Catapult And Arresting Gear Officer Name Role Phone Jose Valdes MD Primary Care Provider Encounter Details Date Type Department Care Team (Late st Contact Info) Description 01/30/2021 5:17 PM EDT Hospital Encounter [facility] [address] [place] [phone] Simon Gregory PA [address] [place] [phone] [email or web address] g Social History Tobacco Use Types Packs/Day [...] on filedocumented in this encounter Care Teams Catapult And Arresting Gear Officer Relationship Specialty Start Date End Date Jose Valdes MD [address] [place] [address] [place] [address] PCP - General Internal Medicine 08/04/17 documented as of this encounter Additional Source Comments The information contained in this document represents components of the legal health record. It is not the complete legal health record.[facility]
--- OUTSIDE RECORDS SUMMARY | 2021-01-30 17:59 | XMS_ITS | Encounter Summary ---
Author Organization [facility] Address [address] [place] [address] [address] [place] [address] Phone Care Team Providers Care Telephone Interviewer Name Role Phone Jose Valdes MD Primary Care Provider Encounter Details Date Type Department Care Team (Late st Contact Info) Description 01/30/2021 5:59 PM EDT Hospital Encounter [facility] [address] [place] [address] Simon Gregory PA [address] [place] [phone] [email or web address] g Social History Tobacco Use Types Packs/Day [...] on filedocumented in this encounter Care Teams Telephone Interviewer Relationship Specialty Start Date End Date Jose Valdes MD [address] [place] [address] [place] [address] PCP - General Internal Medicine 08/04/17 documented as of this encounter Additional Source Comments The information contained in this document represents components of the legal health record. It is not the complete legal health record.[facility]
--- OUTSIDE RECORDS SUMMARY | 2023-05-07 09:52 | XMS_ITS | Encounter Summary ---
Author Organization [facility] Address [address] [place] [address] [address] [place] [address] Phone Care Team Providers Care Crusher Plant Operator Name Role Phone Jose Valdes MD Primary Care Provider Encounter Details Date Type Department Care Team (Late st Contact Info) Description 05/07/2023 9:52 AM EDT Hospital Encounter [facility] [address] [place] [phone] Karley Long CNP [address] [place] [address] Social History Tobacco Use Types Packs/Day Years [...] in the appropriate clinical setting. Karley Long AMMONIUM NITRATE CRYSTALLIZER IMG XR CHEST Final Resul t documented in this encounter Visit Diagnoses Not on filedocumented in this encounter Care Teams Crusher Plant Operator Relationship Specialty Start Date End Date Jose Valdes MD [address] [place] [address] Dr Pineda, KATHY [id number] PCP - General Internal Medicine 08/04/17 documented as of this encounter Additional Source Comments The information contained in this document represents components of the legal health record. It is not the complete legal health record.[facility]
--- OUTSIDE RECORDS SUMMARY | 2024-12-09 13:51 | XMS_ITS | Encounter Summary ---
Author Organization [facility] Address [address] [place] [address] [address] [place] [address] Phone Care Team Providers Care Javascript Web Developer Name Role Phone Jose Valdes MD Primary Care Provider Encounter Details Date Type Department Care Team (Late st Contact Info) Description 12/09/2024 1:51 PM EDT Hospital Encounter [facility] [address] [place] [address] Adriana Clark FNP [address] [place] [address] [email or web address] Social [...] clinician's provided indication for this examination in [facility]: Dyspnea (Shortness of Breath); wheezing for [...] clinician's provided indication for this examination in [facility]:Dyspnea (Shortness of Breath); wheezing for weeks. already took zpack,steroids and inhaler COMPARISON: XR CHEST PA AND LATERAL 2 VIEWS FINDINGS: Devices/Tubes/Lines: None. Lungs: No focal consolidation or pulmonary edema. Mild biapicalscarring. Pleura: No pleural effusion or pneumothorax. Heart/Mediastinum: Unchanged in appearance. Bones/Soft Tissues: Multilevel degenerative changes of the thoracicspine. IMPRESSION: No acute abnormality. Adriana Clark STUDENT IMG XR CHEST Final Resul t documented in this encounter Visit Diagnoses Not on filedocumented in this encounter Care Teams Javascript Web Developer Relationship Specialty Start Date End Date Joes Valdes MD [address] [place] [address] [place] [address] PCP - General Internal Medicine 08/04/17 documented as of this encounter Additional Source Comments The information contained in this document represents components of the legal health record. It is not the complete legal health record.[facility]
[2025-07-01 15:38] VITALS: BP 126/78; PULSE 66; O2SAT 94; BMI 39.2
--- NOTE | 2025-07-01 15:38 | A.OFFVIS_ITS ---
Vital Signs 07/01/25 15:38 Height 5 ft 4 in Weight 228 lb 4 oz BMI 39.2 BP 126/78 Blood Pressure Location Rt brachial Position Sitting Pulse 66 Pulse Source Pulse Oximeter Pulse Oximetry (%) 94 Oxygen Delivery Method Room Air Intake Visit Reasons: FUV to review testing Allergies hydrochlorothiazide (HCTZ) Allergy (Intermediate, Verified 07/08/25 13:24) Itching HPI HPI FUV to review testing: Details: Cora is a pleasant 74-year-old female, never smoker with underlying asthma, mild JUSTIN on CPAP, HTN, HLD, GERD, h/o CVA and chronic BLE lymphedema. She was initially referred by PCP for management of obstructive sleep apnea. Prior home sleep study revealed mild to moderate sleep apnea with nocturnal hypoxemia, average 92%, lowest 77%, <88% 18 minutes, average AHI 14. Recommendations were made for CPAP therapy in APAP mode with pressure settings of 6-20 cm H2O, which she had started on and benefitting with improvements in daytime fatigue. DME is [employer]. At the last visit patient was treated with Vantin as well as prednisone has had complete resolution of cough as well as improvement in dyspnea and chest tightness since initiating Breo. Since using Breo she has not needed albuterol MDI. [facility] Medical History (Updated 07/16/25 @ 19:47 by Ailyn Mckeon NP) Osteoarthritis of right knee Lymphedema High cholesterol MCI (mild cognitive impairment) Obesity Anxiety disorder Cerebral infarction involving middle cerebral artery Spasticity Left hemiparesis CVA (cerebral vascular accident) Chronic acquired lymphedema Anxiety Hx of skin cancer, basal cell 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 GERD (gastroesophageal reflux disease) HLD (hyperlipidemia) HTN (hypertension) Frequency of urination Urge incontinence Surgical History History of colonoscopy (~12/23/15) History of bladder surgery History of Hx of hand surgery Family History Father Parkinson disease Mother Diabetes CAD (coronary artery disease) Social History Housing: Condominium Are you a primary professional healthcare representative to a significant other at home: No Do you presently have visiting nurse or other home services: No Alcohol intake: never Patient Tobacco Use Status: Never used Tobacco e-Cigarette/Vaping Use: Never Used Second Hand Smoke Exposure: No service: No Current occupational status: retired Cognitive needs: Yes (cane) Hearing needs: No Vision needs: Yes (reading glasses ) Review of Systems Const Denies chills, Denies excessive sweating, Denies fever(s), Denies headache(s) and Denies night sweats Eyes Denies dry eyes, Denies irritation and Denies itchy eyes ENT Reports Normal hearing present, Denies headache(s), Denies nasal congestion, Denies nasal discharge, Denies post nasal drip and Denies sore throat Card Denies chest pain, Denies chest pain at rest, Denies chest pain with activity, Denies claudication, Denies leg edema, Denies dyspnea, Denies dyspnea on exer tion, Denies orthopnea and Denies paroxysmal nocturnal dyspnea Resp Denies chest congestion, Denies cough, Denies excessive phlegm production, Denies pain on inspiration, Denies pain with cough, Denies dyspnea, Denies dyspnea on exertion, Denies stridor and Denies wheezing Musc Denies myalgias Neuro Reports Normal hearing present and Denies headache(s) Endo Denies excessive sweating Valente/Lymph Denies lymphadenopathy Aller/Immun Denies itchy eyes, Denies seasonal rhinorrhea and Denies wheezing Physical Exam Vital Signs: Last Vital Signs Pulse 66 07/01/25 15:38 BP 126/78 07/01/25 15:38 Pulse Ox 94 07/01/25 15:38 Oxygen Delivery Method Room Air 07/01/25 15:38 BMI result Body Mass Index 39.2 Const Other: left sided weakness r/t CVA using cane General: cooperative, healthy appearing, comfortable, no acute distress, well developed and alert Nutritional Appearance: obese Orientation/consciousness: patient oriented x3 Limitations: ambulation with cane HEENT Head: Yes normal to inspection, Yes normocephalic and Yes atraumatic Ears: hearing grossly normal bilaterally and external ears normal Eyes General: appearance normal, both eyes and all related structures Eyelids: Yes eyelids normal Sclerae: sclerae normal EOM: EOMs intact bilaterally Neck Neck: Yes normal visual inspection and Yes no lymphadenopathy Lymphatic: no lymphadenopathy noted Chest Chest palpation & inspection: normal inspection of the chest Resp Effort & Inspection: normal respiratory effort, able to speak in complete sentences, no audible wheezes, no cough, no stridor, not tachypneic, no tripod positioning and no use of accessory muscles Auscultation: clear to auscultation bilaterally Cardio Jugular venous distension: no JVD Rate: regular rate Rhythm: regular rhythm Skin Other: warm, dry General skin exam: no rashes or lesions noted Neuro General: patient oriented x3 Cranial nerves: Yes Normal hearing present Cognition (Neuro): normal cognition Gait exam (Neuro): Normal gait present Extrem Other: chronic lymphedema Psych Appearance: grossly normal and well kempt Speech and movement: Normal speech and movement present and Clear speech present Affect: normal affect Attitude: cooperative Thought process: Normal thought process present Thought content: Normal thought content present Insight: Good insight present (Psych) Judgement: Good judgement present (Psych) Assessment & Plan Assessment & Plan (1) Obstructive sleep apnea: Code(s): G47.33 - Obstructive sleep apnea (adult) (pediatric) Category: Medical (2) Nocturnal hypoxemia: Code(s): G47.34 - Idiopathic sleep related nonobstructive alveolar hypoventilation Category: Medical (3) Asthma: Code(s): J45.909 - Unspecified asthma, uncomplicated Category: Medical Plan Reviewed compliance report which reveals greater than 4 hours of use 77% of the time an average AHI 2.3 with minimal leaking. Patient reports improvement in daytime fatigue and non restorative sleep since initiating and is motivated to continue to use. Will send for overnight oximetry to assess resolution of nocturnal hypoxemia with the use of CPAP therapy. At this time she feels respiratory symptoms are well controlled with Breo and albuterol MDI, encouraged to continue. She is aware to call if symptoms change. Preventative care measures, including vaccinations for COVID-19, pneumonia, and influenza, were recommended. All questions were answered and patient is in agreement of plan. Will follow up in 3 months or sooner if needed. Coding Level of Care Code Est Pt Level 4 (35380) Diagnoses Obstructive sleep apnea G47.33 Nocturnal hypoxemia G47.34 Asthma J45.909
--- OUTSIDE RECORDS SUMMARY | 2025-07-01 18:37 | XMS_ITS | Encounter Summary ---
Author Organization [facility] Address [address] [place] [address] [place] [address] Phone Care Team Providers Care Pharmacy Innovation Assistant Name Role Phone Jose Valdes MD Primary Care Provider Reason for Referral * Physical Therapy (Routine) - Closed Specialty Diagnoses / Procedures Referred By Contac t Referred To Contact Physical Therapy Diagnoses Encounter for rehabilitation System, Provider Not In, PhD [phone] [place] [address] Phone: tel: Referral ID Status Reason Start Date Expiration Date Visits Re quested Visits Authorized [id number] Closed 08/10/2017 09/24/2018 25 25 Encounter Details Date Type Department Care Team (Latest Contact Info) Description 08/09/2017 Transcribe Orders [facility] [address] [place] [address] Jose Valdes MD [address] [place] [address] [place] [address] Encounter for rehabilitation (Primary Dx) Social History [...] Diagnoses Orde r Schedule Ambulatory referral to [facility] Physical Therapy Outpatient Referral Routine Encounter for rehabilitation Ordered: 08/10/2017 documented as of this encounter Visit Diagnoses Diagnosis Encounter for rehabilitation- Primary documented in this encounter Care Teams Pharmacy Innovation Assistant Relationship Specialty Start Date End Date Jose Valdes MD [address] [place] [address] [place] [address] PCP - General Internal Medicine 08/04/17 documented as of this encounter Additional Source Comments The information contained in this document represents components of the legal health record. It is not the complete legal health record.[facility]
--- OUTSIDE RECORDS SUMMARY | 2025-07-01 18:37 | XMS_ITS | Encounter Summary ---
Author Organization [facility] Address [address] [place] [address] [place] [phone] Phone Care Team Providers Care Company Driver Name Role Phone Jose Valdes MD Primary Care Provider Reason for Referral * Physical Therapy (Routine) - Closed Specialty Diagnoses / Procedures Referred By Contac t Referred To Contact Physical Therapy Diagnoses Encounter for rehabilitation System, Provider Not In, PhD [phone] [place] [address] Phone: tel: Referral ID Status Reason Start Date Expiration Date Visits Re quested Visits Authorized [id number] Closed 10/16/2017 10/16/2018 99 99 Encounter Details Date Type Department Care Team (Latest Contact Info) Description 10/16/2017 Transcribe Orders [facility] [address] [place] [phone] Jose Valdes MD [address] [place] [address] [place] [address] Encounter for rehabilitation (Primary Dx) Social History [...] Diagnoses Orde r Schedule Ambulatory referral to [facility] Physical Therapy Outpatient Referral Routine Encounter for rehabilitation Ordered: 10/16/2017 documented as of this encounter Visit Diagnoses Diagnosis Encounter for rehabilitation- Primary documented in this encounter Care Teams Company Driver Relationship Specialty Start Date End Date Jose Valdes MD [address] [place] [address] [place] [address] PCP - General Internal Medicine 08/04/17 documented as of this encounter Additional Source Comments The information contained in this document represents components of the legal health record. It is not the complete legal health record.[facility]
--- OUTSIDE RECORDS SUMMARY | 2025-07-01 18:37 | XMS_ITS | Clinical Summary ---
Author Organization [facility] Address [address] [place] [address] Phone Care Team Providers Care Cannery Tender Engineer Name Role Phone Jose Valdes MD [...] Take 1 mg by mouth. Active multivitamin-mi e-gvhq-KL-vit K (ADULTS MULTIVITAMIN) 18 mg iron-400 mcg-25 [...] Description 04/24/2025 1:00 PM EDT Office Visit [facility] [address] [place] [address] Uli Keyes MD McCutcheon, Lisa Noel, JOJO Lymphedema (Primary Dx) 04/16/2025 1:00 PM EDT Office Visit [facility] [address] [place] [address] Uli Keyes MD McCutcheon, Lisa Noel, OT Lymphedema (Primary Dx) 04/08/2025 1:00 PM EDT Office Visit [facility] [address] [place] [address] Uli Keyes MD McCutcheon, Lisa Noel, OT [...] topic Medical Devices Not on file Insurance [facility] [employer] MEDICARE PART A & B [facility] MEDICARE PART A & B [facility] MEDICARE PART A & B [facility] MEDICARE PART A & B MEDICARE PART A & B [facility] MEDICARE PART A & B MEDICARE PART A & [place] [address] [place] [address] MEDICARE PART A & B [facility] MEDICARE PART A & B Care Teams Cannery Tender Engineer Relationship Specialty Start Date End Date Jose Valdes MD [address] [place] [address] [place] [address] PCP - General Internal Medicine 08/04/17 Additional Source Comments The information contained in this document represents components of the legal health record. It is not the complete legal health record.[facility]
--- OUTSIDE RECORDS SUMMARY | 2025-07-01 18:37 | XMS_ITS | Patient Health Record ---
Author Organization [facility] Address [address] [place] [id number] Care Team Providers Care Camera Prototyping Engineer Name Role Phone Lucio (RETIRED) Jose [place] Primary Care Provide r Unavailable Jeromy Hunt Unavailable [phone] Allergies Allergen (clinical drug ingredient) Drug/Non Drug [...] Problem Status W/U Status Risk Notes Problem [id number] Gastro-esophagea l reflux disease without esophagitis (K21.9) Active confirmed Problem [id number] Encounter for screening for malignant neoplasm of colon (Z12.11) Active confirmed Problem Screening for malignant neoplasm of rectum (462684067) Encounter for screening for malignant neoplasm of rectum (Z12.12) Active confirmed Problem [id number] Gastroesophageal reflux disease, esophagitis presence not specified (K21.9) Active confirmed Problem Benign neoplasm of stomach (74416637) Gastric polyps (K31.7) Active confirmed Problem Gastritis (5392417) Gastritis (K29.70) Active confirmed Problem Esophageal reflux finding (310549310) Gastroesophageal reflux (K21.9) Active confirmed Problem 72495976 Upper abdominal pain (R10.10) Active confirmed Problem Epigastric pain (41611896) Abdominal discomfort, epigastric (R10.13) Active confirmed Plan [...] [place] [address] [place] [address] [phone] [id number] DANTE LÓPEZ Self - patient is the insured [facility] [address] [place], [place] [id number] [phone] [id number] DANTE LÓPEZ Self - patient is the [...]
== END 2025-07-01 16:19 | disposition home or self-care (01) ==
LOC: HO.HPSW 15:33
PROVIDERS: PCP Internal Medicine; Visit Provider Nurse Practitioner Family
DX: G47.33 Obstructive sleep apnea (adult) (pediatric) (principal); G47.34 Idiopathic sleep related nonobstructive alveolar hypoventilation; J45.909 Unspecified asthma, uncomplicated
CPT/HCPCS: 99214

== ENCOUNTER → 2025-07-01 15:33 | Outpatient (BNVA) | payer MEDICARE, BC, SELFPAY | PROVIDERS: PCP Internal Medicine; Visit Provider Nurse Practitioner Family | DX: G47.33 Obstructive sleep apnea (adult) (pediatric) (principal); Z99.89 Dependence on other enabling machines and devices; G47.34 Idiopathic sleep related nonobstructive alveolar hypoventilation; J45.909 Unspecified asthma, uncomplicated | CPT/HCPCS: 99212 ==

== ENCOUNTER 2025-07-08 13:11 | Outpatient (AMB) | payer MEDICARE, BC, SELFPAY ==
--- OUTSIDE RECORDS SUMMARY | 2021-01-30 17:17 | XMS_ITS | Encounter Summary ---
Author Organization [facility] Address [address] [place] [address] [address] [place] [address] Phone Care Team Providers Care Skills Auditor Name Role Phone Jose Valdes MD Primary Care Provider Encounter Details Date Type Department Care Team (Late st Contact Info) Description 01/30/2021 5:17 PM EDT Hospital Encounter [facility] [address] [place] [phone] Simon Gregory PA [address] [place] [phone] [email or web address] g Social History Tobacco Use Types Packs/Day [...] on filedocumented in this encounter Care Teams Skills Auditor Relationship Specialty Start Date End Date Jose Valdes MD [address] [place] [address] [place] [address] PCP - General Internal Medicine 08/04/17 documented as of this encounter Additional Source Comments The information contained in this document represents components of the legal health record. It is not the complete legal health record.[facility]
--- OUTSIDE RECORDS SUMMARY | 2021-01-30 17:59 | XMS_ITS | Encounter Summary ---
Author Organization [facility] Address [address] [place] [address] [address] [place] [address] Phone Care Team Providers Care Resource Manager Name Role Phone Jose Valdes MD Primary Care Provider Encounter Details Date Type Department Care Team (Late st Contact Info) Description 01/30/2021 5:59 PM EDT Hospital Encounter [facility] [address] [place] [address] Simon Gregory PA [address] [place] [phone] [email or web address] g Social History Tobacco Use Types Packs/Day [...] on filedocumented in this encounter Care Teams Resource Manager Relationship Specialty Start Date End Date Jose Valdes MD [address] [place] [address] [place] [address] PCP - General Internal Medicine 08/04/17 documented as of this encounter Additional Source Comments The information contained in this document represents components of the legal health record. It is not the complete legal health record.[facility]
--- OUTSIDE RECORDS SUMMARY | 2023-05-07 09:52 | XMS_ITS | Encounter Summary ---
Author Organization [facility] Address [address] [place] [address] [address] [place] [address] Phone Care Team Providers Care Flight Crew Time Clerk Name Role Phone Jose Valdes MD Primary Care Provider Encounter Details Date Type Department Care Team (Late st Contact Info) Description 05/07/2023 9:52 AM EDT Hospital Encounter [facility] [address] [place] [phone] Karley Long CNP [address] [place] [address] [email or web address] Social History Tobacco Use Types Packs/Day Years [...] in the appropriate clinical setting. Karley Long COMPUTER TERMINAL OPERATOR IMG XR CHEST Final Resul t documented in this encounter Visit Diagnoses Not on filedocumented in this encounter Care Teams Flight Crew Time Clerk Relationship Specialty Start Date End Date Jose Valdes MD [address] [place] [address] Dr Pineda, KATHY [address] PCP - General Internal Medicine 08/04/17 documented as of this encounter Additional Source Comments The information contained in this document represents components of the legal health record. It is not the complete legal health record.[facility]
--- OUTSIDE RECORDS SUMMARY | 2024-12-09 13:51 | XMS_ITS | Encounter Summary ---
Author Organization [facility] Address [address] [place] [address] [address] [place] [address] Phone Care Team Providers Care Prop Attendant Name Role Phone Jose Valdes MD Primary Care Provider Encounter Details Date Type Department Care Team (Late st Contact Info) Description 12/09/2024 1:51 PM EDT Hospital Encounter [facility] [address] [place] [address] Adriana Clark FNP [address] [place] [phone] [email or web address] [place] Social History Tobacco Use Types Packs/Day Years [...] thoracicspine. IMPRESSION: No acute abnormality. Adriana Clark FORM GRADER IMG XR CHEST Final Resul t documented in this encounter Visit Diagnoses Not on filedocumented in this encounter Care Teams Prop Attendant Relationship Specialty Start Date End Date Jose Valdes MD [address] [place] [address] [place] [address] PCP - General Internal Medicine 08/04/17 documented as of this encounter Additional Source Comments The information contained in this document represents components of the legal health record. It is not the complete legal health record.[facility]
--- NOTE | 2025-07-08 13:23 | A.OFFPC_ITS ---
Vital Signs 07/08/25 13:32 Height 5 ft 2.6 in Weight 227 lb BMI 40.7 BP 122/74 Blood Pressure Location Lt brachial Position Sitting Respiration 18 Pulse 67 Pulse Source Pulse Oximeter Temp 97.7 F Temp Source Temporal Artery Scan Pulse Oximetry (%) 95 Oxygen Delivery Method Room Air Intake Visit Reasons: 3 Month F/U from Dr Keyes Api Developer Required: No Accompanied by: Self / Same As Patient Allergies hydrochlorothiazide (HCTZ) Allergy (Intermediate, Verified 07/08/25 13:24) Itching Medication List - Last Reconciled 07/08/25 by Tristan Burger MD [compression stocking Left forearm to elbow] acetaminophen 500 mg PO BID amlodipine 5 mg PO DAILY aspirin 81 mg PO DAILY baclofen 20 mg PO TID citalopram 10 mg PO DAILY compr.stocking,knee,long,large Bilateral knee high large compression socks 15- 30mmHG cyclosporine 0.05% (Restasis) 1 drp ophthalmic (eye) BID estradiol (Estring) 1 vag ring vaginal [id number] fluticasone furoate-vilanterol 100-25 mcg/dose (Breo Ellipta) 1 inh inhalation DAILY furosemide 80 mg PO DAILY ketoconazole 2% appl topical DAILY PRN mirabegron ER 25 mg PO ONCE multivitamin 1 tab PO DAILY nystatin topical BID PRN omeprazole 20 mg PO ONCE potassium chloride ER 20 mEq PO DAILY ProAir RespiClick 90 mcg/actuation (albuterol sulfate) 2 inhalations PO Q4H PRN NS [Resting hand splint (L) As directed] simvastatin 20 mg PO DAILY solifenacin (Vesicare) 5 mg PO DAILY 90 days tretinoin 0.05% 1 appl topical BEDTIME Tobacco use date assessed: 03/20/25 Dental Screening Dental Screen Date: 03/20/25 HPI HPI Comments History of Present Illness Details The patient is a 74-year-old female presenting with concerns primarily related to the management of knee pain due to osteoarthritis and the management of lymphedema. She reports receiving her first cortisone injection in her knee about three weeks ago. Initially, she experienced slight improvement in her symptoms. However, the progress plateaued, prompting her to self-medicate with high doses of ibuprofen and acetaminophen, which she is concerned about due to potential adverse effects on her gastrointestinal and renal systems. She admits to attempting to reduce her intake of these medications due to the known effects of NSAIDs on the stomach and acetaminophen on the liver. Her knee pain persists, albeit less intense than before, but has not resolved completely. Past treatments included a cortisone injection and ongoing rdgt-rag-[id number] medication use. She notes that the cortisone injection resulted in minor impr ovement, with some ongoing residual pain. Concurrently, the patient has longstanding issues with lymphedema, specifically swelling in the lower extremities and left side due to residuals following a major stroke 50 years ago. Medical management includes wearing compression garments and receiving lymphedema therapy intermittently. The condition remains chronic, characterized by swelling that does not subsided entirely. Despite therapy, she describes an ongoing challenge in managing symptoms. Medical History: - History of Osteoarthritis - History of Chronic Pain - Coronary Artery Disease - Hypertension - Major Stroke with residual weakness an d spasticity - Depression - Anxiety - Gastroesophageal Reflux Disease - Hyperlipidemia - History of a respiratory condition wit h past infection treated with antibiotics and steroids Medications: - Amlodipine 5 mg daily for hypertension - Baclofen 20 mg for muscle spasticity f rom stroke - Aspirin 81 mg daily for coronary arter y disease - Citalopram 10 mg for anxiety - Breo Ellipta as needed for respiratory conditions - Albuterol as needed for shortness of b reath - Simvastatin 20 mg for cholesterol - Mirabegron 25 mg for overactive bladde r - Omeprazole 20 mg for acid reflux - Tretinoin cream for yeast infection - Potassium supplement (discontinued dur ing the visit) Diagnostic Results: - Labs: Recent blood work shows normal e lectrolyte, kidney function, and liver function. - Echocardiogram: Slight calcification a nd an enlarged ascending aorta measured at 3.7 cm Social History: - Functional status affected by stroke r esiduals, requiring assistance with mobility - Regular lymphedema therapy for symptom management - Uses compression garments and lymphede ma pumps at night [facility] Medical History (Updated 07/08/25 @ 14:02 by Tristan Burger MD) Osteoarthritis of right knee Lymphedema High cholesterol MCI (mild cognitive impairment) Obesity Anxiety disorder Cerebral infarction involving middle cerebral artery Spasticity Left hemiparesis CVA (cerebral vascular accident) Chronic acquired lymphedema Anxiety Hx of skin cancer, basal cell 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 GERD (gastroesophageal reflux disease) HLD (hyperlipidemia) HTN (hypertension) Frequency of urination Urge incontinence Surgical History History of colonoscopy (~12/23/15) History of bladder surgery History of Hx of hand surgery Family History Father Parkinson disease Mother Diabetes CAD (coronary artery disease) Social History Housing: Condominium Are you a primary care advocate to a significant other at home: No Do you presently have visiting nurse or other home services: No Alcohol intake: never Patient Tobacco Use Status: Never used Tobacco e-Cigarette/Vaping Use: Never Used Second Hand Smoke Exposure: No service: No Current occupational status: retired Cognitive needs: Yes (cane) Hearing needs: No Vision needs: Yes (reading glasses ) Questionnaire Thrive Questionnaire Date Thrive assessed: 03/20/25 UMANG-7 AMB Questionnaire UMANG-7 Date UMANG - 7 assessed: 03/20/25 Source: Developed by Drs. Jeromy Ballesteros, Lyubov Small, Soham Yousif and colleagues, with an educational kayla from [employer]. Review of Systems Const Details: - Musculoskeletal: Reports knee pain, chronic and persistent despite treatment - Cardiovascular: Denies acute symptoms related to coronary artery disease - Neurological: Reports ongoing weakness in affected limbs from past stroke - Respiratory: Denies having chronic obstructive pulmonary disease; treated for prolonged bronchial infection previously - Gastrointestinal: Reports acid reflux; denies liver issues - Genitourinary: Reports overactive bladder All systems reviewed & are unremarkable except as reviewed in HPI and above Physical exam (Primary Care) Vital Signs: Last Vital Signs Temp 97.7 F 07/08/25 13:32 Pulse 67 07/08/25 13:32 Resp 18 07/08/25 13:32 BP 122/74 07/08/25 13:32 Pulse Ox 95 07/08/25 13:32 Oxygen Delivery Method Room Air 07/08/25 13:32 BMI result Body Mass Index 40.7 Tobacco/Smoking Status: Tobacco use Status Tobacco use date assessed 03/20/25 07/08/25 13:37 Patient Tobacco Use Status Never used Tobacco 07/08/25 13:37 e-Cigarette/Vaping Use Never Used 07/08/25 13:37 Thrive Assessment: Date of Thrive Assessment Date Thrive assessed 03/20/25 07/08/25 13:37 Const Other: General: +Alert and oriented, Well nourished, No acute distress. Eye: Pupils are equal, round and reactive to light, Intact accommodation, Ext raocular movements are intact, Normal conjunctiva, Vision unchanged. HENT: Normocephalic, Atraumatic, Tympanic membranes are clear, Normal hearing, Oral mucosa is moist, No pharyngeal erythema, Ear canals patent. Respiratory: Lungs CTA bilaterally, No wheeze, Respirations are non-labored. Cardiovascular: Regular rate, Regular rhythm, S1 auscultated, S2 auscultated, No murmur, Good pulses equal in all extremities, Normal peripheral perfusion, No edema. Gastrointestinal: Soft, Non-tender, Non-distended, Normal bowel sounds, No organomegaly. Musculoskeletal: Normal range of motion, Normal strength, No tenderness, No swelling, No deformity, Normal gait. Integumentary: Warm, Dry, [place], Intact. Neurologic: Alert, Oriented, Normal sensory, Normal motor function, No focal defects, Cranial Nerves II-XII are grossly intact, Normal deep tendon reflexes. Psychiatric: Cooperative, Appropriate mood & affect, Normal judgment. Coding Level of Care Code Est Pt Level 4 (59828) Complex EM visit Add On G2211 Diagnoses Primary osteoarthritis of right knee M17.11 Osteoarthritis type: primary Lymphedema I89.0 Left spastic hemiparesis G81.14 Primary hypertension I10 Hypertension type: primary hypertension Overactive bladder N32.81 Other hyperlipidemia E78.49 Hyperlipidemia type: other hyperlipidemia Anxiety F41.9 Gastroesophageal reflux disease, unspecified whether esophagitis present K21.9 Esophagitis presence: esophagitis presence not specified Assessment & Plan Assessment & Plan (1) Osteoarthritis of right knee: Comment: - Continue conservative management with NSAID use, advised moderation due to gastrointestinal and renal risks. - Continue with cortisone injections as needed; monitor for efficacy over time. Code(s): M17.11 - Unilateral primary osteoarthritis, right knee Category: Medical Qualifiers: Osteoarthritis type: primary Qualified Code(s): M17.11 - Unilateral primary osteoarthritis, right knee (2) Lymphedema: Comment: - Continue current therapy with compression garments and night-time pump utilization. - Referred to the lymphedema clinic at [facility] for ongoing management. Code(s): I89.0 - Lymphedema, not elsewhere classified Category: Medical (3) Left spastic hemiparesis: Comment: CT WO at [facility] in 2005: R sylvian area atrophy (reported) CT brain at [facility] in 2015: mod chronic right MCA perisylvian infarct, mild cerebellar and frontal atrophy. - Currently being managed with baclofen for muscle spasticity Code(s): G81.14 - Spastic hemiplegia affecting left nondominant side Category: Medical (4) HTN (hypertension): Comment: - Blood pressure well-controlled; continue Amlodipine 5 mg daily. Code(s): I10 - Essential (primary) hypertension Category: Medical Qualifiers: Hypertension type: primary hypertension Qualified Code(s): I10 - Essential (primary) hypertension (5) Overactive bladder: Comment: InterSti revision 2021 - Maintain Mirabegron 25 mg therapy; monitor efficacy. Code(s): N32.81 - Overactive bladder Category: Medical (6) HLD (hyperlipidemia): Comment: - Continue Simvastatin 20 mg for cholesterol management. Code(s): E78.5 - Hyperlipidemia, unspecified Category: Medical Qualifiers: Hyperlipidemia type: other hyperlipidemia Qualified Code(s): E78.49 - Other hyperlipidemia (7) Anxiety: Comment: - Continue Citalopram 10 mg; monitor mental health status. Code(s): F41.9 - Anxiety disorder, unspecified Category: Medical (8) GERD (gastroesophageal reflux disease): Comment: - Continue Omeprazole 20 mg; avoid NSAIDs when possible due to potential exacerbation. Code(s): K21.9 - Gastro-esophageal reflux disease without esophagitis Category: Medical Qualifiers: Esophagitis presence: esophagitis presence not specified Qualified Code(s): K21.9 - Gastro-esophageal reflux disease without esophagitis Plan: 10. Respiratory Condition - Continue Breo Ellipta for reactive airway symptoms; use Albuterol as needed. Healthcare Maintenance: - Routine blood pressure monitoring - Regular cholesterol level checks - Echocardiogram surveillance for ascending aorta measurement - Referral to lymphedema therapy clinics for ongoing symptom management Patient was informed and verbally consented to the use of an ambient scribe for clinic note documentation during this visit. Plan During the consultation, the patient and I discussed their ongoing medical dom rns, primarily focusing on the management of osteoarthritis-related knee pain and chronic lymphedema. I recommended maintaining the current medication regimen, emphasizing the moderation and informed use of NSAIDs due to their gastrointestinal and renal impact. The possibility of further cortisone injections for knee pain was considered, contingent on symptom progression. We talked about the importance of monitoring the slight aortic enlargement through echocardiograms. Additionally, the patient was reassured regarding their current regimen's effectiveness for coronary artery disease, hypertension, and other chronic conditions. I advised following a comprehensive treatment plan for lymphedema, integrating therapy sessions and at-home management tools such as compression garments. We concluded with a discussion on the cessation of the potassium supplement and reiterated the necessity of regular follow-ups to adjust treatment plans as needed. Orders: Referrals Lymphedema Clinic Referral Tristan Burger MD I89.0 - Lymphedema, not elsewhere classified Medications: New fluticasone propionate 50 mcg/actuation (Flonase Allergy Relief) administer into each nostril 1 spray intranasal DAILY 16 grams 3RF Tristan Burger MD Changed From baclofen 20 mg PO TID PRN 240 tabs 1RF Abdominal Pain To baclofen 20 mg PO TID Katheryn Keyes MD Discontinued potassium chloride ER Discontinued Reason: Doctor's Order 20 mEq PO DAILY 90 tabs 3RF Patient Instructions: - Use NSAIDs like Advil sparingly and with meals to minimize stomach upset. - Continue the current medication regimen as prescribed. - Wear compression garments daily and use the lymphedema pump at night. - Schedule and attend regular check-ups for blood pressure and cholesterol. - Ensure upcoming echocardiogram in one year to monitor aortic size. - Keep track of lymphedema therapy appointments and bring their contact information to future visits. - Stop taking the potassium supplement immediately.
[2025-07-08 13:32] VITALS: BP 122/74; PULSE 67; RESP 18; TEMP 36.5; O2SAT 95; BMI 40.7
--- OUTSIDE RECORDS SUMMARY | 2025-07-08 16:02 | XMS_ITS | Encounter Summary ---
Author Organization [facility] Address [address] [place] [address] [place] [address] Phone Care Team Providers Care Assistant Professor Of Drama Name Role Phone Jose Valdes MD Primary Care Provider Reason for Referral * Physical Therapy (Routine) - Closed Specialty Diagnoses / Procedures Referred By Contac t Referred To Contact Physical Therapy Diagnoses Encounter for rehabilitation System, Provider Not In, PhD [id number] [place] [address] Phone: tel: Referral ID Status Reason Start Date Expiration Date Visits Re quested Visits Authorized [id number] Closed 10/16/2017 10/16/2018 99 99 Encounter Details Date Type Department Care Team (Latest Contact Info) Description 10/16/2017 Transcribe Orders [facility] [address] [place] [address] Jose Valdes MD [address] [place] [address] [place] [address] Encounter for rehabilitation (Primary Dx) Social History [...] Diagnoses Orde r Schedule Ambulatory referral to [facility] Physical Therapy Outpatient Referral Routine Encounter for rehabilitation Ordered: 10/16/2017 documented as of this encounter Visit Diagnoses Diagnosis Encounter for rehabilitation- Primary documented in this encounter Care Teams Assistant Professor Of Drama Relationship Specialty Start Date End Date Jose Valdes MD [address] [place] [address] [place] [address] PCP - General Internal Medicine 08/04/17 documented as of this encounter Additional Source Comments The information contained in this document represents components of the legal health record. It is not the complete legal health record.[facility]
--- OUTSIDE RECORDS SUMMARY | 2025-07-08 16:02 | XMS_ITS | Clinical Summary ---
Author Organization [facility] Address [address] [place] [address] Phone Care Team Providers Care Communications Technologist Name Role Phone Jose Valdes MD Primary [...] Take 1 mg by mouth. Active multivitamin-mi o-oqie-IA-vit K (ADULTS MULTIVITAMIN) 18 mg iron-400 mcg-25 [...] Encounters Date Type Department Care Team Description 07/08/2025 Transcribe Orders [facility] [address] [place] [address] Tristan Burger MD Encounter for rehabilitation (Primary Dx) 04/24/2025 1:00 PM EDT Office Visit [facility] [address] [place] [address] Uli Keyes MD McCutcheon, Haylee Healy, OT Lymphedema (Primary Dx) 04/16/2025 1:00 PM EDT Office Visit [facility] [address] [place] [address] Uli Keyes MD McCutcheon, Lisa Noel, OT Lymphedema (Primary Dx) 04/08/2025 1:00 PM EDT Office Visit [facility] [address] [place] [address] Uli Keyes MD McCutcheon, Haylee Healy, OT [...] 07/18/2022, 06/28/2020, Additional history exists COVID-19 VACCINE (2024- season) 2025 06/15/2024, 12/13/2023, 06/28/2023, Additional history [...] topic Medical Devices Not on file Insurance [facility] MEDICARE PART A & B [facility] MEDICARE PART A & B MEDICARE PART A & B [facility] MEDICARE PART A & B MEDICARE PART A & [place] [address] [id number] MEDICARE PART A & B MEDICARE PART A & B MEDICARE PART A & B [facility] MEDICARE PART A & B Care Teams Communications Technologist Relationship Specialty Start Date End Date Jose Valdes MD [address] [place] [address] [place] [address] PCP - General Internal Medicine 08/04/17 Additional Source Comments The information contained in this document represents components of the legal health record. It is not the complete legal health record.[facility]
--- OUTSIDE RECORDS SUMMARY | 2025-07-08 16:02 | XMS_ITS | Encounter Summary ---
Author Organization [facility] Address [address] [place] [address] Phone Care Team Providers Care Department Helper Name Role Phone Jose Valdes MD Primary Care Provider Reason for Referral * Occupational Therapy (Routine) - New Request Specialty Diagnoses / Procedures Referred By Contmanuel t Referred To Contact Occupational Therapy Diagnoses Encounter for rehabilitation Tristan Burger MD [address] [place] [address] Phone: tel: fax: [address] [address] Phone: tel: Referral ID Status Reason Start Date Expiration Date V isits Requested Visits Authorized [id number] New Request 07/08/2025 07/08/2026 1 1 Encounter Details Date Type Department Care Team (Latest Contact Info) Description 07/08/2025 Transcribe Orders [facility] [address] [place] [address] Tristan Burger MD [address] [place] [address] Encounter for rehabilitation (Primary Dx) Social History [...] r Schedule Ambulatory referral to [facility] Occupational Therapy Outpatient Referral Routine Encounter for rehabilitation Ordered: 07/08/2025 documented as of this encounter Visit Diagnoses Diagnosis Encounter for rehabilitation- Primary documented in this encounter Care Teams Department Helper Relationship Specialty Start Date End Date Jose Valdes MD [address] [place] [address] [place] [address] PCP - General Internal Medicine 08/04/17 documented as of this encounter Additional Source Comments The information contained in this document represents components of the legal health record. It is not the complete legal health record.[facility]
--- OUTSIDE RECORDS SUMMARY | 2025-07-08 16:02 | XMS_ITS | Encounter Summary ---
Author Organization [facility] Address [address] [place] [address] [place] [address] Phone Care Team Providers Care Hands Parter Name Role Phone Jose Valdes MD Primary Care Provider Reason for Referral * Physical Therapy (Routine) - Closed Specialty Diagnoses / Procedures Referred By Contac t Referred To Contact Physical Therapy Diagnoses Encounter for rehabilitation System, Provider Not In, PhD [id number] [place] [address] Phone: tel: Referral ID Status Reason Start Date Expiration Date Visits Re quested Visits Authorized [id number] Closed 08/10/2017 09/24/2018 25 25 Encounter Details Date Type Department Care Team (Latest Contact Info) Description 08/09/2017 Transcribe Orders [facility] [address] [place] [address] Jose Valdes MD [address] [place] [address] [place] [address] Encounter for rehabilitation (Primary Dx) Social History [...] Orde r Schedule Ambulatory referral to [facility] Physical Therapy Outpatient Referral Routine Encounter for rehabilitation Ordered: 08/10/2017 documented as of this encounter Visit Diagnoses Diagnosis Encounter for rehabilitation- Primary documented in this encounter Care Teams Hands Parter Relationship Specialty Start Date End Date Jose Valdes MD [address] [place] [address] [place] [address] PCP - General Internal Medicine 08/04/17 documented as of this encounter Additional Source Comments The information contained in this document represents components of the legal health record. It is not the complete legal health record.[facility]
--- OUTSIDE RECORDS SUMMARY | 2025-07-08 16:02 | XMS_ITS | Patient Health Record ---
Author Organization [facility] Address [address] [place] [id number] Care Team Providers Care Promotion Manager Name Role Phone Lucio (RETIRED) Jose AUSTIN Primary Care Provide r Unavailable Jeromy Hunt Unavailable [phone] Allergies Allergen (clinical drug ingredient) Drug/Non Drug [...] 1 tablet with meals Orally Twice a day; Duration: 30 day(s) Active Omeprazole 20 MG TAKE 1 CAPSULE BY MOUTH TWICE A DAY; Duration: 90 Active Myrbetriq 25 MG 1 tablet Orally twic e a day Active Furosemide 40 MG 1 tablet Orally once a day/as directed Active Ketoconazole 2 % PLEASE SEE ATTACHED FOR DETAILED DIRECTIONS External; Duration: 30 Active Citalopram Hydrobromide 10 MG Orally Once a day Active Estring 7.5 MCG/24HR Vaginal; Duration: 90 Active Florinda 180 mg 1 tablet orally as directed Active NexIUM 40 MG 1 capsule Orally Onc e a day; Duration: 90 06/27/2012 Not-Taking Multivitamins multi 1 capsule Orally onc e a day Active Simvastatin 20 MG 1 tablet in the evening Orally Once a day Active Solifenacin Succinate 5 MG Oral; Duration: 90 Active Immunizations Vaccine Route Administration Date Status Comme nts Influenza Unknown 07/26/2019 Administered Influenza Unknown 05/26/2021 Administered Influenza Unknown 06/13/2023 Administered Problems Problem Type SNOMED Code ICD Code Onset Dates Problem Status W/U Status Risk Notes Problem Gastro-esophageal reflux disease without esophagitis (974636136) Gastro-esophageal reflux disease without esophagitis (K21.9) Active confirmed Problem Screening for malignant neoplasm of colon (950329890) Encounter for screening for malignant neoplasm of colon (Z12.11) Active confirmed Problem Screening for malignant neoplasm of rectum (347859697) Encounter for screening for malignant neoplasm of rectum (Z12.12) Active confirmed Problem Gastroesophageal reflux disease (949904954) Gastroesophageal reflux disease, esophagitis presence not specified (K21.9) Active confirmed Problem Benign neoplasm of stomach (18566950) Gastric polyps (K31.7) Active confirmed Problem Gastritis (1618692) Gastritis (K29.70) Active c onfirmed Problem Esophageal reflux finding (585483453) Gastroesophageal reflux (K21.9) Active confirmed Problem Upper abdominal pain (51529927) Upper abdominal pain (R10.10) Active confirmed Problem Epigastric pain (81453515) Abdominal discomfort, epigastric (R10.13) Active confirmed Plan [...] [place] [address] [place] [address] [id number] DANTE LÓPEZ Self - patient is the insured [facility] [address] [place], [place] [id number] [phone] [id number] DANTE LÓPEZ Self - patient is the [...] LLE and LUE from previous CVA Denies CA,DM,Lung disease,renal disease Urinary incontinence Broken ribs 2017 [...]
== END 2025-07-08 14:03 | disposition home or self-care (01) ==
LOC: HO.HMCHD 13:12
PROVIDERS: PCP Student in an Organized Health Care Education/Training Program; Visit Provider Student in an Organized Health Care Education/Training Program
DX: M17.11 Unilateral primary osteoarthritis, right knee (principal); I89.0 Lymphedema, not elsewhere classified; G81.14 Spastic hemiplegia affecting left nondominant side; I10 Essential (primary) hypertension; N32.81 Overactive bladder; E78.49 Other hyperlipidemia; F41.9 Anxiety disorder, unspecified; K21.9 Gastro-esophageal reflux disease without esophagitis

== ENCOUNTER → 2025-07-08 13:11 | Outpatient (BNVA) | payer MEDICARE, BC, SELFPAY | PROVIDERS: PCP Internal Medicine; Visit Provider Student in an Organized Health Care Education/Training Program | DX: M17.11 Unilateral primary osteoarthritis, right knee (principal); I89.0 Lymphedema, not elsewhere classified; G81.14 Spastic hemiplegia affecting left nondominant side; I10 Essential (primary) hypertension; N32.81 Overactive bladder; E78.49 Other hyperlipidemia; F41.9 Anxiety disorder, unspecified; K21.9 Gastro-esophageal reflux disease without esophagitis; Z79.899 Other long term (current) drug therapy | CPT/HCPCS: 99212 ==

== ENCOUNTER 2025-07-18 14:14 | Outpatient (AMB) | payer MEDICARE, BC, SELFPAY ==
--- OUTSIDE RECORDS SUMMARY | 2021-01-30 17:17 | XMS_ITS | Encounter Summary ---
Author Organization [facility] Address [address] [place] [address] [address] [place] [address] Phone Care Team Providers Care Sexual Assault Counselor Name Role Phone Jose Valdes MD Primary Care Provider Encounter Details Date Type Department Care Team (Late st Contact Info) Description 01/30/2021 5:17 PM EDT Hospital Encounter Urgent Care [address] [place] [phone] Simon Gregory PA [address] [place] [phone] [email or web address] g Social History Tobacco Use Types Packs/Day [...] on filedocumented in this encounter Care Teams Sexual Assault Counselor Relationship Specialty Start Date End Date Jose Valdes MD [address] [place] [address] [place] [address] PCP - General Internal Medicine 08/04/17 documented as of this encounter Additional Source Comments The information contained in this document represents components of the legal health record. It is not the complete legal health record.[facility]
--- OUTSIDE RECORDS SUMMARY | 2021-01-30 17:59 | XMS_ITS | Encounter Summary ---
Author Organization [facility] Address [address] [place] [address] [address] [place] [address] Phone Care Team Providers Care Industrial Maintenance Repairer Helper Name Role Phone Jose Valdes MD Primary Care Provider Encounter Details Date Type Department Care Team (Late st Contact Info) Description 01/30/2021 5:59 PM EDT Hospital Encounter [facility] [address] [place] [address] Simon Gregory PA [address] [place] [phone] [email or web address] g Social History Tobacco Use Types Packs/Day [...] on filedocumented in this encounter Care Teams Industrial Maintenance Repairer Helper Relationship Specialty Start Date End Date Jose Valdes MD [address] [place] [address] [place] [address] PCP - General Internal Medicine 08/04/17 documented as of this encounter Additional Source Comments The information contained in this document represents components of the legal health record. It is not the complete legal health record.[facility]
--- OUTSIDE RECORDS SUMMARY | 2023-05-07 09:52 | XMS_ITS | Encounter Summary ---
Author Organization [facility] Address [address] [place] [address] [address] [place] [address] Phone Care Team Providers Care Manager Local Name Role Phone Jose Valdes MD Primary Care Provider Encounter Details Date Type Department Care Team (Late st Contact Info) Description 05/07/2023 9:52 AM EDT Hospital Encounter [facility] [address] [place] [phone] Karley Long CNP [address] [place] [address] [email or web address] Social History Tobacco Use Types Packs/Day Years [...] in the appropriate clinical setting. Karley Long FURNITURE MOVER HELPER IMG XR CHEST Final Resul t documented in this encounter Visit Diagnoses Not on filedocumented in this encounter Care Teams Manager Local Relationship Specialty Start Date End Date Jose Valdes MD [address] [place] [address] Dr Pineda, KATHY [id number] PCP - General Internal Medicine 08/04/17 documented as of this encounter Additional Source Comments The information contained in this document represents components of the legal health record. It is not the complete legal health record.[facility]
--- OUTSIDE RECORDS SUMMARY | 2024-12-09 13:51 | XMS_ITS | Encounter Summary ---
Author Organization [facility] Address [address] [place] [address] [address] [place] [address] Phone Care Team Providers Care Materials Scheduler Name Role Phone Jose Valdes MD Primary Care Provider Encounter Details Date Type Department Care Team (Late st Contact Info) Description 12/09/2024 1:51 PM EDT Hospital Encounter [facility] [address] [place] [address] Adriana Clark FNP [address] [place] [address] [email or web address] [place] Social History Tobacco Use Types Packs/Day Years [...] clinician's provided indication for this examination in [facility]: Dyspnea (Shortness of Breath); [...] clinician's provided indication for this examination in [facility]:Dyspnea (Shortness of Breath); wheezing for weeks. already took zpack,steroids and inhaler COMPARISON: XR CHEST PA AND LATERAL 2 VIEWS FINDINGS: Devices/Tubes/Lines: None. Lungs: No focal consolidation or pulmonary edema. Mild biapicalscarring. Pleura: No pleural effusion or pneumothorax. Heart/Mediastinum: Unchanged in appearance. Bones/Soft Tissues: Multilevel degenerative changes of the thoracicspine. IMPRESSION: No acute abnormality. Adriana Clark BOTTLE PACKING MACHINE CLEANER IMG XR CHEST Final Resul t documented in this encounter Visit Diagnoses Not on filedocumented in this encounter Care Teams Materials Scheduler Relationship Specialty Start Date End Date Jose Valdes MD [address] [place] [address] [place] [address] PCP - General Internal Medicine 08/04/17 documented as of this encounter Additional Source Comments The information contained in this document represents components of the legal health record. It is not the complete legal health record.[facility]
--- NOTE | 2025-07-18 14:14 | A.OFFVIS_ITS ---
Intake Visit Reasons: interstim follow up Intake Note: Patient is present for: interstim f/u Urology Medication:SOLIFENACIN,estradiol, myrbetriq, potassium Blood Thinner:aspirin Media Account Executive Required: No Accompanied by: Self / Same As Patient Allergies hydrochlorothiazide (HCTZ) Allergy (Intermediate, Verified 07/18/25 14:16) Itching HPI Comments Details: 07/18/25--The patient is a 74-year-old female presenting with voiding dysfunction. She is following up on the Mobile [employer] Interstim device, which was adjusted by the [employer] student services representative a month or two ago, resulting in reduced discomfort. The patient continues to take Mirabegron and Solifenacinl, experiencing some leakage during the night despite wearing protective pads. The patient reports that her voiding control worsens when she is in pain, such as from her knee, and has been slightly worse over the past few weeks. She has not tried Botox for bladder control but is considering it as a potential treatment option. The patient also has a history of lymphedema, which contributes to fluid buildup and nocturnal voiding issues. Plan 1. Voiding Dysfunction - Consideration of Botox injections to improve bladder control, with the aim of potentially reducing the use of Mirabegron and Solifenacin. - Botox injections of the bladder to reduce spasms. - Pre-procedure antibiotics are recommended to minimize the risk of urinary tract infections. 2. Lymphedema - Acknowledgment of lymphedema contributing to nocturnal voiding issues due to fluid buildup. 02/10/25--Cora is here for urodynamics. Interpretation: During the filling phase sensory urgency and detrusor overactivity was noted. Unable to perform stress testing due to severe DO activity. EMG- Appropriate changes in the waveforms were noted through out the study. The patient has complaints of urinary incontinence, despite compliance with Myrbetriq and VESIcare as prescribed. She has a longstanding history of InterStim since 2006 however had a revision of her InterStim October of [address] Hurt. She reports she had been having positive results from combination of InterStim with dual therapy of Myrbetriq and VESIcare however feels more recently this has not been helpful. Plan arrange for [employer] student services representative to reprogram interstim. 10/14/24--Cora is a pleasant [address] Dr[address] Valdes. 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 She presents to the office today for follow-up of her overactive bladder and urinary urgency and frequency. In discussion with the patient today she reports to be doing and feeling well. She discusses despite compliance with Myrbetriq and VESIcare as prescribed she continues to experience stress/urge incontinence. Patient with a longstanding history of InterStim since 2006 however had a revision of her InterStim October of [address] Hurt. She reports she had been having positive results from combination of InterStim with dual therapy of Myrbetriq and VESIcare however feels more recently this has not been helpful. She discusses having failed multiple overactive bladder medications in the past. In office urinalysis results reviewed with the patient today. PVR 0 mls. She otherwise denies hematuria, dysuria, foul smelling urine, changes to urinary stream, flank pain, fever, and or chills. She does report having episodes of urinary incontinence while sleeping. She does suffer from lymphedema. We discuss trial of Gemtesa or Fesoterodine. She discusses continuing to utilize 4-6 Lottie pads per day and finds this bothersome as she attempts to go to the gym. She discusses having been in contact with [facility] and continues with stress/urge incontinence. She otherwise offers no issues or concerns at this time. [facility] Medical History (Updated 07/16/25 @ 19:47 by Ailyn Mckeon NP) Osteoarthritis of right knee Lymphedema High cholesterol MCI (mild cognitive impairment) Obesity Anxiety disorder Cerebral infarction involving middle cerebral artery Spasticity Left hemiparesis CVA (cerebral vascular accident) Chronic acquired lymphedema Anxiety Hx of skin cancer, basal cell 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 GERD (gastroesophageal reflux disease) HLD (hyperlipidemia) HTN (hypertension) Frequency of urination Urge incontinence Surgical History History of colonoscopy (~12/23/15) History of bladder surgery History of Hx of hand surgery Family History Father Parkinson disease Mother Diabetes CAD (coronary artery disease) Social History (Reviewed 07/01/25 @ 15:43 by NETTIE Lin [facility] Are you a primary clinical care coordinator to a significant other at home: No Do you presently have visiting nurse or other home services: No Alcohol intake: never Patient Tobacco Use Status: Never used Tobacco e-Cigarette/Vaping Use: Never Used Second Hand Smoke Exposure: No service: No Current occupational status: retired Cognitive needs: Yes (cane) Hearing needs: No Vision needs: Yes (reading glasses ) Assessment & Plan Assessment & Plan (1) Detrusor overactivity: Code(s): N32.81 - Overactive bladder Category: Medical (2) Frequency of urination: Comment: interstim in place Code(s): R35.0 - Frequency of micturition Category: Medical Plan Plan 1. Voiding Dysfunction - Consideration of Botox injections to improve bladder control, with the aim of potentially reducing the use of Mirabegron and Solifenacin. - Botox injections of the bladder to reduce spasms. - Pre-procedure antibiotics are recommended to minimize the risk of urinary tract infections. 2. Lymphedema - Acknowledgment of lymphedema contributing to nocturnal voiding issues due to fluid buildup. Patient Instructions: The patient had an opportunity to ask questions regarding treatment plan. The patient expressed understanding and agreement with the above treatment plan. The patient is aware they should contact our office by phone for worsening of their current condition or the appearance of new symptoms. Compliance is encouraged with any medications and followup testing that is ordered. It is a privilege to be allowed the opportunity to participate in the urologic care of your patient. If you have any questions or concerns regarding treatment for the above conditions please do not hesitate to contact me. The office telephone contact is [phone]. This note is constructed in part using voice recognition software. While every effort has been made to ensure accuracy garment sewing machine operator errors may have been included. Yours sincerely, Mirtha Uribe MD Scribe Plan - Not visible on output: Patient was informed and verbally consented to the use of an ambient scribe for clinic note documentation during this visit. Coding Level of Care Code Est Pt Level 4 (55843) Diagnoses Detrusor overactivity N32.81 Frequency of urination R35.0
--- OUTSIDE RECORDS SUMMARY | 2025-07-18 16:15 | XMS_ITS | Encounter Summary ---
Author Organization [facility] Address [address] [place] [address] [place] [phone] Phone Care Team Providers Care Mirror Maker Name Role Phone Jose Valdes MD Primary Care Provider Reason for Referral * Physical Therapy (Routine) - Closed Specialty Diagnoses / Procedures Referred By Contac t Referred To Contact Physical Therapy Diagnoses Encounter for rehabilitation System, Provider Not In, PhD [phone] [place] [address] Phone: tel: Referral ID Status Reason Start Date Expiration Date Visits Re quested Visits Authorized [id number] Closed 08/10/2017 09/24/2018 25 25 Encounter Details Date Type Department Care Team (Latest Contact Info) Description 08/09/2017 Transcribe Orders [facility] [address] [place] [address] Jose Valdes MD [address] [place] [address] [place] [address] Encounter for rehabilitation (Primary Dx) Social History [...] Diagnoses Orde r Schedule Ambulatory referral to [facility] Physical Therapy Outpatient Referral Routine Encounter for rehabilitation Ordered: 08/10/2017 documented as of this encounter Visit Diagnoses Diagnosis Encounter for rehabilitation- Primary documented in this encounter Care Teams Mirror Maker Relationship Specialty Start Date End Date Jose Valdes MD [address] [place] [address] [place] [address] PCP - General Internal Medicine 08/04/17 documented as of this encounter Additional Source Comments The information contained in this document represents components of the legal health record. It is not the complete legal health record.[facility]
--- OUTSIDE RECORDS SUMMARY | 2025-07-18 16:15 | XMS_ITS | Clinical Summary ---
Author Organization [facility] Address [address] [place] [address] Phone Care Team Providers Care Senior Microsoft Net Developer Name Role Phone Jose Valdes MD [...] Take 1 mg by mouth. Active multivitamin-mi [id number]-vit K (ADULTS MULTIVITAMIN) 18 mg iron-400 mcg-25 [...] Department Care Team Description 07/08/2025 Transcribe Orders [facility] [address] [place] [address] Tristan Burger MD Encounter for rehabilitation (Primary Dx) 04/24/2025 1:00 PM EDT Office Visit [facility] [address] [place] [address] Uli Keyes MD McCutcheon, Haylee Healy, OT [...] topic Medical Devices Not on file Insurance [facility] FEDERAL MEDICARE PART A & B [facility] Address: [facility] [id number] [place] [address] MEDICARE PART A & B MEDICARE PART A & B MEDICARE PART A & B MEDICARE PART A & B [facility] MEDICARE PART A & B [facility] MEDICARE PART A & B [facility] MEDICARE PART A & B [facility] MEDICARE PART A & B Care Teams Senior Microsoft Net Developer Relationship Specialty Start Date End Date Jose Valdes MD [address] [place] [address] [place] [address] PCP - General Internal Medicine 08/04/17 Additional Source Comments The information contained in this document represents components of the legal health record. It is not the complete legal health record.[facility]
--- OUTSIDE RECORDS SUMMARY | 2025-07-18 16:15 | XMS_ITS | Patient Health Record ---
Author Organization [facility] Address [address] [place] [phone] Care Team Providers Care Merchandise Flow Manager Name Role Phone Lucio (RETIRED) Jose AUSTIN Primary Care Provide r Unavailable Jeromy Hunt Unavailable [phone] Allergies Allergen (clinical drug ingredient) Drug/Non Drug [...] Notes Problem Gastro-esophageal reflux disease without esophagitis (653841400) Gastro-esophageal reflux disease without esophagitis (K21.9) Active confirmed Problem Screening for malignant neoplasm of colon (186978550) Encounter for screening for malignant neoplasm of colon (Z12.11) Active confirmed Problem Screening for malignant neoplasm of rectum (773592217) Encounter for screening for malignant neoplasm of rectum (Z12.12) Active confirmed Problem Gastroesophageal reflux disease (597979924) Gastroesophageal reflux disease, esophagitis presence not specified (K21.9) Active confirmed Problem Benign neoplasm of stomach (72404664) Gastric polyps (K31.7) Active confirmed Problem Gastritis (3250714) Gastritis (K29.70) Active c onfirmed Problem Esophageal reflux finding (109535218) Gastroesophageal reflux (K21.9) Active confirmed Problem Upper abdominal pain (52261262) Upper abdominal pain (R10.10) Active confirmed Problem Epigastric pain (29443765) Abdominal discomfort, epigastric (R10.13) Active confirmed Plan [...] [place] [address] [place] [address] [id number] DANTE LÓPEZ Self - patient is the insured [facility] [address] [place], [place] [id number] [phone] [id number] DANTE LÓPEZ Self - patient is the [...] LLE and LUE from previous CVA Denies [place],DM,Lung disease,renal disease Urinary incontinence Broken ribs 2017 [...]
--- OUTSIDE RECORDS SUMMARY | 2025-07-18 16:15 | XMS_ITS | Encounter Summary ---
Author Organization [facility] Address [address] [place] [address] [place] [address] Phone Care Team Providers Care Orthotist Or Prosthetist Name Role Phone Jose Valdes MD Primary Care Provider Reason for Referral * Physical Therapy (Routine) - Closed Specialty Diagnoses / Procedures Referred By Contac t Referred To Contact Physical Therapy Diagnoses Encounter for rehabilitation System, Provider Not In, PhD [id number] [place] [address] Phone: tel: Referral ID Status Reason Start Date Expiration Date Visits Re quested Visits Authorized [id number] Closed 10/16/2017 10/16/2018 99 99 Encounter Details Date Type Department Care Team (Latest Contact Info) Description 10/16/2017 Transcribe Orders [facility] [address] [place] [address] Jose Valdes MD [address] [place] [address] [place] [address] Encounter for rehabilitation (Primary Dx) Social History [...] Primary documented in this encounter Care Teams Orthotist Or Prosthetist Relationship Specialty Start Date End Date Jose Valdes MD [address] [place] [address] [place] [address] PCP - General Internal Medicine 08/04/17 documented as of this encounter Additional Source Comments The information contained in this document represents components of the legal health record. It is not the complete legal health record.[facility]
== END 2025-07-18 15:10 | disposition home or self-care (01) ==
LOC: HO.HUSH 14:14
PROVIDERS: PCP Internal Medicine; Visit Provider Urology
DX: N32.81 Overactive bladder (principal); R35.0 Frequency of micturition
CPT/HCPCS: 99214

== ENCOUNTER → 2025-07-18 14:14 | Outpatient (BNVA) | payer MEDICARE, BC, SELFPAY | PROVIDERS: PCP Internal Medicine; Visit Provider Urology | DX: N32.81 Overactive bladder (principal); R35.0 Frequency of micturition; R35.1 Nocturia; Z79.82 Long term (current) use of aspirin; I89.0 Lymphedema, not elsewhere classified | CPT/HCPCS: 99212 ==

== ENCOUNTER 2025-09-08 14:04 | Outpatient (AMB) | payer MEDICARE, BC, SELFPAY ==
--- OUTSIDE RECORDS SUMMARY | 2021-01-30 16:17 | XMS_ITS | Encounter Summary ---
Author Organization [facility] Address [address] [place] [address] [address] [place] [address] Phone Care Team Providers Care Process Improvement Consultant Name Role Phone Jose Valdes MD Primary Care Provider Encounter Details Date Type Department Care Team (Late st Contact Info) Description 01/30/2021 5:17 PM EDT Hospital Encounter [facility] [address] [place] [phone] Simon Gregory PA [address] [place] [phone] [email or web address] g Social History Tobacco Use Types Packs/Day [...] on filedocumented in this encounter Care Teams Process Improvement Consultant Relationship Specialty Start Date End Date Jose Valdes MD [address] [place] [address] [place] [address] PCP - General Internal Medicine 08/04/17 documented as of this encounter Additional Source Comments The information contained in this document represents components of the legal health record. It is not the complete legal health record.[facility]
--- OUTSIDE RECORDS SUMMARY | 2021-01-30 16:59 | XMS_ITS | Encounter Summary ---
Author Organization [facility] Address [address] [place] [address] [address] [place] [address] Phone Care Team Providers Care Autopsy Assistant Name Role Phone Jose Valdes MD Primary Care Provider Encounter Details Date Type Department Care Team (Late st Contact Info) Description 01/30/2021 5:59 PM EDT Hospital Encounter [facility] [address] [place] [phone] Simon Gregory PA [address] [place] [phone] [email or web address] g Social History Tobacco Use Types Packs/Day [...] XR FINGER 2 OR MORE VIEWS (LEFT) Routine 01/30/2021 6:07 PM EDT Displaced fracture of middle phalanx of left middle finger, initial encounter for closed fracture documented in this encounter Results * XR FINGER 2 OR MORE VIEWS (LEFT) (01/30/2021 6:07 PM EDT) Anatomical Region Laterality Modality Hand Left Computed Radiogr aphy 01/30/2021 6:18 PM EDT Impressions 01/30/2021 6:19 PM EDT Similar appearance of fracture at the palmar base of the middle phalanx. Persistent dorsal subluxation of the middle phalanx relative to the proximal phalanx. Overlying finger splint. Narrative 01/30/2021 6:19 PM EDT TECHNIQUE: XR FINGER 2 OR MORE VIEWS (LEFT) COMPARISON: Prereduction films Procedure Note Slick Ferreira MD, PhD - 01/30/2021 TECHNIQUE: XR FINGER 2 OR MORE VIEWS (LEFT) COMPARISON: Prereduction films IMPRESSION: Similar appearance of fracture at the palmar base of the middle phalanx.Persistent dorsal subluxation of the middle phalanx relative to theproximal phalanx. Overlying finger splint. Simon CANAS IMG XR UPPER EXTREMITY Christel l Result documented in this encounter Visit Diagnoses Not on filedocumented in this encounter Care Teams Autopsy Assistant Relationship Specialty Start Date End Date Jose Valdes MD [address] [place] [address] [place] [address] PCP - General Internal Medicine 08/04/17 documented as of this encounter Additional Source Comments The information contained in this document represents components of the legal health record. It is not the complete legal health record.[facility]
--- OUTSIDE RECORDS SUMMARY | 2023-05-07 08:52 | XMS_ITS | Encounter Summary ---
Author Organization [facility] Address [address] [place] [address] [address] [place] [address] Phone Care Team Providers Care Screen Printing Machine Operator Helper Name Role Phone Jose Valdes MD Primary Care Provider Encounter Details Date Type Department Care Team (Late st Contact Info) Description 05/07/2023 9:52 AM EDT Hospital Encounter [facility] [address] [place] [phone] Karley Long CNP [address] [place] [address] Social History Tobacco Use Types Packs/Day Years [...] in the appropriate clinical setting. Karley Long WREATH AND GARLAND MAKER IMG XR CHEST Final Resul t documented in this encounter Visit Diagnoses Not on filedocumented in this encounter Care Teams Screen Printing Machine Operator Helper Relationship Specialty Start Date End Date Jose Valdes MD [address] [place] [address] Dr Pineda, KATHY [phone] PCP - General Internal Medicine 08/04/17 documented as of this encounter Additional Source Comments The information contained in this document represents components of the legal health record. It is not the complete legal health record.[facility]
--- OUTSIDE RECORDS SUMMARY | 2024-12-09 12:51 | XMS_ITS | Encounter Summary ---
Author Organization [facility] Address [address] [place] [address] [address] [place] [address] Phone Care Team Providers Care Tallow Pumper Name Role Phone Jose Valdes MD Primary Care Provider Encounter Details Date Type Department Care Team (Late st Contact Info) Description 12/09/2024 1:51 PM EDT Hospital Encounter [facility] [address] [place] [address] Adriana Clark FNP [address] [place] [address] [email or web address] Social History Tobacco Use Types Packs/Day Years [...] PA AND LATERAL 2 VIEWS Urgent/patient waiting 12/09/2024 1:55 PM EDT Wheezing documented in this encounter Results * XR CHEST PA AND LATERAL 2 VIEWS (12/09/2024 1:55 PM EDT) Anatomical Region Laterality Modality Chest Computed Radiogr aphy 12/09/2024 2:19 PM EDT Impressions 12/09/2024 2:21 PM EDT No acute abnormality. Narrative 12/09/2024 2:21 PM EDT XR CHEST PA AND LATERAL 2 VIEWS Referring clinician's provided indication for this examination in [facility]: Dyspnea (Shortness of Breath); wheezing for weeks. already took zpack, steroids and inhaler COMPARISON: XR CHEST PA AND LATERAL 2 VIEWS FINDINGS: Devices/Tubes/Lines: None. Lungs: No focal consolidation or pulmonary edema. Mild biapical scarring. Pleura: No pleural effusion or pneumothorax. Heart/Mediastinum: Unchanged in appearance. Bones/Soft Tissues: Multilevel degenerative changes of the thoracic spine. Procedure Note Meredith Donald MBBS - 12/09/2024 XR CHEST PA AND LATERAL 2 VIEWS Referring clinician's provided indication for this examination in [facility]:Dyspnea (Shortness of Breath); wheezing for weeks. already took zpack,steroids and inhaler COMPARISON: XR CHEST PA AND LATERAL 2 VIEWS FINDINGS: Devices/Tubes/Lines: None. Lungs: No focal consolidation or pulmonary edema. Mild biapicalscarring. Pleura: No pleural effusion or pneumothorax. Heart/Mediastinum: Unchanged in appearance. Bones/Soft Tissues: Multilevel degenerative changes of the thoracicspine. IMPRESSION: No acute abnormality. Adriana Clark PCB DESIGNER IMG XR CHEST Final Resul t documented in this encounter Visit Diagnoses Not on filedocumented in this encounter Care Teams Tallow Pumper Relationship Specialty Start Date End Date Jose Valdes MD [address] [place] [address] [place] [address] PCP - General Internal Medicine 08/04/17 documented as of this encounter Additional Source Comments The information contained in this document represents components of the legal health record. It is not the complete legal health record.[facility]
--- NOTE | 2025-09-08 14:09 | A.OFFPC_ITS ---
Vital Signs 09/08/25 14:15 Height 5 ft 2.6 in Weight 224 lb BMI 40.2 BP 146/72 H Blood Pressure Location Rt brachial Position Sitting Respiration 18 Pulse 67 Pulse Source Pulse Oximeter Temp 98.1 F Temp Source Temporal Artery Scan Pulse Oximetry (%) 95 Oxygen Delivery Method Room Air Intake Visit Reasons: Discuss Medication Gold Layer Required: No Accompanied by: Self / Same As Patient Allergies hydrochlorothiazide (HCTZ) Allergy (Intermediate, Verified 09/08/25 14:10) Itching Medication List - Last Reconciled 09/08/25 by Tristan Burger MD [compression stocking Left forearm to elbow] acetaminophen 500 mg PO BID amlodipine 5 mg PO DAILY aspirin 81 mg PO DAILY baclofen 20 mg PO TID citalopram 10 mg PO DAILY compr.stocking,knee,long,large Bilateral knee high large compression socks 15- 30mmHG cyclosporine 0.05% (Restasis) 1 drp ophthalmic (eye) BID estradiol (Estring) 1 vag ring vaginal [id number] fluticasone furoate-vilanterol 100-25 mcg/dose (Breo Ellipta) 1 inh inhalation DAILY fluticasone propionate 50 mcg/actuation (Flonase Allergy Relief) 1 spray intranasal DAILY furosemide 80 mg PO DAILY ketoconazole 2% topical ketoconazole 2% appl topical DAILY PRN meloxicam 15 mg PO DAILY mirabegron ER 25 mg PO ONCE multivitamin 1 tab PO DAILY nystatin topical BID PRN omeprazole 20 mg PO ONCE ProAir RespiClick 90 mcg/actuation (albuterol sulfate) 2 inhalations PO Q4H PRN NS [Resting hand splint (L) As directed] simvastatin 20 mg PO DAILY 90 days solifenacin (Vesicare) 5 mg PO DAILY 90 days tretinoin 0.05% 1 appl topical BEDTIME Tobacco use date assessed: 03/20/25 Fall risk assessment: No Falls in past year Last assessed Fall Risk: 09/08/25 Dental Screening Dental Screen Date: 03/20/25 HPI HPI Comments History of Present Illness Details History of Present Illness The patient is a 74 year old female presenting for medication management for her furosemide prescription. She has been on furosemide for 20 years for lymphedema and attends a lymphedema clinic for therapy. Her previous dose was 40 mg twice a day, prescribed by Dr. Ash, but this became less effective. The dose was increased to 80 mg, and she sometimes adjusts the dose to 40 mg if swelling is less severe. Recently, while in [place], she received only five 80 mg tablets. The patient also takes amlodipine 5 mg for blood pressure. She was recently seen in the emergency room for breathing problems and increased swelling, where she was prescribed furosemide by Dr. Ailyn Chávez in December. Her blood pressure today was 146/72 mmHg, which is higher than her usual of 120-something, but this may be stress-related. For a knee issue, she has been diagnosed with a subchondral fracture and a meniscus tear. She was prescribed celecoxib, which was ineffective, and is now taking meloxicam 15 mg, which has helped. She has been attending physical therapy for her knee. Last year, she experienced a chronic cough for about six months, had three rounds of antibiotics, and underwent breath tests with a tutorial laboratory supervisor, Dr. Sonia Hernández. She was prescribed Breo, which she takes once daily. She uses an albuterol inhaler as needed for asthma. She reports taking baclofen for spasticity, citalopram 10 mg for anxiety, Myr betriq for overactive bladder, omeprazole 20 mg for GERD, and simvastatin 20 mg for high cholesterol. Regarding preventive care, she is up to date on her COVID-19, flu, and RSV vaccinations. She also recently received a pneumonia shot, updating a previous one from 2016. Medical History: - Lymphedema - Hypertension - Spasticity - Anxiety - History of chronic cough - Overactive bladder - Gastroesophageal reflux disease (GERD) - Subchondral fracture and meniscal tear of the knee - Asthma - Hypercholesterolemia Medications: - Furosemide 40 mg and 80 mg for lymphed lara, taken as needed - Amlodipine 5 mg for hypertension - Baclofen for spasticity - Citalopram 10 mg for anxiety - Breo once daily for chronic cough - Meloxicam 15 mg for pain related to a subchondral fracture and meniscus tear - Myrbetriq for overactive bladder - Omeprazole 20 mg for GERD and gastric protection while on meloxicam - Albuterol inhaler as needed for asthma - Simvastatin 20 mg for hypercholesterol emia Diagnostic Results: - Vitals: Blood pressure 146/72 mmHg - Labs: Blood work was done in September, December and March. Social History - Functional Status: Patient attends [facility] s[facility] therapy for her knee and therapy for lymphedema, including use of a pump. [facility] Medical History (Updated 09/08/25 @ 14:41 by Tristan Burger MD) GERD without esophagitis Osteoarthritis of right knee Lymphedema High cholesterol MCI (mild cognitive impairment) Obesity Anxiety disorder Cerebral infarction involving middle cerebral artery Spasticity Left hemiparesis CVA (cerebral vascular accident) Chronic acquired lymphedema Anxiety Hx of skin cancer, basal cell 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 GERD (gastroesophageal reflux disease) HLD (hyperlipidemia) HTN (hypertension) Frequency of urination Urge incontinence Surgical History History of colonoscopy (~12/23/15) History of bladder surgery History of Hx of hand surgery Family History Father Parkinson disease Mother Diabetes CAD (coronary artery disease) Social History [facility] Are you a primary home care associate to a significant other at home: No Do you presently have visiting nurse or other home services: No Alcohol intake: never Patient Tobacco Use Status: Never used Tobacco e-Cigarette/Vaping Use: Never Used Second Hand Smoke Exposure: No service: No Current occupational status: retired Cognitive needs: Yes (cane) Hearing needs: No Vision needs: Yes (reading glasses ) Questionnaire Thrive Questionnaire Date Thrive assessed: 03/20/25 UMANG-7 AMB Questionnaire UMANG-7 Date UMANG - 7 assessed: 03/20/25 Source: Developed by Drs. Jeromy Ballesteros, Lyubov Small, Soham Yousif and colleagues, with an educational kayla from [employer]. Review of Systems Narrative Review of Systems - HEENT/Respiratory: Reports history of breathing problems, chronic cough managed with Breo, denies current issues. - Cardiovascular: Reports lymphedema with leg swelling that fluctuates. - Gastrointestinal: Reports GERD managed with omeprazole. - Genitourinary: Reports overactive bladder managed with Myrbetriq. - Musculoskeletal: Reports knee pain from a subchondral fracture and meniscal tear, which is managed with meloxicam. Reports muscle spasticity managed with baclofen. - Psychiatric: Reports anxiety managed with citalopram. All systems reviewed & are unremarkable except as reviewed in HPI and above Physical exam (Primary Care) Vital Signs: Last Vital Signs Temp 98.1 F 09/08/25 14:15 Pulse 67 09/08/25 14:15 Resp 18 09/08/25 14:15 BP 146/72 H 09/08/25 14:15 Pulse Ox 95 09/08/25 14:15 Oxygen Delivery Method Room Air 09/08/25 14:15 BMI result Body Mass Index 40.2 Tobacco/Smoking Status: Tobacco use Status Tobacco use date assessed 03/20/25 09/08/25 14:12 Patient Tobacco Use Status Never used Tobacco 09/08/25 14:12 e-Cigarette/Vaping Use Never Used 09/08/25 14:12 Thrive Assessment: Date of Thrive Assessment Date Thrive assessed 03/20/25 09/08/25 14:12 Narrative Physical Exam General: +Alert and oriented, Well nourished, No acute distress. Eye: Pupils are equal, round and reactive to light, Intact accommodation, Extr aocular movements are intact, Normal conjunctiva, Vision unchanged. HENT: Normocephalic, Atraumatic, Tympanic membranes are clear, Normal hearing, Oral mucosa is moist, No pharyngeal erythema, Ear canals patent. Respiratory: Lungs CTA bilaterally, No wheeze, Respirations are non-labored. Cardiovascular: Regular rate, Regular rhythm, S1 auscultated, S2 auscultated, No murmur, Good pulses equal in all extremities, Normal peripheral perfusion, No edema. Gastrointestinal: Soft, Non-tender, Non-distended, Normal bowel sounds, No organomegaly. Musculoskeletal: Normal range of motion, Normal strength, No tenderness, No swelling, No deformity, Normal gait. Integumentary: Warm, Dry, [place], Intact. Neurologic: Alert, Oriented, Normal sensory, Normal motor function, No focal defects, Cranial Nerves II-XII are grossly intact, Normal deep tendon reflexes. Psychiatric: Cooperative, Appropriate mood & affect, Normal judgment. Coding Level of Care Code Est Pt Level 4 (58852) Add On Problem Visit Only Diagnoses Lymphedema I89.0 Primary hypertension I10 Hypertension type: primary hypertension Other hyperlipidemia E78.49 Hyperlipidemia type: other hyperlipidemia Left spastic hemiparesis G81.14 Acute pain of right knee M25.561 Chronicity: acute GERD without esophagitis K21.9 Assessment & Plan Assessment & Plan (1) Lymphedema: Comment: - The patient has a 20-year history of lymphedema managed with furosemide. - The dose has varied from 40 mg twice daily to 80 mg daily depending on the severity of swelling. - Amlodipine is noted as a potential contributor to leg swelling. - Plan is to prescribe both furosemide 40 mg tablets to allow for dose flexibility. Code(s): I89.0 - Lymphedema, not elsewhere classified Category: Medical (2) HTN (hypertension): Comment: - Blood pressure is borderline high at 146/72 mmHg, which is higher than her baseline. - This may be due to stress. - Continue amlodipine 5 mg. Will re-evaluate at the next visit. Code(s): I10 - Essential (primary) hypertension Category: Medical Qualifiers: Hypertension type: primary hypertension Qualified Code(s): I10 - Essential (primary) hypertension (3) HLD (hyperlipidemia): Comment: - Continue Simvastatin 20 mg for cholesterol management. Code(s): E78.5 - Hyperlipidemia, unspecified Category: Medical Qualifiers: Hyperlipidemia type: other hyperlipidemia Qualified Code(s): E78.49 - Other hyperlipidemia (4) Left spastic hemiparesis: Comment: CT WO at [facility] in 2005: R sylvian area atrophy (reported) CT brain at [facility] in 2015: mod chronic right MCA perisylvian infarct, mild cerebellar and frontal atrophy. - Currently being managed with baclofen for muscle spasticity Code(s): G81.14 - Spastic hemiplegia affecting left nondominant side Category: Medical (5) Right knee pain: Comment: - The patient has a subchondral fracture and meniscus tear, managed with meloxicam 15 mg. She was counseled on the importance of taking omeprazole concurrently to protect her stomach due to the risk of bleeds, especially given her age. - Continue current management and she will follow up with her specialist in September. Code(s): M25.561 - Pain in right knee Category: Medical Qualifiers: Chronicity: acute Qualified Code(s): M25.561 - Pain in right knee (6) GERD without esophagitis: Comment: - Stable on omeprazole 20mg daily - Reinforced importance to be taken with meloxicam Code(s): K21.9 - Gastro-esophageal reflux disease without esophagitis Category: Medical Plan: Health Maintenance: - Vaccinations: The patient has received her COVID-19, flu, and RSV shots for the current season. - Pneumonia vaccine: Recently received an updated pneumonia shot to replace one from 2016. - Follow-up: A physical is scheduled in four months, and her September appointment is canceled. - Labs: Will complete blood work one week prior to the next appointment. Patient was informed and verbally consented to the use of an ambient scribe for clinic note documentation during this visit. Plan I explained to the patient that the confusion regarding her furosemide prescription arose because it had not been previously prescribed by our practice. I acknowledged her long-term use and agreed to refill it, providing both 40 mg and 80 mg tablets to allow for dose adjustment based on her swelling. I advised her that amlodipine can also cause leg swelling. I reviewed her other medications, and specifically advised her to continue taking omeprazole as long as she is on meloxicam to protect her stomach, explaining that meloxicam can increase the risk of stomach bleeding, especially in older adults. We discussed her recent blood pressure reading of 146/72 mmHg, noting it was borderline high but likely related to the stress of the visit. We planned for her to have a physical in four months to go over preventative screenings and will have blood work done a week prior. I informed her that her September appointment would be canceled and that lab orders are now electronic, so she does not need a paper script. Orders: Orders Comprehensive Met. Panel 4 Months Z00.00 - Encounter for general adult medical examination without abnormal findings Hemoglobin A1c 4 Months Z00.00 - Encounter for general adult medical examination without abnormal findings HIV Ab/Ag 4 Months Z00.00 - Encounter for general adult medical examination without abnormal findings Syphilis Screen 4 Months Z00.00 - Encounter for general adult medical examination without abnormal findings Vitamin D 25-OH Total 4 Months Z00.00 - Encounter for general adult medical examination without abnormal findings Complete Blood Count Auto Diff 4 Months Z00.00 - Encounter for general adult medical examination without abnormal findings Hepatitis A,B,C Profile 4 Months Z00.00 - Encounter for general adult medical examination without abnormal findings Lipid Panel 4 Months Z00.00 - Encounter for general adult medical examination without abnormal findings Microalbumin, Random (w Creat) 4 Months Z00.00 - Encounter for general adult medical examination without abnormal findings TSH reflex Free T4 4 Months Z00.00 - Encounter for general adult medical examination without abnormal findings Medications: New furosemide (Lasix) 40 mg PO BID 180 tabs 1RF 90 days Discontinued furosemide Discontinued Reason: Doctor's Order 80 mg PO DAILY 7 tabs 0RF Patient Instructions: - Furosemide: I have sent a prescription for both 40 mg and 80 mg tablets to your pharmacy. You can take the 80 mg dose when your swelling is worse, and the 40 mg dose when it is less severe. - Meloxicam and Omeprazole: When you take your meloxicam for knee pain, you must also take the omeprazole at the same time. The omeprazole helps protect your stomach from potential damage and bleeding that can be caused by the meloxicam. - Follow-Up Appointment: Your next appointment will be a physical in four months. We will cancel the appointment you had scheduled for September. Please give the paper at the front end wheel loader operator to schedule your next visit. - Lab Work: Please go to the lab to have your blood work done one week before your next appointment in four months. You do not need a paper order; just give them your name at the lab. - Continue all other medications as prescribed.
[2025-09-08 14:15] VITALS: BP 146/72; PULSE 67; RESP 18; TEMP 36.7; O2SAT 95; BMI 40.2
--- OUTSIDE RECORDS SUMMARY | 2025-09-08 20:33 | XMS_ITS | Clinical Summary ---
Author Organization [facility] Address [address] [place] [address] Phone Care Team Providers Care Spinning Lathe Operator Hydraulic Name Role Phone Jose Valdes MD Primary [...] Take 1 mg by mouth. Active multivitamin-mi [id number]-vit K (ADULTS MULTIVITAMIN) 18 mg iron-400 mcg-25 [...] Encounters Date Type Department Care Team Description 08/01/2025 Telephone [facility] [address] [place] [address] Haylee Matute OT 07/08/2025 Transcribe Orders [facility] [address] [place] [address] Tristan Burger MD Encounter for rehabilitation (Primary Dx) from Last 3 Months Immunizations [...] topic Medical Devices Not on file Insurance [facility] MEDICARE PART A & B [facility] MEDICARE PART A & [facility] MEDICARE PART A & B MEDICARE PART A & B MEDICARE PART A & B [facility] MEDICARE PART A & B [facility] MEDICARE PART A & B [facility] MEDICARE PART A & B [facility] MEDICARE PART A & B Care Teams Spinning Lathe Operator Hydraulic Relationship Specialty Start Date End Date Jose Valdes MD [address] [place] [address] [place] [address] PCP - General Internal Medicine 08/04/17 Additional Source Comments The information contained in this document represents components of the legal health record. It is not the complete legal health record.[facility]
--- OUTSIDE RECORDS SUMMARY | 2025-09-08 20:33 | XMS_ITS | Patient Health Record ---
Author Organization [facility] Address [address] [place] [id number] Care Team Providers Care Music Department Chair Name Role Phone Lucio (RETIRED) Jose [place] Primary Care Provide r Unavailable Jeromy Hunt Unavailable [phone] Allergies Allergen (clinical drug ingredient) Drug/Non Drug Allergy documented on EMR Reaction Allergy Type Onset Date Status seasonal allergies (uncoded) Unknown Allergy Active hydrochlorothiazide Hydrochlorothiazide Unknown Drug Aller gy Active Reason For Referral No Information Medications Medication SIG (Take, Route, Frequency, Duration) Notes Start Date End Date Status tylenol 1 tab Oral twice a day Active Gas Relief 80 MG Tablet Chewable 1 tablet after meals and at bedtime as needed Orally Four times a day Active Baclofen 20 MG Tablet 1 tablet with food or milk Orally twice a day Active amLODIPine Besylate 2.5 MG Tablet TAKE 1 TABLET BY MOUTH EVERY DAY Orally Once a day Active Calcium 500 MG Tablet 1 tablet with meal s Orally Twice a day; Duration: 30 day(s) Active Omeprazole 20 MG Capsule Delayed Release TAKE 1 CAPSULE BY MOUTH TWICE A DAY; Duration: 90 Active Myrbetriq 25 MG Tablet Extended Release 24 Hour 1 tablet Orally twice a day Active Furosemide 40 MG Tablet 1 tablet Orally once a day/as directed Active Ketoconazole 2 % Shampoo PLEASE SEE CHELY COX FOR DETAILED DIRECTIONS External; Duration: 30 Active Citalopram Hydrobromide 10 MG Tablet Orally Once a day Active Estring 7.5 MCG/24HR Ring Vaginal; Duration: 90 Active Florinda 180 mg tablet 1 tablet orally as directed Active NexIUM 40 MG Capsule Delayed Release 1 capsule Orally Once a day; Duration: 90 06/27/2012 Not-Taking/PRN Multivitamins multi Capsule 1 capsule Orally once a day Active Simvastatin 20 MG Tablet 1 tablet in the evening Orally Once a day Active Solifenacin Succinate 5 MG Tablet Oral; Duration: 90 Active Immunizations Vaccine Route Administration Date Status Comme nts Influenza Unknown 07/26/2019 Administered Influenza Unknown 05/26/2021 Administered Influenza Unknown 06/13/2023 Administered Social History Social History Additional Details Category Social Info Options Details Miscellaneous: Marital status: 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 Section Notes: Nonsmoker; no significant al cohol use Nonsmoker; no significant al cohol use Nonsmoker; no significant al cohol use Nonsmoker; no significant al cohol use Nonsmoker; no significant al cohol use Nonsmoker; no significant al cohol use Problems Problem Type SNOMED Code ICD Code Onset Dates Problem Status W/U Status Risk Notes Problem Gastro-esophageal reflux disease without esophagitis (502699270) Gastro-esophageal reflux disease without esophagitis (K21.9) Active confirmed Problem Screening for malignant neoplasm of colon (903327324) Encounter for screening for malignant neoplasm of colon (Z12.11) Active confirmed Problem Screening for malignant neoplasm of rectum (391239966) Encounter for screening for malignant neoplasm of rectum (Z12.12) Active confirmed Problem Gastroesophageal reflux disease (307312030) Gastroesophageal reflux disease, esophagitis presence not specified (K21.9) Active confirmed Problem Benign neoplasm of stomach (82140985) Gastric polyps (K31.7) Active confirmed Problem Gastritis (0754656) Gastritis (K29.70) Active c onfirmed Problem Esophageal reflux finding (503178656) Gastroesophageal reflux (K21.9) Active confirmed Problem Upper abdominal pain (86259047) Upper abdominal pain (R10.10) Active confirmed Problem Epigastric pain (83869920) Abdominal discomfort, epigastric (R10.13) Active confirmed Plan [...] [place] [address] [place] [address] [phone] [id number] DANTE LÓPEZ Self - patient is the insured [facility] [address] [place], [place] [id number] [phone] [id number] DANTE LÓPEZ Self - patient is the [...] LLE and LUE from previous CVA Denies IN,DM,Lung disease,renal disease Urinary incontinence Broken ribs 2017 [...]
--- OUTSIDE RECORDS SUMMARY | 2025-09-08 20:33 | XMS_ITS | Encounter Summary ---
Author Organization [facility] Address [address] [place] [address] [place] [phone] Phone Care Team Providers Care Charter Coach Driver Name Role Phone Jose Valdes MD Primary Care Provider Reason for Referral * Physical Therapy (Routine) - Closed Specialty Diagnoses / Procedures Referred By Contac t Referred To Contact Physical Therapy Diagnoses Encounter for rehabilitation System, Provider Not In, PhD [id number] [place] [id number] Phone: tel: Referral ID Status Reason Start Date Expiration Date Visits Re quested Visits Authorized [id number] Closed 08/10/2017 09/24/2018 25 25 Encounter Details Date Type Department Care Team (Latest Contact Info) Description 08/09/2017 Transcribe Orders [facility] [address] [place] [id number] Jose Valdes MD [address] [place] [address] [place] [address] Encounter for rehabilitation (Primary Dx) Social History [...] Diagnoses Orde r Schedule Ambulatory referral to [facility] Physical Therapy Outpatient Referral Routine Encounter for rehabilitation Ordered: 08/10/2017 documented as of this encounter Visit Diagnoses Diagnosis Encounter for rehabilitation- Primary documented in this encounter Care Teams Charter Coach Driver Relationship Specialty Start Date End Date Jose Valdes MD [address] [place] [address] [place] [address] PCP - General Internal Medicine 08/04/17 documented as of this encounter Additional Source Comments The information contained in this document represents components of the legal health record. It is not the complete legal health record.[facility]
--- OUTSIDE RECORDS SUMMARY | 2025-09-08 20:33 | XMS_ITS | Encounter Summary ---
Author Organization [facility] Address [address] [place] [address] [place] [phone] Phone Care Team Providers Care Electrical And Radio Mechanic Name Role Phone Jose Valdes MD Primary Care Provider Reason for Referral * Physical Therapy (Routine) - Closed Specialty Diagnoses / Procedures Referred By Contac t Referred To Contact Physical Therapy Diagnoses Encounter for rehabilitation System, Provider Not In, PhD [id number] [place] [id number] Phone: tel: Referral ID Status Reason Start Date Expiration Date Visits Re quested Visits Authorized [id number] Closed 10/16/2017 10/16/2018 99 99 Encounter Details Date Type Department Care Team (Latest Contact Info) Description 10/16/2017 Transcribe Orders [facility] Rehabilitation Services [address] [place] [phone] Jose Valdes MD [address] [place] [address] [place] [address] Encounter for rehabilitation (Primary Dx) Social History [...] Diagnoses Orde r Schedule Ambulatory referral to [facility] Physical Therapy Outpatient Referral Routine Encounter for rehabilitation Ordered: 10/16/2017 documented as of this encounter Visit Diagnoses Diagnosis Encounter for rehabilitation- Primary documented in this encounter Care Teams Electrical And Radio Mechanic Relationship Specialty Start Date End Date Jose Valdes MD [address] [place] [address] [place] [id number] PCP - General Internal Medicine 08/04/17 documented as of this encounter Additional Source Comments The information contained in this document represents components of the legal health record. It is not the complete legal health record.[facility]
== END 2025-09-08 14:41 | disposition home or self-care (01) ==
PROVIDERS: PCP Student in an Organized Health Care Education/Training Program; Visit Provider Student in an Organized Health Care Education/Training Program
DX: I89.0 Lymphedema, not elsewhere classified (principal); I10 Essential (primary) hypertension; E78.49 Other hyperlipidemia; G81.14 Spastic hemiplegia affecting left nondominant side; M25.561 Pain in right knee; K21.9 Gastro-esophageal reflux disease without esophagitis

== ENCOUNTER → 2025-09-08 14:04 | Outpatient (BNVA) | payer MEDICARE, BC, SELFPAY | PROVIDERS: PCP Internal Medicine; Visit Provider Student in an Organized Health Care Education/Training Program | DX: I10 Essential (primary) hypertension (principal); G81.14 Spastic hemiplegia affecting left nondominant side; M25.561 Pain in right knee; K21.9 Gastro-esophageal reflux disease without esophagitis; I89.0 Lymphedema, not elsewhere classified; Z79.899 Other long term (current) drug therapy | CPT/HCPCS: 99212 ==

== ENCOUNTER 2025-09-23 07:02 | Day surgery (SDC) | payer MEDICARE, BC, SELFPAY ==
--- OUTSIDE RECORDS SUMMARY | 2021-01-30 16:17 | XMS_ITS | Encounter Summary ---
Author Organization [facility] Address [address] [place] [address] [address] [place] [address] Phone Care Team Providers Care Commodity Loan Clerk Name Role Phone Jose Valdes MD Primary Care Provider Encounter Details Date Type Department Care Team (Late st Contact Info) Description 01/30/2021 5:17 PM EDT Hospital Encounter [facility] [address] [place] [address] Simon Gregory PA [address] [place] [phone] [email or web address] g Social History Tobacco Use Types Packs/Day Years Used Date Smoking Tobacco: Never Smokeless Tobacco: Never Education Answer Date Recorded Are you interested in more education? Not on laurel e 01/27/2023 Are you concerned about learning? Not on file 01/27/2023 No 01/27/2023 No 01/27/2023 Digital Access Answer Date Recorded No 02/15/2023 No 02/15/2023 Reliable internet access at home? Not on file 02/15/2023 Device with a working camera? Not on file Comments Unknown Sex and Gender Information Value Date Recorded Sex Assigned at Not on file Legal Sex Female 9:23 AM EST Gender Identity Not on file Sexual Orientation Not on file documented as of this encounter Plan of Treatment Not on file documented as of this encounter Procedures Procedure Name Priority Date/Time Associated Diagnosis Comments XR FINGER 2 OR MORE VIEWS (LEFT) Urgent/patient waiting 01/30/2021 5:29 PM EDT Displaced fracture of middle phalanx of left middle finger, initial encounter for closed fracture documented in this encounter Results * XR FINGER 2 OR MORE VIEWS (LEFT) (01/30/2021 5:29 PM EDT) Anatomical Region Laterality Modality Hand Left Computed Radiogr aphy 01/30/2021 5:35 PM EDT Impressions 01/30/2021 5:38 PM EDT There is fracture at the palmar base of the third middle phalanx. Associated dorsal subluxation of the middle phalanx relative to the proximal phalanx. Narrative 01/30/2021 5:38 PM EDT TECHNIQUE: XR FINGER 2 OR MORE VIEWS (LEFT) COMPARISON: None Procedure Note Slick Ferreira MD, PhD - 01/30/2021 TECHNIQUE: XR FINGER 2 OR MORE VIEWS (LEFT) COMPARISON: None IMPRESSION: There is fracture at the palmar base of the third middle phalanx.Associated dorsal subluxation of the middle phalanx relative to theproximal phalanx. Simon CANAS IMG XR UPPER EXTREMITY Christel l Result documented in this encounter Visit Diagnoses Not on filedocumented in this encounter Care Teams Commodity Loan Clerk Relationship Specialty Start Date End Date Jose Valdes MD [address] [place] [address] [place] [address] PCP - General Internal Medicine 08/04/17 documented as of this encounter Additional Source Comments The information contained in this document represents components of the legal health record. It is not the complete legal health record.[facility]
--- OUTSIDE RECORDS SUMMARY | 2021-01-30 16:59 | XMS_ITS | Encounter Summary ---
Author Organization [facility] Address [address] [place] [address] [address] [place] [address] Phone Care Team Providers Care Map Compiler Name Role Phone Jose Valdes MD Primary Care Provider Encounter Details Date Type Department Care Team (Late st Contact Info) Description 01/30/2021 5:59 PM EDT Hospital Encounter [facility] [address] [place] [phone] Simon Gregory PA [address] [place] [phone] [email or web address] g Social History Tobacco Use Types Packs/Day [...] on filedocumented in this encounter Care Teams Map Compiler Relationship Specialty Start Date End Date Jose Valdes MD [address] [place] [address] [place] [address] PCP - General Internal Medicine 08/04/17 documented as of this encounter Additional Source Comments The information contained in this document represents components of the legal health record. It is not the complete legal health record.[facility]
--- OUTSIDE RECORDS SUMMARY | 2023-05-07 08:52 | XMS_ITS | Encounter Summary ---
Author Organization [facility] Address [address] [place] [address] [address] [place] [address] Phone Care Team Providers Care Brazing Machine Feeder Name Role Phone Jose Valdes MD Primary Care Provider Encounter Details Date Type Department Care Team (Late st Contact Info) Description 05/07/2023 9:52 AM EDT Hospital Encounter [facility] [address] [place] [phone] Karley Long CNP [address] [place] [address] Social History Tobacco Use Types Packs/Day Years Used Date Smoking Tobacco: Never Smokeless Tobacco: Never Education Answer Date Recorded Are you interested in more education? Not on luarel e 01/27/2023 Are you concerned about learning? [...] Name Priority Date/Time Associated Diagnosis Comments XR CHEST PA AND LATERAL 2 VIEWS Urgent/patient waiting 05/07/2023 10:01 AM EDT Acute cough documented in this encounter Results * XR CHEST PA AND LATERAL 2 VIEWS (05/07/2023 10:01 AM EDT) Anatomical Region Laterality Modality Chest Computed Radiogr aphy 05/07/2023 10:0 7 AM EDT Impressions 05/07/2023 10:09 AM EDT Peribronchial haziness in the right lower lobe could represent infection/inflammation in the appropriate clinical setting. Narrative 05/07/2023 10:09 AM EDT XR CHEST PA AND LATERAL 2 VIEWS COMPARISON: None FINDINGS: Devices/Tubes/Lines: None. Lungs: Peribronchial haziness in the right lower lobe. No focal consolidation or pulmonary edema. Pleura: No pleural effusion or pneumothorax. Heart/Mediastinum: Normal heart and mediastinum. Bones/Soft Tissues: There are degenerative changes of the visualized spine. Procedure Note Choco Urrutia MD - 05/07/2023 XR CHEST PA AND LATERAL 2 VIEWS COMPARISON: None FINDINGS: Devices/Tubes/Lines: None. Lungs: Peribronchial haziness in the right lower lobe. No focalconsolidation or pulmonary edema. Pleura: No pleural effusion or pneumothorax. Heart/Mediastinum: Normal heart and mediastinum. Bones/Soft Tissues: There are degenerative changes of the visualizedspine. IMPRESSION: Peribronchial haziness in the right lower lobe could representinfection/inflammation in the appropriate clinical setting. Karley Long COURTESY CAR DRIVER IMG XR CHEST Final Resul t documented in this encounter Visit Diagnoses Not on filedocumented in this encounter Care Teams Brazing Machine Feeder Relationship Specialty Start Date End Date Jose Valdes MD [address] [place] [address] Dr Pineda, KATHY [phone] PCP - General Internal Medicine 08/04/17 documented as of this encounter Additional Source Comments The information contained in this document represents components of the legal health record. It is not the complete legal health record.[facility]
--- OUTSIDE RECORDS SUMMARY | 2024-12-09 12:51 | XMS_ITS | Encounter Summary ---
Author Organization [facility] Address [address] [place] [address] [address] [place] [address] Phone Care Team Providers Care Dye House Vat Worker Name Role Phone Jose Valdes MD Primary Care Provider Encounter Details Date Type Department Care Team (Late st Contact Info) Description 12/09/2024 1:51 PM EDT Hospital Encounter [facility] [address] [place] [address] Adriana Clark FNP [address] [place] [phone] [email or web address] [place] Social History Tobacco Use Types Packs/Day Years [...] clinician's provided indication for this examination in [facility]: Dyspnea (Shortness of Breath); wheezing for weeks. [...] clinician's provided indication for this examination in [facility]:Dyspnea (Shortness of Breath); wheezing for weeks. already took zpack,steroids and inhaler COMPARISON: XR CHEST PA AND LATERAL 2 VIEWS FINDINGS: Devices/Tubes/Lines: None. Lungs: No focal consolidation or pulmonary edema. Mild biapicalscarring. Pleura: No pleural effusion or pneumothorax. Heart/Mediastinum: Unchanged in appearance. Bones/Soft Tissues: Multilevel degenerative changes of the thoracicspine. IMPRESSION: No acute abnormality. Adriana Clark MENTAL HEALTH COORDINATOR IMG XR CHEST Final Resul t documented in this encounter Visit Diagnoses Not on filedocumented in this encounter Care Teams Dye House Vat Worker Relationship Specialty Start Date End Date Jose Valdes MD [address] [place] [address] [place] [address] PCP - General Internal Medicine 08/04/17 documented as of this encounter Additional Source Comments The information contained in this document represents components of the legal health record. It is not the complete legal health record.[facility]
--- OUTSIDE RECORDS SUMMARY | 2025-09-10 16:01 | XMS_ITS | Patient Health Record ---
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 Section Notes: Nonsmoker; no significant al cohol use Nonsmoker; no significant al cohol use Nonsmoker; no significant al cohol use Nonsmoker; no significant al cohol use Nonsmoker; no significant al cohol use Nonsmoker; no significant al cohol use Problems Problem Type SNOMED Code ICD Code Onset Dates Problem Status W/U Status Risk Notes Problem Gastro-esophageal reflux disease without esophagitis (792007730) Gastro-esophageal reflux disease without esophagitis (K21.9) Active confirmed Problem Screening for malignant neoplasm of colon (876529491) Encounter for screening for malignant neoplasm of colon (Z12.11) Active confirmed Problem Screening for malignant neoplasm of rectum (083571794) Encounter for screening for malignant neoplasm of rectum (Z12.12) Active confirmed Problem Gastroesophageal reflux disease (587471599) Gastroesophageal reflux disease, esophagitis presence not specified (K21.9) Active confirmed Problem Benign neoplasm of stomach (77653721) Gastric polyps (K31.7) Active confirmed Problem Gastritis (8262530) Gastritis (K29.70) Active c onfirmed Problem Esophageal reflux finding (609917973) Gastroesophageal reflux (K21.9) Active confirmed Problem Upper abdominal pain (68870374) Upper abdominal pain (R10.10) Active confirmed Problem Epigastric pain (90916674) Abdominal discomfort, epigastric (R10.13) Active confirmed Plan [...] [place] [address] [place] [address] [id number] DANTE LÓPEZ Self - patient is the insured [facility] [address] [place], [place] [id number] DANTE LÓPEZ Self - patient is the [...] LLE and LUE from previous CVA Denies IA,DM,Lung disease,renal disease Urinary incontinence Broken ribs 2017 [...]
--- OUTSIDE RECORDS SUMMARY | 2025-09-10 16:01 | XMS_ITS | Encounter Summary ---
Author Organization [facility] Address [address] [place] [address] [place] [phone] Phone Care Team Providers Care Director Of Rotc Name Role Phone Jose Valdes MD Primary Care Provider Reason for Referral * Physical Therapy (Routine) - Closed Specialty Diagnoses / Procedures Referred By Contac t Referred To Contact Physical Therapy Diagnoses Encounter for rehabilitation System, Provider Not In, PhD [address] [address] Phone: tel: Referral ID Status Reason Start Date Expiration Date Visits Re quested Visits Authorized [id number] Closed 08/10/2017 09/24/2018 25 25 Encounter Details Date Type Department Care Team (Latest Contact Info) Description 08/09/2017 Transcribe Orders [facility] [address] [place] [phone] Jose Valdes MD [address] [place] [address] [place] [address] Encounter for rehabilitation (Primary Dx) Social History [...] Diagnoses Orde r Schedule Ambulatory referral to [facility] Physical Therapy Outpatient Referral Routine Encounter for rehabilitation Ordered: 08/10/2017 documented as of this encounter Visit Diagnoses Diagnosis Encounter for rehabilitation- Primary documented in this encounter Care Teams Director Of Rotc Relationship Specialty Start Date End Date Jose Valdes MD [address] [place] [address] [place] [id number] PCP - General Internal Medicine 08/04/17 documented as of this encounter Additional Source Comments The information contained in this document represents components of the legal health record. It is not the complete legal health record.[facility]
--- OUTSIDE RECORDS SUMMARY | 2025-09-10 16:01 | XMS_ITS | Clinical Summary ---
Author Organization [facility] Address [address] [facility] [address] [place] [address] Phone Care Team Providers Care Operator Helper Name Role Phone Jose Valdes [...] Take 1 mg by mouth. Active multivitamin-mi p-[id number]-vit K (ADULTS MULTIVITAMIN) 18 mg iron-400 mcg-25 [...] Type Department Care Team Description 08/01/2025 Telephone [facility] [address] [place] [address] Haylee Matute OT 07/08/2025 Transcribe Orders [facility] [address] [place] [address] Tristan Burger MD Encounter for rehabilitation (Primary [...] [facility] PART A & B [facility] MED[facility]ARE PART A & B MEDICARE PART A & B MEDICARE PART A & B [facility] MEDICARE PART A & B [facility] MEDICARE PART A & B [facility] MEDICARE PART A & B [facility] MEDICARE PART A & B Care Teams Operator Helper Relationship Specialty Start Date End Date Jose Valdes MD [address] [place] [address] [place] [address] PCP - General Internal Medicine 08/04/17 Additional Source Comments The information contained in this document represents components of the legal health record. It is not the complete legal health record.[facility]
--- OUTSIDE RECORDS SUMMARY | 2025-09-10 16:01 | XMS_ITS | Encounter Summary ---
Author Organization [facility] Address [address] [place] [address] [place] [phone] Phone Care Team Providers Care Rail Signal Worker Name Role Phone Jose Valdes MD Primary Care Provider Reason for Referral * Physical Therapy (Routine) - Closed Specialty Diagnoses / Procedures Referred By Contac t Referred To Contact Physical Therapy Diagnoses Encounter for rehabilitation System, Provider Not In, PhD [address] [address] Phone: tel: Referral ID Status Reason Start Date Expiration Date Visits Re quested Visits Authorized [id number] Closed 10/16/2017 10/16/2018 99 99 Encounter Details Date Type Department Care Team (Latest Contact Info) Description 10/16/2017 Transcribe Orders [facility] [address] [place] [phone] Jose Valdes MD [address] [place] [address] [place] [address] Encounter for rehabilitation (Primary Dx) Social History [...] Diagnoses Orde r Schedule Ambulatory referral to [facility] Physical Therapy Outpatient Referral Routine Encounter for rehabilitation Ordered: 10/16/2017 documented as of this encounter Visit Diagnoses Diagnosis Encounter for rehabilitation- Primary documented in this encounter Care Teams Rail Signal Worker Relationship Specialty Start Date End Date Jose Valdes MD [address] [place] [address] [place] [address] PCP - General Internal Medicine 08/04/17 documented as of this encounter Additional Source Comments The information contained in this document represents components of the legal health record. It is not the complete legal health record.[facility]
--- NOTE | 2025-09-16 14:16 | HO.ANESPROP2 ---
Documented by User: Enma Garcia NP 09/17/25 09:27 HPI - Anesthesia Eval Consult details Narrative: 74 yr old female for cystoscopy bladder botox injection BMI 40 Chronic lymphedema: managed with lasix JUSTIN: on CPAP Chronic cough: was treated for chronic cough in 2023 with antibxs, prednisone, started Breo with good relief, rare albuterol use; seeing [facility] pulmo. [facility] Active Problems Active Problems: All Active Problems (Updated 09/08/25 @ 14:41 by Tristan Burger MD) GERD without esophagitis (Acute) Asthma (Acute) Anxiety (Acute) HLD (hyperlipidemia) (Acute) HTN (hypertension) (Acute) Osteoarthritis of right knee (Acute) Lymphedema (Acute) Right knee pain (Acute) Interstitial lung disease (Acute) Chronic cough (Acute) Detrusor overactivity (Acute) Left spastic hemiparesis (Acute) GERD (gastroesophageal reflux disease) (Acute) Left hand pain (Acute) Opacity of lung on imaging study (Acute) Abnormal abdominal CT scan (Acute) Nocturnal hypoxemia (Acute) Obstructive sleep apnea (Acute) Dyspnea (Acute) CVA (cerebral vascular accident) (Acute) Chronic acquired lymphedema (Acute) Cough (Acute) Dislocation of proximal interphalangeal joint of left middle finger, initial encounter (Acute) Fracture of middle phalanx of left middle finger (Acute) Closed fracture of left proximal humerus (Acute) Intrinsic muscle tightness (Acute) Overactive bladder (Acute) Osteoarthritis of shoulders, bilateral (Acute) Bilateral shoulder pain (Acute) Bursitis of right shoulder (Acute) Right hand pain (Acute) Arthritis of carpometacarpal (CMC) joint of right thumb (Acute) Urge incontinence (Acute) Frequency of urination (Acute) Past Medical History Medical History Basal cell carcinoma Finger contusion Cataract GERD without esophagitis Osteoarthritis of right knee Lymphedema High cholesterol MCI (mild cognitive impairment) Obesity Anxiety disorder Cerebral infarction involving middle cerebral artery Spasticity Left hemiparesis CVA (cerebral vascular accident) Chronic acquired lymphedema Anxiety Hx of skin cancer, basal cell 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 GERD (gastroesophageal reflux disease) HLD (hyperlipidemia) HTN (hypertension) Frequency of urination Urge incontinence Family History Family History Father Parkinson disease Mother Diabetes CAD (coronary artery disease) Family history of problems with anesthesia: No Surgical History Surgical History History of esophagogastroduodenoscopy (EGD) (03/11/22) History of colonoscopy (~12/23/15) History of bladder surgery (11/08/21) History of Hx of hand surgery History of Problems with Anesthesia: No Social History Social History Household Members: None Housing: Condominium Are you a primary customer care manager to a significant other at home: No Do you presently have visiting nurse or other home services: No Alcohol intake: never Patient Tobacco Use Status: Never used Tobacco e-Cigarette/Vaping Use: Never Used Second Hand Smoke Exposure: No Use of substances other than those prescribed or required for medical reasons: No Have you been hit, kicked, punched, or otherwise hurt by someone within the past year? If so, by whom?: No Are you DNR?: No Advance Directives: No Advance Directives Information Provided: Yes Advance Directives on File: No service: No Current occupational status: retired Cognitive needs: Yes (cane) Hearing needs: No Vision needs: Yes (reading glasses ) Meds Allergies Allergy/AdvReac Type Severity Reaction Status Date / Time hydrochlorothiazide (HCTZ) Allergy Intermediate Itching Verified 09/08/25 14:10 Home Medications ?Medication ?Instructions ?Recorded ?Confirmed ?Last Taken ?Type multivitamin 1 tab PO DAILY 11/08/21 09/17/25 Unknown History amlodipine 5 mg tablet 5 mg PO DAILY 04/01/25 09/17/25 09/23/25 History aspirin 81 mg chewable tablet 81 mg PO DAILY 04/01/25 09/17/25 09/16/25 History cyclosporine 0.05 % eye drops in a 1 drp ophthalmic (eye) BID 04/21/25 09/17/25 Unknown History dropperette (Restasis) estradiol 2 mg (7.5 mcg/24 hour) 1 vag ring vaginal [id number] 04/21/25 09/17/25 Unknown History vaginal ring (Estring) ketoconazole 2 % topical cream appl topical DAILY PRN Rash 04/21/25 09/08/25 Unknown History mirabegron 25 mg tablet,extended 25 mg PO ONCE 04/21/25 09/17/25 Unknown History release 24 hr nystatin 100,000 unit/gram topical topical BID PRN Rash 04/21/25 09/08/25 Unknown History powder omeprazole 20 mg capsule,delayed 20 mg PO ONCE 04/21/25 09/17/25 09/23/25 History release tretinoin 0.05 % topical cream 1 appl topical BEDTIME 04/21/25 09/17/25 Unknown History acetaminophen 500 mg tablet 500 mg PO BID PRN Pain 07/08/25 09/17/25 Unknown History ketoconazole 2 % shampoo topical 09/08/25 09/08/25 Unknown History meloxicam 15 mg tablet 15 mg PO DAILY 09/08/25 09/17/25 09/16/25 History fluticasone furoate 100 1 ea inhalation BEDTIME 09/17/25 09/17/25 Unknown History mcg-vilanterol 25 mcg/dose inhalation powder (Breo Ellipta) fluticasone propionate 50 1 spray intranasal DAILY PRN Nasal 09/17/25 09/17/25 Unknown History mcg/actuation nasal Congestion spray,suspension (Flonase Allergy Relief) furosemide 40 mg tablet (Lasix) 80 mg PO DAILY 09/17/25 09/17/25 Unknown History Exam Pertinent Lab Results Pertinent Lab Results: Laboratory Tests 04/15/25 14:37 WBC 6.0 RBC 4.41 Hgb 15.3 Hct 43.5 Plt Count 198 Sodium 146 H Potassium 3.6 Carbon Dioxide 27 BUN 17 H Creatinine 0.69 Assessment and Plan Assessment Anesthesia Assessment: Chart Reviewed Final Anesthetic Review Family History of Problems with Anesthesia: No History of Problems with Anesthesia: No Documented by User: Jerardo Cooper MD 09/23/25 07:28 [facility] Past Medical History Medical History Basal cell carcinoma Finger contusion Cataract GERD without esophagitis Osteoarthritis of right knee Lymphedema High cholesterol MCI (mild cognitive impairment) Obesity Anxiety disorder Cerebral infarction involving middle cerebral artery Spasticity Left hemiparesis CVA (cerebral vascular accident) Chronic acquired lymphedema Anxiety Hx of skin cancer, basal cell 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 GERD (gastroesophageal reflux disease) HLD (hyperlipidemia) HTN (hypertension) Frequency of urination Urge incontinence Functional capacity: uses cane/walker Family History Family History Father Parkinson disease Mother Diabetes CAD (coronary artery disease) Surgical History Surgical History History of esophagogastroduodenoscopy (EGD) (03/11/22) History of colonoscopy (~12/23/15) History of bladder surgery (11/08/21) History of Hx of hand surgery Social History Social History Household Members: None Housing: Condominium Are you a primary customer care manager to a significant other at home: No Do you presently have visiting nurse or other home services: No Alcohol intake: never Patient Tobacco Use Status: Never used Tobacco e-Cigarette/Vaping Use: Never Used Second Hand Smoke Exposure: No Use of substances other than those prescribed or required for medical reasons: No Have you been hit, kicked, punched, or otherwise hurt by someone within the past year? If so, by whom?: No Are you DNR?: No Advance Directives: No Advance Directives Information Provided: Yes Advance Directives on File: No service: No Current occupational status: retired Cognitive needs: Yes (cane) Hearing needs: No Vision needs: Yes (reading glasses ) Meds Allergies Allergy/AdvReac Type Severity Reaction Status Date / Time hydrochlorothiazide (HCTZ) Allergy Intermediate Itching Verified 09/08/25 14:10 Home Medications ?Medication ?Instructions ?Recorded ?Confirmed ?Last Taken ?Type multivitamin 1 tab PO DAILY 11/08/21 09/17/25 Unknown History amlodipine 5 mg tablet 5 mg PO DAILY 04/01/25 09/17/25 09/23/25 History aspirin 81 mg chewable tablet 81 mg PO DAILY 04/01/25 09/17/25 09/16/25 History cyclosporine 0.05 % eye drops in a 1 drp ophthalmic (eye) BID 04/21/25 09/17/25 Unknown History dropperette (Restasis) estradiol 2 mg (7.5 mcg/24 hour) 1 vag ring vaginal [id number] 04/21/25 09/17/25 Unknown History vaginal ring (Estring) ketoconazole 2 % topical cream appl topical DAILY PRN Rash 04/21/25 09/08/25 Unknown History mirabegron 25 mg tablet,extended 25 mg PO ONCE 04/21/25 09/17/25 Unknown History release 24 hr nystatin 100,000 unit/gram topical topical BID PRN Rash 04/21/25 09/08/25 Unknown History powder omeprazole 20 mg capsule,delayed 20 mg PO ONCE 04/21/25 09/17/25 09/23/25 History release tretinoin 0.05 % topical cream 1 appl topical BEDTIME 04/21/25 09/17/25 Unknown History acetaminophen 500 mg tablet 500 mg PO BID PRN Pain 07/08/25 09/17/25 Unknown History ketoconazole 2 % shampoo topical 09/08/25 09/08/25 Unknown History meloxicam 15 mg tablet 15 mg PO DAILY 09/08/25 09/17/25 09/16/25 History fluticasone furoate 100 1 ea inhalation BEDTIME 09/17/25 09/17/25 Unknown History mcg-vilanterol 25 mcg/dose inhalation powder (Breo Ellipta) fluticasone propionate 50 1 spray intranasal DAILY PRN Nasal 09/17/25 09/17/25 Unknown History mcg/actuation nasal Congestion spray,suspension (Flonase Allergy Relief) furosemide 40 mg tablet (Lasix) 80 mg PO DAILY 09/17/25 09/17/25 Unknown History Exam Exam Date and Time: 09/23/2025 Airway TM Dist: >3cm Neck ROM: Limited Loose/Missing/Broken Teeth: No Heart: ok Lungs: ok Other: ok Assessment and Plan Assessment Anesthesia Assessment: Anesthesia Plan Discussed Final Anesthetic Review NPO: Yes ASA Class: III Final Preanesthetic Review: No Changes in Pt Med Stat, Meds/Allgs Chart Reviewed, Consent Obtained/Reviewed and Anes Risks/Benef Reviewed Patient Risk: Intermediate Procedure Risk: Low Anesthetic Plan Anesthetic Plan: GA Disposition: Standard PACU
[2025-09-17 11:50] VITALS: BMI 40.2
[2025-09-17 12:34] VITALS: BMI 40.2
[2025-09-23 07:03] VITALS: BP 136/60; PULSE 74; RESP 16; TEMP 36.4; O2SAT 95; BMI 39.6
--- NOTE | 2025-09-23 07:32 | MHC.SHP ---
Pre-Procedural Eval Section A - 24 Hr Update-Section A only Date of Service: 09/23/25 The patient is an INPATIENT: No The patient has been examined within 24 hours of the surgical procedure. The History & Physical has been completed within 30 days and I have reviewed it.: Yes Section B - Complete if H&P > 30 days Chief Complaint: Overactive bladder Allergies: Allergies Allergy/AdvReac Type Severity Reaction Status Date / Time hydrochlorothiazide (HCTZ) Allergy Intermediate Itching Verified 09/08/25 14:10 Plan Diagnosis/Plan: Unchanged I have reviewed the history and physical and performed a pertinent physical examination on my patient. No changes have occurred unless specified. Cystoscopy. Bladder botox injection. Time Spent With Patient Time: Total time managing care of this patient today ____ minutes.
--- NOTE | 2025-09-23 07:34 | W.PM.OPN ---
Operative Note Operative Note Date of Service: 09/23/25 Narrative: PREOP DIAGNOSIS: OAB POSTOP DIAGNOSIS: OAB PROCEDURE: CYSTOSCOPY, BLADDER BOTOX INJECTION 100 UNITS SURGEON: Mirtha Uribe MD ANESTHESIA: General Details of procedure: The patient was brought into the operating room placed on the OR table in supine position. Antibiotics confirmed. General anesthesia was administered. The patient was repositioned into lithotomy position, prepped and draped in the usual sterile fashion. Time-out was done per protocol. A 22 fr cystoscope was placed transurethrally into the bladder. Urine was sent for culture. The right and left ureteral orifices were visualized. There were moderate trabeculations and small diverticuli noted. The bladder neck was patulous. There were no suspicious bladder lesions seen. The Botox 100 units was mixed with 10 cc of normal saline and transurethral injections were placed into the posterior wall of the bladder. 0.5cc placed at each injection site. Injections were placed in a grid 5 across and 4 longitudinally. Injections were placed from the inferior to superior position. 2% lidocaine urojet was passed transurethrally into the bladder. The patient was brought out of anesthesia and taken to recovery in stable condition. Complications: None EBL: minimal (<5 mL) Drains: none
[2025-09-23 08:40] VITALS: BP 124/69; PULSE 66; RESP 16; TEMP 36.9; O2SAT 99
[2025-09-23 08:45] VITALS: BP 122/68; PULSE 64; RESP 15; O2SAT 99
[2025-09-23 08:50] VITALS: BP 127/67; PULSE 74; RESP 18; O2SAT 100
[2025-09-23 08:55] VITALS: BP 115/63; PULSE 69; RESP 15; O2SAT 97
[2025-09-23 09:10] VITALS: BP 134/70; PULSE 60; RESP 14; TEMP 36.3; O2SAT 96
== END 2025-09-23 09:53 | disposition home or self-care (01) ==
PROVIDERS: PCP Student in an Organized Health Care Education/Training Program; Visit Provider Urology
PROC: 3E0K8GC Introduction of Other Therapeutic Substance into Genitourinary Tract, Via Natural or Artificial Opening Endoscopic (ICD-10-PCS; CPT 52287; principal; 2025-09-23 07:30)
DX: N32.81 Overactive bladder (principal); R35.0 Frequency of micturition; N39.41 Urge incontinence; I89.0 Lymphedema, not elsewhere classified; I69.354 Hemiplegia and hemiparesis following cerebral infarction affecting left non-dominant side; I10 Essential (primary) hypertension; E78.5 Hyperlipidemia, unspecified; K21.9 Gastro-esophageal reflux disease without esophagitis; Z85.828 Personal history of other malignant neoplasm of skin; Z79.899 Other long term (current) drug therapy; Z79.82 Long term (current) use of aspirin; Z88.8 Allergy status to other drugs, medicaments and biological substances
CPT/HCPCS: 52287; 87086; J0131; J0585; J0690; J1100; J1171; J1885; J2003; J2371; J2405; J2704; J2765; J3010

== ENCOUNTER → 2025-09-23 07:02 | Outpatient (BNV) | payer MEDICARE, BC, SELFPAY | PROVIDERS: PCP Student in an Organized Health Care Education/Training Program; Visit Provider Urology | DX: N32.81 Overactive bladder (principal) | CPT/HCPCS: 52287 ==